=== PATIENT | male | born 1930 | race Caucasian/White ===

== ENCOUNTER 2016-11-03 11:26 | Inpatient (IN) | payer MEDICARE, OTHER ==
[2016-11-03] MEDS ORDERED: Sodium Chloride 0.9% 2.5 ML Syringe FLUSH PRN (11:37)
[2016-11-03] MEDS ORDERED: Sodium Chloride 0.9% 10 ML Syringe FLUSH PRN (11:37)
--- NOTE | 2016-11-03 12:44 | CR ---
EXAMINATION: Portable chest radiograph. HISTORY: Shortness of breath. Comparison: 07/27/2016 FINDINGS: The trachea is midline. The heart is borderline in size. The cardiomediastinal silhouette is within normal limits. No pulmonary infiltrates, effusions or pneumothorax. Median sternotomy wires are note d. Degenerative changes noted within the shoulders bilaterally. IMPRESSION: No acute cardiopulmonary process.
[2016-11-03] MEDS ORDERED: Acetaminophen 500 MG Tab PO ONE (12:53)
[2016-11-03] MEDS ORDERED: cefTRIAXone 1 GM in Premix Bag 1 BAG IV ONE (12:54)
[2016-11-03] MEDS ORDERED: Piperacillin/Tazobactam 3.375 GM in Sodium Chloride 0.9% 50 ML IV ONE (12:58)
--- NOTE | 2016-11-03 13:00 | EDM.PDOC ---
[id number] 4d NORMANDY PT Time Seen by Provider: 11/03/16 11:40 Source of Information: Reports: Patient History Limitations: Reports: No Limitations - History of Present Illness INITIAL COMMENTS - FREE TEXT/NARRATIVE: History of present illness: [] Patient was brought from [facility] after pulling out his Curry catheter this morning and found to have a high fever. Patient has been somewhat confused however he does answer questions appropriately on arrival. He has no complaints and denies any pain, shortness of breath, nausea, vomiting or diarrhea. On arrival patient was hypoxic in the high 80s to the high 90s with nasal cannula O2. Review of systems: As per history of present illness and below otherwise all systems reviewed and negative. Past medical history: As per history of present illness and as reviewed below otherwise noncontributory. Surgical history: As per history of present illness and as reviewed below otherwise noncontributory. Social history: No reported history of drug or alcohol abuse. Family history: As per history of present illness and as reviewed below otherwise noncontributory. Physical exam: General: Well developed, well nourished in NAD HEENT: Atraumatic, normocephalic, pupils reactive, negative for conjunctival pallor or scleral icterus, mucous membranes moist, throat clear, neck supple, nontender, trachea midline. Lungs: Clear to auscultation, breath sounds equal bilaterally, chest nontender. No respiratory distress no accessory muscle use Heart: S1S2, regular, negative for clicks, rubs, or JVD. Abdomen: Soft, nondistended, nontender. Negative for masses or hepatosplenomegaly. Negative for costovertebral tenderness. Pelvis: Stable nontender. Genitourinary: Deferred. Rectal: Deferred. Extremities: Atraumatic, negative for cords or calf pain. Neurovascular unremarkable. 2+ pitting edema lower extremities Neuro: Awake, somnolent answers questions. Cranial nerves II through XII unremarkable. Cerebellum unremarkable. Motor and sensory unremarkable throughout. Exam nonfocal. Diagnostics: Labs and x-rays were done. No specific infiltrate or acute changes on x-ray are found. White count is elevated with a shift lactic acid was normal Therapeutics: [] Curry catheter was replaced, Zosyn started ED to cover potential pneumonia Impression: [] Acute febrile illness Plan: [] Admit for further workup and treatment to hospitalist Dr. Andelin Definitive disposition and diagnosis as appropriate pending reevaluation and review of above. - Related Data Allergies Allergy/AdvReac Type Severity Reaction Status Date / Time No Known Allergies Allergy Verified 07/27/16 17:41 Home Meds: Home Meds Furosemide [Lasix] 40 mg PO BID 01/16/14 [History] Lisinopril 10 mg PO DAILY 01/16/14 [History] Simvastatin [Zocor] 40 mg PO BEDTIME 01/16/14 [History] Bisacodyl [Dulcolax] 10 mg RECTAL DAILY 11/03/16 [History] Finasteride 5 mg PO DAILY 11/03/16 [History] Levothyroxine Sodium [Tirosint] 50 mcg PO ACBREAKFAST 11/03/16 [History] Mag Carb/Al Hydrox/Alginic Ac [Gaviscon Liquid] 30 ml PO ASDIRECTED PRN [History] Magnesium Hydroxide [Milk of Magnesia] 30 ml PO DAILY PRN 11/03/16 [History] Nystatin [Nystop] 1 applic TOP TID 11/03/16 [History] Pantoprazole [ProTONIX] 40 mg PO ACBREAKFAST 11/03/16 [History] Warfarin Sodium [Coumadin] 4 mg PO BEDTIME 11/03/16 [History] Past Medical History HEENT History: Reports: Impaired Vision Other HEENT History: on hearing aid Cardiovascular History: Reports: High Cholesterol Genitourinary History: Reports: Retention, Urinary Psychiatric History: Reports: None Hematologic History: Reports: None Immunologic History: Reports: None Oncologic (Cancer) History: Reports: None - Infectious Disease History Infectious Disease History: Reports: None - Past Surgical History Cardiovascular Surgical History: Reports: Valve Replacement GI Surgical History: Reports: EGD Other GI Surgeries/Procedures: Esophageal surgery 1996 Social & Family History - Family History Family Medical History: Noncontributory - Tobacco Use Smoking Status *Q: Never Smoker Second Hand Smoke Exposure: No - Caffeine Use Caffeine Use: Reports: None - Alcohol Use Days Per Week of Alcohol Use: 0 - Recreational Drug Use Recreational Drug Use: No ED ROS GENERAL - Review of Systems Review Of Systems: See Below (See history of present illness) ED EXAM, GENERAL - Physical Exam Exam: See Below (See history of present illness) Course - Vital Signs Last Recorded V/S: Last Vital Signs Temp 38.3 C H 11/03/16 13:34 Pulse 81 11/03/16 13:34 Resp 28 H 11/03/16 13:34 BP 122/54 L 11/03/16 13:34 Pulse Ox 3 L 11/03/16 13:34 - Orders/Labs/Meds Orders: Active Orders 24 hr Category Date Time Status Curry Catheter Insertion [Insert Urinary Catheter] [OM. Care 11/03/16 11:45 Ordered PC] Q24H Urinary Catheter Assessment [RC] ASDIRECTED Care 11/03/16 11:40 Active CULTURE BLOOD [BC] Stat Lab 11/03/16 11:46 Received CULTURE BLOOD [BC] Stat Lab 11/03/16 11:57 Received CULTURE URINE [RM] Stat Lab 11/03/16 12:15 Received Sodium Chloride 0.9% [Saline Flush] Med 11/03/16 11:37 Active 10 ml FLUSH ASDIRECTED PRN Sodium Chloride 0.9% [Saline Flush] Med 11/03/16 11:37 Active 2.5 ml FLUSH ASDIRECTED PRN Blood Culture x2 Reflex Set [OM.PC] Stat Oth 11/03/16 11:37 Ordered Peripheral IV Insertion Adult [OM.PC] Stat Oth 11/03/16 11:38 Ordered Medication Orders Acetaminophen (Tylenol) 650 mg PO Q4H PRN PRN Reason: Pain Ondansetron HCl (Zofran) 4 mg IVPUSH Q4H PRN PRN Reason: Nausea Sodium Chloride (Saline Flush) 10 ml FLUSH ASDIRECTED PRN PRN Reason: Keep Vein Open Sodium Chloride (Saline Flush) 2.5 ml FLUSH ASDIRECTED PRN PRN Reason: Keep Vein Open Vancomycin HCl (Pharmacy To Dose - Vancomycin) 1 dose .XX ASDIRECTED [facility] Labs: Laboratory Tests 11/03/16 11/03/16 11/03/16 Range/Units 11:46 11:46 12:15 WBC 21.38 H (4.0-11.0) K/uL RBC 4.46 L (4.50-5.90) M/uL Hgb 11.0 L (13.0-17.0) g/dL Hct 36.0 L (38.0-50.0) % MCV 80.7 (80.0-98.0) fL MCH 24.7 L (27.0-32.0) pg MCHC 30.6 L (31.0-37.0) g/dL RDW Std Deviation 50.8 (28.0-62.0) fl RDW Coeff of Regulo 17 H (11.0-15.0) % Plt Count 179 (150-400) K/uL MPV 11.50 (7.40-12.00) fL Add Manual Diff YES Neutrophils % (Manual) 75 (48.0-80.0) % Band Neutrophils % 16 % Lymphocytes % (Manual) 2 L (16.0-40.0) % Monocytes % (Manual) 7 (0.0-15.0) % Nucleated RBC % 0.0 /100WBC Absolute Seg Neuts 16.0 Band Neutrophils # 3.4 Lymphocytes # (Manual) 0.4 Monocytes # (Manual) 1.5 Nucleated RBCs # 0 K/uL Sodium 140 (136-146) mmol/L Potassium 3.3 L (3.5-5.1) mmol/L Chloride 101 (98-110) mmol/L Carbon Dioxide 28 (21-31) mmol/L BUN 24 H (6.0-23.0) mg/dL Creatinine 1.5 (0.6-1.5) mg/dL Est Cr Clr Drug Dosing 30.75 mL/min Estimated GFR (MDRD) 44.4 ml/min Glucose 108 (60-110) mg/dL Calcium 8.9 (8.8-10.8) mg/dL Total Bilirubin 1.3 (0.1-1.5) mg/dL AST 18 (5-40) IU/L ALT 14 (8-54) IU/L Alkaline Phosphatase 49 (40-150) Total Protein 7.2 (6.0-8.0) g/dL Albumin 3.6 (3.4-4.8) g/dL Globulin 3.6 H (2.0-3.5) g/dL Albumin/Globulin Ratio 1.0 L (1.3-2.8) Urine Color YELLOW Urine Appearance CLEAR Urine pH 5.5 (5.0-8.0) Ur Specific [place] 1.010 (1.001-1.035) Urine Protein NEGATIVE (NEGATIVE) mg/dL Urine Glucose (UA) NEGATIVE (NEGATIVE) mg/dL Urine Ketones NEGATIVE (NEGATIVE) mg/dL Urine Occult Blood LARGE H (NEGATIVE) Urine Nitrite NEGATIVE (NEGATIVE) Urine Bilirubin NEGATIVE (NEGATIVE) Urine Urobilinogen 0.2 (<2.0) EU/dL Ur Leukocyte Esterase TRACE (NEGATIVE) Urine RBC 30-40 (0-2/HPF) Urine WBC 5-10 (0-5/HPF) Ur Epithelial Cells FEW (NONE-FEW) Urine Bacteria FEW (NEGATIVE) Meds: Medications Generic Name Dose Route Start Last Admin Trade Name Freq PRN Reason Stop Dose Admin Acetaminophen 650 mg 11/03/16 13:43 Tylenol PO Q4H PRN Pain Ondansetron HCl 4 mg 11/03/16 13:43 Zofran IVPUSH Q4H PRN Nausea Sodium Chloride 10 ml 11/03/16 11:37 Saline Flush FLUSH ASDIRECTED PRN Keep Vein Open Sodium Chloride 2.5 ml 11/03/16 11:37 Saline Flush FLUSH ASDIRECTED PRN Keep Vein Open Vancomycin HCl 1 dose 11/03/16 14:30 Pharmacy To Dose - Vancomycin .XX ASDIRECTED CARLOS Discontinued Medications Generic Name Dose Route Start Last Admin Trade Name Freq PRN Reason Stop Dose Admin Acetaminophen 1,000 mg 11/03/16 12:53 11/03/16 13:04 Tylenol Extra Strength PO 11/03/16 12:54 1,000 mg ONETIME ONE Administration Ceftriaxone Sodium/Dextrose 1 50 mls @ 100 mls/hr 11/03/16 12:54 11/03/16 13: 42 gm/ Premix IV 11/03/16 13:23 Not Given ONETIME ONE Piperacillin Sod/Tazobactam 50 mls @ 100 mls/hr 11/03/16 12:58 11/03/16 13:31 Sod 3.375 gm/ Sodium Chloride IV 11/03/16 13:27 100 mls/hr ONETIME ONE Administration Departure - Departure Time of Disposition: 14:21 Disposition: Admitted As Inpatient 65 Condition: fair Clinical Impression: Acute febrile illness - Discharge Information - My Orders Last 24 Hours: My Active Orders 11/03/16 11:37 Sodium Chloride 0.9% [Saline Flush] 10 ml FLUSH ASDIRECTED PRN Sodium Chloride 0.9% [Saline Flush] 2.5 ml FLUSH ASDIRECTED PRN Blood Culture x2 Reflex Set [OM.PC] Stat 11/03/16 11:38 Peripheral IV Insertion Adult [OM.PC] Stat 11/03/16 11:40 Urinary Catheter Assessment [RC] ASDIRECTED 11/03/16 11:45 Curry Catheter Insertion [Insert Urinary Catheter] [OM.PC] Q24H 11/03/16 11:46 CULTURE BLOOD [BC] Stat 11/03/16 11:57 CULTURE BLOOD [BC] Stat 11/03/16 12:15 CULTURE URINE [RM] Stat - Assessment/Plan Last 24 Hours: My Active Orders 11/03/16 11:37 Sodium Chloride 0.9% [Saline Flush] 10 ml FLUSH ASDIRECTED PRN Sodium Chloride 0.9% [Saline Flush] 2.5 ml FLUSH ASDIRECTED PRN Blood Culture x2 Reflex Set [OM.PC] Stat 11/03/16 11:38 Peripheral IV Insertion Adult [OM.PC] Stat 11/03/16 11:40 Urinary Catheter Assessment [RC] ASDIRECTED 11/03/16 11:45 Curry Catheter Insertion [Insert Urinary Catheter] [OM.PC] Q24H 11/03/16 11:46 CULTURE BLOOD [BC] Stat 11/03/16 11:57 CULTURE BLOOD [BC] Stat 11/03/16 12:15 CULTURE URINE [RM] Stat
[2016-11-03] MEDS ORDERED: Acetaminophen 325 MG Tab PO PRN (13:43)
[2016-11-03] MEDS ORDERED: Ondansetron 4 MG/2 ML SDV IVPUSH PRN (13:43)
--- NOTE | 2016-11-03 14:29 | PCM.HP ---
H&P History of Present Illness - General Date of Service: 11/03/16 Admit Problem/Dx: Admission Diagnosis/Problem Admission Diagnosis/Problem Leukocytosis Source of Information: Patient, Family (Setp-son Ananth at bedside. Jones Yamileth out of town, will be back this afternoon.) History Limitations: Reports: No Limitations - History of Present Illness Initial Comments - Free Text/Narative: This 85 year old male with pmh of CHF, bioprosthetic heart valve, afib on chronic anticoagulation with Coumadin, HTN, urinary retention with chronic murray catheter, and frequent UTIs presented to the ED today after [place] staff noted a fever and he accidentally removed his murray. They report he was sitting in his wheelchair and got up and started ambulating alone and murray remained attached thus removing it accidently. Murray was replaced. Fever of 101.2 noted. He really has no other concerns. He reports no chest pain, SOB, palpations, headache, blurred or double vision, no abdominal pain, no recent black or bloody BMs. No diarrhea or constipation. No back or neck pain or stiffness. He was out on Thursday at [employer] . Son though his L leg got a little sunburned, there is a noted erythema with warmth noted, slightly linear in appearance. Legs noted to have edema, which son feels in more, patient states its about the same. In the ED WBC 21,380, Hgb 11.0, Hct 36.0, Plt 179, bandemia noted, 16, Na 140, K + 3.3, BUN 24 and Cr 1.4, which is slightly elevated from baseline of 18 and 0.8. UA revealed lrg blood, RBC 30-40, neg nitrite, trace leukocyte esterase and few bacteria. UC pending and BC pending as well. lactate 1.9. Temp noted at 101.5, slightly hypoxia noted, 87% RA. He was given Rocephin and Zosyn in ED due to concerns of UTI and sepsis. PCP Dr You at [facility] - Related Data Allergies/Adverse Reactions: Allergies Allergy/AdvReac Type Severity Reaction Status Date / Time No Known Allergies Allergy Verified 07/27/16 17:41 Home Medications: Home Meds Furosemide [Lasix] 40 mg PO BID 01/16/14 [History] Lisinopril 10 mg PO DAILY 01/16/14 [History] Simvastatin [Zocor] 40 mg PO BEDTIME 01/16/14 [History] Bisacodyl [Dulcolax] 10 mg RECTAL DAILY 11/03/16 [History] Finasteride 5 mg PO DAILY 11/03/16 [History] Levothyroxine Sodium [Tirosint] 50 mcg PO ACBREAKFAST 11/03/16 [History] Mag Carb/Al Hydrox/Alginic Ac [Gaviscon Liquid] 30 ml PO ASDIRECTED PRN [History] Magnesium Hydroxide [Milk of Magnesia] 30 ml PO DAILY PRN 11/03/16 [History] Nystatin [Nystop] 1 applic TOP TID 11/03/16 [History] Pantoprazole [ProTONIX] 40 mg PO ACBREAKFAST 11/03/16 [History] Warfarin Sodium [Coumadin] 4 mg PO BEDTIME 11/03/16 [History] Past Medical History HEENT History: Reports: Hard of Hearing, Impaired Vision Cardiovascular History: Reports: Heart Failure, Heart Valve Replacement, High Cholesterol, Hypertension Respiratory History: Reports: None Other Gastrointestinal History: Esophogeal dyskinesia Genitourinary History: Reports: Retention, Urinary (chronic murray) Neurological History: Reports: None. Denies: CVA, TIA Psychiatric History: Reports: None Endocrine/Metabolic History: Reports: Hypothyroidism, Obesity/BMI 30+. Denies: Diabetes, Type II Hematologic History: Reports: None Immunologic History: Reports: None Oncologic (Cancer) History: Reports: None - Infectious Disease History Infectious Disease History: Reports: None - Past Surgical History Cardiovascular Surgical History: Reports: Valve Replacement GI Surgical History: Reports: EGD Other GI Surgeries/Procedures: Esophageal surgery 1996 Social & Family History - Family History Family Medical History: Noncontributory - Tobacco Use Smoking Status *Q: Never Smoker Second Hand Smoke Exposure: No - Caffeine Use Caffeine Use: Reports: None - Alcohol Use Days Per Week of Alcohol Use: 0 - Recreational Drug Use Recreational Drug Use: No H&P Review of Systems - Review of Systems: Review Of Systems: See Below General: Reports: Fever, Malaise, Weakness. Denies: Decreased Appetite HEENT: Reports: No Symptoms. Denies: Ear Pain, Headaches, Hearing Changes, Sinus Congestion, Sore Throat, Visual Changes Pulmonary: Reports: No Symptoms. Denies: Shortness of Breath, Wheezing, Cough, Sputum Cardiovascular: Reports: Edema (BLE). Denies: Chest Pain, Palpitations Gastrointestinal: Reports: No Symptoms. Denies: Abdominal Pain, Black Stool, Bloody Stool, Nausea, Vomiting Genitourinary: Reports: No Symptoms. Denies: Dysuria, Frequency, Burning, Flank Pain Musculoskeletal: Reports: No Symptoms. Denies: Neck Pain, Back Pain Skin: Reports: No Symptoms Psychiatric: Reports: No Symptoms Neurological: Reports: Confusion (intermittently, but not confused at time of assessment) Hematologic/Lymphatic: Reports: No Symptoms Immunologic: Reports: No Symptoms Exam - Exam Exam: See Below - Vital Signs Vital Signs: Last Vital Signs Temp 101 F H 11/03/16 13:34 Pulse 81 11/03/16 13:34 Resp 28 H 11/03/16 13:34 BP 122/54 L 11/03/16 13:34 Pulse Ox 3 L 11/03/16 13:34 Weight: 134.944 kg - Exam Quality Assessment: Supplemental Oxygen, Urinary Catheter, DVT Prophylaxis General: Alert, Oriented, Cooperative HEENT: Conjunctiva Clear, EACs Clear, EOMI, Hearing Intact ([place]), Nares Patent, Posterior Pharynx Clear. No: Mucosa Moist & [place] (large tongue, does not wear his dentures, c/o dry mouth, appears slightly dry, but not cracked in appearance ) Neck: Supple, Trachea Midline. No: JVD Lungs: Clear to Auscultation. No: Normal Respiratory Effort (some tachypnea noted, but patient denies feeling SOB.) Cardiovascular: Regular Rate, Irregular Rhythm, Systolic Murmur Abdomen: Normal Bowel Sounds, Soft. No: Organomegaly, Distention, Guarding, Rigidity, Tenderness Back Exam: Normal Inspection, Full Range of Motion. No: CVA Tenderness (L), CVA Tenderness (R), Vertebral Tenderness Extremities: Normal Pulses, Edema (+3-4 pitting edema to BLE from knees extending to feet, with +2 pitting on feet). No: Normal Inspection, Calf Tenderness Skin: Other (Erythema and warmth noted to distal L finley, no tenderness to palpation. Noted skin abrasions and scratches to back of L calf. Questionable cellulitis) Neuro Extensive - Mental Status: Alert, Oriented x3, Normal Mood/Affect Neuro Extensive - Motor, Sensory, Reflexes: CN II-XII Intact, Normal Reflexes. No: Normal Gait (needs assist of 2-3 and gait belt and FWW) Psychiatric: Alert, Normal Affect, Normal Mood - Patient Data Lab Results last 24 hrs: Laboratory Results - last 24 hr 11/03/16 Range/Units 13:11 Lactate 1.9 (0.20-2.00) mmol/L Result Diagrams: 11/03/16 11:46 11/03/16 11:46 *Q Meaningful Use (ADM) - VTE *Q VTE Criteria *Q: - Stroke *Q Stroke Criteria *Q: - AMI *Q AMI Criteria *Q: - Problem List (1) Cellulitis SNOMED Code(s): 845040773 ICD Code: L03.90 - CELLULITIS, UNSPECIFIED Status: Acute Current Visit: Yes Qualifiers: Site of cellulitis: extremity Site of cellulitis of extremity: lower extremity Laterality: left Qualified Code(s): L03.116 - Cellulitis of left lower limb (2) Leukocytosis SNOMED Code(s): 899697268, 683477426 ICD Code: D72.829 - ELEVATED WHITE BLOOD CELL COUNT, UNSPECIFIED Status: Acute Current Visit: Yes Qualifiers: Leukocytosis type: bandemia Qualified Code(s): D72.825 - Bandemia (3) CHF (congestive heart failure) SNOMED Code(s): 16932145 ICD Code: I50.9 - HEART FAILURE, UNSPECIFIED Status: Chronic Current Visit: No Qualifiers: Congestive heart failure type: unspecified congestive heart failure type Congestive heart failure chronicity: chronic Qualified Code(s): I50.9 - Heart failure, unspecified (4) Chronic anticoagulation SNOMED Code(s): 474491847 ICD Code: Z79.01 - LONG-TERM (CURRENT) USE OF ANTICOAGULANTS Status: Chronic Current Visit: No (5) HTN (hypertension) SNOMED Code(s): 72971110 ICD Code: I10 - ESSENTIAL (PRIMARY) HYPERTENSION Status: Chronic Current Visit: No Qualifiers: Hypertension type: essential hypertension Qualified Code(s): I10 - Essential (primary) hypertension (6) Hx of aortic valve replacement SNOMED Code(s): 1501740042334, 455754073, 7706125260760 ICD Code: Z95.2 - PRESENCE OF PROSTHETIC HEART VALVE Status: Chronic Current Visit: No (7) Hyperlipemia SNOMED Code(s): 39647829 ICD Code: E78.5 - HYPERLIPIDEMIA, UNSPECIFIED Status: Chronic Current Visit: No Qualifiers: Hyperlipidemia type: unspecified Qualified Code(s): E78.5 - Hyperlipidemia , unspecified (8) Afib SNOMED Code(s): 94160078 ICD Code: I48.91 - UNSPECIFIED ATRIAL FIBRILLATION Status: Chronic Current Visit: Yes Qualifiers: Atrial fibrillation type: chronic Qualified Code(s): I48.2 - Chronic atrial fibrillation Problem List Initiated/Reviewed/Updated: Yes Orders Last 24hrs: Active Orders 24 hr Category Date Time Status Patient Status [ADT] Routine ADT 11/03/16 13:43 Active Daily Weight [Height and Weight] [RC] DAILY Care 11/03/16 14:18 Ordered Intake and Output Strict [RC] ASDIRECTED Care 11/03/16 14:18 Ordered Intake and Output [RC] QSHIFT Care 11/03/16 13:44 Inactive Oxygen Therapy [RC] PRN Care 11/03/16 13:43 Active Up to Chair [RC] ASDIRECTED Care 11/03/16 13:43 Active VTE/DVT Education [RC] PER UNIT ROUTINE Care 11/03/16 13:43 Active Vital Signs [RC] Q4H Care 11/03/16 13:43 Active 2 Gram Sodium Diet [DIET] Diet 11/03/16 Dinner Ordered BASIC METABOLIC PANEL,BMP [CHEM] AM Lab 11/04/16 05:11 Ordered BASIC METABOLIC PANEL,BMP [CHEM] AM Lab 11/05/16 05:11 Ordered BASIC METABOLIC PANEL,BMP [CHEM] AM Lab 11/06/16 05:11 Ordered BASIC METABOLIC PANEL,BMP [CHEM] AM Lab 11/07/16 05:11 Ordered CBC WITH AUTO DIFF [HEME] AM Lab 11/04/16 05:11 Ordered CBC WITH AUTO DIFF [HEME] AM Lab 11/05/16 05:11 Ordered CBC WITH AUTO DIFF [HEME] AM Lab 11/06/16 05:11 Ordered CBC WITH AUTO DIFF [HEME] AM Lab 11/07/16 05:11 Ordered INR,PT,PROTHROMBIN TIME [COAG] DAILY Lab 11/04/16 05:00 Ordered INR,PT,PROTHROMBIN TIME [COAG] DAILY Lab 11/05/16 05:00 Ordered INR,PT,PROTHROMBIN TIME [COAG] DAILY Lab 11/06/16 05:00 Ordered INR,PT,PROTHROMBIN TIME [COAG] DAILY Lab 11/07/16 05:00 Ordered INR,PT,PROTHROMBIN TIME [COAG] Routine Lab 11/03/16 14:17 Ordered INR,PT,PROTHROMBIN TIME [COAG] Routine Lab 11/03/16 14:17 Stop Req MAGNESIUM [CHEM] AM Lab 11/04/16 05:11 Ordered MAGNESIUM [CHEM] AM Lab 11/05/16 05:11 Ordered MAGNESIUM [CHEM] AM Lab 11/06/16 05:11 Ordered MAGNESIUM [CHEM] AM Lab 11/07/16 05:11 Ordered Acetaminophen [Tylenol] Med 11/03/16 13:43 Active 650 mg PO Q4H PRN Ondansetron [Zofran] Med 11/03/16 13:43 Active 4 mg IVPUSH Q4H PRN Vancomycin Pharmacy to Dose [Pharmacy to Dose - Med 11/03/16 14:30 Ordered Vancomycin] 1 dose .XX ASDIRECTED Resuscitation Status Routine Resus Stat 11/03/16 14:16 Ordered Medication Orders Acetaminophen (Tylenol) 650 mg PO Q4H PRN PRN Reason: Pain Ondansetron HCl (Zofran) 4 mg IVPUSH Q4H PRN PRN Reason: Nausea Sodium Chloride (Saline Flush) 10 ml FLUSH ASDIRECTED PRN PRN Reason: Keep Vein Open Sodium Chloride (Saline Flush) 2.5 ml FLUSH ASDIRECTED PRN PRN Reason: Keep Vein Open Vancomycin HCl (Pharmacy To Dose - Vancomycin) 1 dose .XX ASDIRECTED CARLOS Assessment/Plan Comment:: This 85 chuy old male admitted with febrile illness and leukocytosis 1. Sepsis: Will cover with broad spectrum antibiotics. Discussed case with Dr. Baumann, will keep Zosyn and add Levaquin. May be due to lower leg cellulitis. Lactate normal, but has fever, some mild hypotension and leukocytosis. 2. Cellulitis: Will add Vancomycin to cover left lower leg cellulitis. 3. Urinary retention: Pulled murray out this am, replaced in ED. Will monitor bleeding, especially while on Coumadin. 4. Hx aortic valve replacement: bioprosthetic. Will obtain ECHO 5. HTN: Holding Lisinopril for now. BP low 100s SBP 6. CHF: No recent echo on chart, will obtain ECHO to evaluate EF, has peripheral edema. 7. Afib: On Coumadin. Monitor. VTE: On Coumadin. Monitor INR daily Dispo: 2-3 days pending improvement.
[2016-11-03] MEDS ORDERED: Levofloxacin/Dextrose 5%-Water 750 MG in Premix Bag 1 BAG IV SCH ×2 (15:00→17:00)
[2016-11-03] MEDS ORDERED: Aluminum Hydroxide/Magnesium Hydroxide/Simethicone Susp 30 ML Cup PO PRN (15:03)
[2016-11-03] MEDS ORDERED: Magnesium Hydroxide 400 MG/5 ML Susp 30 ML Cup PO PRN (15:03)
[2016-11-03] MEDS: Piperacillin/Tazobactam 3.375 GM in Sodium Chloride 0.9% 50 ML IV SCH (19:26)
[2016-11-03] MEDS: Simvastatin 40 MG Tab PO SCH (20:37)
[2016-11-03] MEDS: Nystatin Topical Powder 15 GM Bottle TOP SCH (22:30)
[2016-11-04] MEDS ORDERED: Furosemide 40 MG/4 ML VIAL IVPUSH ONE ×2 (00:42→09:36)
[2016-11-04] MEDS ORDERED: LORazepam 1 MG Tab PO PRN (00:45)
[2016-11-04] MEDS: Piperacillin/Tazobactam 3.375 GM in Sodium Chloride 0.9% 50 ML IV SCH ×4 (01:16→18:00)
[2016-11-04] MEDS: Albuterol/Ipratropium 3.0-0.5 MG/3 ML Neb Soln NEB PRN ×4 (01:16→21:00)
[2016-11-04] MEDS: Nystatin Topical Powder 15 GM Bottle TOP SCH ×3 (06:45→21:00)
[2016-11-04] MEDS: Levothyroxine 50 MCG Tab PO SCH (06:46)
[2016-11-04] MEDS: Pantoprazole 40 MG Tab.CR PO SCH (06:46)
[2016-11-04] MEDS ORDERED: Levothyroxine 50 MCG Tab PO ONE (07:30)
[2016-11-04] MEDS ORDERED: Potassium Chloride 20 MEQ Tab.ER PO ONE (07:53)
--- NOTE | 2016-11-04 07:57 | PCM.PN ---
- General Info Date of Service: 11/04/16 Admission Dx/Problem (Free Text): Admission Diagnosis/Problem Admission Diagnosis/Problem Leukocytosis Subjective Update: Feeling ok this morning. No reports of pain. States breathing is better this morning, had some dyspnea overnight. Denies chest pain or palpitations. No SOB. Functional Status: Reports: pain controlled, tolerating diet, ambulating, urinating - Review of Systems General: Reports: No Symptoms. Denies: Fever HEENT: Reports: no symptoms. Denies: sinus congestion, sore throat Pulmonary: Reports: no symptoms. Denies: shortness of breath, cough, sputum Cardiovascular: Reports: Edema. Denies: Chest Pain, Palpitations Gastrointestinal: Reports: No symptoms. Denies: Abdominal pain, Nausea, Vomiting Genitourinary: Reports: no symptoms Musculoskeletal: Reports: no symptoms Skin: Reports: no symptoms Neurological: Reports: No Symptoms Psychiatric: Reports: no symptoms - Patient Data Vitals - most recent: Last Vital Signs Temp 99.6 F 11/04/16 04:00 Pulse 90 11/04/16 04:00 Resp 32 H 11/04/16 04:00 BP 133/86 11/04/16 04:00 Pulse Ox 96 11/04/16 04:00 Weight - most recent: 133.6 kg I&O - last 24 hours: Intake & Output 11/03/16 11/04/16 11/04/16 22:59 06:59 14:59 Intake Total 1090 1050 Output Total 550 1500 Balance 540 -450 Lab Results last 24 hrs: Laboratory Results - last 24 hr 11/03/16 11/04/16 11/04/16 Range/Units 13:11 04:38 05:42 WBC 12.02 H (4.0-11.0) K/uL RBC 4.52 (4.50-5.90) M/uL Hgb 11.3 L (13.0-17.0) g/dL Hct 36.5 L (38.0-50.0) % MCV 80.8 (80.0-98.0) fL MCH 25.0 L (27.0-32.0) pg MCHC 31.0 (31.0-37.0) g/dL RDW Std Deviation 50.6 (28.0-62.0) fl RDW Coeff of Regulo 17 H (11.0-15.0) % Plt Count 172 (150-400) K/uL MPV 9.90 (7.40-12.00) fL Neut % (Auto) 88.6 H (48.0-80.0) % Lymph % (Auto) 4.9 L (16.0-40.0) % [place] % (Auto) 6.3 (0.0-15.0) % Eos % (Auto) 0.0 (0.0-7.0) % Baso % (Auto) 0.2 (0.0-1.5) % Neut # (Auto) 10.6 H (1.4-5.7) K/uL Lymph # (Auto) 0.6 (0.6-2.4) K/uL [place] # (Auto) 0.8 (0.0-0.8) K/uL Eos # (Auto) 0.0 (0.0-0.7) K/uL Baso # (Auto) 0.0 (0.0-0.1) K/uL Nucleated RBC % 0.0 /100WBC Nucleated RBCs # 0 K/uL INR (0.86-1.11) Lactate 1.9 (0.20-2.00) mmol/L Sodium 140 (136-146) mmol/L Potassium 3.2 L (3.5-5.1) mmol/L Chloride 98 (98-110) mmol/L Carbon Dioxide 30 (21-31) mmol/L BUN 23 (6.0-23.0) mg/dL Creatinine 1.3 (0.6-1.5) mg/dL Est Cr Clr Drug Dosing 35.43 mL/min Estimated GFR (MDRD) 52.3 ml/min Glucose 118 H (60-110) mg/dL Calcium 8.6 L (8.8-10.8) mg/dL Magnesium 1.7 (1.5-2.3) mEq/L 11/04/16 Range/Units 05:42 WBC (4.0-11.0) K/uL RBC (4.50-5.90) M/uL Hgb (13.0-17.0) g/dL Hct (38.0-50.0) % MCV (80.0-98.0) fL MCH (27.0-32.0) pg MCHC (31.0-37.0) g/dL RDW Std Deviation (28.0-62.0) fl RDW Coeff of Regulo (11.0-15.0) % Plt Count (150-400) K/uL MPV (7.40-12.00) fL Neut % (Auto) (48.0-80.0) % Lymph % (Auto) (16.0-40.0) % [place] % (Auto) (0.0-15.0) % Eos % (Auto) (0.0-7.0) % Baso % (Auto) (0.0-1.5) % Neut # (Auto) (1.4-5.7) K/uL Lymph # (Auto) (0.6-2.4) K/uL [place] # (Auto) (0.0-0.8) K/uL Eos # (Auto) (0.0-0.7) K/uL Baso # (Auto) (0.0-0.1) K/uL Nucleated RBC % /100WBC Nucleated RBCs # K/uL INR 3.19 H (0.86-1.11) Lactate (0.20-2.00) mmol/L Sodium (136-146) mmol/L Potassium (3.5-5.1) mmol/L Chloride (98-110) mmol/L Carbon Dioxide (21-31) mmol/L BUN (6.0-23.0) mg/dL Creatinine (0.6-1.5) mg/dL Est Cr Clr Drug Dosing mL/min Estimated GFR (MDRD) ml/min Glucose (60-110) mg/dL Calcium (8.8-10.8) mg/dL Magnesium (1.5-2.3) mEq/L Med Orders - Current: Current Medications Acetaminophen (Tylenol) 650 mg PO Q4H PRN PRN Reason: Pain Al Hydroxide/Mg Hydroxide (Mag-Al Plus) 15 ml PO ASDIRECTED PRN PRN Reason: Heartburn Albuterol/Ipratropium (Duoneb 3.0-0.5 Mg/3 Ml) 3 ml NEB Q4H PRN PRN Reason: Wheezing Last Admin: 11/04/16 01:16 Dose: 3 ml Finasteride (Proscar) 5 mg PO DAILY [facility] Vancomycin HCl 2,000 mg/ (Sodium Chloride) 500 mls @ 250 mls/hr IV Q24H [facility] Last Admin: 11/03/16 15:09 Dose: 250 mls/hr Piperacillin Sod/Tazobactam (Sod 3.375 gm/ Sodium Chloride) 50 mls @ 100 mls/ hr IV Q6H [facility] Last Admin: 11/04/16 06:46 Dose: 100 mls/hr Levofloxacin/Dextrose 750 mg/ (Premix) 150 mls @ 100 mls/hr IV Q48H [facility] Last Admin: 11/03/16 17:46 Dose: 100 mls/hr Levothyroxine Sodium (Synthroid) 50 mcg PO ACBREAKFAST [facility] Last Admin: 11/04/16 06:46 Dose: 50 mcg Lorazepam (Ativan) 1 mg PO Q6H PRN PRN Reason: Agitation Last Admin: 11/04/16 01:16 Dose: 1 mg Magnesium Hydroxide (Milk Of Magnesia) 30 ml PO DAILY PRN PRN Reason: Constipation Nystatin (Nystop) 1 gm TOP TID [facility] Last Admin: 11/04/16 06:45 Dose: 1 applic Ondansetron HCl (Zofran) 4 mg IVPUSH Q4H PRN PRN Reason: Nausea Pantoprazole Sodium (Protonix) 40 mg PO ACBREAKFAST [facility] Last Admin: 11/04/16 06:46 Dose: 40 mg Simvastatin (Zocor) 40 mg PO BEDTIME [facility] Last Admin: 11/03/16 20:37 Dose: 40 mg Sodium Chloride (Saline Flush) 10 ml FLUSH ASDIRECTED PRN PRN Reason: Keep Vein Open Sodium Chloride (Saline Flush) 2.5 ml FLUSH ASDIRECTED PRN PRN Reason: Keep Vein Open Vancomycin HCl (Pharmacy To Dose - Vancomycin) 1 dose .XX ASDIRECTED [facility] Warfarin Sodium (Coumadin Ask) 1 each PO ONETIME ONE Stop: 11/04/16 07:54 Discontinued Medications Acetaminophen (Tylenol Extra Strength) 1,000 mg PO ONETIME ONE Stop: 11/03/16 12:54 Last Admin: 11/03/16 13:04 Dose: 1,000 mg Furosemide (Lasix) 60 mg IVPUSH ONETIME ONE Stop: 11/04/16 00:43 Last Admin: 11/04/16 01:16 Dose: 60 mg Ceftriaxone Sodium/Dextrose 1 (gm/ Premix) 50 mls @ 100 mls/hr IV ONETIME ONE Stop: 11/03/16 13:23 Last Admin: 11/03/16 13:42 Dose: Not Given Piperacillin Sod/Tazobactam (Sod 3.375 gm/ Sodium Chloride) 50 mls @ 100 mls/ hr IV ONETIME ONE Stop: 11/03/16 13:27 Last Admin: 11/03/16 13:31 Dose: 100 mls/hr Levofloxacin/Dextrose 750 mg/ (Premix) 150 mls @ 100 mls/hr IV Q48H [facility] Potassium Chloride (Klor-Con M20) 40 meq PO ONETIME ONE Stop: 11/04/16 07:54 - Exam General: alert, oriented, cooperative HEENT: Pupils equal, Pupils reactive, EOMI, Mucous membr. moist/pink Neck: supple, no JVD Lungs: Rhonchi (bilateral bases). No: Normal respiratory effort Cardiovascular: Irregular Rhythm, Murmurs. No: Bradycardia, Tachycardia Abdomen: bowel sounds present, soft, no tenderness, no distension Extremities: normal pulses, no calf tenderness, edema (+3 pitting edema) Wound/Incisions: erythema improving (Less erythema noted, no spreading, less warmth noted to LLE cellulitis) Neurological: no new focal deficit - Problem List & Annotations (1) Cellulitis SNOMED Code(s): 831424268 Code(s): L03.90 - CELLULITIS, UNSPECIFIED Status: Acute Current Visit: Yes Qualifiers: Site of cellulitis: extremity Site of cellulitis of extremity: lower extremity Laterality: left Qualified Code(s): L03.116 - Cellulitis of left lower limb (2) Leukocytosis SNOMED Code(s): 754988337, 197003936 Code(s): D72.829 - ELEVATED WHITE BLOOD CELL COUNT, UNSPECIFIED Status: Acute Current Visit: Yes Qualifiers: Leukocytosis type: bandemia Qualified Code(s): D72.825 - Bandemia (3) CHF (congestive heart failure) SNOMED Code(s): 81921734 Code(s): I50.9 - HEART FAILURE, UNSPECIFIED Status: Chronic Current Visit : No Qualifiers: Congestive heart failure type: unspecified congestive heart failure type Congestive heart failure chronicity: chronic Qualified Code(s): I50.9 - Heart failure, unspecified (4) Chronic anticoagulation SNOMED Code(s): 381801788 Code(s): 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 OF ANTICOAGULANTS Status: Chronic Current Visit: No (5) HTN (hypertension) SNOMED Code(s): 30435944 Code(s): I10 - ESSENTIAL (PRIMARY) HYPERTENSION Status: Chronic Current Visit: No Qualifiers: Hypertension type: essential hypertension Qualified Code(s): I10 - Essential (primary) hypertension (6) Hx of aortic valve replacement SNOMED Code(s): 0306293526848, 339983481, 7968359912432 Code(s): Z95.2 - PRESENCE OF PROSTHETIC HEART VALVE Status: Chronic Current Visit: No (7) Hyperlipemia SNOMED Code(s): 71772969 Code(s): E78.5 - HYPERLIPIDEMIA, UNSPECIFIED Status: Chronic Current Visit: No Qualifiers: Hyperlipidemia type: unspecified Qualified Code(s): E78.5 - Hyperlipidemia , unspecified (8) Afib SNOMED Code(s): 49473489 Code(s): I48.91 - UNSPECIFIED ATRIAL FIBRILLATION Status: Chronic Current Visit: Yes Qualifiers: Atrial fibrillation type: chronic Qualified Code(s): I48.2 - Chronic atrial fibrillation - Problem List Review Problem List Initiated/Reviewed/Updated: Yes - My Orders Last 24 Hours: My Active Orders 11/03/16 13:43 Patient Status [ADT] Routine Oxygen Therapy [RC] PRN Up to Chair [RC] ASDIRECTED Vital Signs [RC] Q4H Acetaminophen [Tylenol] 650 mg PO Q4H PRN Ondansetron [Zofran] 4 mg IVPUSH Q4H PRN 11/03/16 14:16 Resuscitation Status Routine 11/03/16 14:18 Daily Weight [Height and Weight] [RC] DAILY 11/03/16 14:30 Vancomycin Pharmacy to Dose [Pharmacy to Dose - Vancomycin] 1 dose .XX ASDIRECTED 11/03/16 14:49 Echo Comp wo Cont [US] Routine 11/03/16 15:03 Alum Hydrox/Mag Hydrox/Simeth [Mag-Al Plus] 15 ml PO ASDIRECTED PRN Magnesium Hydroxide [Milk of Magnesia] 30 ml PO DAILY PRN 11/03/16 17:00 Levofloxacin/Dextrose 5%-Water [Levaquin in D5W 750 MG/150 ML] 750 mg Premix Bag 1 bag IV Q48H 11/03/16 19:00 Piperacillin/Tazobactam [Piperacil-Tazobact] 3.375 gm Sodium Chloride 0.9% [ Normal Saline] 50 ml IV Q6H 11/03/16 21:00 Simvastatin [Zocor] 40 mg PO BEDTIME 11/03/16 22:00 Nystatin [Nystop] 1 gm TOP TID 11/03/16 Dinner 2 Gram Sodium Diet [DIET] 11/04/16 07:30 Levothyroxine [Synthroid] 50 mcg PO ACBREAKFAST Pantoprazole [ProTONIX] 40 mg PO ACBREAKFAST 11/04/16 07:53 Warfarin Dosing [Coumadin Ask] 1 each PO ONETIME ONE 11/04/16 09:00 Finasteride [Proscar] 5 mg PO DAILY 11/05/16 05:00 INR,PT,PROTHROMBIN TIME [COAG] DAILY 11/05/16 05:11 BASIC METABOLIC PANEL,BMP [CHEM] AM CBC WITH AUTO DIFF [HEME] AM MAGNESIUM [CHEM] AM 11/06/16 05:00 INR,PT,PROTHROMBIN TIME [COAG] DAILY 11/06/16 05:11 BASIC METABOLIC PANEL,BMP [CHEM] AM CBC WITH AUTO DIFF [HEME] AM MAGNESIUM [CHEM] AM 11/07/16 05:00 INR,PT,PROTHROMBIN TIME [COAG] DAILY 11/07/16 05:11 BASIC METABOLIC PANEL,BMP [CHEM] AM CBC WITH AUTO DIFF [HEME] AM MAGNESIUM [CHEM] AM - Plan Plan:: This 85 hcuy old male admitted with febrile illness and leukocytosis 1. Sepsis: Leukocytosis improving. Fevers continue. Continue Zosyn and Levaquin. 2. Cellulitis: Improving, continue Vancomycin for left lower leg cellulitis. 3. Urinary retention: Curry in place, draining clear yellow urine. 4. Hx aortic valve replacement: bioprosthetic. ECHO pending. 5. HTN: Holding Lisinopril for now. BP low 100s SBP 6. CHF: ECHO pending, Had episode of dyspnea and coarse breath sounds last evening, given Lasix 60 mg IV, has had good diuresis. Peripheral edema improved. Will give another Lasix 40 mg IV today and possibly this afternoon. 7. Afib: On Coumadin. Monitor. VTE: On Coumadin. Monitor INR daily Dispo: 2-3 days pending improvement.
[2016-11-04] MEDS: Finasteride 5 MG Tab PO SCH (08:37)
[2016-11-04] MEDS ORDERED: Warfarin 2 MG Tab PO SCH (14:00)
[2016-11-04] MEDS: Simvastatin 40 MG Tab PO SCH (21:05)
[2016-11-05] MEDS: Piperacillin/Tazobactam 3.375 GM in Sodium Chloride 0.9% 50 ML IV SCH ×2 (01:27→06:28)
[2016-11-05] MEDS: Albuterol/Ipratropium 3.0-0.5 MG/3 ML Neb Soln NEB PRN ×2 (05:46→10:56)
[2016-11-05] MEDS: Nystatin Topical Powder 15 GM Bottle TOP SCH ×3 (06:29→22:00)
[2016-11-05] MEDS: Levothyroxine 50 MCG Tab PO SCH (06:29)
[2016-11-05] MEDS: Pantoprazole 40 MG Tab.CR PO SCH (06:29)
[2016-11-05] MEDS ORDERED: Levothyroxine 50 MCG Tab PO ONE (07:30)
[2016-11-05] MEDS ORDERED: Magnesium Sulfate/Water 2 GM in Premix Bag 1 BAG IV ONE (08:01)
[2016-11-05] MEDS ORDERED: Potassium Chloride 20 MEQ Tab.ER PO ONE (08:01)
--- NOTE | 2016-11-05 08:04 | PCM.PN ---
- General Info Date of Service: 11/05/16 Admission Dx/Problem (Free Text): Admission Diagnosis/Problem Admission Diagnosis/Problem Cellulitis Subjective Update: Feeling good this morning. No reports of pain. Denies chest pain or palpitations. No SOB. Sitting up in chair just finished breakfast. Functional Status: Reports: pain controlled, tolerating diet, ambulating - Review of Systems General: Reports: No Symptoms. Denies: Fever HEENT: Reports: no symptoms. Denies: sinus congestion, sore throat Pulmonary: Reports: no symptoms. Denies: shortness of breath, cough, sputum Cardiovascular: Reports: No Symptoms. Denies: Chest Pain, Palpitations, Edema Gastrointestinal: Reports: No symptoms. Denies: Abdominal pain, Nausea, Vomiting Genitourinary: Reports: no symptoms. Denies: frequency, burning, pain Musculoskeletal: Reports: no symptoms Skin: Reports: no symptoms Neurological: Reports: No Symptoms Psychiatric: Reports: no symptoms - Patient Data Vitals - most recent: Last Vital Signs Temp 97.1 F 11/05/16 07:17 Pulse 89 11/05/16 07:17 Resp 20 11/05/16 07:17 BP 108/64 11/05/16 07:17 Pulse Ox 95 11/05/16 07:17 Weight - most recent: 133 kg I&O - last 24 hours: Intake & Output 11/04/16 11/05/16 11/05/16 22:59 06:59 14:59 Intake Total 940 300 50 Output Total 1850 580 Balance -910 -280 50 Lab Results last 24 hrs: Laboratory Results - last 24 hr 11/05/16 11/05/16 11/05/16 Range/Units 05:56 05:56 05:56 WBC 9.83 (4.0-11.0) K/uL RBC 4.06 L (4.50-5.90) M/uL Hgb 10.1 L (13.0-17.0) g/dL Hct 33.1 L (38.0-50.0) % MCV 81.5 (80.0-98.0) fL MCH 24.9 L (27.0-32.0) pg MCHC 30.5 L (31.0-37.0) g/dL RDW Std Deviation 52.0 (28.0-62.0) fl RDW Coeff of Regulo 17 H (11.0-15.0) % Plt Count 158 (150-400) K/uL MPV 10.00 (7.40-12.00) fL Neut % (Auto) 76.1 (48.0-80.0) % Lymph % (Auto) 12.2 L (16.0-40.0) % [place] % (Auto) 10.9 (0.0-15.0) % Eos % (Auto) 0.5 (0.0-7.0) % Baso % (Auto) 0.3 (0.0-1.5) % Neut # (Auto) 7.5 H (1.4-5.7) K/uL Lymph # (Auto) 1.2 (0.6-2.4) K/uL [place] # (Auto) 1.1 H (0.0-0.8) K/uL Eos # (Auto) 0.1 (0.0-0.7) K/uL Baso # (Auto) 0.0 (0.0-0.1) K/uL Nucleated RBC % 0.0 /100WBC Nucleated RBCs # 0 K/uL INR 2.28 H (0.86-1.11) Sodium 141 (136-146) mmol/L Potassium 3.7 (3.5-5.1) mmol/L Chloride 100 (98-110) mmol/L Carbon Dioxide 31 (21-31) mmol/L BUN 30 H (6.0-23.0) mg/dL Creatinine 1.4 (0.6-1.5) mg/dL Est Cr Clr Drug Dosing 32.90 mL/min Estimated GFR (MDRD) 48.1 ml/min Glucose 117 H (60-110) mg/dL Calcium 8.2 L (8.8-10.8) mg/dL Magnesium 1.7 (1.5-2.3) mEq/L Med Orders - Current: Current Medications Acetaminophen (Tylenol) 650 mg PO Q4H PRN PRN Reason: Pain Last Admin: 11/04/16 20:36 Dose: 650 mg Al Hydroxide/Mg Hydroxide (Mag-Al Plus) 15 ml PO ASDIRECTED PRN PRN Reason: Heartburn Albuterol/Ipratropium (Duoneb 3.0-0.5 Mg/3 Ml) 3 ml NEB Q4H PRN PRN Reason: Wheezing Last Admin: 11/05/16 05:46 Dose: 3 ml Finasteride (Proscar) 5 mg PO DAILY [facility] Last Admin: 11/04/16 08:37 Dose: 5 mg Furosemide (Lasix) 40 mg PO BID [facility] Vancomycin HCl 2,000 mg/ (Sodium Chloride) 500 mls @ 250 mls/hr IV Q24H [facility] Last Admin: 11/04/16 13:56 Dose: 250 mls/hr Piperacillin Sod/Tazobactam (Sod 3.375 gm/ Sodium Chloride) 50 mls @ 100 mls/ hr IV Q6H [facility] Last Admin: 11/05/16 06:28 Dose: 100 mls/hr Levofloxacin/Dextrose 750 mg/ (Premix) 150 mls @ 100 mls/hr IV Q48H [facility] Last Admin: 11/03/16 17:46 Dose: 100 mls/hr Magnesium Sulfate 2 gm/ Premix 50 mls @ 50 mls/hr IV ONETIME ONE Stop: 11/05/16 09:00 Levothyroxine Sodium (Synthroid) 50 mcg PO ACBREAKFAST [facility] Last Admin: 11/05/16 06:29 Dose: 50 mcg Lorazepam (Ativan) 1 mg PO Q6H PRN PRN Reason: Agitation Last Admin: 11/04/16 01:16 Dose: 1 mg Magnesium Hydroxide (Milk Of Magnesia) 30 ml PO DAILY PRN PRN Reason: Constipation Nystatin (Nystop) 1 gm TOP TID [facility] Last Admin: 11/05/16 06:29 Dose: 1 applic Ondansetron HCl (Zofran) 4 mg IVPUSH Q4H PRN PRN Reason: Nausea Pantoprazole Sodium (Protonix) 40 mg PO ACBREAKFAST [facility] Last Admin: 11/05/16 06:29 Dose: 40 mg Potassium Chloride (Klor-Con M20) 40 meq PO ONETIME ONE Stop: 11/05/16 08:02 Simvastatin (Zocor) 40 mg PO BEDTIME [facility] Last Admin: 11/04/16 21:05 Dose: 40 mg Sodium Chloride (Saline Flush) 10 ml FLUSH ASDIRECTED PRN PRN Reason: Keep Vein Open Sodium Chloride (Saline Flush) 2.5 ml FLUSH ASDIRECTED PRN PRN Reason: Keep Vein Open Vancomycin HCl (Pharmacy To Dose - Vancomycin) 1 dose .XX ASDIRECTED [facility] Warfarin Sodium (Coumadin) 4 mg PO Q24H [facility] Discontinued Medications Acetaminophen (Tylenol Extra Strength) 1,000 mg PO ONETIME ONE Stop: 11/03/16 12:54 Last Admin: 11/03/16 13:04 Dose: 1,000 mg Furosemide (Lasix) 60 mg IVPUSH ONETIME ONE Stop: 11/04/16 00:43 Last Admin: 11/04/16 01:16 Dose: 60 mg Furosemide (Lasix) 40 mg IVPUSH NOW ONE Stop: 11/04/16 09:37 Last Admin: 11/04/16 09:54 Dose: 40 mg Ceftriaxone Sodium/Dextrose 1 (gm/ Premix) 50 mls @ 100 mls/hr IV ONETIME ONE Stop: 11/03/16 13:23 Last Admin: 11/03/16 13:42 Dose: Not Given Piperacillin Sod/Tazobactam (Sod 3.375 gm/ Sodium Chloride) 50 mls @ 100 mls/ hr IV ONETIME ONE Stop: 11/03/16 13:27 Last Admin: 11/03/16 13:31 Dose: 100 mls/hr Levofloxacin/Dextrose 750 mg/ (Premix) 150 mls @ 100 mls/hr IV Q48H [facility] Potassium Chloride (Klor-Con M20) 40 meq PO ONETIME ONE Stop: 11/04/16 07:54 Last Admin: 11/04/16 08:37 Dose: 40 meq Warfarin Sodium (Coumadin Ask) 1 each PO ONETIME ONE Stop: 11/04/16 07:54 Last Admin: 11/04/16 08:37 Dose: Not Given Warfarin Sodium (Coumadin) 2 mg PO ONETIME [facility] Stop: 11/04/16 14:01 Last Admin: 11/04/16 13:05 Dose: 2 mg - Exam Quality Assessment: supplemental oxygen, urine catheter, DVT prophylaxis General: alert, oriented, cooperative Lungs: Clear to auscultation, Normal respiratory effort Cardiovascular: Regular Rate, Regular Rhythm Abdomen: bowel sounds present, soft, no tenderness, no distension Extremities: no calf tenderness, edema (+2-3 pitting edema, improving) Wound/Incisions: erythema improving (Cellulitis to LLE less bright red today, continues to improve, no longer warm feeling) Neurological: no new focal deficit Psy/Mental Status: alert, normal affect, normal mood - Problem List & Annotations (1) Cellulitis SNOMED Code(s): 644486403 Code(s): L03.90 - CELLULITIS, UNSPECIFIED Status: Acute Current Visit: Yes Qualifiers: Site of cellulitis: extremity Site of cellulitis of extremity: lower extremity Laterality: left Qualified Code(s): L03.116 - Cellulitis of left lower limb (2) Leukocytosis SNOMED Code(s): 634626938, 210344877 Code(s): D72.829 - ELEVATED WHITE BLOOD CELL COUNT, UNSPECIFIED Status: Acute Current Visit: Yes Qualifiers: Leukocytosis type: bandemia Qualified Code(s): D72.825 - Bandemia (3) CHF (congestive heart failure) SNOMED Code(s): 93193976 Code(s): I50.9 - HEART FAILURE, UNSPECIFIED Status: Chronic Current Visit : No Qualifiers: Congestive heart failure type: unspecified congestive heart failure type Congestive heart failure chronicity: chronic Qualified Code(s): I50.9 - Heart failure, unspecified (4) Chronic anticoagulation SNOMED Code(s): 224884772 Code(s): 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 Status: Chronic Current Visit: No (5) HTN (hypertension) SNOMED Code(s): 64110088 Code(s): I10 - ESSENTIAL (PRIMARY) HYPERTENSION Status: Chronic Current Visit: No Qualifiers: Hypertension type: essential hypertension Qualified Code(s): I10 - Essential (primary) hypertension (6) Hx of aortic valve replacement SNOMED Code(s): 5434813228063, 545909414, 8296503374792 Code(s): Z95.2 - PRESENCE OF PROSTHETIC HEART VALVE Status: Chronic Current Visit: No (7) Hyperlipemia SNOMED Code(s): 13516541 Code(s): E78.5 - HYPERLIPIDEMIA, UNSPECIFIED Status: Chronic Current Visit: No Qualifiers: Hyperlipidemia type: unspecified Qualified Code(s): E78.5 - Hyperlipidemia , unspecified (8) Afib SNOMED Code(s): 09392889 Code(s): I48.91 - UNSPECIFIED ATRIAL FIBRILLATION Status: Chronic Current Visit: Yes Qualifiers: Atrial fibrillation type: chronic Qualified Code(s): I48.2 - Chronic atrial fibrillation - Problem List Review Problem List Initiated/Reviewed/Updated: Yes - My Orders Last 24 Hours: My Active Orders 11/04/16 07:30 Levothyroxine [Synthroid] 50 mcg PO ACBREAKFAST Pantoprazole [ProTONIX] 40 mg PO ACBREAKFAST 11/04/16 09:00 Finasteride [Proscar] 5 mg PO DAILY 11/05/16 08:01 Magnesium Sulfate/Water [Magnesium Sulfate 2 GM in Water 50 ML] 2 gm Premix Bag 1 bag IV ONETIME Potassium Chloride [Klor-Con M20] 40 meq PO ONETIME ONE 11/05/16 08:02 Consult to Physical Therapy [PT Evaluation and Treatment] [CONS] Routine 11/05/16 09:00 Furosemide [Lasix] 40 mg PO BID 11/06/16 05:00 INR,PT,PROTHROMBIN TIME [COAG] DAILY 11/06/16 05:11 BASIC METABOLIC PANEL,BMP [CHEM] AM CBC WITH AUTO DIFF [HEME] AM MAGNESIUM [CHEM] AM 11/07/16 05:00 INR,PT,PROTHROMBIN TIME [COAG] DAILY 11/07/16 05:11 BASIC METABOLIC PANEL,BMP [CHEM] AM CBC WITH AUTO DIFF [HEME] AM MAGNESIUM [CHEM] AM - Plan Plan:: This 85 chuy old male admitted with febrile illness and leukocytosis 1. Sepsis: Resolved. BC neg x 1 day. 2. Cellulitis: Leukocytosos resolved. Left lower leg cellulitis improving. Will Discontinue IV antibiotics and changed to Clindamycin PO and monitor. 3. Urinary retention: Curry in place, draining clear yellow urine. 4. Hx aortic valve replacement: bioprosthetic. ECHO pending. 5. HTN: Holding Lisinopril, BP stable. 6. CHF: ECHO pending, Peripheral edema improving, no dypsnea this am. Will restart Lasix 40 mg PO BID. Supplemented K+ and Mag this am. 7. Afib: On Coumadin. Monitor. VTE prophylaxis: On Coumadin. Monitor INR daily Dispo: Possible DC back to SNF in am if continues to improve.
[2016-11-05] MEDS: Finasteride 5 MG Tab PO SCH (08:18)
[2016-11-05] MEDS: Furosemide 40 MG Tab PO SCH ×2 (08:19→20:23)
[2016-11-05] MEDS ORDERED: Albuterol 0.083% 2.5 MG/3 ML Neb Soln NEB PRN (11:09)
[2016-11-05] MEDS: Clindamycin HCl 150 MG Cap PO SCH ×3 (13:30→23:51)
--- NOTE | 2016-11-05 13:46 | ECHO ---
EXAM DATE: 11/03/16 PATIENT'S AGE: 85 The echocardiogram report can be seen in this patient's EMR (Electronic Medical Record) in the Reports section. KEVON
[2016-11-05] MEDS: Albuterol/Ipratropium 3.0-0.5 MG/3 ML Neb Soln NEB SCH ×3 (13:58→21:29)
[2016-11-05] MEDS ORDERED: Warfarin 2 MG Tab PO SCH (14:00)
[2016-11-05] MEDS: Simvastatin 40 MG Tab PO SCH (20:23)
[2016-11-06] MEDS: Albuterol/Ipratropium 3.0-0.5 MG/3 ML Neb Soln NEB SCH ×3 (02:24→10:09)
[2016-11-06 05:28] LABS: CHLORIDE,CL 102 mmol/L (98-110); SODIUM,NA 141 mmol/L (136-146)
[2016-11-06] MEDS: Clindamycin HCl 150 MG Cap PO SCH (05:47)
[2016-11-06] MEDS: Nystatin Topical Powder 15 GM Bottle TOP SCH (05:47)
[2016-11-06] MEDS: Levothyroxine 50 MCG Tab PO SCH (06:40)
[2016-11-06] MEDS: Pantoprazole 40 MG Tab.CR PO SCH (06:40)
[2016-11-06 07:58] VITALS: BP 127/82
[2016-11-06] MEDS ORDERED: Potassium Chloride 20 MEQ Tab.ER PO ONE (08:06)
[2016-11-06] MEDS: Furosemide 40 MG Tab PO SCH (08:41)
[2016-11-06] MEDS: Finasteride 5 MG Tab PO SCH (08:41)
--- NOTE | 2016-11-06 10:55 | PCM.DCSUM1 ---
Discharge Summary - Hospital Course Brief History: This 85 year old male with pmh of CHF, bioprosthetic heart valve , afib on chronic anticoagulation with Coumadin, HTN, urinary retention with chronic murray catheter, and frequent UTIs presented to the ED 11/03/2016 after [facility] staff noted a fever and he accidentally removed his murray. They report he was sitting in his wheelchair and got up and started ambulating alone and murray remained attached thus removing it accidently. Murray was replaced. Fever of 101.2 noted. He really has no other concerns. He reports no chest pain, SOB, palpations, headache, blurred or double vision, no abdominal pain, no recent black or bloody BMs. No diarrhea or constipation. No back or neck pain or stiffness. He was out on Thursday at . Son thought his L leg got a little sunburned, there is a noted erythema with warmth noted, slightly linear in appearance but did wrap around to back of leg. Legs noted to have edema, which son feels in more, patient states its about the same. In the ED WBC 21, 380, Hgb 11.0, Hct 36.0, Plt 179, bandemia noted, 16, Na 140, K+ 3.3, BUN 24 and Cr 1.4, which is slightly elevated from baseline of 18 and 0.8. UA revealed lrg blood, RBC 30-40, neg nitrite, trace leukocyte esterase and few bacteria. UC pending and BC pending as well. lactate 1.9. Temp noted at 101.5, slightly hypoxia noted, 87% RA. He was given Rocephin and Zosyn in ED due to concerns of UTI and sepsis. PCP Dr You at [facility] - Discharge Data Discharge Date: 11/06/16 Discharge Disposition: DC/Tfer to SNF 03 Condition: Good - Discharge Diagnosis/Problem(s) (1) Cellulitis SNOMED Code(s): 478609961 ICD Code: L03.90 - CELLULITIS, UNSPECIFIED Status: Acute Current Visit: Yes Qualifiers: Site of cellulitis: extremity Site of cellulitis of extremity: lower extremity Laterality: left Qualified Code(s): L03.116 - Cellulitis of left lower limb (2) Leukocytosis SNOMED Code(s): 716167585, 273003862 ICD Code: D72.829 - ELEVATED WHITE BLOOD CELL COUNT, UNSPECIFIED Status: Acute Current Visit: Yes Qualifiers: Leukocytosis type: bandemia Qualified Code(s): D72.825 - Bandemia (3) CHF (congestive heart failure) SNOMED Code(s): 85985320 ICD Code: I50.9 - HEART FAILURE, UNSPECIFIED Status: Chronic Current Visit: No Qualifiers: Congestive heart failure type: unspecified congestive heart failure type Congestive heart failure chronicity: chronic Qualified Code(s): I50.9 - Heart failure, unspecified (4) Chronic anticoagulation SNOMED Code(s): 915178735 ICD Code: Z79.01 - SENIOR CARE (CURRENT) USE OF ANTICOAGULANTS Status: Chronic Current Visit: No (5) HTN (hypertension) SNOMED Code(s): 67722643 ICD Code: I10 - ESSENTIAL (PRIMARY) HYPERTENSION Status: Chronic Current Visit: No Qualifiers: Hypertension type: essential hypertension Qualified Code(s): I10 - Essential (primary) hypertension (6) Hx of aortic valve replacement SNOMED Code(s): 5891760941771, 901700641, 2150374637926 ICD Code: Z95.2 - PRESENCE OF PROSTHETIC HEART VALVE Status: Chronic Current Visit: No (7) Hyperlipemia SNOMED Code(s): 37656616 ICD Code: E78.5 - HYPERLIPIDEMIA, UNSPECIFIED Status: Chronic Current Visit: No Qualifiers: Hyperlipidemia type: unspecified Qualified Code(s): E78.5 - Hyperlipidemia , unspecified (8) Afib SNOMED Code(s): 96752012 ICD Code: I48.91 - UNSPECIFIED ATRIAL FIBRILLATION Status: Chronic Current Visit: Yes Qualifiers: Atrial fibrillation type: chronic Qualified Code(s): I48.2 - Chronic atrial fibrillation - Patient Summary/Data Consults: Consultations 11/05/16 08:02 Consult to Physical Therapy [PT Evaluation and Treatment] [CONS] Routine - Patient Instructions Diet: Low Sodium (mechanical soft, thin consistency) Activity: As Tolerated Showering/Bathing: May Shower Notify Provider of: Fever, Increased Pain, Swelling and Redness, Drainage, Nausea and/or Vomiting Other/Special Instructions: Oxygen 2 L NC to keep sats 90% or above. PT/OT to eval and treat. SARAI wraps to bilateral legs - Discharge Plan Prescriptions/Med Rec: Albuterol/Ipratropium [DuoNeb 3.0-0.5 MG/3 ML] 3 ml NEB Q4H #15 neb Clindamycin HCl [Cleocin] 450 mg PO Q6H #84 cap Home Medications: Home Meds Furosemide [Lasix] 40 mg PO BID 01/16/14 [History] Lisinopril 10 mg PO DAILY 01/16/14 [History] Simvastatin [Zocor] 40 mg PO BEDTIME 01/16/14 [History] Bisacodyl [Dulcolax] 10 mg RECTAL DAILY 11/03/16 [History] Finasteride 5 mg PO DAILY 11/03/16 [History] Levothyroxine Sodium [Tirosint] 50 mcg PO ACBREAKFAST 11/03/16 [History] Mag Carb/Al Hydrox/Alginic Ac [Gaviscon Liquid] 30 ml PO ASDIRECTED PRN [History] Magnesium Hydroxide [Milk of Magnesia] 30 ml PO DAILY PRN 11/03/16 [History] Nystatin [Nystop] 1 applic TOP TID 11/03/16 [History] Pantoprazole [ProTONIX] 40 mg PO ACBREAKFAST 11/03/16 [History] Warfarin Sodium [Coumadin] 4 mg PO BEDTIME 11/03/16 [History] Albuterol/Ipratropium [DuoNeb 3.0-0.5 MG/3 ML] 3 ml NEB Q4H #15 neb 11/06/16 [Rx ] Clindamycin HCl [Cleocin] 450 mg PO Q6H #84 cap 11/06/16 [Rx] Referrals: Lex You MD [Physician] - 11/13/16 (next [facility] rounds) - Discharge Summary/Plan Comment DC Time >30 min.: No Discharge Summary/Plan Comment: Discharge Diagnoses: Cellulitis LLE COPD CHF Afib on chronic anticoagulation HTN Urinary retention with chronic murray catheter Ishmael was admitted with suspicion of UTI and sepsis. LLE cellulitis was noted on admission, which this area was ertyehmatous warmth and had some surround edema. He was treated with broad spectrum antibiotics to cover to UTI and cellulitis. UC returned with mixed keeley 1,000-10,000. Cellulitis to LLE continued to improved daily and he was no longer febrile. Leukocytosis resolved. BC were negative. He was changed to Clindamycin x1 day and monitored. He continued to improve. He was given a couple IV doses of Lasix due to lower leg edema. This has improve to 1-2+ pitting, instead of 4+ on arrival. He reports he is feeling much better. Urine has remained clear yellow with no bleeding noted after traumatic removal prior to admission. ECHO was completed on admission due to edema, LV EF 50-55%, severely hypkinesis of septal LV wall. I will discharge him back to [facility] today with Clindamycin for a total of 10 days. Will recheck INR on Thursday, today it was noted to be 3.19. No further medications changes made. Will order PT/OT to evaluate and treat. Follow up with Dr. You next week is arranged. - General Info Date of Service: 11/06/16 Admission Dx/Problem (Free Text: Admission Diagnosis/Problem Admission Diagnosis/Problem Cellulitis Subjective Update: Feeling good this morning. No reports of pain. Denies chest pain or palpitations. No SOB. Sitting up in chair just finished breakfast. Asking when he can return to [facility]. Has been up ambulating some with nursing staff. Functional Status: Reports: pain controlled, tolerating diet, ambulating - Review of Systems General: Reports: No Symptoms. Denies: Fever HEENT: Reports: no symptoms. Denies: headaches, sinus congestion, sore throat Pulmonary: Reports: no symptoms. Denies: shortness of breath Cardiovascular: Reports: Edema (to legs, "my legs are looking better".). Denies : Chest Pain Gastrointestinal: Reports: No symptoms. Denies: Abdominal pain, Nausea, Vomiting Genitourinary: Reports: dysuria, other (no blood urine). Denies: burning, flank pain Musculoskeletal: Reports: no symptoms Skin: Reports: no symptoms Neurological: Reports: No Symptoms Psychiatric: Reports: no symptoms - Patient Data Vitals - Most Recent: Last Vital Signs Temp 98.4 F 11/06/16 07:56 Pulse 91 11/06/16 07:56 Resp 18 11/06/16 07:56 BP 127/82 11/06/16 07:56 Pulse Ox 90 L 11/06/16 07:56 Weight - Most Recent: 133 kg I&O - Last 24 hours: Intake & Output 11/05/16 11/06/16 11/06/16 22:59 06:59 14:59 Intake Total 880 360 Output Total 750 850 Balance 130 -490 Lab Results - Last 24 hrs: Laboratory Results - last 24 hr 11/06/16 11/06/16 11/06/16 Range/Units 04:30 04:30 04:30 WBC 9.00 (4.0-11.0) K/uL RBC 3.96 L (4.50-5.90) M/uL Hgb 9.8 L (13.0-17.0) g/dL Hct 32.1 L (38.0-50.0) % MCV 81.1 (80.0-98.0) fL MCH 24.7 L (27.0-32.0) pg MCHC 30.5 L (31.0-37.0) g/dL RDW Std Deviation 51.6 (28.0-62.0) fl RDW Coeff of Regulo 17 H (11.0-15.0) % Plt Count 150 (150-400) K/uL MPV 11.00 (7.40-12.00) fL Neut % (Auto) 72.9 (48.0-80.0) % Lymph % (Auto) 13.9 L (16.0-40.0) % [place] % (Auto) 12.0 (0.0-15.0) % Eos % (Auto) 1.0 (0.0-7.0) % Baso % (Auto) 0.2 (0.0-1.5) % Neut # (Auto) 6.6 H (1.4-5.7) K/uL Lymph # (Auto) 1.3 (0.6-2.4) K/uL [place] # (Auto) 1.1 H (0.0-0.8) K/uL Eos # (Auto) 0.1 (0.0-0.7) K/uL Baso # (Auto) 0.0 (0.0-0.1) K/uL Nucleated RBC % 0.0 /100WBC Nucleated RBCs # 0 K/uL INR 3.18 H (0.86-1.11) Sodium 141 (136-146) mmol/L Potassium 3.6 (3.5-5.1) mmol/L Chloride 102 (98-110) mmol/L Carbon Dioxide 29 (21-31) mmol/L BUN 29 H (6.0-23.0) mg/dL Creatinine 1.1 (0.6-1.5) mg/dL Est Cr Clr Drug Dosing 41.87 mL/min Estimated GFR (MDRD) > 60.0 ml/min Glucose 122 H (60-110) mg/dL Calcium 8.4 L (8.8-10.8) mg/dL Magnesium 1.8 (1.5-2.3) mEq/L Med Orders - Current: Current Medications Acetaminophen (Tylenol) 650 mg PO Q4H PRN PRN Reason: Pain Last Admin: 11/04/16 20:36 Dose: 650 mg Al Hydroxide/Mg Hydroxide (Mag-Al Plus) 15 ml PO ASDIRECTED PRN PRN Reason: Heartburn Albuterol (Proventil Neb Soln) 2.5 mg NEB Q2H PRN PRN Reason: Shortness Of Breath/wheezing Albuterol/Ipratropium (Duoneb 3.0-0.5 Mg/3 Ml) 3 ml NEB Q4H [facility] Last Admin: 11/06/16 10:09 Dose: 3 ml Clindamycin HCl (Cleocin) 450 mg PO Q6H [facility] Last Admin: 11/06/16 05:47 Dose: 450 mg Finasteride (Proscar) 5 mg PO DAILY [facility] Last Admin: 11/06/16 08:41 Dose: 5 mg Furosemide (Lasix) 40 mg PO BID [facility] Last Admin: 11/06/16 08:41 Dose: 40 mg Levothyroxine Sodium (Synthroid) 50 mcg PO ACBREAKFAST [facility] Last Admin: 11/06/16 06:40 Dose: 50 mcg Lorazepam (Ativan) 1 mg PO Q6H PRN PRN Reason: Agitation Last Admin: 11/04/16 01:16 Dose: 1 mg Magnesium Hydroxide (Milk Of Magnesia) 30 ml PO DAILY PRN PRN Reason: Constipation Nystatin (Nystop) 1 gm TOP TID [facility] Last Admin: 11/06/16 05:47 Dose: 1 applic Ondansetron HCl (Zofran) 4 mg IVPUSH Q4H PRN PRN Reason: Nausea Pantoprazole Sodium (Protonix) 40 mg PO ACBREAKFAST [facility] Last Admin: 11/06/16 06:40 Dose: 40 mg Simvastatin (Zocor) 40 mg PO BEDTIME [facility] Last Admin: 11/05/16 20:23 Dose: 40 mg Sodium Chloride (Saline Flush) 10 ml FLUSH ASDIRECTED PRN PRN Reason: Keep Vein Open Sodium Chloride (Saline Flush) 2.5 ml FLUSH ASDIRECTED PRN PRN Reason: Keep Vein Open Warfarin Sodium 2 mg/ Warfarin (Sodium 1 mg) 3 mg PO Q24H [facility] Discontinued Medications Acetaminophen (Tylenol Extra Strength) 1,000 mg PO ONETIME ONE Stop: 11/03/16 12:54 Last Admin: 11/03/16 13:04 Dose: 1,000 mg Albuterol/Ipratropium (Duoneb 3.0-0.5 Mg/3 Ml) 3 ml NEB Q4H PRN PRN Reason: Wheezing Last Admin: 11/05/16 10:56 Dose: 3 ml Furosemide (Lasix) 60 mg IVPUSH ONETIME ONE Stop: 11/04/16 00:43 Last Admin: 11/04/16 01:16 Dose: 60 mg Furosemide (Lasix) 40 mg IVPUSH NOW ONE Stop: 11/04/16 09:37 Last Admin: 11/04/16 09:54 Dose: 40 mg Ceftriaxone Sodium/Dextrose 1 (gm/ Premix) 50 mls @ 100 mls/hr IV ONETIME ONE Stop: 11/03/16 13:23 Last Admin: 11/03/16 13:42 Dose: Not Given Piperacillin Sod/Tazobactam (Sod 3.375 gm/ Sodium Chloride) 50 mls @ 100 mls/ hr IV ONETIME ONE Stop: 11/03/16 13:27 Last Admin: 11/03/16 13:31 Dose: 100 mls/hr Vancomycin HCl 2,000 mg/ (Sodium Chloride) 500 mls @ 250 mls/hr IV Q24H [facility] Last Admin: 11/04/16 13:56 Dose: 250 mls/hr Levofloxacin/Dextrose 750 mg/ (Premix) 150 mls @ 100 mls/hr IV Q48H [facility] Piperacillin Sod/Tazobactam (Sod 3.375 gm/ Sodium Chloride) 50 mls @ 100 mls/ hr IV Q6H [facility] Last Admin: 11/05/16 06:28 Dose: 100 mls/hr Levofloxacin/Dextrose 750 mg/ (Premix) 150 mls @ 100 mls/hr IV Q48H [facility] Last Admin: 11/03/16 17:46 Dose: 100 mls/hr Magnesium Sulfate 2 gm/ Premix 50 mls @ 50 mls/hr IV ONETIME ONE Stop: 11/05/16 09:00 Last Admin: 11/05/16 08:19 Dose: 50 mls/hr Levothyroxine Sodium (Synthroid) 50 mcg PO .STK-MED ONE Stop: 11/04/16 07:31 Levothyroxine Sodium (Synthroid) 50 mcg PO .STK-MED ONE Stop: 11/05/16 07:31 Potassium Chloride (Klor-Con M20) 40 meq PO ONETIME ONE Stop: 11/04/16 07:54 Last Admin: 11/04/16 08:37 Dose: 40 meq Potassium Chloride (Klor-Con M20) 40 meq PO ONETIME ONE Stop: 11/05/16 08:02 Last Admin: 11/05/16 08:19 Dose: 40 meq Potassium Chloride (Klor-Con M20) 40 meq PO ONETIME ONE Stop: 11/06/16 08:07 Last Admin: 11/06/16 08:41 Dose: 40 meq Vancomycin HCl (Pharmacy To Dose - Vancomycin) 1 dose .XX ASDIRECTED [facility] Warfarin Sodium (Coumadin Ask) 1 each PO ONETIME ONE Stop: 11/04/16 07:54 Last Admin: 11/04/16 08:37 Dose: Not Given Warfarin Sodium (Coumadin) 2 mg PO ONETIME [facility] Stop: 11/04/16 14:01 Last Admin: 11/04/16 13:05 Dose: 2 mg Warfarin Sodium (Coumadin) 4 mg PO Q24H [facility] Last Admin: 11/05/16 13:29 Dose: 4 mg - Exam Quality Assessment: Reports: supplemental oxygen (intermittently, mainly needs when sleeping), urine catheter, DVT prophylaxis General: Reports: alert, oriented, cooperative Lungs: Reports: Clear to auscultation, Normal respiratory effort Cardiovascular: Reports: Regular Rate, Regular Rhythm Abdomen: Reports: bowel sounds present, soft, no tenderness, no distension Extremities: Reports: normal pulses, edema (+1-2 pitting, improved since admission.) Skin: Reports: warm, dry Wound/Incisions: Reports: erythema improving (continues to improve, dull erythema much improved to LLE, no further warm or surround edema.) Neurological: Reports: no new focal deficit Psy/Mental Status: Reports: alert, normal affect, normal mood *Q Meaningful Use (DIS) - VTE *Q VTE Criteria *Q: - Stroke *Q Stroke Criteria *Q: - AMI *Q AMI Criteria *Q:
[2016-11-06] MEDS ORDERED: Warfarin 2 MG, Warfarin 1 MG PO SCH ×2 (14:00)
== END 2016-11-06 13:00 | DRG 872 ==
LOC: MW.ED 11:26 → UNDOADMIN 13:05 → MW.MS 13:05 → UNDODISIN 11-06 13:00
PROVIDERS: ADMIT Family Medicine; ATTEND Family Medicine
PROC: 0T2BX0Z Change Drainage Device in Bladder, External Approach (ICD-10-PCS; principal; 2016-11-03)
DX: D50.9 Iron deficiency anemia, unspecified (principal); E78.00 Pure hypercholesterolemia, unspecified; A41.9 Sepsis, unspecified organism; L03.116 Cellulitis of left lower limb; T83.511A Infection and inflammatory reaction due to indwelling urethral catheter, initial encounter; J44.9 Chronic obstructive pulmonary disease, unspecified; I11.0 Hypertensive heart disease with heart failure; I50.9 Heart failure, unspecified; I48.91 Unspecified atrial fibrillation; R33.9 Retention of urine, unspecified; E78.5 Hyperlipidemia, unspecified; Z95.2 Presence of prosthetic heart valve; Z79.899 Other long term (current) drug therapy; Z93.6 Other artificial openings of urinary tract status; Z87.440 Personal history of urinary (tract) infections; Z79.01 Long term (current) use of anticoagulants
CPT/HCPCS: 36415; 51702; 71010; 80053; 81001; 85025; 85610; 87040 ×2; 87086; 99285; A9270; 80048; 83605; 83735; 93306; 94640; 96365; 97161-GP; J1940; J1956; J2543; J3370; J3475; J7040; J7050

== ENCOUNTER 2019-05-09 08:57 | Inpatient (IN) | payer MEDICARE, OTHER ==
[2019-05-09] MEDS ORDERED: Sodium Chloride 0.9% 2.5 ML Syringe FLUSH PRN (09:14)
[2019-05-09] MEDS ORDERED: Sodium Chloride 0.9% 10 ML Syringe FLUSH PRN (09:14)
[2019-05-09] MEDS ORDERED: Sodium Chloride 0.9% 1,000 ML IV SCH (09:15)
--- NOTE | 2019-05-09 09:20 | EDM.PDOC ---
ED HPI GENERAL MEDICAL PROBLEM - General Chief Complaint: Skin Complaint Stated Complaint: SORES ON LEGS Time Seen by Provider: 05/09/19 09:10 - History of Present Illness INITIAL COMMENTS - FREE TEXT/NARRATIVE: HISTORY AND PHYSICAL: History of present illness: Patient is an 88-year-old white male presents from [facility] referred by his private medical doctor for evaluation and admission related to expanding cellulitis of his left lower extremity patient's poor historian and available information through [place] is somewhat limited. There's been no reported fever chills vomiting or other concern patient has some old ecchymotic areas of his periorbital region and right forehead for which we have not been able to determine a history Review of systems: As per history of present illness and below otherwise all systems reviewed and negative. Past medical history: As per history of present illness and as reviewed below otherwise noncontributory. Surgical history: As per history of present illness and as reviewed below otherwise noncontributory. Social history: No reported history of drug or alcohol abuse. Family history: As per history of present illness and as reviewed below otherwise noncontributory. Physical exam: HEENT: Subacute ecchymotic areas noted to the right forehead and periorbital region normocephalic, pupils reactive, negative for conjunctival pallor or scleral icterus, mucous membranes moist, throat clear, neck supple, nontender, trachea midline. Lungs: Slightly coarse bilaterally diminished, breath sounds equal bilaterally, chest nontender. Heart: S1S2, regular, negative for clicks, rubs, or JVD. Abdomen: Soft, nondistended, nontender. Pelvis: Stable nontender. Genitourinary: Deferred. Rectal: Deferred. Extremities: Patient has moderate swelling and a large erythematous cellulitic area noted to his left lower extremity there is demarcation for which the erythema is currently expanded beyond Neuro: Awake, alert, follows commands moves all extremities limited grossly nonfocal exam Diagnostics: CBC CMP chest x-ray EKG x-ray left tib-fib CT brain blood culture 2 lactic acid Therapeutics: Saline at 125 mL an hour vancomycin IV Impression: #1 expanding cellulitis left lower extremity to medical screening exam Definitive disposition and diagnosis as appropriate pending reevaluation and review of above. - Related Data Allergies Allergy/AdvReac Type Severity Reaction Status Date / Time No Known Allergies Allergy Verified 05/09/19 09:17 Home Meds: Home Meds Furosemide [Lasix] 40 mg PO BID 01/16/14 [History] Lisinopril 10 mg PO DAILY 01/16/14 [History] Simvastatin [Zocor] 40 mg PO BEDTIME 01/16/14 [History] Bisacodyl [Dulcolax] 10 mg RECTAL DAILY 11/03/16 [History] Finasteride 5 mg PO DAILY 11/03/16 [History] Levothyroxine Sodium [Tirosint] 50 mcg PO ACBREAKFAST 11/03/16 [History] Mag Carb/Al Hydrox/Alginic Ac [Gaviscon Liquid] 30 ml PO ASDIRECTED PRN [History] Magnesium Hydroxide [Milk of Magnesia] 30 ml PO DAILY PRN 11/03/16 [History] Nystatin [Nystop] 1 applic TOP TID 11/03/16 [History] Pantoprazole [ProTONIX] 40 mg PO ACBREAKFAST 11/03/16 [History] Warfarin Sodium [Coumadin] 4 mg PO BEDTIME 11/03/16 [History] Albuterol/Ipratropium [DuoNeb 3.0-0.5 MG/3 ML] 3 ml NEB Q4H #15 neb 11/06/16 [Rx ] Clindamycin HCl [Cleocin] 450 mg PO Q6H #84 cap 11/06/16 [Rx] Past Medical History HEENT History: Reports: Hard of Hearing, Impaired Vision Other HEENT History: on hearing aid Cardiovascular History: Reports: Heart Failure, Heart Valve Replacement, High Cholesterol, Hypertension Respiratory History: Reports: None Other Respiratory History: Oxygen dependent Other Gastrointestinal History: Esophogeal dyskinesia Genitourinary History: Reports: Retention, Urinary (chronic murray) Neurological History: Reports: None. Denies: CVA, TIA Psychiatric History: Reports: None Endocrine/Metabolic History: Reports: Hypothyroidism, Obesity/BMI 30+. Denies: Diabetes, Type II Hematologic History: Reports: None Immunologic History: Reports: None Oncologic (Cancer) History: Reports: None - Infectious Disease History Infectious Disease History: Reports: None Other Infectious Disease History: pseudomonas aeruginosa - Past Surgical History Cardiovascular Surgical History: Reports: Valve Replacement GI Surgical History: Reports: EGD Other GI Surgeries/Procedures: Esophageal surgery 1996 Social & Family History - Family History Family Medical History: Noncontributory - Caffeine Use Caffeine Use: Reports: None ED ROS GENERAL - Review of Systems Review Of Systems: Comprehensive ROS is negative, except as noted in HPI. ED EXAM, SKIN/RASH Exam: See Below (See dictation) Course - Vital Signs Last Recorded V/S: Last Vital Signs Temp 36.3 C 05/09/19 11:07 Pulse 92 05/09/19 11:07 Resp 24 H 05/09/19 10:03 BP 118/71 05/09/19 11:07 Pulse Ox 95 05/09/19 11:07 - Orders/Labs/Meds Orders: Active Orders 24 hr Category Date Time Status Cardiac Monitoring [RC] . DIRECTED Care 05/09/19 09:13 Active EKG Documentation Completion [RC] STAT Care 05/09/19 09:13 Active CULTURE BLOOD [BC] Stat Lab 05/09/19 09:45 Received CULTURE BLOOD [BC] Stat Lab 05/09/19 09:50 Received Pharmacy to Dose - Vancomycin Med 05/09/19 09:15 Active 1 dose .XX ASDIRECTED Sodium Chloride 0.9% [Normal Saline] 1,000 ml Med 05/09/19 09:15 Active IV STAT Sodium Chloride 0.9% [Saline Flush] Med 05/09/19 09:14 Active 10 ml FLUSH ASDIRECTED PRN Sodium Chloride 0.9% [Saline Flush] Med 05/09/19 09:14 Active 2.5 ml FLUSH ASDIRECTED PRN Blood Culture x2 Reflex Set [OM.PC] Stat Oth 05/09/19 09:13 Ordered Saline Lock Insert [OM.PC] Stat Oth 05/09/19 09:13 Ordered Medication Orders Sodium Chloride (Normal Saline) 1,000 mls @ 125 mls/hr IV STAT [facility] Last Admin: 05/09/19 09:58 Dose: 125 mls/hr Sodium Chloride (Saline Flush) 10 ml FLUSH ASDIRECTED PRN PRN Reason: Keep Vein Open Sodium Chloride (Saline Flush) 2.5 ml FLUSH ASDIRECTED PRN PRN Reason: Keep Vein Open Vancomycin HCl (Pharmacy To Dose - Vancomycin) 1 dose .XX ASDIRECTED [facility] Labs: Laboratory Tests 05/09/19 05/09/19 05/09/19 Range/Units 09:45 09:45 09:45 WBC 13.23 H (4.0-11.0) K/uL RBC 3.71 L (4.50-5.90) M/uL Hgb 11.4 L (13.0-17.0) g/dL Hct 35.5 L (38.0-50.0) % MCV 95.7 (80.0-98.0) fL MCH 30.7 (27.0-32.0) pg MCHC 32.1 (31.0-37.0) g/dL RDW Std Deviation 55.0 (28.0-62.0) fl RDW Coeff of Regulo 16 H (11.0-15.0) % Plt Count 199 (150-400) K/uL MPV 10.30 (7.40-12.00) fL Neut % (Auto) 76.8 (48.0-80.0) % Lymph % (Auto) 10.5 L (16.0-40.0) % [place] % (Auto) 11.7 (0.0-15.0) % Eos % (Auto) 0.8 (0.0-7.0) % Baso % (Auto) 0.2 (0.0-1.5) % Neut # (Auto) 10.2 H (1.4-5.7) K/uL Lymph # (Auto) 1.4 (0.6-2.4) K/uL [place] # (Auto) 1.6 H (0.0-0.8) K/uL Eos # (Auto) 0.1 (0.0-0.7) K/uL Baso # (Auto) 0.0 (0.0-0.1) K/uL Nucleated RBC % 0.0 /100WBC Nucleated RBCs # 0 K/uL Lactate 1.4 (0.20-2.00) mmol/L Sodium 141 (136-148) mmol/L Potassium 3.9 (3.5-5.1) mmol/L Chloride 104 (98-107) mmol/L Carbon Dioxide 26.8 (21.0-32.0) mmol/L BUN 25 H (7.0-18.0) mg/dL Creatinine 1.0 (0.8-1.3) mg/dL Est Cr Clr Drug Dosing TNP Estimated GFR (MDRD) > 60.0 ml/min Glucose 105 (74-106) mg/dL Calcium 8.4 L (8.5-10.1) mg/dL Total Bilirubin 1.7 H (0.2-1.0) mg/dL AST 30 (15-37) IU/L ALT 35 (14-63) IU/L Alkaline Phosphatase 68 (46-116) U/L Total Protein 7.0 (6.4-8.2) g/dL Albumin 3.0 L (3.4-5.0) g/dL Globulin 4.0 (2.6-4.0) g/dL Albumin/Globulin Ratio 0.8 L (0.9-1.6) Meds: Medications Generic Name Dose Route Start Last Admin Trade Name Freq PRN Reason Stop Dose Admin Sodium Chloride 1,000 mls @ 125 mls/hr 05/09/19 09:15 05/09/19 09:58 Normal Saline IV 125 mls/hr STAT [facility] Administration Sodium Chloride 10 ml 05/09/19 09:14 Saline Flush FLUSH ASDIRECTED PRN Keep Vein Open Sodium Chloride 2.5 ml 05/09/19 09:14 Saline Flush FLUSH ASDIRECTED PRN Keep Vein Open Vancomycin HCl 1 dose 05/09/19 09:15 Pharmacy To Dose - Vancomycin .XX ASDIRECTED [facility] Discontinued Medications Generic Name Dose Route Start Last Admin Trade Name Freq PRN Reason Stop Dose Admin Vancomycin HCl 2 gm/ Sodium 500 mls @ 250 mls/hr 05/09/19 09:30 05/09/19 09: 58 Chloride IV 05/09/19 11:29 250 mls/hr ONETIME ONE Administration Departure - Departure Time of Disposition: 11:54 Disposition: Admitted As Inpatient 65 Condition: Good Clinical Impression: Cellulitis Qualifiers: Site of cellulitis: extremity Site of cellulitis of extremity: lower extremity Laterality: left Qualified Code(s): L03.116 - Cellulitis of left lower limb - Discharge Information Referrals: Lex You MD [Primary Care Provider] - Forms: ED Department Discharge - My Orders Last 24 Hours: My Active Orders 05/09/19 09:13 Cardiac Monitoring [RC] . DIRECTED EKG Documentation Completion [RC] STAT Blood Culture x2 Reflex Set [OM.PC] Stat Saline Lock Insert [OM.PC] Stat 05/09/19 09:14 Sodium Chloride 0.9% [Saline Flush] 10 ml FLUSH ASDIRECTED PRN Sodium Chloride 0.9% [Saline Flush] 2.5 ml FLUSH ASDIRECTED PRN 05/09/19 09:15 Pharmacy to Dose - Vancomycin 1 dose .XX ASDIRECTED Sodium Chloride 0.9% [Normal Saline] 1,000 ml IV STAT 05/09/19 09:45 CULTURE BLOOD [BC] Stat 05/09/19 09:50 CULTURE BLOOD [BC] Stat - Assessment/Plan Last 24 Hours: My Active Orders 05/09/19 09:13 Cardiac Monitoring [RC] . DIRECTED EKG Documentation Completion [RC] STAT Blood Culture x2 Reflex Set [OM.PC] Stat Saline Lock Insert [OM.PC] Stat 05/09/19 09:14 Sodium Chloride 0.9% [Saline Flush] 10 ml FLUSH ASDIRECTED PRN Sodium Chloride 0.9% [Saline Flush] 2.5 ml FLUSH ASDIRECTED PRN 05/09/19 09:15 Pharmacy to Dose - Vancomycin 1 dose .XX ASDIRECTED Sodium Chloride 0.9% [Normal Saline] 1,000 ml IV STAT 05/09/19 09:45 CULTURE BLOOD [BC] Stat 05/09/19 09:50 CULTURE BLOOD [BC] Stat
[2019-05-09] MEDS ORDERED: Vancomycin 2 GM in Sodium Chloride 0.9% 500 ML IV ONE (09:30)
[2019-05-09 10:25] LABS: BLOOD UREA NITROGEN,BUN 25 mg/dL (7.0-18.0); CARBON DIOXIDE,CO2 26.8 mmol/L (21.0-32.0); CHLORIDE,CL 104 mmol/L (98-107); GLUCOSE RANDOM 105 mg/dL (74-106); POTASSIUM,K 3.9 mmol/L (3.5-5.1); SODIUM,NA 141 mmol/L (136-148)
--- NOTE | 2019-05-09 10:54 | CT ---
EXAM DATE: 05/09/19 PATIENT'S AGE: [address] Technique: Multiple axial sections through the brain were obtained. Intravenous contrast was not utilized. Comparison: No prior intracranial imaging is available. Findings: Ventricles along with basal cisterns and sulci over the convexities are mildly prominent. Minimal diminished density is noted within the periventricular white matter which is compatible with small vessel ischemic demyelination change. No other abnormal parenchymal densities are seen. No evidence of intracranial hemorrhage. No midline shift or mass effect is seen. Bone window settings were reviewed. Visualized paranasal sinuses and mastoid sinuses show nothing acute. Degenerative change is partially visualized within the cervical spine. No acute calvarial abnormality is identified. Impression: 1. Senescent change as noted above. 2. Nothing acute is identified on noncontrast head CT exam. Diagnostic code #2 Report Signed by Proxy. [facility]ENTERMariya
--- NOTE | 2019-05-09 10:55 | CT ---
EXAM DATE: 05/09/19 PATIENT'S AGE: 88 CT facial bones Technique: Multiple axial sections through the facial bones were obtained. Comparison: No prior facial bone exam is available. Findings: Metallic densities are seen posterior to the left maxillary sinus presumably due to previous surgery or possibly representing embolization coils. Findings could also represent old injury. No facial bone fracture is appreciated. Degenerative change is scattered throughout the visualized cervical spine. Impression: 1. No acute finding is seen on CT study of the facial bones. 2. Other findings believed to be incidental as noted above. Diagnostic code #2 Report Signed by Proxy. MTDD
--- NOTE | 2019-05-09 11:12 | CR ---
EXAM DATE: 05/09/19 PATIENT'S AGE: 88 Chest: Frontal view of the chest was obtained. Comparison: Prior chest x-ray of 11/03/16. Heart is enlarged. Slight atelectasis or scarring is noted within the left base. Previous sternotomy is noted with prosthetic heart valve. Pulmonary vessels are minimally congested which is likely chronic. Lungs otherwise are clear. Bony structures are grossly intact. Impression: 1. Cardiomegaly with previous sternotomy. 2. Mild atelectasis or scarring within the left base. 3. Pulmonary vessels minimally congested which is most likely chronic. Diagnostic code #2 Report Signed by Proxy. KEVON
--- NOTE | 2019-05-09 11:13 | CR ---
EXAM DATE: 05/09/19 PATIENT'S AGE: 88 Pelvis: AP view of the pelvis was obtained. Comparison: No prior pelvis study. Severe joint space narrowing is noted within the right hip. Mild joint space narrowing is seen within the left hip. Sacroiliac joints are within normal limits. Bony structures are osteopenic. Nothing acute is seen. Pressure: 1. Degenerative change and osteopenia. 2. Nothing acute is seen. Diagnostic code #2 Report Signed by Proxy. [facility]ari[facility]
--- NOTE | 2019-05-09 11:14 | CR ---
EXAM DATE: 05/09/19 PATIENT'S AGE: 88 Left tibia and fibula: Two views left tibia and fibula were obtained. Comparison: No prior tibia or fibula exam is available. Mild degenerative change is partially visualized within the knee. Bony structures are osteopenic. Diffuse soft tissue swelling is noted. Vascular calcification is seen. No acute fracture or other abnormality is identified. Impression: 1. Multiple findings as noted above. 2. No acute bony abnormality is seen. Diagnostic code #2 Report Signed by Proxy. [facility]
[2019-05-09] MEDS ORDERED: Ondansetron 4 MG/2 ML SDV IVPUSH PRN (12:57)
[2019-05-09] MEDS ORDERED: Ondansetron 4 MG Tab.DIS PO PRN (12:57)
[2019-05-09] MEDS ORDERED: Heparin Sodium 5,000 Units/ML Vial SUBCUT SCH (13:00)
--- NOTE | 2019-05-09 13:14 | PCM.HP.2 ---
<Brandon De Luna M - Last Filed: 05/09/19 14:23> H&P History of Present Illness - General Date of Service: 05/09/19 Admit Problem/Dx: Admission Diagnosis/Problem Admission Diagnosis/Problem Cellulitis Source of Information: Patient History Limitations: Reports: Other (poor historian) - History of Present Illness Initial Comments - Free Text/Narative: 88-year-old male, resident of [facility], presents with left lower extremity swelling and redness for the past "couple of days." Per chart review he does have a history of HFpEF, heart valve replacement, hyperlipidemia, hypertension and heart failure. History is somewhat limited as patient is poor historian. Patient report being seen by a physician this morning at the [facility] and then being sent over to the ER for his left leg swelling. Patient reports that his left leg is tender to touch. He denies having any fevers, chills, nausea, vomiting, sore throat, cough, chest pain or shortness of breath. He also reports falling about 1 week ago and sustained multiple bruises over the right side of his body. In the ER, patient was started on IV vancomycin. Patient also had left tib/fib x-ray which showed no bone involvement. He also had multiple other imaging studies done including CT head, pelvic x-ray and cxr which were negative for any acute pathology. - Related Data Allergies/Adverse Reactions: Allergies Allergy/AdvReac Type Severity Reaction Status Date / Time No Known Allergies Allergy Verified 05/09/19 09:17 Home Medications: Home Meds Furosemide [Lasix] 40 mg PO BID 01/16/14 [History] Lisinopril 10 mg PO DAILY 01/16/14 [History] Simvastatin [Zocor] 40 mg PO BEDTIME 01/16/14 [History] Bisacodyl [Dulcolax] 10 mg RECTAL DAILY 11/03/16 [History] Finasteride 5 mg PO DAILY 11/03/16 [History] Mag Carb/Al Hydrox/Alginic Ac [Gaviscon Liquid] 30 ml PO ASDIRECTED PRN [History] Magnesium Hydroxide [Milk of Magnesia] 30 ml PO DAILY PRN 11/03/16 [History] Acetaminophen 500 mg PO Q4H PRN MDD 3000 MG 05/09/19 [History] Acetaminophen 500 mg PO TID 05/09/19 [History] Albuterol/Ipratropium [DuoNeb 3.0-0.5 MG/3 ML] 3 ml NEB QID PRN 05/09/19 [ History] Carbamide Peroxide [Debrox] 3 drop EARBOTH BEDTIME PRN 05/09/19 [History] Carboxymethylcellulose Sodium [Refresh Tears 0.5%] 1 drop EYEBOTH BID 05/09/19 [ History] Famotidine 40 mg PO BEDTIME 05/09/19 [History] Ferrous Sulfate 325 mg PO BID 05/09/19 [History] Levothyroxine Sodium [Tirosint] 75 mg PO ACBREAKFAST 05/09/19 [History] Lutein/Minerals/Vit A,C & E [Ocuvite] 1 tab PO DAILY 05/09/19 [History] Menthol [Biofreeze] 1 applic TOP BID 05/09/19 [History] Tamsulosin HCl [Flomax] 0.4 mg PO BEDTIME 05/09/19 [History] Terbinafine [LamISIL AT 1% Crm] 1 applic TOP BID PRN 05/09/19 [History] Warfarin [Coumadin] 3 mg PO BEDTIME 05/09/19 [History] Past Medical History HEENT History: Reports: Hard of Hearing, Impaired Vision Other HEENT History: on hearing aid Cardiovascular History: Reports: Heart Failure, Heart Valve Replacement, High Cholesterol, Hypertension Respiratory History: Reports: None Other Respiratory History: Oxygen dependent Other Gastrointestinal History: Esophogeal dyskinesia Genitourinary History: Reports: Retention, Urinary (chronic murray) Neurological History: Reports: None. Denies: CVA, TIA Psychiatric History: Reports: None Endocrine/Metabolic History: Reports: Hypothyroidism, Obesity/BMI 30+. Denies: Diabetes, Type II Hematologic History: Reports: None Immunologic History: Reports: None Oncologic (Cancer) History: Reports: None - Infectious Disease History Infectious Disease History: Reports: None Other Infectious Disease History: pseudomonas aeruginosa - Past Surgical History Cardiovascular Surgical History: Reports: Valve Replacement GI Surgical History: Reports: EGD Other GI Surgeries/Procedures: Esophageal surgery 1996 Social & Family History - Family History Family Medical History: Noncontributory - Tobacco Use Smoking Status *Q: Never Smoker - Caffeine Use Caffeine Use: Reports: None - Recreational Drug Use Recreational Drug Use: No H&P Review of Systems - Review of Systems: Review Of Systems: Comprehensive ROS is negative, except as noted in HPI. Exam - Exam Exam: See Below - Vital Signs Vital Signs: Last Vital Signs Temp 97.3 F 05/09/19 11:07 Pulse 92 05/09/19 11:07 Resp 24 H 05/09/19 10:03 BP 118/71 05/09/19 11:07 Pulse Ox 95 05/09/19 11:07 Weight: 127.459 kg - Exam General: Alert, Oriented, Cooperative HEENT: Conjunctiva Clear, EOMI, Mucosa Moist & [place], Posterior Pharynx Clear, Pupils Equal, Pupils Reactive, Other (hard of hearing) Neck: Supple, Trachea Midline Lungs: Clear to Auscultation Cardiovascular: Regular Rate, Regular Rhythm GI/Abdominal Exam: Normal Bowel Sounds, Soft, Non-Tender, No Distention, Other ( morbid obesity) Extremities: Other (left lower extremity: circumferential edema and erythema from mid leg to distal foot. Warm to touch. Tenderness to palpation on left calf. ) Peripheral Pulses: 1+: Dorsalis Pedis (L), 2+: Dorsalis Pedis (R) Skin: Other (large area of ecchymosis on right face side of face, right chest and right hip. Ecchymosis around eyes bilaterally. 2cm x 2 cm hematoma on right forehead.) Neurological: Cranial Nerves Intact Psychiatric: Alert, Normal Affect, Normal Mood - Patient Data Lab Results Last 24 hrs: Laboratory Results - last 24 hr 05/09/19 05/09/19 05/09/19 Range/Units 09:45 09:45 09:45 WBC 13.23 H (4.0-11.0) K/uL RBC 3.71 L (4.50-5.90) M/uL Hgb 11.4 L (13.0-17.0) g/dL Hct 35.5 L (38.0-50.0) % MCV 95.7 (80.0-98.0) fL MCH 30.7 (27.0-32.0) pg MCHC 32.1 (31.0-37.0) g/dL RDW Std Deviation 55.0 (28.0-62.0) fl RDW Coeff of Regulo 16 H (11.0-15.0) % Plt Count 199 (150-400) K/uL MPV 10.30 (7.40-12.00) fL Neut % (Auto) 76.8 (48.0-80.0) % Lymph % (Auto) 10.5 L (16.0-40.0) % [place] % (Auto) 11.7 (0.0-15.0) % Eos % (Auto) 0.8 (0.0-7.0) % Baso % (Auto) 0.2 (0.0-1.5) % Neut # (Auto) 10.2 H (1.4-5.7) K/uL Lymph # (Auto) 1.4 (0.6-2.4) K/uL [place] # (Auto) 1.6 H (0.0-0.8) K/uL Eos # (Auto) 0.1 (0.0-0.7) K/uL Baso # (Auto) 0.0 (0.0-0.1) K/uL Nucleated RBC % 0.0 /100WBC Nucleated RBCs # 0 K/uL Lactate 1.4 (0.20-2.00) mmol/L Sodium 141 (136-148) mmol/L Potassium 3.9 (3.5-5.1) mmol/L Chloride 104 (98-107) mmol/L Carbon Dioxide 26.8 (21.0-32.0) mmol/L BUN 25 H (7.0-18.0) mg/dL Creatinine 1.0 (0.8-1.3) mg/dL Est Cr Clr Drug Dosing TNP Estimated GFR (MDRD) > 60.0 ml/min Glucose 105 (74-106) mg/dL Calcium 8.4 L (8.5-10.1) mg/dL Total Bilirubin 1.7 H (0.2-1.0) mg/dL AST 30 (15-37) IU/L ALT 35 (14-63) IU/L Alkaline Phosphatase 68 (46-116) U/L Total Protein 7.0 (6.4-8.2) g/dL Albumin 3.0 L (3.4-5.0) g/dL Globulin 4.0 (2.6-4.0) g/dL Albumin/Globulin Ratio 0.8 L (0.9-1.6) Result Diagrams: 05/09/19 09:45 05/09/19 09:45 - Problem List (1) Cellulitis SNOMED Code(s): 862561912 ICD Code: L03.90 - CELLULITIS, UNSPECIFIED Status: Acute Current Visit: Yes Qualifiers: Site of cellulitis: extremity Site of cellulitis of extremity: lower extremity Laterality: left Qualified Code(s): L03.116 - Cellulitis of left lower limb (2) Leukocytosis SNOMED Code(s): 421773162, 077661934 ICD Code: D72.829 - ELEVATED WHITE BLOOD CELL COUNT, UNSPECIFIED Status: Acute Current Visit: Yes (3) Ecchymosis on examination SNOMED Code(s): 038388921 ICD Code: R58 - HEMORRHAGE, NOT ELSEWHERE CLASSIFIED Status: Acute Current Visit: Yes (4) Hyperbilirubinemia SNOMED Code(s): 46153560 ICD Code: E80.6 - OTHER DISORDERS OF BILIRUBIN METABOLISM Status: Acute Current Visit: Yes Problem List Initiated/Reviewed/Updated: Yes Orders Last 24hrs: Active Orders 24 hr Category Date Time Status Patient Status [ADT] Stat ADT 05/09/19 11:55 Active Cardiac Monitoring [RC] . DIRECTED Care 05/09/19 09:13 Active Oxygen Therapy [RC] PRN Care 05/09/19 12:58 Ordered Up With Assistance [RC] ASDIRECTED Care 05/09/19 12:57 Ordered VTE/DVT Education [RC] PER UNIT ROUTINE Care 05/09/19 12:58 Ordered Vital Signs [RC] Q4H Care 05/09/19 12:58 Ordered Heart Healthy Diet [DIET] Diet 05/09/19 Lunch Ordered Venous Doppler Lwr Ext Lt [US] Stat Exams 05/09/19 13:01 Ordered BASIC METABOLIC PANEL,BMP [CHEM] AM Lab 05/10/19 05:11 Ordered CBC WITH AUTO DIFF [HEME] AM Lab 05/10/19 05:11 Ordered CULTURE BLOOD [BC] Stat Lab 05/09/19 09:45 Received CULTURE BLOOD [BC] Stat Lab 05/09/19 09:50 Received INR,PT,PROTHROMBIN TIME [COAG] Stat Lab 05/09/19 13:06 Ordered Acetaminophen [Tylenol] Med 05/09/19 12:57 Ordered 650 mg PO Q4H PRN Heparin Sodium Med 05/09/19 13:00 Ordered 5,000 units SUBCUT Q8H Ondansetron [Zofran ODT] Med 05/09/19 12:57 Ordered 4 mg PO Q4H PRN Ondansetron [Zofran] Med 05/09/19 12:57 Ordered 4 mg IVPUSH Q4H PRN Pharmacy to Dose - Vancomycin Med 05/09/19 09:15 Active 1 dose .XX ASDIRECTED Sodium Chloride 0.9% [Normal Saline] 1,000 ml Med 05/09/19 09:15 Active IV STAT Sodium Chloride 0.9% [Saline Flush] Med 05/09/19 09:14 Active 10 ml FLUSH ASDIRECTED PRN Sodium Chloride 0.9% [Saline Flush] Med 05/09/19 09:14 Active 2.5 ml FLUSH ASDIRECTED PRN Blood Culture x2 Reflex Set [OM.PC] Stat Oth 05/09/19 09:13 Ordered Saline Lock Insert [OM.PC] Stat Oth 05/09/19 09:13 Ordered Medication Orders Acetaminophen (Tylenol) 650 mg PO Q4H PRN PRN Reason: Pain (Mild 1-3)/fever Heparin Sodium (Porcine) (Heparin Sodium) 5,000 units SUBCUT Q8H CARLOS Sodium Chloride (Normal Saline) 1,000 mls @ 125 mls/hr IV STAT CARLOS Last Admin: 05/09/19 09:58 Dose: 125 mls/hr Ondansetron HCl (Zofran) 4 mg IVPUSH Q4H PRN PRN Reason: Nausea Ondansetron HCl (Zofran Odt) 4 mg PO Q4H PRN PRN Reason: nausea, able to take PO Sodium Chloride (Saline Flush) 10 ml FLUSH ASDIRECTED PRN PRN Reason: Keep Vein Open Sodium Chloride (Saline Flush) 2.5 ml FLUSH ASDIRECTED PRN PRN Reason: Keep Vein Open Vancomycin HCl (Pharmacy To Dose - Vancomycin) 1 dose .XX ASDIRECTED CARLOS Assessment/Plan Comment:: Assessment: 1. Left lower extremity cellulitis. 2. Leukocytosis 2/ #1. 3. Hyperbilirubinemia in the setting of #4. 4. Scattered ecchymosis. 5. History of heart valve replacement, on warfarin. 6. Past medical history of HFpEF, HTN, hyperlipidemia, hypothyroidism and morbid obesity. Plan: 1. For left lower extremity cellulitis, will continue IV vancomycin. Will monitor for clinical improvement. Blood cultures pending. Vital signs are stable. Lactate level was normal. Currently on IV NS 125 cc/ hr. LLE doppler U/ S ordered to rule out DVT. 2. For leukocytosis, will monitor with repeat CBC in AM. 3. For hyperbilirubinemia, this is likely secondary to his fall in which he sustained large scattered ecchymosis. Will repeat with AM labs. 4. For scattered ecchymosis, x-rays and CT head showed no acute fractures or pathology. 5. For history of heart valve replacement, will continue with home warfarin dose for now. PT/INR will be trended. Will make dose adjustment as necessary. 6. For PMH will continue with home medications. <Liliane Lopez - Last Filed: 05/09/19 19:49> H&P History of Present Illness - General Admit Problem/Dx: Admission Diagnosis/Problem Admission Diagnosis/Problem Cellulitis Exam - Vital Signs Vital Signs: Last Vital Signs Temp 36.7 C 05/09/19 17:00 Pulse 85 05/09/19 17:00 Resp 20 05/09/19 17:00 BP 119/72 05/09/19 17:00 Pulse Ox 95 05/09/19 17:00 - Patient Data Lab Results Last 24 hrs: Laboratory Results - last 24 hr 05/09/19 05/09/19 05/09/19 Range/Units 09:45 09:45 09:45 WBC 13.23 H (4.0-11.0) K/uL RBC 3.71 L (4.50-5.90) M/uL Hgb 11.4 L (13.0-17.0) g/dL Hct 35.5 L (38.0-50.0) % MCV 95.7 (80.0-98.0) fL MCH 30.7 (27.0-32.0) pg MCHC 32.1 (31.0-37.0) g/dL RDW Std Deviation 55.0 (28.0-62.0) fl RDW Coeff of Regulo 16 H (11.0-15.0) % Plt Count 199 (150-400) K/uL MPV 10.30 (7.40-12.00) fL Neut % (Auto) 76.8 (48.0-80.0) % Lymph % (Auto) 10.5 L (16.0-40.0) % [place] % (Auto) 11.7 (0.0-15.0) % Eos % (Auto) 0.8 (0.0-7.0) % Baso % (Auto) 0.2 (0.0-1.5) % Neut # (Auto) 10.2 H (1.4-5.7) K/uL Lymph # (Auto) 1.4 (0.6-2.4) K/uL [place] # (Auto) 1.6 H (0.0-0.8) K/uL Eos # (Auto) 0.1 (0.0-0.7) K/uL Baso # (Auto) 0.0 (0.0-0.1) K/uL Nucleated RBC % 0.0 /100WBC Nucleated RBCs # 0 K/uL INR Lactate 1.4 (0.20-2.00) mmol/L Sodium 141 (136-148) mmol/L Potassium 3.9 (3.5-5.1) mmol/L Chloride 104 (98-107) mmol/L Carbon Dioxide 26.8 (21.0-32.0) mmol/L BUN 25 H (7.0-18.0) mg/dL Creatinine 1.0 (0.8-1.3) mg/dL Est Cr Clr Drug Dosing TNP Estimated GFR (MDRD) > 60.0 ml/min Glucose 105 (74-106) mg/dL Calcium 8.4 L (8.5-10.1) mg/dL Total Bilirubin 1.7 H (0.2-1.0) mg/dL AST 30 (15-37) IU/L ALT 35 (14-63) IU/L Alkaline Phosphatase 68 (46-116) U/L Total Protein 7.0 (6.4-8.2) g/dL Albumin 3.0 L (3.4-5.0) g/dL Globulin 4.0 (2.6-4.0) g/dL Albumin/Globulin Ratio 0.8 L (0.9-1.6) 05/09/19 Range/Units 09:45 WBC (4.0-11.0) K/uL RBC (4.50-5.90) M/uL Hgb (13.0-17.0) g/dL Hct (38.0-50.0) % MCV (80.0-98.0) fL MCH (27.0-32.0) pg MCHC (31.0-37.0) g/dL RDW Std Deviation (28.0-62.0) fl RDW Coeff of Regulo (11.0-15.0) % Plt Count (150-400) K/uL MPV (7.40-12.00) fL Neut % (Auto) (48.0-80.0) % Lymph % (Auto) (16.0-40.0) % [place] % (Auto) (0.0-15.0) % Eos % (Auto) (0.0-7.0) % Baso % (Auto) (0.0-1.5) % Neut # (Auto) (1.4-5.7) K/uL Lymph # (Auto) (0.6-2.4) K/uL [place] # (Auto) (0.0-0.8) K/uL Eos # (Auto) (0.0-0.7) K/uL Baso # (Auto) (0.0-0.1) K/uL Nucleated RBC % /100WBC Nucleated RBCs # K/uL INR 3.03 Lactate (0.20-2.00) mmol/L Sodium (136-148) mmol/L Potassium (3.5-5.1) mmol/L Chloride (98-107) mmol/L Carbon Dioxide (21.0-32.0) mmol/L BUN (7.0-18.0) mg/dL Creatinine (0.8-1.3) mg/dL Est Cr Clr Drug Dosing Estimated GFR (MDRD) ml/min Glucose (74-106) mg/dL Calcium (8.5-10.1) mg/dL Total Bilirubin (0.2-1.0) mg/dL AST (15-37) IU/L ALT (14-63) IU/L Alkaline Phosphatase (46-116) U/L Total Protein (6.4-8.2) g/dL Albumin (3.4-5.0) g/dL Globulin (2.6-4.0) g/dL Albumin/Globulin Ratio (0.9-1.6) Result Diagrams: 05/09/19 09:45 05/09/19 09:45 Orders Last 24hrs: Active Orders 24 hr Category Date Time Status Patient Status [ADT] Stat ADT 05/09/19 11:55 Active Cardiac Monitoring [RC] . DIRECTED Care 05/09/19 09:13 Active Oxygen Therapy [RC] PRN Care 05/09/19 12:58 Active Up With Assistance [RC] ASDIRECTED Care 05/09/19 12:57 Active VTE/DVT Education [RC] PER UNIT ROUTINE Care 05/09/19 12:58 Active Vital Signs [RC] Q4H Care 05/09/19 12:58 Active Mechanical Soft Diet [DIET] Diet 05/09/19 Dinner Active CBC WITH AUTO DIFF [HEME] AM Lab 05/10/19 05:11 Ordered COMPREHENSIVE METABOLIC PN,CMP [CHEM] AM Lab 05/10/19 05:11 Ordered CULTURE BLOOD [BC] Stat Lab 05/09/19 09:45 Received CULTURE BLOOD [BC] Stat Lab 05/09/19 09:50 Received INR,PT,PROTHROMBIN TIME [COAG] AM Lab 05/10/19 05:11 Ordered INR,PT,PROTHROMBIN TIME [COAG] AM Lab 05/11/19 05:11 Ordered INR,PT,PROTHROMBIN TIME [COAG] AM Lab 05/12/19 05:11 Ordered Acetaminophen [Tylenol] Med 05/09/19 12:57 Active 650 mg PO Q4H PRN Albuterol/Ipratropium [DuoNeb 3.0-0.5 MG/3 ML] Med 05/09/19 14:02 Active 3 ml NEB QID PRN Bisacodyl [Dulcolax] Med 05/10/19 09:00 Active 10 mg RECTAL DAILY Famotidine [Pepcid] Med 05/09/19 21:00 Active 40 mg PO BEDTIME Ferrous Sulfate Med 05/09/19 21:00 Active 325 mg PO BID Finasteride [Proscar] Med 05/10/19 09:00 Active 5 mg PO DAILY Furosemide [Lasix] Med 05/09/19 21:00 Active 40 mg PO BID Levothyroxine Med 05/10/19 07:30 Active 75 mcg PO ACBREAKFAST Lisinopril [Prinivil] Med 05/10/19 09:00 Active 10 mg PO DAILY Magnesium Hydroxide [Milk of Magnesia] Med 05/09/19 14:02 Active 30 ml PO DAILY PRN Ondansetron [Zofran ODT] Med 05/09/19 12:57 Active 4 mg PO Q4H PRN Ondansetron [Zofran] Med 05/09/19 12:57 Active 4 mg IVPUSH Q4H PRN Pharmacy to Dose - Vancomycin Med 05/09/19 15:15 Pending 1 dose .XX ASDIRECTED Simvastatin [Zocor] Med 05/09/19 21:00 Active 40 mg PO BEDTIME Sodium Chloride 0.9% [Saline Flush] Med 05/09/19 09:14 Active 10 ml FLUSH ASDIRECTED PRN Sodium Chloride 0.9% [Saline Flush] Med 05/09/19 09:14 Active 2.5 ml FLUSH ASDIRECTED PRN Tamsulosin [Flomax] Med 05/09/19 21:00 Active 0.4 mg PO BEDTIME Warfarin Dosing [Coumadin Ask] Med 05/10/19 14:00 Active 1 each PO DAILY@1400 Blood Culture x2 Reflex Set [OM.PC] Stat Oth 05/09/19 09:13 Ordered Saline Lock Insert [OM.PC] Stat Oth 05/09/19 09:13 Ordered Code Status [Resuscitation Status] Routine Resus Stat 05/09/19 15:53 Ordered Medication Orders Acetaminophen (Tylenol) 650 mg PO Q4H PRN PRN Reason: Pain (Mild 1-3)/fever Albuterol/Ipratropium (Duoneb 3.0-0.5 Mg/3 Ml) 3 ml NEB QID PRN PRN Reason: COPD Bisacodyl (Dulcolax) 10 mg RECTAL DAILY CARLOS Famotidine (Pepcid) 40 mg PO BEDTIME CARLOS Ferrous Sulfate (Ferrous Sulfate) 325 mg PO BID CARLOS Finasteride (Proscar) 5 mg PO DAILY CARLOS Furosemide (Lasix) 40 mg PO BID CARLOS Levothyroxine Sodium (Levothyroxine) 75 mcg PO ACBREAKFAST CARLOS Lisinopril (Prinivil) 10 mg PO DAILY CARLOS Magnesium Hydroxide (Milk Of Magnesia) 30 ml PO DAILY PRN PRN Reason: Constipation Ondansetron HCl (Zofran) 4 mg IVPUSH Q4H PRN PRN Reason: Nausea Ondansetron HCl (Zofran Odt) 4 mg PO Q4H PRN PRN Reason: nausea, able to take PO Simvastatin (Zocor) 40 mg PO BEDTIME [facility] Sodium Chloride (Saline Flush) 10 ml FLUSH ASDIRECTED PRN PRN Reason: Keep Vein Open Sodium Chloride (Saline Flush) 2.5 ml FLUSH ASDIRECTED PRN PRN Reason: Keep Vein Open Tamsulosin HCl (Flomax) 0.4 mg PO BEDTIME [facility] Vancomycin HCl (Pharmacy To Dose - Vancomycin) 1 dose .XX ASDIRECTED [facility] Warfarin Sodium (Coumadin Ask) 1 each PO DAILY@1400 [facility] Assessment/Plan Comment:: I performed a history and physical exam of the patient and discussed management with resident. I have reviewed the residents note and agree with documented findings and plan unless otherwise specified in my note.
[2019-05-09] MEDS ORDERED: Magnesium Hydroxide 400 MG/5 ML Susp 30 ML Cup PO PRN (14:02)
[2019-05-09] MEDS ORDERED: Albuterol/Ipratropium 3.0-0.5 MG/3 ML Neb Soln NEB PRN (14:02)
--- NOTE | 2019-05-09 17:00 | US ---
Left lower extremity venous ultrasound: Duplex and color Doppler imaging was obtained of the left common femoral, superficial femoral, popliteal, and anterior tibial vein. Large amount of soft tissue edema noted within the calf. Normal compression and augmentation is seen within the deep veins. Impression: 1. Large amount of soft tissue edema within the calf. 2. No venous thrombosis is appreciated within the left lower extremity. Diagnostic code #3 MTDD
[2019-05-09] MEDS: Furosemide 80 MG Tab PO SCH (20:12)
[2019-05-09] MEDS: Simvastatin 40 MG Tab PO SCH (20:12)
[2019-05-09] MEDS: Tamsulosin 0.4 MG Cap.ER PO SCH (20:12)
[2019-05-09] MEDS: Ferrous Sulfate 325 MG Tab PO SCH (20:12)
[2019-05-09] MEDS: Famotidine 20 MG Tab PO SCH (20:12)
[2019-05-09] MEDS ORDERED: Non-Formulary Medication 1 Each (Warfarin 3 MG) PO SCH (21:00)
[2019-05-10 06:22] LABS: BLOOD UREA NITROGEN,BUN 19 mg/dL (7.0-18.0); CARBON DIOXIDE,CO2 29.1 mmol/L (21.0-32.0); CHLORIDE,CL 104 mmol/L (98-107); GLUCOSE RANDOM 99 mg/dL (74-106); POTASSIUM,K 3.6 mmol/L (3.5-5.1); SODIUM,NA 140 mmol/L (136-148)
[2019-05-10] MEDS: Levothyroxine 75 MCG Tab PO SCH (06:29)
[2019-05-10] MEDS ORDERED: VANCOMYCIN/WATER FOR INJ (PEG) 1.5 GM in Premix Bag 1 BAG IV SCH (07:30)
[2019-05-10] MEDS: Furosemide 80 MG Tab PO SCH ×2 (08:37→22:17)
[2019-05-10] MEDS: Lisinopril 10 MG Tab PO SCH (08:37)
[2019-05-10] MEDS: Finasteride 5 MG Tab PO SCH (08:38)
[2019-05-10] MEDS: Ferrous Sulfate 325 MG Tab PO SCH ×2 (08:38→22:09)
[2019-05-10] MEDS: Bisacodyl 10 MG Supp RECTAL SCH (10:38)
--- NOTE | 2019-05-10 16:27 | PCM.PN ---
- General Info Date of Service: 05/10/19 Subjective Update: 88 yoM admitted for LLE cellulitis. He is currently on vancomycin. At bedside this morning he complains of pain in his left leg but has improved since yesterday. Tolerating diet well and having bowel movements. - Patient Data Vitals - Most Recent: Last Vital Signs Temp 98.1 F 05/10/19 11:47 Pulse 86 05/10/19 11:47 Resp 20 05/10/19 11:47 BP 100/56 L 05/10/19 11:47 Pulse Ox 94 L 05/10/19 11:47 Weight - Most Recent: 281 lb I&O - Last 24 Hours: Intake & Output 05/10/19 05/10/19 05/10/19 06:59 14:59 22:59 Intake Total 400 Output Total 825 Balance -425 Lab Results Last 24 Hours: Laboratory Results - last 24 hr 05/10/19 05/10/19 05/10/19 Range/Units 05:53 05:53 05:53 WBC 12.18 H (4.0-11.0) K/uL RBC 3.43 L (4.50-5.90) M/uL Hgb 10.8 L (13.0-17.0) g/dL Hct 32.2 L (38.0-50.0) % MCV 93.9 (80.0-98.0) fL MCH 31.5 (27.0-32.0) pg MCHC 33.5 (31.0-37.0) g/dL RDW Std Deviation 52.7 (28.0-62.0) fl RDW Coeff of Regulo 16 H (11.0-15.0) % Plt Count 201 (150-400) K/uL MPV 10.10 (7.40-12.00) fL Neut % (Auto) 75.5 (48.0-80.0) % Lymph % (Auto) 11.2 L (16.0-40.0) % [place] % (Auto) 12.5 (0.0-15.0) % Eos % (Auto) 0.6 (0.0-7.0) % Baso % (Auto) 0.2 (0.0-1.5) % Neut # (Auto) 9.2 H (1.4-5.7) K/uL Lymph # (Auto) 1.4 (0.6-2.4) K/uL [place] # (Auto) 1.5 H (0.0-0.8) K/uL Eos # (Auto) 0.1 (0.0-0.7) K/uL Baso # (Auto) 0.0 (0.0-0.1) K/uL Nucleated RBC % 0.0 /100WBC Nucleated RBCs # 0 K/uL INR 2.79 Sodium 140 (136-148) mmol/L Potassium 3.6 (3.5-5.1) mmol/L Chloride 104 (98-107) mmol/L Carbon Dioxide 29.1 (21.0-32.0) mmol/L BUN 19 H (7.0-18.0) mg/dL Creatinine 1.0 (0.8-1.3) mg/dL Est Cr Clr Drug Dosing 51.71 mL/min Estimated GFR (MDRD) > 60.0 ml/min Glucose 99 (74-106) mg/dL Calcium 8.0 L (8.5-10.1) mg/dL Total Bilirubin 1.9 H (0.2-1.0) mg/dL AST 25 (15-37) IU/L ALT 34 (14-63) IU/L Alkaline Phosphatase 61 (46-116) U/L Total Protein 6.7 (6.4-8.2) g/dL Albumin 2.7 L (3.4-5.0) g/dL Globulin 4.0 (2.6-4.0) g/dL Albumin/Globulin Ratio 0.7 L (0.9-1.6) Ashvin Results Last 24 Hours: Microbiology 05/09/19 09:50 Aerobic Blood Culture - Preliminary Blood - Venous - Lab Draw NO GROWTH AFTER 1 DAY Anaerobic Blood Culture - Preliminary NO GROWTH AFTER 1 DAY 05/09/19 09:45 Aerobic Blood Culture - Preliminary Blood - Venous NO GROWTH AFTER 1 DAY Anaerobic Blood Culture - Preliminary NO GROWTH AFTER 1 DAY Med Orders - Current: Current Medications Acetaminophen (Tylenol) 650 mg PO Q4H PRN PRN Reason: Pain (Mild 1-3)/fever Albuterol/Ipratropium (Duoneb 3.0-0.5 Mg/3 Ml) 3 ml NEB QID PRN PRN Reason: COPD Bisacodyl (Dulcolax) 10 mg RECTAL DAILY [facility] Last Admin: 05/10/19 10:38 Dose: 10 mg Famotidine (Pepcid) 40 mg PO BEDTIME [facility] [place] Last Admin: 05/09/19 20:12 Dose: 40 mg Ferrous Sulfate (Ferrous Sulfate) 325 mg PO BID [facility] [place] Last Admin: 05/10/19 08:38 Dose: 325 mg Finasteride (Proscar) 5 mg PO DAILY [facility] [place] Last Admin: 05/10/19 08:38 Dose: 5 mg Furosemide (Lasix) 40 mg PO BID [facility] [place] Last Admin: 05/10/19 08:37 Dose: 40 mg Vancomycin HCl 1.25 gm/ Sodium (Chloride) 250 mls @ 250 mls/hr IV Q12H [facility] [place] Last Admin: 05/10/19 08:18 Dose: 250 mls/hr Levothyroxine Sodium (Levothyroxine) 75 mcg PO ACBREAKFAST [facility] [place] Last Admin: 05/10/19 06:29 Dose: 75 mcg Lisinopril (Prinivil) 10 mg PO DAILY [facility] [place] Last Admin: 05/10/19 08:37 Dose: 10 mg Magnesium Hydroxide (Milk Of Magnesia) 30 ml PO DAILY PRN PRN Reason: Constipation Ondansetron HCl (Zofran) 4 mg IVPUSH Q4H PRN PRN Reason: Nausea Ondansetron HCl (Zofran Odt) 4 mg PO Q4H PRN PRN Reason: nausea, able to take PO Simvastatin (Zocor) 40 mg PO BEDTIME [facility] [place] Last Admin: 05/09/19 20:12 Dose: 40 mg Sodium Chloride (Saline Flush) 10 ml FLUSH ASDIRECTED PRN PRN Reason: Keep Vein Open Sodium Chloride (Saline Flush) 2.5 ml FLUSH ASDIRECTED PRN PRN Reason: Keep Vein Open Tamsulosin HCl (Flomax) 0.4 mg PO BEDTIME [facility] [place] Last Admin: 05/09/19 20:12 Dose: 0.4 mg Warfarin Sodium (Coumadin Ask) 1 each PO DAILY@1400 [facility] Last Admin: 05/10/19 14:09 Dose: Not Given Discontinued Medications Heparin Sodium (Porcine) (Heparin Sodium) 5,000 units SUBCUT Q8H [facility] [place] Last Admin: 05/09/19 13:49 Dose: Not Given Sodium Chloride (Normal Saline) 1,000 mls @ 125 mls/hr IV STAT [facility] [place] Last Admin: 05/09/19 09:58 Dose: 125 mls/hr Vancomycin HCl 2 gm/ Sodium (Chloride) 500 mls @ 250 mls/hr IV ONETIME ONE Stop: 05/09/19 11:29 Last Admin: 05/09/19 09:58 Dose: 250 mls/hr Vancomycin HCl 1.5 gm/ Premix 300 mls @ 200 mls/hr IV Q12H [facility] Non-Formulary Medication (Warfarin) 3 mg PO BEDTIME [facility] Vancomycin HCl (Pharmacy To Dose - Vancomycin) 1 dose .XX ASDIRECTED [facility] Vancomycin HCl (Pharmacy To Dose - Vancomycin) 0 dose .XX ONETIME ONE Stop: 05/09/19 15:16 Vancomycin HCl (Pharmacy To Dose - Vancomycin) 1 dose .XX ASDIRECTED [facility] Warfarin Sodium (Coumadin) 3 mg PO 05/09/19@1500 [facility] [place] Stop: 05/09/19 15:01 Last Admin: 05/09/19 15:11 Dose: 3 mg Warfarin Sodium (Coumadin) 3 mg PO 05/10/19@1400 [facility] [place] Stop: 05/10/19 14:01 Last Admin: 05/10/19 14:10 Dose: 3 mg - Exam General: Alert, Oriented, No Acute Distress Lungs: Clear to Auscultation Cardiovascular: Regular Rate, Regular Rhythm Extremities: Other (Left leg: circumferential edema and erythema from mid leg to ankle. Warm to touch. Appears less erythematous today.) - Problem List & Annotations (1) Cellulitis SNOMED Code(s): 165224616 Code(s): L03.90 - CELLULITIS, UNSPECIFIED Status: Acute Current Visit: Yes Qualifiers: Site of cellulitis: extremity Site of cellulitis of extremity: lower extremity Laterality: left Qualified Code(s): L03.116 - Cellulitis of left lower limb (2) Leukocytosis SNOMED Code(s): 109892345, 639677254 Code(s): D72.829 - ELEVATED WHITE BLOOD CELL COUNT, UNSPECIFIED Status: Acute Current Visit: Yes (3) Ecchymosis on examination SNOMED Code(s): 558451307 Code(s): R58 - HEMORRHAGE, NOT ELSEWHERE CLASSIFIED Status: Acute Current Visit: Yes (4) Hyperbilirubinemia SNOMED Code(s): 37410005 Code(s): E80.6 - OTHER DISORDERS OF BILIRUBIN METABOLISM Status: Acute Current Visit: Yes - Problem List Review Problem List Initiated/Reviewed/Updated: Yes - My Orders Last 24 Hours: My Active Orders 05/09/19 15:53 Code Status [Resuscitation Status] Routine 05/09/19 21:00 Famotidine [Pepcid] 40 mg PO BEDTIME Ferrous Sulfate 325 mg PO BID Furosemide [Lasix] 40 mg PO BID Simvastatin [Zocor] 40 mg PO BEDTIME Tamsulosin [Flomax] 0.4 mg PO BEDTIME 05/09/19 Dinner Mechanical Soft Diet [DIET] 05/10/19 07:30 Levothyroxine 75 mcg PO ACBREAKFAST 05/10/19 09:00 Bisacodyl [Dulcolax] 10 mg RECTAL DAILY Finasteride [Proscar] 5 mg PO DAILY Lisinopril [Prinivil] 10 mg PO DAILY 05/10/19 14:00 Warfarin Dosing [Coumadin Ask] 1 each PO DAILY@1400 05/11/19 05:11 INR,PT,PROTHROMBIN TIME [[facility]] AM 05/12/19 05:11 INR,PT,PROTHROMBIN TIME [[facility]] AM - Assessment Assessment:: Assessment: 1. Left lower extremity cellulitis. 2. Leukocytosis secondary to #1, improved. 3. Hyperbilirubinemia in the setting of #4. 4. Scattered ecchymosis. 5. History of heart valve replacement, on warfarin. 6. PMH of HFpEF, HTN, hyperlipidemia, hypothyroidism and morbid obesity. Plan: 1. For left lower extremity cellulitis, will continue with vancomycin. Left leg appears less erythematous today. Blood cultures negative at 24 hours. Vital signs remain stable. Doppler U/S ruled out DVT. 2. For past medical history, will continue with home medications.
[2019-05-10] MEDS ORDERED: Sodium Chloride 0.9% 500 ML IV ONE (19:47)
[2019-05-10] MEDS: Simvastatin 40 MG Tab PO SCH (22:08)
[2019-05-10] MEDS: Tamsulosin 0.4 MG Cap.ER PO SCH (22:08)
[2019-05-10] MEDS: Famotidine 20 MG Tab PO SCH (22:08)
[2019-05-11 06:46] LABS: BLOOD UREA NITROGEN,BUN 22 mg/dL (7.0-18.0); CARBON DIOXIDE,CO2 28.4 mmol/L (21.0-32.0); CHLORIDE,CL 105 mmol/L (98-107); GLUCOSE RANDOM 91 mg/dL (74-106); POTASSIUM,K 3.7 mmol/L (3.5-5.1); SODIUM,NA 141 mmol/L (136-148)
[2019-05-11] MEDS: Levothyroxine 75 MCG Tab PO SCH (06:58)
[2019-05-11] MEDS: Finasteride 5 MG Tab PO SCH (08:54)
[2019-05-11] MEDS: Ferrous Sulfate 325 MG Tab PO SCH ×2 (08:54→21:56)
[2019-05-11] MEDS: Bisacodyl 10 MG Supp RECTAL SCH (10:01)
[2019-05-11] MEDS: Lisinopril 10 MG Tab PO SCH (10:02)
[2019-05-11] MEDS: Furosemide 80 MG Tab PO SCH (10:02)
[2019-05-11] MEDS: Acetaminophen 325 MG Tab PO PRN ×3 (12:02→23:35)
--- NOTE | 2019-05-11 17:21 | PCM.PN ---
- General Info Date of Service: 05/11/19 Subjective Update: Overnight had low blood pressures, lactate level was normal, was given fluid bolus and blood pressures improved overnight. Patient reports no complaints this morning and states his pain in left leg is improved since yesterday. Reports having bowel movements and tolerating oral diet well. - Patient Data Vitals - Most Recent: Last Vital Signs Temp 98.4 F 05/11/19 16:06 Pulse 83 05/11/19 16:06 Resp 18 05/11/19 16:06 BP 90/47 L 05/11/19 16:06 Pulse Ox 94 L 05/11/19 16:06 Weight - Most Recent: 281 lb I&O - Last 24 Hours: Intake & Output 05/11/19 05/11/19 05/11/19 06:59 14:59 22:59 Intake Total 410 250 600 Output Total 550 500 Balance -140 250 100 Lab Results Last 24 Hours: Laboratory Results - last 24 hr 05/10/19 05/11/19 05/11/19 Range/Units 19:58 06:14 06:14 WBC 11.40 H (4.0-11.0) K/uL RBC 3.41 L (4.50-5.90) M/uL Hgb 10.4 L (13.0-17.0) g/dL Hct 32.3 L (38.0-50.0) % MCV 94.7 (80.0-98.0) fL MCH 30.5 (27.0-32.0) pg MCHC 32.2 (31.0-37.0) g/dL RDW Std Deviation 53.9 (28.0-62.0) fl RDW Coeff of Regulo 16 H (11.0-15.0) % Plt Count 203 (150-400) K/uL MPV 9.50 (7.40-12.00) fL Neut % (Auto) 75.9 (48.0-80.0) % Lymph % (Auto) 12.0 L (16.0-40.0) % [place] % (Auto) 11.1 (0.0-15.0) % Eos % (Auto) 0.8 (0.0-7.0) % Baso % (Auto) 0.2 (0.0-1.5) % Neut # (Auto) 8.7 H (1.4-5.7) K/uL Lymph # (Auto) 1.4 (0.6-2.4) K/uL [place] # (Auto) 1.3 H (0.0-0.8) K/uL Eos # (Auto) 0.1 (0.0-0.7) K/uL Baso # (Auto) 0.0 (0.0-0.1) K/uL Nucleated RBC % 0.0 /100WBC Nucleated RBCs # 0 K/uL INR 2.63 Lactate 1.3 (0.20-2.00) mmol/L Sodium (136-148) mmol/L Potassium (3.5-5.1) mmol/L Chloride (98-107) mmol/L Carbon Dioxide (21.0-32.0) mmol/L BUN (7.0-18.0) mg/dL Creatinine (0.8-1.3) mg/dL Est Cr Clr Drug Dosing mL/min Estimated GFR (MDRD) ml/min Glucose (74-106) mg/dL Calcium (8.5-10.1) mg/dL Total Bilirubin (0.2-1.0) mg/dL AST (15-37) IU/L ALT (14-63) IU/L Alkaline Phosphatase (46-116) U/L Total Protein (6.4-8.2) g/dL Albumin (3.4-5.0) g/dL Globulin (2.6-4.0) g/dL Albumin/Globulin Ratio (0.9-1.6) Vancomycin Trough (5.0-10.0) ug/mL 05/11/19 05/11/19 Range/Units 06:14 07:17 WBC (4.0-11.0) K/uL RBC (4.50-5.90) M/uL Hgb (13.0-17.0) g/dL Hct (38.0-50.0) % MCV (80.0-98.0) fL MCH (27.0-32.0) pg MCHC (31.0-37.0) g/dL RDW Std Deviation (28.0-62.0) fl RDW Coeff of Regulo (11.0-15.0) % Plt Count (150-400) K/uL MPV (7.40-12.00) fL Neut % (Auto) (48.0-80.0) % Lymph % (Auto) (16.0-40.0) % [place] % (Auto) (0.0-15.0) % Eos % (Auto) (0.0-7.0) % Baso % (Auto) (0.0-1.5) % Neut # (Auto) (1.4-5.7) K/uL Lymph # (Auto) (0.6-2.4) K/uL [place] # (Auto) (0.0-0.8) K/uL Eos # (Auto) (0.0-0.7) K/uL Baso # (Auto) (0.0-0.1) K/uL Nucleated RBC % /100WBC Nucleated RBCs # K/uL INR Lactate (0.20-2.00) mmol/L Sodium 141 (136-148) mmol/L Potassium 3.7 (3.5-5.1) mmol/L Chloride 105 (98-107) mmol/L Carbon Dioxide 28.4 (21.0-32.0) mmol/L BUN 22 H (7.0-18.0) mg/dL Creatinine 1.1 (0.8-1.3) mg/dL Est Cr Clr Drug Dosing 47.01 mL/min Estimated GFR (MDRD) > 60.0 ml/min Glucose 91 (74-106) mg/dL Calcium 7.8 L (8.5-10.1) mg/dL Total Bilirubin 1.7 H (0.2-1.0) mg/dL AST 30 (15-37) IU/L ALT 33 (14-63) IU/L Alkaline Phosphatase 64 (46-116) U/L Total Protein 6.4 (6.4-8.2) g/dL Albumin 2.5 L (3.4-5.0) g/dL Globulin 3.9 (2.6-4.0) g/dL Albumin/Globulin Ratio 0.6 L (0.9-1.6) Vancomycin Trough 14.0 H (5.0-10.0) ug/mL Ashvin Results Last 24 Hours: Microbiology 05/09/19 09:50 Aerobic Blood Culture - Preliminary Blood - Venous - Lab Draw NO GROWTH AFTER 2 DAYS Anaerobic Blood Culture - Preliminary NO GROWTH AFTER 2 DAYS 05/09/19 09:45 Aerobic Blood Culture - Preliminary Blood - Venous NO GROWTH AFTER 2 DAYS Anaerobic Blood Culture - Preliminary NO GROWTH AFTER 2 DAYS Med Orders - Current: Current Medications Acetaminophen (Tylenol) 650 mg PO Q4H PRN PRN Reason: Pain (Mild 1-3)/fever Last Admin: 05/11/19 16:19 Dose: 650 mg Albuterol/Ipratropium (Duoneb 3.0-0.5 Mg/3 Ml) 3 ml NEB QID PRN PRN Reason: COPD Bisacodyl (Dulcolax) 10 mg RECTAL DAILY [facility] Last Admin: 05/11/19 10:01 Dose: Not Given Famotidine (Pepcid) 40 mg PO BEDTIME [facility] Last Admin: 05/10/19 22:08 Dose: 40 mg Ferrous Sulfate (Ferrous Sulfate) 325 mg PO BID [facility] Last Admin: 05/11/19 08:54 Dose: 325 mg Finasteride (Proscar) 5 mg PO DAILY [facility] Last Admin: 05/11/19 08:54 Dose: 5 mg Vancomycin HCl 1.25 gm/ Sodium (Chloride) 250 mls @ 250 mls/hr IV Q12H [facility] Last Admin: 05/11/19 08:53 Dose: 250 mls/hr Levothyroxine Sodium (Levothyroxine) 75 mcg PO ACBREAKFAST [facility] Last Admin: 05/11/19 06:58 Dose: 75 mcg Magnesium Hydroxide (Milk Of Magnesia) 30 ml PO DAILY PRN PRN Reason: Constipation Ondansetron HCl (Zofran) 4 mg IVPUSH Q4H PRN PRN Reason: Nausea Ondansetron HCl (Zofran Odt) 4 mg PO Q4H PRN PRN Reason: nausea, able to take PO Simvastatin (Zocor) 40 mg PO BEDTIME [facility] Last Admin: 05/10/19 22:08 Dose: 40 mg Sodium Chloride (Saline Flush) 10 ml FLUSH ASDIRECTED PRN PRN Reason: Keep Vein Open Sodium Chloride (Saline Flush) 2.5 ml FLUSH ASDIRECTED PRN PRN Reason: Keep Vein Open Warfarin Sodium (Coumadin Ask) 1 each PO DAILY@1400 [facility] Last Admin: 05/11/19 15:30 Dose: Not Given Warfarin Sodium (Coumadin) 3 mg PO ONETIME [facility] Last Admin: 05/11/19 15:38 Dose: 3 mg Discontinued Medications Furosemide (Lasix) 40 mg PO BID [facility] Last Admin: 05/11/19 10:02 Dose: Not Given Heparin Sodium (Porcine) (Heparin Sodium) 5,000 units SUBCUT Q8H [facility] Last Admin: 05/09/19 13:49 Dose: Not Given Sodium Chloride (Normal Saline) 1,000 mls @ 125 mls/hr IV STAT [facility] Last Admin: 05/09/19 09:58 Dose: 125 mls/hr Vancomycin HCl 2 gm/ Sodium (Chloride) 500 mls @ 250 mls/hr IV ONETIME ONE Stop: 05/09/19 11:29 Last Admin: 05/09/19 09:58 Dose: 250 mls/hr Vancomycin HCl 1.5 gm/ Premix 300 mls @ 200 mls/hr IV Q12H [facility] Sodium Chloride (Normal Saline) 500 mls @ 999 mls/hr IV .Bolus ONE Stop: 05/10/19 20:17 Last Admin: 05/10/19 20:20 Dose: 999 mls/hr Lisinopril (Prinivil) 10 mg PO DAILY [facility] Last Admin: 05/11/19 10:02 Dose: Not Given Non-Formulary Medication (Warfarin) 3 mg PO BEDTIME [facility] Tamsulosin HCl (Flomax) 0.4 mg PO BEDTIME [facility] Last Admin: 05/10/19 22:08 Dose: 0.4 mg Vancomycin HCl (Pharmacy To Dose - Vancomycin) 1 dose .XX ASDIRECTED [facility] Vancomycin HCl (Pharmacy To Dose - Vancomycin) 0 dose .XX ONETIME ONE Stop: 05/09/19 15:16 Vancomycin HCl (Pharmacy To Dose - Vancomycin) 1 dose .XX ASDIRECTED [facility] Warfarin Sodium (Coumadin) 3 mg PO 05/09/19@1500 [facility] Stop: 05/09/19 15:01 Last Admin: 05/09/19 15:11 Dose: 3 mg Warfarin Sodium (Coumadin) 3 mg PO 05/10/19@1400 [facility] Stop: 05/10/19 14:01 Last Admin: 05/10/19 14:10 Dose: 3 mg - Exam General: Alert, Oriented, No Acute Distress Lungs: Clear to Auscultation, Normal Respiratory Effort Cardiovascular: Regular Rate, Regular Rhythm Extremities: Other (area of erythema and edema improved since last exam from demarcated pencil marking of skin.) - Problem List & Annotations (1) Cellulitis SNOMED Code(s): 639381036 Code(s): L03.90 - CELLULITIS, UNSPECIFIED Status: Acute Current Visit: Yes Qualifiers: Site of cellulitis: extremity Site of cellulitis of extremity: lower extremity Laterality: left Qualified Code(s): L03.116 - Cellulitis of left lower limb (2) Leukocytosis SNOMED Code(s): 722491230, 723133535 Code(s): D72.829 - ELEVATED WHITE BLOOD CELL COUNT, UNSPECIFIED Status: Acute Current Visit: Yes (3) Ecchymosis on examination SNOMED Code(s): 438009340 Code(s): R58 - HEMORRHAGE, NOT ELSEWHERE CLASSIFIED Status: Acute Current Visit: Yes (4) Hyperbilirubinemia SNOMED Code(s): 24209374 Code(s): E80.6 - OTHER DISORDERS OF BILIRUBIN METABOLISM Status: Acute Current Visit: Yes - Problem List Review Problem List Initiated/Reviewed/Updated: Yes - My Orders Last 24 Hours: My Active Orders 05/11/19 12:06 Consult to Physical Therapy [PT Evaluation and Treatment] [CONS] Routine 05/12/19 05:11 INR,PT,PROTHROMBIN TIME [[facility]] AM - Assessment Assessment:: Assessment: 1. Left lower extremity cellulitis, improving. 2. Hypotension. 3. Leukocytosis secondary to #1, downtrending. 4. Hyperbilirubinemia in the setting of #5. 5. Scattered ecchymosis. 6. History of heart valve replacement, on warfarin. 7. PMH of HFpEF, HTN, hyperlipidemia, hypothyroidism and morbid obesity. Plan: 1. For left lower extremity cellulitis, this appears to be responding well with IV vancomycin. Will continue to monitor. Blood cultures negative. 2. For hypotension, will hold all anti-hypertensive medicines and continue to monitor. Lactic acid level was normal and patient is asymptomatic and non-toxic appearing. 2. For past medical history, will continue with home medications with the exception of anti-hypertensives.
[2019-05-11] MEDS: Famotidine 20 MG Tab PO SCH (21:56)
[2019-05-11] MEDS: Simvastatin 40 MG Tab PO SCH (21:57)
[2019-05-12 06:25] LABS: BLOOD UREA NITROGEN,BUN 23 mg/dL (7.0-18.0); CARBON DIOXIDE,CO2 28.2 mmol/L (21.0-32.0); CHLORIDE,CL 105 mmol/L (98-107); GLUCOSE RANDOM 90 mg/dL (74-106); POTASSIUM,K 3.9 mmol/L (3.5-5.1); SODIUM,NA 139 mmol/L (136-148)
[2019-05-12] MEDS: Levothyroxine 75 MCG Tab PO SCH (06:51)
[2019-05-12] MEDS: Finasteride 5 MG Tab PO SCH (08:53)
[2019-05-12] MEDS: Ferrous Sulfate 325 MG Tab PO SCH (08:53)
[2019-05-12] MEDS: Bisacodyl 10 MG Supp RECTAL SCH (09:24)
--- NOTE | 2019-05-12 10:33 | PCM.DCSUM1 ---
<Brandon De Luna - Last Filed: 05/12/19 10:25> Discharge Summary - Hospital Course Free Text/Narrative:: 88-year-old male admitted for LLE cellulitis. He has a PMH of heart failure, heart valve replacement, hyperlipidemia and hypertension. He is a resident of [facility] and PCP is Dr. You. He was treated with IV vancomycin during his hospitalization and his cellulitis improved significantly on day of discharge. X-rays were negative for bony involvement. Ultrasound ruled out DVT. Blood cultures were negative. He also presented to the hospital with large ecchymosis over the right side of his body after reportedly sustaining a fall one week prior at [facility] head was negative. X-ray of right pelvis was also negative. Patient was noted to have soft blood pressures during hospitalization and his anti-hypertensive medications were held with the exception of furosemide. These should be resumed after being cleared by PCP. Patient was discharged on Bactrim DS BID x 7 days for his cellulitis. He was also discharged on a warfarin dose of 2 mg daily because of potential interaction with Bactrim. His INR should be checked every 48 hours and dose adjustments made as necessary by PCP. - Discharge Data Discharge Date: 05/12/19 Discharge Disposition: DC[facility] 62 Condition: Fair - Referral to Home Health Primary Care Physician: Lex You MD - Discharge Diagnosis/Problem(s) (1) Cellulitis SNOMED Code(s): 179652722 ICD Code: L03.90 - CELLULITIS, UNSPECIFIED Status: Acute Qualifiers: Site of cellulitis: extremity Site of cellulitis of extremity: lower extremity Laterality: left Qualified Code(s): L03.116 - Cellulitis of left lower limb (2) Leukocytosis SNOMED Code(s): 558662062, 630453395 ICD Code: D72.829 - ELEVATED WHITE BLOOD CELL COUNT, UNSPECIFIED Status: Acute (3) Ecchymosis on examination SNOMED Code(s): 452555310 ICD Code: R58 - HEMORRHAGE, NOT ELSEWHERE CLASSIFIED Status: Acute (4) Hyperbilirubinemia SNOMED Code(s): 04191932 ICD Code: E80.6 - OTHER DISORDERS OF BILIRUBIN METABOLISM Status: Acute - Patient Summary/Data Consults: Consultations 05/11/19 12:06 Consult to Physical Therapy [PT Evaluation and Treatment] [CONS] Routine - Patient Instructions Diet: Mechanical Soft (fluid consistency: nectar ) Activity: As Tolerated Notify Provider of: Fever, Increased Pain, Swelling and Redness, Drainage, Nausea and/or Vomiting - Discharge Plan *PRESCRIPTION DRUG MONITORING PROGRAM REVIEWED*: Not Applicable *COPY OF PRESCRIPTION DRUG MONITORING REPORT IN PATIENT ENE: Not Applicable Prescriptions/Med Rec: Sulfamethoxazole/Trimethoprim [Bactrim Ds Tablet] 1 each PO BID 7 Days #14 tablet Warfarin [Coumadin] 2 mg PO DAILY 30 Days #30 tab Home Medications: Home Meds Furosemide [Lasix] 40 mg PO BID 01/16/14 [History] Simvastatin [Zocor] 40 mg PO BEDTIME 01/16/14 [History] Bisacodyl [Dulcolax] 10 mg RECTAL DAILY 11/03/16 [History] Finasteride 5 mg PO DAILY 11/03/16 [History] Mag Carb/Al Hydrox/Alginic Ac [Gaviscon Liquid] 30 ml PO ASDIRECTED PRN [History] Magnesium Hydroxide [Milk of Magnesia] 30 ml PO DAILY PRN 11/03/16 [History] Acetaminophen 500 mg PO Q4H PRN MDD 3000 MG 05/09/19 [History] Acetaminophen 500 mg PO TID 05/09/19 [History] Albuterol/Ipratropium [DuoNeb 3.0-0.5 MG/3 ML] 3 ml NEB QID PRN 05/09/19 [ History] Carbamide Peroxide [Debrox] 3 drop EARBOTH BEDTIME PRN 05/09/19 [History] Carboxymethylcellulose Sodium [Refresh Tears 0.5%] 1 drop EYEBOTH BID 05/09/19 [ History] Famotidine 40 mg PO BEDTIME 05/09/19 [History] Ferrous Sulfate 325 mg PO BID 05/09/19 [History] Levothyroxine Sodium [Tirosint] 75 mg PO ACBREAKFAST 05/09/19 [History] Lutein/Minerals/Vit A,C & E [Ocuvite] 1 tab PO DAILY 05/09/19 [History] Menthol [Biofreeze] 1 applic TOP BID 05/09/19 [History] Terbinafine [LamISIL AT 1% Crm] 1 applic TOP BID PRN 05/09/19 [History] Sulfamethoxazole/Trimethoprim [Bactrim Ds Tablet] 1 each PO BID 7 Days #14 tablet 05/12/19 [Rx] Warfarin [Coumadin] 2 mg PO DAILY 30 Days #30 tab 05/12/19 [Rx] Patient Handouts: Cellulitis, Adult, [id number], Sulfamethoxazole; Trimethoprim, [id number] tablets Referrals: Lex You MD [Primary Care Provider] - 05/18/19 (will be seen on [facility] May 18) - Discharge Summary/Plan Comment DC Time >30 min.: No - Patient Data Vitals - Most Recent: Last Vital Signs Temp 98.8 F 05/12/19 08:00 Pulse 70 05/12/19 04:00 Resp 20 05/12/19 08:00 BP 92/56 L 05/12/19 08:00 Pulse Ox 94 L 05/12/19 08:00 Weight - Most Recent: 127.459 kg I&O - Last 24 hours: Intake & Output 05/11/19 05/12/19 05/12/19 22:59 06:59 14:59 Intake Total 600 590 Output Total 500 400 Balance 100 190 Lab Results - Last 24 hrs: Laboratory Results - last 24 hr 05/12/19 05/12/19 05/12/19 Range/Units 05:55 05:55 05:55 WBC 11.00 (4.0-11.0) K/uL RBC 3.30 L (4.50-5.90) M/uL Hgb 10.4 L (13.0-17.0) g/dL Hct 31.3 L (38.0-50.0) % MCV 94.8 (80.0-98.0) fL MCH 31.5 (27.0-32.0) pg MCHC 33.2 (31.0-37.0) g/dL RDW Std Deviation 54.6 (28.0-62.0) fl RDW Coeff of Regulo 16 H (11.0-15.0) % Plt Count 239 (150-400) K/uL MPV 9.90 (7.40-12.00) fL Neut % (Auto) 74.3 (48.0-80.0) % Lymph % (Auto) 11.8 L (16.0-40.0) % Bulloch % (Auto) 12.2 (0.0-15.0) % Eos % (Auto) 1.5 (0.0-7.0) % Baso % (Auto) 0.2 (0.0-1.5) % Neut # (Auto) 8.2 H (1.4-5.7) K/uL Lymph # (Auto) 1.3 (0.6-2.4) K/uL Bulloch # (Auto) 1.3 H (0.0-0.8) K/uL Eos # (Auto) 0.2 (0.0-0.7) K/uL Baso # (Auto) 0.0 (0.0-0.1) K/uL Nucleated RBC % 0.0 /100WBC Nucleated RBCs # 0 K/uL INR 2.85 Sodium 139 (136-148) mmol/L Potassium 3.9 (3.5-5.1) mmol/L Chloride 105 (98-107) mmol/L Carbon Dioxide 28.2 (21.0-32.0) mmol/L BUN 23 H (7.0-18.0) mg/dL Creatinine 1.0 (0.8-1.3) mg/dL Est Cr Clr Drug Dosing 51.71 mL/min Estimated GFR (MDRD) > 60.0 ml/min Glucose 90 (74-106) mg/dL Calcium 7.9 L (8.5-10.1) mg/dL Total Bilirubin 1.5 H (0.2-1.0) mg/dL AST 35 (15-37) IU/L ALT 43 (14-63) IU/L Alkaline Phosphatase 62 (46-116) U/L Total Protein 6.5 (6.4-8.2) g/dL Albumin 2.4 L (3.4-5.0) g/dL Globulin 4.1 H (2.6-4.0) g/dL Albumin/Globulin Ratio 0.6 L (0.9-1.6) BARRY Results - Last 24 hrs: Microbiology 05/09/19 09:50 Aerobic Blood Culture - Preliminary Blood - Venous - Lab Draw NO GROWTH AFTER 3 DAYS Anaerobic Blood Culture - Preliminary NO GROWTH AFTER 3 DAYS 05/09/19 09:45 Aerobic Blood Culture - Preliminary Blood - Venous NO GROWTH AFTER 3 DAYS Anaerobic Blood Culture - Preliminary NO GROWTH AFTER 3 DAYS Med Orders - Current: Current Medications Acetaminophen (Tylenol) 650 mg PO Q4H PRN PRN Reason: Pain (Mild 1-3)/fever Last Admin: 05/11/19 23:35 Dose: 650 mg Albuterol/Ipratropium (Duoneb 3.0-0.5 Mg/3 Ml) 3 ml NEB QID PRN PRN Reason: COPD Bisacodyl (Dulcolax) 10 mg RECTAL DAILY [facility] Last Admin: 05/12/19 09:24 Dose: 10 mg Famotidine (Pepcid) 40 mg PO BEDTIME [facility] Last Admin: 05/11/19 21:56 Dose: 40 mg Ferrous Sulfate (Ferrous Sulfate) 325 mg PO BID [facility] Last Admin: 05/12/19 08:53 Dose: 325 mg Finasteride (Proscar) 5 mg PO DAILY [facility] Last Admin: 05/12/19 08:53 Dose: 5 mg Vancomycin HCl 1.25 gm/ Sodium (Chloride) 250 mls @ 250 mls/hr IV Q12H [facility] Last Admin: 05/12/19 06:44 Dose: 250 mls/hr Levothyroxine Sodium (Levothyroxine) 75 mcg PO ACBREAKFAST [facility] Last Admin: 05/12/19 06:51 Dose: 75 mcg Magnesium Hydroxide (Milk Of Magnesia) 30 ml PO DAILY PRN PRN Reason: Constipation Ondansetron HCl (Zofran) 4 mg IVPUSH Q4H PRN PRN Reason: Nausea Ondansetron HCl (Zofran Odt) 4 mg PO Q4H PRN PRN Reason: nausea, able to take PO Simvastatin (Zocor) 40 mg PO BEDTIME [facility] Last Admin: 05/11/19 21:57 Dose: 40 mg Sodium Chloride (Saline Flush) 10 ml FLUSH ASDIRECTED PRN PRN Reason: Keep Vein Open Sodium Chloride (Saline Flush) 2.5 ml FLUSH ASDIRECTED PRN PRN Reason: Keep Vein Open Warfarin Sodium (Coumadin Ask) 1 each PO DAILY@1400 [facility] Last Admin: 05/11/19 15:30 Dose: Not Given Warfarin Sodium (Coumadin) 3 mg PO ONETIME [facility] Last Admin: 05/11/19 15:38 Dose: 3 mg Discontinued Medications Furosemide (Lasix) 40 mg PO BID [facility] Last Admin: 05/11/19 10:02 Dose: Not Given Heparin Sodium (Porcine) (Heparin Sodium) 5,000 units SUBCUT Q8H [facility] Last Admin: 05/09/19 13:49 Dose: Not Given Sodium Chloride (Normal Saline) 1,000 mls @ 125 mls/hr IV STAT [facility] Last Admin: 05/09/19 09:58 Dose: 125 mls/hr Vancomycin HCl 2 gm/ Sodium (Chloride) 500 mls @ 250 mls/hr IV ONETIME ONE Stop: 05/09/19 11:29 Last Admin: 05/09/19 09:58 Dose: 250 mls/hr Vancomycin HCl 1.5 gm/ Premix 300 mls @ 200 mls/hr IV Q12H [facility] Sodium Chloride (Normal Saline) 500 mls @ 999 mls/hr IV .Bolus ONE Stop: 05/10/19 20:17 Last Admin: 05/10/19 20:20 Dose: 999 mls/hr Lisinopril (Prinivil) 10 mg PO DAILY [facility] Last Admin: 05/11/19 10:02 Dose: Not Given Non-Formulary Medication (Warfarin) 3 mg PO BEDTIME [facility] Tamsulosin HCl (Flomax) 0.4 mg PO BEDTIME [facility] Last Admin: 05/10/19 22:08 Dose: 0.4 mg Vancomycin HCl (Pharmacy To Dose - Vancomycin) 1 dose .XX ASDIRECTED [facility] Vancomycin HCl (Pharmacy To Dose - Vancomycin) 0 dose .XX ONETIME ONE Stop: 05/09/19 15:16 Vancomycin HCl (Pharmacy To Dose - Vancomycin) 1 dose .XX ASDIRECTED [facility] Warfarin Sodium (Coumadin) 3 mg PO 05/09/19@1500 [facility] Stop: 05/09/19 15:01 Last Admin: 05/09/19 15:11 Dose: 3 mg Warfarin Sodium (Coumadin) 3 mg PO 05/10/19@1400 [facility] Stop: 05/10/19 14:01 Last Admin: 05/10/19 14:10 Dose: 3 mg - Exam General: Reports: Alert, Oriented, Cooperative, No Acute Distress Lungs: Reports: Clear to Auscultation Cardiovascular: Reports: Regular Rate, Regular Rhythm Skin: Reports: Other (edema and erythema significantly improved. non-tender to palpation. no incrased warmth to touch.) <Brian Barakat - Last Filed: 05/14/19 12:45> Discharge Summary - Referral to Home Health Primary Care Physician: Lex You MD - Patient Summary/Data Consults: Consultations 05/11/19 12:06 Consult to Physical Therapy [PT Evaluation and Treatment] [CONS] Routine - Patient Data Vitals - Most Recent: Last Vital Signs Temp 36.1 C 05/12/19 12:00 Pulse 92 05/12/19 12:00 Resp 20 05/12/19 12:00 BP 123/63 05/12/19 12:00 Pulse Ox 97 05/12/19 12:00 BARRY Results - Last 24 hrs: Microbiology 05/09/19 09:50 Aerobic Blood Culture - Final Blood - Venous - Lab Draw NO GROWTH AFTER 5 DAYS Anaerobic Blood Culture - Final NO GROWTH AFTER 5 DAYS 05/09/19 09:45 Aerobic Blood Culture - Final Blood - Venous NO GROWTH AFTER 5 DAYS Anaerobic Blood Culture - Final NO GROWTH AFTER 5 DAYS Med Orders - Current: Current Medications Discontinued Medications Acetaminophen (Tylenol) 650 mg PO Q4H PRN PRN Reason: Pain (Mild 1-3)/fever Last Admin: 05/11/19 23:35 Dose: 650 mg Albuterol/Ipratropium (Duoneb 3.0-0.5 Mg/3 Ml) 3 ml NEB QID PRN PRN Reason: COPD Bisacodyl (Dulcolax) 10 mg RECTAL DAILY [facility] Last Admin: 05/12/19 09:24 Dose: 10 mg Famotidine (Pepcid) 40 mg PO BEDTIME [facility] Last Admin: 05/11/19 21:56 Dose: 40 mg Ferrous Sulfate (Ferrous Sulfate) 325 mg PO BID [facility] Last Admin: 05/12/19 08:53 Dose: 325 mg Finasteride (Proscar) 5 mg PO DAILY [facility] Last Admin: 05/12/19 08:53 Dose: 5 mg Furosemide (Lasix) 40 mg PO BID [facility] Last Admin: 05/11/19 10:02 Dose: Not Given Heparin Sodium (Porcine) (Heparin Sodium) 5,000 units SUBCUT Q8H [facility] Last Admin: 05/09/19 13:49 Dose: Not Given Sodium Chloride (Normal Saline) 1,000 mls @ 125 mls/hr IV STAT [facility] Last Admin: 05/09/19 09:58 Dose: 125 mls/hr Vancomycin HCl 2 gm/ Sodium (Chloride) 500 mls @ 250 mls/hr IV ONETIME ONE Stop: 05/09/19 11:29 Last Admin: 05/09/19 09:58 Dose: 250 mls/hr Vancomycin HCl 1.5 gm/ Premix 300 mls @ 200 mls/hr IV Q12H [facility] Vancomycin HCl 1.25 gm/ Sodium (Chloride) 250 mls @ 250 mls/hr IV Q12H [facility] Last Admin: 05/12/19 06:44 Dose: 250 mls/hr Sodium Chloride (Normal Saline) 500 mls @ 999 mls/hr IV .Bolus ONE Stop: 05/10/19 20:17 Last Admin: 05/10/19 20:20 Dose: 999 mls/hr Levothyroxine Sodium (Levothyroxine) 75 mcg PO ACBREAKFAST [facility] Last Admin: 05/12/19 06:51 Dose: 75 mcg Lisinopril (Prinivil) 10 mg PO DAILY [facility] Last Admin: 05/11/19 10:02 Dose: Not Given Magnesium Hydroxide (Milk Of Magnesia) 30 ml PO DAILY PRN PRN Reason: Constipation Non-Formulary Medication (Warfarin) 3 mg PO BEDTIME [facility] Ondansetron HCl (Zofran) 4 mg IVPUSH Q4H PRN PRN Reason: Nausea Ondansetron HCl (Zofran Odt) 4 mg PO Q4H PRN PRN Reason: nausea, able to take PO Simvastatin (Zocor) 40 mg PO BEDTIME [facility] Last Admin: 05/11/19 21:57 Dose: 40 mg Sodium Chloride (Saline Flush) 10 ml FLUSH ASDIRECTED PRN PRN Reason: Keep Vein Open Sodium Chloride (Saline Flush) 2.5 ml FLUSH ASDIRECTED PRN PRN Reason: Keep Vein Open Tamsulosin HCl (Flomax) 0.4 mg PO BEDTIME [facility] Last Admin: 05/10/19 22:08 Dose: 0.4 mg Vancomycin HCl (Pharmacy To Dose - Vancomycin) 1 dose .XX ASDIRECTED [facility] Vancomycin HCl (Pharmacy To Dose - Vancomycin) 0 dose .XX ONETIME ONE Stop: 05/09/19 15:16 Vancomycin HCl (Pharmacy To Dose - Vancomycin) 1 dose .XX ASDIRECTED [facility] Warfarin Sodium (Coumadin Ask) 1 each PO DAILY@1400 [facility] Last Admin: 05/11/19 15:30 Dose: Not Given Warfarin Sodium (Coumadin) 3 mg PO 05/09/19@1500 [facility] Stop: 05/09/19 15:01 Last Admin: 05/09/19 15:11 Dose: 3 mg Warfarin Sodium (Coumadin) 3 mg PO 05/10/19@1400 [facility] Stop: 05/10/19 14:01 Last Admin: 05/10/19 14:10 Dose: 3 mg Warfarin Sodium (Coumadin) 3 mg PO ONETIME [facility] Last Admin: 05/11/19 15:38 Dose: 3 mg Warfarin Sodium (Coumadin) 2 mg PO 05/12/19@1130 [facility] Stop: 05/12/19 11:31 Last Admin: 05/12/19 11:49 Dose: 2 mg - Free Text/Narrative Note: I have examined the patient with the resident. I have discussed findings and treatment plan with the resident. I agree with the assessment and plan as outlined in the following note.
[2019-05-12 12:15] VITALS: BP 123/63; PULSE 92
== END 2019-05-12 13:15 | DRG 603 ==
LOC: MW.ED 08:57 → MW.MS 12:03
PROVIDERS: ADMIT Student in an Organized Health Care Education/Training Program; ATTEND Student in an Organized Health Care Education/Training Program
DX: L03.116 Cellulitis of left lower limb (principal); I50.9 Heart failure, unspecified; I50.30 Unspecified diastolic (congestive) heart failure; Z68.41 Body mass index [BMI] 40.0-44.9, adult; K22.4 Dyskinesia of esophagus; R33.9 Retention of urine, unspecified; R58 Hemorrhage, not elsewhere classified; E66.9 Obesity, unspecified; H91.90 Unspecified hearing loss, unspecified ear; H54.7 Unspecified visual loss; E80.6 Other disorders of bilirubin metabolism; E66.01 Morbid (severe) obesity due to excess calories; Z79.52 Long term (current) use of systemic steroids; E03.9 Hypothyroidism, unspecified; I95.9 Hypotension, unspecified; I11.0 Hypertensive heart disease with heart failure; E78.5 Hyperlipidemia, unspecified; E78.00 Pure hypercholesterolemia, unspecified; Z79.890 Hormone replacement therapy; Z79.01 Long term (current) use of anticoagulants; Z79.899 Other long term (current) drug therapy; Z95.2 Presence of prosthetic heart valve; Z99.81 Dependence on supplemental oxygen
CPT/HCPCS: 36415; 70450; 70486; 71045; 72170; 73590; 80053; 83605; 85025; 85610; 87040 ×2; 93005; 96365; 96366; 99285; J3370; J7040 ×2; 80202; 93971-26-LT; 93971-LT; 97162-GP; A9270-GY; J7050

== ENCOUNTER 2019-09-09 10:19 | Inpatient (IN) | payer MEDICARE, OTHER, MEDICAID ==
[2019-09-09 12:13] LABS: BLOOD UREA NITROGEN,BUN 26 mg/dL (7.0-18.0); CARBON DIOXIDE,CO2 34.1 mmol/L (21.0-32.0); CHLORIDE,CL 106 mmol/L (98-107); GLUCOSE RANDOM 94 mg/dL (74-106); POTASSIUM,K 3.5 mmol/L (3.5-5.1); SODIUM,NA 146 mmol/L (136-148)
--- NOTE | 2019-09-09 12:28 | CR ---
Chest: Portable view of the chest was obtained. Comparison: Prior chest x-ray of 05/09/19. Slight scarring is seen within the left lung base. Heart is enlarged. Pulmonary vessels show mild chronic-appearing pulmonary vascular congestion. Bony structures are grossly intact. Previous sternotomy is noted with prosthetic heart valve. Impression: 1. Cardiomegaly and mild chronic pulmonary vascular congestion. 2. Other findings as noted above which appear chronic. Diagnostic code #3 This report was dictated in MDT
--- NOTE | 2019-09-09 12:54 | EDM.PDOC ---
ED HPI GENERAL MEDICAL PROBLEM - General Chief Complaint: Lower Extremity Injury/Pain Stated Complaint: COUGH Time Seen by Provider: 09/09/19 12:01 Source of Information: Reports: Residential Records History Limitations: Reports: Other (very poor historian) - History of Present Illness INITIAL COMMENTS - FREE TEXT/NARRATIVE: This 88 year old male from [facility] according to the [facility] has cellulitis involving the left leg. He has had chronic swelling in both legs but both appear to be getting worse, left greater than the right. He is a Code 2. The patient denies any chest pain or SOB. He denies any GI or complaints. He denies any other complaints at this time. Onset: Gradual - Related Data Allergies Allergy/AdvReac Type Severity Reaction Status Date / Time No Known Allergies Allergy Verified 09/09/19 10:30 Home Meds: Home Meds Furosemide [Lasix] 40 mg PO BID 01/16/14 [History] Simvastatin [Zocor] 40 mg PO BEDTIME 01/16/14 [History] Bisacodyl [Dulcolax] 10 mg RECTAL DAILY 11/03/16 [History] Finasteride 5 mg PO DAILY 11/03/16 [History] Mag Carb/Al Hydrox/Alginic Ac [Gaviscon Liquid] 30 ml PO ASDIRECTED PRN [History] Magnesium Hydroxide [Milk of Magnesia] 30 ml PO DAILY PRN 11/03/16 [History] Acetaminophen 500 mg PO Q4H PRN MDD 3000 MG 05/09/19 [History] Acetaminophen 500 mg PO TID 05/09/19 [History] Albuterol/Ipratropium [DuoNeb 3.0-0.5 MG/3 ML] 3 ml NEB QID PRN 05/09/19 [ History] Carbamide Peroxide [Debrox] 3 drop EARBOTH BEDTIME PRN 05/09/19 [History] Carboxymethylcellulose Sodium [Refresh Tears 0.5%] 1 drop EYEBOTH BID 05/09/19 [ History] Famotidine 40 mg PO BEDTIME 05/09/19 [History] Ferrous Sulfate 325 mg PO BID 05/09/19 [History] Levothyroxine Sodium [Tirosint] 75 mg PO ACBREAKFAST 05/09/19 [History] Lutein/Minerals/Vit A,C & E [Ocuvite] 1 tab PO DAILY 05/09/19 [History] Menthol [Biofreeze] 1 applic TOP BID 05/09/19 [History] Terbinafine [LamISIL AT 1% Crm] 1 applic TOP BID PRN 05/09/19 [History] Sulfamethoxazole/Trimethoprim [Bactrim Ds Tablet] 1 each PO BID 7 Days #14 tablet 05/12/19 [Rx] Warfarin [Coumadin] 2 mg PO DAILY 30 Days #30 tab 05/12/19 [Rx] Past Medical History HEENT History: Reports: Hard of Hearing, Impaired Vision Other HEENT History: on hearing aid Cardiovascular History: Reports: Afib, Heart Failure, Heart Valve Replacement, High Cholesterol, Hypertension Respiratory History: Reports: COPD Other Respiratory History: Oxygen dependent Other Gastrointestinal History: Esophogeal dyskinesia Genitourinary History: Reports: Retention, Urinary Musculoskeletal History: Reports: Osteoarthritis Neurological History: Reports: None Psychiatric History: Reports: None Endocrine/Metabolic History: Reports: Hypothyroidism, Obesity/BMI 30+ Hematologic History: Reports: None Immunologic History: Reports: None Oncologic (Cancer) History: Reports: None Dermatologic History: Reports: Cellulitis - Infectious Disease History Infectious Disease History: Reports: Measles Other Infectious Disease History: pseudomonas aeruginosa - Past Surgical History Cardiovascular Surgical History: Reports: Valve Replacement GI Surgical History: Reports: EGD Other GI Surgeries/Procedures: Esophageal surgery 1996 Social & Family History - Family History Family Medical History: Noncontributory - Tobacco Use Smoking Status *Q: Never Smoker - Caffeine Use Caffeine Use: Reports: Coffee, Soda - Recreational Drug Use Recreational Drug Use: No Review of Systems - Review of Systems Review Of Systems: See Below Constitutional: Reports: No Symptoms Eyes: Reports: No Symptoms Ears: Reports: No Symptoms Nose: Reports: No Symptoms Mouth/Throat: Reports: No Symptoms Respiratory: Reports: Cough (chronic cough), Sputum (clear thick sputum) Cardiovascular: Reports: No Symptoms GI/Abdominal: Reports: No Symptoms Genitourinary: Reports: No Symptoms Musculoskeletal: Reports: No Symptoms Skin: Reports: Other (see notes on lower extremities) ED EXAM, GENERAL - Physical Exam Exam: See Below Exam Limited By: No Limitations General Appearance: Alert, WD/WN, No Apparent Distress Eye Exam: Bilateral Eye: Normal Inspection, PERRL Ears: Normal External Exam, Normal Canal, Hearing Grossly Normal, Normal TMs Nose: Normal Inspection, Normal Mucosa, No Blood Throat/Mouth: Normal Inspection, Normal Oropharynx, No Airway Compromise. No: Dysphagia Head: Atraumatic, Normocephalic Neck: Normal Inspection, Supple, Non-Tender. No: Carotid Bruit Respiratory/Chest: No Respiratory Distress, Other (rales and rhonchi noted in both bases.) Cardiovascular: Normal Peripheral Pulses, Regular Rate, Rhythm, No Gallop, Systolic Murmur (systolic ejection murmur grade 2/6 best heard at the apex without radiation of murmur.) Peripheral Pulses: 2+: Dorsalis Pedis (L), Dorsalis Pedis (R), 3+: Radial (L), Radial (R) GI/Abdominal: Normal Bowel Sounds, Soft, Non-Tender, No Abnormal Bruit, No Mass , Other (the patient is wearing diapers (depends).) (Male) Exam: Deferred Rectal (Males) Exam: Deferred Back Exam: Normal Inspection Extremities: Non-Tender, Pedal Edema, Limited Range of Motion, Other (grossly swollen with coolness over both mid-tib areas which appears. The left leg has a cellulitis over the lateral mid aspects over the tib area.). No: Gasper's Sign Neurological: Alert, Oriented (times 2 (person and place). He has a hearing problem.) Psychiatric: Normal Affect, Normal Mood Skin Exam: Dry, Normal Color, Wound/Incision (see extremities) Lymphatic: No Adenopathy Course - Vital Signs Text/Narrative:: I talked with DR. De Luna, resident of Dr. Lopez at 3:02PM. The patient will be admitted to [facility] for further evaluation and treatment. He agrees with the admission. Last Recorded V/S: Last Vital Signs Temp 97.1 F 09/09/19 10:30 Pulse 78 09/09/19 15:09 Resp 18 09/09/19 15:09 BP 124/86 09/09/19 15:09 Pulse Ox 97 09/09/19 15:09 - Orders/Labs/Meds Orders: Active Orders 24 hr Category Date Time Status Admission Status [Patient Status] [ADT] Stat ADT 09/09/19 15:13 Active CULTURE BLOOD [BC] Stat Lab 09/09/19 11:29 Received CULTURE BLOOD [BC] Stat Lab 09/09/19 11:36 Received INR,PT,PROTHROMBIN TIME [COAG] Routine Lab 09/09/19 15:15 Ordered Vancomycin 1 gm Med 09/09/19 14:48 Active Sodium Chloride 0.9% [Normal Saline (AdvBag)] 250 ml IV ONETIME Blood Culture x2 Reflex Set [OM.PC] Stat Oth 09/09/19 11:17 Ordered Medication Orders Vancomycin HCl 1 gm/ Sodium (Chloride) 250 mls @ 166 mls/hr IV ONETIME ONE Stop: 09/09/19 16:18 Labs: Laboratory Tests 09/09/19 09/09/19 09/09/19 Range/Units 11:29 11:29 11:29 WBC 8.83 (4.0-11.0) K/uL RBC 4.37 L (4.50-5.90) M/uL Hgb 13.2 (13.0-17.0) g/dL Hct 42.1 (38.0-50.0) % MCV 96.3 (80.0-98.0) fL MCH 30.2 (27.0-32.0) pg MCHC 31.4 (31.0-37.0) g/dL RDW Std Deviation 60.1 (28.0-62.0) fl RDW Coeff of Regulo 17 H (11.0-15.0) % Plt Count 129 L (150-400) K/uL MPV 11.20 (7.40-12.00) fL Neut % (Auto) 73.9 (48.0-80.0) % Lymph % (Auto) 12.3 L (16.0-40.0) % Dyer % (Auto) 12.5 (0.0-15.0) % Eos % (Auto) 1.2 (0.0-7.0) % Baso % (Auto) 0.1 (0.0-1.5) % Neut # (Auto) 6.5 H (1.4-5.7) K/uL Lymph # (Auto) 1.1 (0.6-2.4) K/uL Dyer # (Auto) 1.1 H (0.0-0.8) K/uL Eos # (Auto) 0.1 (0.0-0.7) K/uL Baso # (Auto) 0.0 (0.0-0.1) K/uL Nucleated RBC % 0.0 /100WBC Nucleated RBCs # 0 K/uL Sodium 146 (136-148) mmol/L Potassium 3.5 (3.5-5.1) mmol/L Chloride 106 (98-107) mmol/L Carbon Dioxide 34.1 H (21.0-32.0) mmol/L BUN 26 H (7.0-18.0) mg/dL Creatinine 1.0 (0.8-1.3) mg/dL Est Cr Clr Drug Dosing 50.08 mL/min Estimated GFR (MDRD) > 60.0 ml/min Glucose 94 (74-106) mg/dL Calcium 8.2 L (8.5-10.1) mg/dL Total Bilirubin 1.2 H (0.2-1.0) mg/dL AST 26 (15-37) IU/L ALT 37 (14-63) IU/L Alkaline Phosphatase 84 (46-116) U/L Troponin I < 0.050 (0.000-0.056) ng/mL B-Natriuretic Peptide 379 H (<100) PG/ML Total Protein 6.8 (6.4-8.2) g/dL Albumin 3.1 L (3.4-5.0) g/dL Globulin 3.7 (2.6-4.0) g/dL Albumin/Globulin Ratio 0.8 L (0.9-1.6) Urine Color Urine Appearance Urine pH (5.0-8.0) Ur Specific [place] (1.001-1.035) Urine Protein (NEGATIVE) mg/dL Urine Glucose (UA) (NEGATIVE) mg/dL Urine Ketones (NEGATIVE) mg/dL Urine Occult Blood (NEGATIVE) Urine Nitrite (NEGATIVE) Urine Bilirubin (NEGATIVE) Urine Urobilinogen (<2.0) EU/dL Ur Leukocyte Esterase (NEGATIVE) Urine RBC (0-2/HPF) Urine WBC (0-5/HPF) Ur Epithelial Cells (NONE-FEW) Urine Bacteria (NEGATIVE) Urine Mucus (NONE-MOD) 09/09/19 Range/Units 12:30 WBC (4.0-11.0) K/uL RBC (4.50-5.90) M/uL Hgb (13.0-17.0) g/dL Hct (38.0-50.0) % MCV (80.0-98.0) fL MCH (27.0-32.0) pg MCHC (31.0-37.0) g/dL RDW Std Deviation (28.0-62.0) fl RDW Coeff of Regulo (11.0-15.0) % Plt Count (150-400) K/uL MPV (7.40-12.00) fL Neut % (Auto) (48.0-80.0) % Lymph % (Auto) (16.0-40.0) % Dyer % (Auto) (0.0-15.0) % Eos % (Auto) (0.0-7.0) % Baso % (Auto) (0.0-1.5) % Neut # (Auto) (1.4-5.7) K/uL Lymph # (Auto) (0.6-2.4) K/uL Dyer # (Auto) (0.0-0.8) K/uL Eos # (Auto) (0.0-0.7) K/uL Baso # (Auto) (0.0-0.1) K/uL Nucleated RBC % /100WBC Nucleated RBCs # K/uL Sodium (136-148) mmol/L Potassium (3.5-5.1) mmol/L Chloride (98-107) mmol/L Carbon Dioxide (21.0-32.0) mmol/L BUN (7.0-18.0) mg/dL Creatinine (0.8-1.3) mg/dL Est Cr Clr Drug Dosing mL/min Estimated GFR (MDRD) ml/min Glucose (74-106) mg/dL Calcium (8.5-10.1) mg/dL Total Bilirubin (0.2-1.0) mg/dL AST (15-37) IU/L ALT (14-63) IU/L Alkaline Phosphatase (46-116) U/L Troponin I (0.000-0.056) ng/mL B-Natriuretic Peptide (<100) PG/ML Total Protein (6.4-8.2) g/dL Albumin (3.4-5.0) g/dL Globulin (2.6-4.0) g/dL Albumin/Globulin Ratio (0.9-1.6) Urine Color YELLOW Urine Appearance SLT CLOUDY Urine pH 6.0 (5.0-8.0) Ur Specific [place] 1.020 (1.001-1.035) Urine Protein NEGATIVE (NEGATIVE) mg/dL Urine Glucose (UA) NEGATIVE (NEGATIVE) mg/dL Urine Ketones NEGATIVE (NEGATIVE) mg/dL Urine Occult Blood SMALL H (NEGATIVE) Urine Nitrite POSITIVE H (NEGATIVE) Urine Bilirubin NEGATIVE (NEGATIVE) Urine Urobilinogen 0.2 (<2.0) EU/dL Ur Leukocyte Esterase SMALL H (NEGATIVE) Urine RBC 1-3 (0-2/HPF) Urine WBC 10-15 (0-5/HPF) Ur Epithelial Cells FEW (NONE-FEW) Urine Bacteria 4+ H (NEGATIVE) Urine Mucus LIGHT (NONE-MOD) Meds: Medications Generic Name Dose Route Start Last Admin Trade Name Freq PRN Reason Stop Dose Admin Vancomycin HCl 1 gm/ Sodium 250 mls @ 166 mls/hr 09/09/19 14:48 Chloride IV 09/09/19 16:18 ONETIME ONE Discontinued Medications Generic Name Dose Route Start Last Admin Trade Name Freq PRN Reason Stop Dose Admin Piperacillin Sod/Tazobactam 50 mls @ 100 mls/hr 09/09/19 14:46 09/09/19 15:10 Sod 3.375 gm/ Sodium Chloride IV 09/09/19 15:15 100 mls/hr ONETIME ONE Administration Departure - Departure Time of Disposition: 15:11 Disposition: Refer to Observation Condition: Fair Clinical Impression: Cellulitis of left leg without foot UTI (urinary tract infection) Qualifiers: Urinary tract infection type: site unspecified Hematuria presence: without hematuria Qualified Code(s): N39.0 - Urinary tract infection, site not specified - Discharge Information *PRESCRIPTION DRUG MONITORING PROGRAM REVIEWED*: Yes *COPY OF PRESCRIPTION DRUG MONITORING REPORT IN PATIENT ENE: Yes Referrals: Aguilar Thomas MD [Primary Care Provider] - Forms: ED Department Discharge Sepsis Event Note - Evaluation Sepsis Screening Result: No Definite Risk - Focused Exam Vital Signs: Vital Signs Temp Pulse Resp BP Pulse Ox 09/09/19 15:09 78 18 124/86 97 09/09/19 14:11 74 24 H 122/80 95 09/09/19 12:28 74 18 108/70 95 09/09/19 10:30 97.1 F 76 15 123/78 93 L Date Exam was Performed: 09/09/19 Time Exam was Performed: 15:16 - My Orders Last 24 Hours: My Active Orders 09/09/19 11:17 Blood Culture x2 Reflex Set [OM.PC] Stat 09/09/19 11:29 CULTURE BLOOD [BC] Stat 09/09/19 11:36 CULTURE BLOOD [BC] Stat 09/09/19 14:48 Vancomycin 1 gm Sodium Chloride 0.9% [Normal Saline (AdvBag)] 250 ml IV ONETIME 09/09/19 15:13 Admission Status [Patient Status] [ADT] Stat - Assessment/Plan Last 24 Hours: My Active Orders 09/09/19 11:17 Blood Culture x2 Reflex Set [OM.PC] Stat 09/09/19 11:29 CULTURE BLOOD [BC] Stat 09/09/19 11:36 CULTURE BLOOD [BC] Stat 09/09/19 14:48 Vancomycin 1 gm Sodium Chloride 0.9% [Normal Saline (AdvBag)] 250 ml IV ONETIME 09/09/19 15:13 Admission Status [Patient Status] [ADT] Stat
--- NOTE | 2019-09-09 13:20 | US ---
Bilateral lower extremity deep venous ultrasound: Duplex and color Doppler evaluation was obtained of the right and left common femoral, superficial femoral, popliteal, posterior tibial and peroneal veins. Subcutaneous swelling is seen within both lower extremities. Popliteal veins are not optimally seen. Posterior tibial veins as well as peroneal veins are not well seen on both sides. Within the visualized veins, normal Doppler blood flow and compression is seen. Impression: 1. Diffuse subcutaneous edema within both lower extremities. 2. Some portions of the deep veins not optimally seen. Visualized veins show no evidence of deep venous thrombosis. Diagnostic code #2 This report was dictated in MDT
[2019-09-09] MEDS ORDERED: Piperacillin/Tazobactam 3.375 GM in Sodium Chloride 0.9% 50 ML IV ONE (14:46)
--- NOTE | 2019-09-09 15:03 | CR ---
Left tibia and fibula: 2 views left tibia and fibula were obtained. Bony structures are osteopenic. Vascular calcification is noted. No discrete fracture or other abnormality is appreciated. Impression: 1. Nothing acute is seen on 2 view left tibia and fibula study. Diagnostic code #2 Right tibia and fibula: 2 views of the right tibia and fibula were obtained. Bony structures are osteopenic. Vascular calcification is noted. No fracture or other bony abnormality is seen. Impression: 1. Nothing acute is seen on 2 view right tibia and fibula study. Diagnostic code #2 Study was dictated in MDT
[2019-09-09] MEDS ORDERED: Acetaminophen 325 MG Tab PO PRN (15:42)
[2019-09-09] MEDS ORDERED: Ondansetron 4 MG Tab.DIS PO PRN (15:42)
[2019-09-09] MEDS ORDERED: Ondansetron 4 MG/2 ML SDV IVPUSH PRN (15:42)
[2019-09-09] MEDS ORDERED: cefTRIAXone 1 GM in Premix Bag 1 BAG IV ONE (15:54)
--- NOTE | 2019-09-09 16:10 | PCM.HP.2 ---
Addendum entered and electronically signed by Brandon De Luna MD 09/09/19 16: 57: Rocephin not given to patient as he already received a dose of zosyn in ER. Original Note: <Brandon De Luna - Last Filed: 09/09/19 16:13> H&P History of Present Illness - General Date of Service: 09/09/19 Admit Problem/Dx: Admission Diagnosis/Problem Admission Diagnosis/Problem Cellulitis of both lower extremities Source of Information: Patient History Limitations: Reports: Other (poor historian) - History of Present Illness Initial Comments - Free Text/Narative: 88-year-old male presents with left leg swelling and redness. He is a resident of [facility]. He has a PMH of CHF, heart valve replacement on chronic warfarin therapy, HTN and hyperlipidemia. Patient is a poor historian and cannot provide many details. Per ER provider, patient brought to ER from [place] because of worsening left leg swelling and had a blister form that has since eroded leaving area of erythema. He reports that his legs are always swollen at baseline and his left leg becomes red at times. He reports having a chronic cough at baseline. He denies having any fevers, chills, blurry vision, sore throat, SOB, chest pain, n/v/d, abdominal pain, pain on urination, blood in urine, blood in stool, numbness or tingling in extremities. In the ER, CBC and CMP were unremarkable. Troponin negative, BNP 379, CXR negative, B/l doppler u/s was negative for DVT and X-rays of B/l tib/fib were negative. UA positive for nitrites, esterase and 4+ bacteria. Patient given dose of vancomycin and zosyn. Admitted for further evaluation. - Related Data Allergies/Adverse Reactions: Allergies Allergy/AdvReac Type Severity Reaction Status Date / Time No Known Allergies Allergy Verified 09/09/19 18:24 Home Medications: Home Meds Furosemide [Lasix] 40 mg PO BID 01/16/14 [History] Simvastatin [Zocor] 40 mg PO BEDTIME 01/16/14 [History] Bisacodyl [Dulcolax] 10 mg RECTAL DAILY PRN 11/03/16 [History] Mag Carb/Al Hydrox/Alginic Ac [Gaviscon Liquid] 30 ml PO DAILY PRN 11/03/16 [ History] Magnesium Hydroxide [Milk of Magnesia] 30 ml PO DAILY PRN 11/03/16 [History] Acetaminophen 500 mg PO Q8H PRN 05/09/19 [History] Acetaminophen 500 mg PO TID 05/09/19 [History] Albuterol/Ipratropium [DuoNeb 3.0-0.5 MG/3 ML] 3 ml NEB Q6H PRN 05/09/19 [ History] Carbamide Peroxide [Debrox] 3 drop EARBOTH BEDTIME PRN 05/09/19 [History] Carboxymethylcellulose Sodium [Refresh Tears 0.5%] 1 drop EYEBOTH BID 05/09/19 [ History] Levothyroxine Sodium [Tirosint] 75 mg PO ACBREAKFAST 05/09/19 [History] Lutein/Minerals/Vit A,C & E [Ocuvite] 1 tab PO DAILY 05/09/19 [History] Menthol [Biofreeze] 1 applic TOP BID 05/09/19 [History] Terbinafine [LamISIL AT 1% Crm] 1 applic TOP Q12H PRN MDD GROIN/ABDOMINAL [History] Omeprazole 20 mg PO BEDTIME 09/09/19 [History] guaiFENesin/Dextromethorphan [Tussin Dm 400-20 mg/20 ml Liq] 5 ml PO Q4H PRN [History] Warfarin [Coumadin] 2 mg PO DAILY 7 Days #9 tab 09/19/19 [Rx] Past Medical History HEENT History: Reports: Hard of Hearing, Impaired Vision Other HEENT History: on hearing aid Cardiovascular History: Reports: Afib, Heart Failure, Heart Valve Replacement, High Cholesterol, Hypertension Respiratory History: Reports: COPD Other Respiratory History: Oxygen dependent Other Gastrointestinal History: Esophogeal dyskinesia Genitourinary History: Reports: Retention, Urinary Musculoskeletal History: Reports: Osteoarthritis Neurological History: Reports: None Psychiatric History: Reports: None Endocrine/Metabolic History: Reports: Hypothyroidism, Obesity/BMI 30+ Hematologic History: Reports: None Immunologic History: Reports: None Oncologic (Cancer) History: Reports: None Dermatologic History: Reports: Cellulitis - Infectious Disease History Infectious Disease History: Reports: Measles Other Infectious Disease History: pseudomonas aeruginosa - Past Surgical History Cardiovascular Surgical History: Reports: Valve Replacement GI Surgical History: Reports: EGD Other GI Surgeries/Procedures: Esophageal surgery 1996 Social & Family History - Family History Family Medical History: Noncontributory - Tobacco Use Smoking Status *Q: Never Smoker - Caffeine Use Caffeine Use: Reports: Coffee, Soda - Recreational Drug Use Recreational Drug Use: No H&P Review of Systems - Review of Systems: Review Of Systems: Comprehensive ROS is negative, except as noted in HPI. Exam - Exam Exam: See Below - Vital Signs Vital Signs: Last Vital Signs Temp 97.1 F 09/09/19 10:30 Pulse 78 09/09/19 15:09 Resp 18 09/09/19 15:09 BP 124/86 09/09/19 15:09 Pulse Ox 97 09/09/19 15:09 Weight: 136.078 kg - Exam General: Other (Awake, alert. Poor historian. No acute distress.) HEENT: Conjunctiva Clear, EOMI, Posterior Pharynx Clear, Pupils Equal, Pupils Reactive Neck: Supple, Trachea Midline Lungs: Normal Respiratory Effort, Other (mild rhonchi b/l) Cardiovascular: Regular Rate, Regular Rhythm GI/Abdominal Exam: Normal Bowel Sounds, Soft, Non-Tender, No Distention Extremities: Other (LLE: circumferential edema from mid-leg extending distally, 2+ pitting edema, 5 cm x 5 cm circular area of erythema over left finley, non- tender to palpation, mildly warm to touch. RLE: circumferential edema from mid leg extending distally, 2+ pitting edema.) Skin: Warm, Dry Neurological: Cranial Nerves Intact, Strength Equal Bilateral Neuro Extensive - Mental Status: Alert - Patient Data Lab Results Last 24 hrs: Laboratory Results - last 24 hr 09/09/19 09/09/19 09/09/19 Range/Units 11:29 11:29 11:29 WBC 8.83 (4.0-11.0) K/uL RBC 4.37 L (4.50-5.90) M/uL Hgb 13.2 (13.0-17.0) g/dL Hct 42.1 (38.0-50.0) % MCV 96.3 (80.0-98.0) fL MCH 30.2 (27.0-32.0) pg MCHC 31.4 (31.0-37.0) g/dL RDW Std Deviation 60.1 (28.0-62.0) fl RDW Coeff of Regulo 17 H (11.0-15.0) % Plt Count 129 L (150-400) K/uL MPV 11.20 (7.40-12.00) fL Neut % (Auto) 73.9 (48.0-80.0) % Lymph % (Auto) 12.3 L (16.0-40.0) % Roberts % (Auto) 12.5 (0.0-15.0) % Eos % (Auto) 1.2 (0.0-7.0) % Baso % (Auto) 0.1 (0.0-1.5) % Neut # (Auto) 6.5 H (1.4-5.7) K/uL Lymph # (Auto) 1.1 (0.6-2.4) K/uL Roberts # (Auto) 1.1 H (0.0-0.8) K/uL Eos # (Auto) 0.1 (0.0-0.7) K/uL Baso # (Auto) 0.0 (0.0-0.1) K/uL Nucleated RBC % 0.0 /100WBC Nucleated RBCs # 0 K/uL INR Sodium 146 (136-148) mmol/L Potassium 3.5 (3.5-5.1) mmol/L Chloride 106 (98-107) mmol/L Carbon Dioxide 34.1 H (21.0-32.0) mmol/L BUN 26 H (7.0-18.0) mg/dL Creatinine 1.0 (0.8-1.3) mg/dL Est Cr Clr Drug Dosing 50.08 mL/min Estimated GFR (MDRD) > 60.0 ml/min Glucose 94 (74-106) mg/dL Calcium 8.2 L (8.5-10.1) mg/dL Total Bilirubin 1.2 H (0.2-1.0) mg/dL AST 26 (15-37) IU/L ALT 37 (14-63) IU/L Alkaline Phosphatase 84 (46-116) U/L Troponin I < 0.050 (0.000-0.056) ng/mL B-Natriuretic Peptide 379 H (<100) PG/ML Total Protein 6.8 (6.4-8.2) g/dL Albumin 3.1 L (3.4-5.0) g/dL Globulin 3.7 (2.6-4.0) g/dL Albumin/Globulin Ratio 0.8 L (0.9-1.6) Urine Color Urine Appearance Urine pH (5.0-8.0) Ur Specific [place] (1.001-1.035) Urine Protein (NEGATIVE) mg/dL Urine Glucose (UA) (NEGATIVE) mg/dL Urine Ketones (NEGATIVE) mg/dL Urine Occult Blood (NEGATIVE) Urine Nitrite (NEGATIVE) Urine Bilirubin (NEGATIVE) Urine Urobilinogen (<2.0) EU/dL Ur Leukocyte Esterase (NEGATIVE) Urine RBC (0-2/HPF) Urine WBC (0-5/HPF) Ur Epithelial Cells (NONE-FEW) Urine Bacteria (NEGATIVE) Urine Mucus (NONE-MOD) 09/09/19 09/09/19 Range/Units 11:29 12:30 WBC (4.0-11.0) K/uL RBC (4.50-5.90) M/uL Hgb (13.0-17.0) g/dL Hct (38.0-50.0) % MCV (80.0-98.0) fL MCH (27.0-32.0) pg MCHC (31.0-37.0) g/dL RDW Std Deviation (28.0-62.0) fl RDW Coeff of Regulo (11.0-15.0) % Plt Count (150-400) K/uL MPV (7.40-12.00) fL Neut % (Auto) (48.0-80.0) % Lymph % (Auto) (16.0-40.0) % Roberts % (Auto) (0.0-15.0) % Eos % (Auto) (0.0-7.0) % Baso % (Auto) (0.0-1.5) % Neut # (Auto) (1.4-5.7) K/uL Lymph # (Auto) (0.6-2.4) K/uL Roberts # (Auto) (0.0-0.8) K/uL Eos # (Auto) (0.0-0.7) K/uL Baso # (Auto) (0.0-0.1) K/uL Nucleated RBC % /100WBC Nucleated RBCs # K/uL INR 2.19 Sodium (136-148) mmol/L Potassium (3.5-5.1) mmol/L Chloride (98-107) mmol/L Carbon Dioxide (21.0-32.0) mmol/L BUN (7.0-18.0) mg/dL Creatinine (0.8-1.3) mg/dL Est Cr Clr Drug Dosing mL/min Estimated GFR (MDRD) ml/min Glucose (74-106) mg/dL Calcium (8.5-10.1) mg/dL Total Bilirubin (0.2-1.0) mg/dL AST (15-37) IU/L ALT (14-63) IU/L Alkaline Phosphatase (46-116) U/L Troponin I (0.000-0.056) ng/mL B-Natriuretic Peptide (<100) PG/ML Total Protein (6.4-8.2) g/dL Albumin (3.4-5.0) g/dL Globulin (2.6-4.0) g/dL Albumin/Globulin Ratio (0.9-1.6) Urine Color YELLOW Urine Appearance SLT CLOUDY Urine pH 6.0 (5.0-8.0) Ur Specific [place] 1.020 (1.001-1.035) Urine Protein NEGATIVE (NEGATIVE) mg/dL Urine Glucose (UA) NEGATIVE (NEGATIVE) mg/dL Urine Ketones NEGATIVE (NEGATIVE) mg/dL Urine Occult Blood SMALL H (NEGATIVE) Urine Nitrite POSITIVE H (NEGATIVE) Urine Bilirubin NEGATIVE (NEGATIVE) Urine Urobilinogen 0.2 (<2.0) EU/dL Ur Leukocyte Esterase SMALL H (NEGATIVE) Urine RBC 1-3 (0-2/HPF) Urine WBC 10-15 (0-5/HPF) Ur Epithelial Cells FEW (NONE-FEW) Urine Bacteria 4+ H (NEGATIVE) Urine Mucus LIGHT (NONE-MOD) Result Diagrams: 09/09/19 11:29 09/09/19 11:29 Sepsis Event Note - Evaluation Sepsis Screening Result: No Definite Risk - Focused Exam Vital Signs: Vital Signs Temp Pulse Resp BP Pulse Ox 09/09/19 15:09 78 18 124/86 97 09/09/19 14:11 74 24 H 122/80 95 09/09/19 12:28 74 18 108/70 95 09/09/19 10:30 97.1 F 76 15 123/78 93 L Date Exam was Performed: 09/09/19 Time Exam was Performed: 16:13 Problem List Initiated/Reviewed/Updated: Yes Orders Last 24hrs: Active Orders 24 hr Category Date Time Status Admission Status [Patient Status] [ADT] Stat ADT 09/09/19 15:13 Active Antiembolic Devices [RC] PER UNIT ROUTINE Care 09/09/19 15:43 Active Oxygen Therapy [RC] PRN Care 09/09/19 15:42 Active Up With Assistance [RC] ASDIRECTED Care 09/09/19 15:42 Active VTE/DVT Education [RC] PER UNIT ROUTINE Care 09/09/19 15:42 Active Vital Signs [RC] Q4H Care 09/09/19 15:42 Active OT Evaluation and Treatment [CONS] Routine Cons 09/09/19 15:42 Active PT Evaluation and Treatment [CONS] Routine Cons 09/09/19 15:42 Active Heart Healthy Diet [DIET] Diet 09/09/19 Lunch Active CBC WITH AUTO DIFF [HEME] AM Lab 09/10/19 05:11 Ordered COMPREHENSIVE METABOLIC PN,CMP [CHEM] AM Lab 09/10/19 05:11 Ordered CULTURE BLOOD [BC] Stat Lab 09/09/19 11:29 Received CULTURE BLOOD [BC] Stat Lab 09/09/19 11:36 Received INR,PT,PROTHROMBIN TIME [COAG] Routine Lab 09/09/19 15:56 Ordered Acetaminophen [Tylenol] Med 09/09/19 15:42 Active 650 mg PO Q4H PRN Ondansetron [Zofran ODT] Med 09/09/19 15:42 Active 4 mg PO Q4H PRN Ondansetron [Zofran] Med 09/09/19 15:42 Active 4 mg IVPUSH Q4H PRN Pharmacy to Dose - Vancomycin Med 09/09/19 16:00 Ordered 1 dose .XX ASDIRECTED Vancomycin 1 gm Med 09/09/19 14:48 Active Sodium Chloride 0.9% [Normal Saline (AdvBag)] 250 ml IV ONETIME Warfarin Dosing [Coumadin Ask] Med 09/09/19 15:56 Once 1 each PO ONETIME ONE cefTRIAXone [Rocephin in Dextrose,Iso-Osm 1 GM/50 ML] 1 Med 09/09/19 15:54 Active gm Premix Bag 1 bag IV ONETIME Blood Culture x2 Reflex Set [OM.PC] Stat Oth 09/09/19 11:17 Ordered Sequential Compression Device [OM.PC] Per Unit Routine Oth 09/09/19 15:42 Ordered Medication Orders Acetaminophen (Tylenol) 650 mg PO Q4H PRN PRN Reason: Pain (Mild 1-3)/fever Vancomycin HCl 1 gm/ Sodium (Chloride) 250 mls @ 166 mls/hr IV ONETIME ONE Stop: 09/09/19 16:18 Ceftriaxone Sodium/Dextrose 1 (gm/ Premix) 50 mls @ 100 mls/hr IV ONETIME ONE Stop: 09/09/19 16:23 Ondansetron HCl (Zofran Odt) 4 mg PO Q4H PRN PRN Reason: nausea, able to take PO Ondansetron HCl (Zofran) 4 mg IVPUSH Q4H PRN PRN Reason: Nausea Vancomycin HCl (Pharmacy To Dose - Vancomycin) 1 dose .XX ASDIRECTED [facility] Warfarin Sodium (Coumadin Ask) 1 each PO ONETIME ONE Stop: 09/09/19 15:57 Assessment/Plan Comment:: Assessment and Plan: 1. Left lower extremity cellulitis: - Admit to med/surg. Will treat with IV vancomycin. X-ray showed no bony involvement. Blood cultures pending. 2. Acute cystitis: - Will treat with IV rocephin 1 g x1. 3. Subtherapeutic INR: - Patient has history of heart valve replacement, on chronic warfarin therapy. INR today is 2.19. Will consult pharmacy for warfarin dosing. 4. Past medical history of CHF, HTN and hyperlipidemia: - Resume home medications. 5. DVT prophylaxis: Patient on chronic warfarin. <Liliane Lopez - Last Filed: 09/25/19 14:02> H&P History of Present Illness - General Admit Problem/Dx: Admission Diagnosis/Problem Admission Diagnosis/Problem Cellulitis of both lower extremities Left Lower Leg Pain Score (Numeric/FACES): 0 Exam - Vital Signs Vital Signs: Last Vital Signs Temp 36.2 C 09/19/19 11:39 Pulse 81 09/19/19 11:39 Resp 16 09/19/19 11:39 BP 107/68 09/19/19 11:39 Pulse Ox 94 L 09/19/19 11:39 - Patient Data Result Diagrams: 09/18/19 05:58 09/18/19 05:58 - Problem List (1) UTI, Urinary tract infectious disease SNOMED Code(s): 12852089 ICD Code: N39.0 - URINARY TRACT INFECTION, SITE NOT SPECIFIED Status: Acute Onset Date: 01/16/14 (2) Hx of aortic valve replacement SNOMED Code(s): 1931045461423, 381287140, 0194902378768 ICD Code: Z95.2 - PRESENCE OF PROSTHETIC HEART VALVE Status: Chronic (3) CHF (congestive heart failure) SNOMED Code(s): 34624671 ICD Code: I50.9 - HEART FAILURE, UNSPECIFIED Status: Chronic (4) HTN (hypertension) SNOMED Code(s): 73114020 ICD Code: I10 - ESSENTIAL (PRIMARY) HYPERTENSION Status: Chronic Qualifiers: Hypertension type: essential hypertension Qualified Code(s): I10 - Essential (primary) hypertension (5) Chronic anticoagulation SNOMED Code(s): 897877276 ICD Code: Z79.01 - SWITCHMAN (CURRENT) USE OF ANTICOAGULANTS Status: Chronic (6) Hyperbilirubinemia SNOMED Code(s): 45791180 ICD Code: E80.6 - OTHER DISORDERS OF BILIRUBIN METABOLISM Status: Acute Assessment/Plan Comment:: I performed a history and physical exam of the patient and discussed management with resident. I have reviewed the residents note and agree with documented findings and plan unless otherwise specified in my note.
[2019-09-09] MEDS ORDERED: Carbamide Peroxide 6.5% Otic Soln 15 ML Bottle EARBOTH PRN (18:17)
[2019-09-09] MEDS ORDERED: Albuterol/Ipratropium 3.0-0.5 MG/3 ML Neb Soln NEB PRN (18:17)
[2019-09-09] MEDS ORDERED: Magnesium Hydroxide 400 MG/5 ML Susp 30 ML Cup PO PRN (18:17)
[2019-09-09] MEDS ORDERED: Bisacodyl 10 MG Supp RECTAL PRN (18:17)
[2019-09-09] MEDS: Carboxymethylcellulose Sodium 0.5% Ophth Soln 0.4 ML UD Box of 30 EYEBOTH SCH (21:44)
[2019-09-09] MEDS: Simvastatin 40 MG Tab PO SCH (21:45)
[2019-09-09] MEDS: Furosemide 40 MG Tab PO SCH (21:45)
[2019-09-09] MEDS: Omeprazole 20 MG Cap.CR PO SCH (21:45)
[2019-09-10] MEDS ORDERED: Lactated Ringers 1,000 ML IV SCH ×2 (05:45→06:00)
[2019-09-10 07:24] LABS: BLOOD UREA NITROGEN,BUN 24 mg/dL (7.0-18.0); CARBON DIOXIDE,CO2 33.5 mmol/L (21.0-32.0); CHLORIDE,CL 107 mmol/L (98-107); GLUCOSE RANDOM 109 mg/dL (74-106); POTASSIUM,K 3.9 mmol/L (3.5-5.1); SODIUM,NA 145 mmol/L (136-148)
[2019-09-10] MEDS: Levothyroxine 75 MCG Tab PO SCH (07:38)
--- NOTE | 2019-09-10 10:21 | PCM.PN ---
<Brandon De Luna M - Last Filed: 09/10/19 12:34> - General Info Date of Service: 09/10/19 Subjective Update: No complaints at bedside this morning. Reports cough is chronic and he states that he has been coughing less as of late. Denies fevers, chills, SOB, chest pain, n/v/d. - Patient Data Vitals - Most Recent: Last Vital Signs Temp 97.4 F 09/10/19 08:26 Pulse 82 09/10/19 08:26 Resp 19 09/10/19 08:26 BP 88/62 L 09/10/19 08:26 Pulse Ox 96 09/10/19 08:26 Weight - Most Recent: 136.078 kg I&O - Last 24 Hours: Intake & Output 09/09/19 09/10/19 09/10/19 22:59 06:59 14:59 Intake Total 710 250 Output Total 650 Balance 60 250 Lab Results Last 24 Hours: Laboratory Results - last 24 hr 09/09/19 09/09/19 09/09/19 Range/Units 11:29 11:29 11:29 WBC 8.83 (4.0-11.0) K/uL RBC 4.37 L (4.50-5.90) M/uL Hgb 13.2 (13.0-17.0) g/dL Hct 42.1 (38.0-50.0) % MCV 96.3 (80.0-98.0) fL MCH 30.2 (27.0-32.0) pg MCHC 31.4 (31.0-37.0) g/dL RDW Std Deviation 60.1 (28.0-62.0) fl RDW Coeff of Regulo 17 H (11.0-15.0) % Plt Count 129 L (150-400) K/uL MPV 11.20 (7.40-12.00) fL Neut % (Auto) 73.9 (48.0-80.0) % Lymph % (Auto) 12.3 L (16.0-40.0) % [place] % (Auto) 12.5 (0.0-15.0) % Eos % (Auto) 1.2 (0.0-7.0) % Baso % (Auto) 0.1 (0.0-1.5) % Neut # (Auto) 6.5 H (1.4-5.7) K/uL Lymph # (Auto) 1.1 (0.6-2.4) K/uL [place] # (Auto) 1.1 H (0.0-0.8) K/uL Eos # (Auto) 0.1 (0.0-0.7) K/uL Baso # (Auto) 0.0 (0.0-0.1) K/uL Nucleated RBC % 0.0 /100WBC Nucleated RBCs # 0 K/uL INR Sodium 146 (136-148) mmol/L Potassium 3.5 (3.5-5.1) mmol/L Chloride 106 (98-107) mmol/L Carbon Dioxide 34.1 H (21.0-32.0) mmol/L BUN 26 H (7.0-18.0) mg/dL Creatinine 1.0 (0.8-1.3) mg/dL Est Cr Clr Drug Dosing 50.08 mL/min Estimated GFR (MDRD) > 60.0 ml/min Glucose 94 (74-106) mg/dL Calcium 8.2 L (8.5-10.1) mg/dL Total Bilirubin 1.2 H (0.2-1.0) mg/dL AST 26 (15-37) IU/L ALT 37 (14-63) IU/L Alkaline Phosphatase 84 (46-116) U/L Troponin I < 0.050 (0.000-0.056) ng/mL B-Natriuretic Peptide 379 H (<100) PG/ML Total Protein 6.8 (6.4-8.2) g/dL Albumin 3.1 L (3.4-5.0) g/dL Globulin 3.7 (2.6-4.0) g/dL Albumin/Globulin Ratio 0.8 L (0.9-1.6) Urine Color Urine Appearance Urine pH (5.0-8.0) Ur Specific [place] (1.001-1.035) Urine Protein (NEGATIVE) mg/dL Urine Glucose (UA) (NEGATIVE) mg/dL Urine Ketones (NEGATIVE) mg/dL Urine Occult Blood (NEGATIVE) Urine Nitrite (NEGATIVE) Urine Bilirubin (NEGATIVE) Urine Urobilinogen (<2.0) EU/dL Ur Leukocyte Esterase (NEGATIVE) Urine RBC (0-2/HPF) Urine WBC (0-5/HPF) Ur Epithelial Cells (NONE-FEW) Urine Bacteria (NEGATIVE) Urine Mucus (NONE-MOD) 09/09/19 09/09/19 09/09/19 Range/Units 11:29 12:30 16:15 WBC (4.0-11.0) K/uL RBC (4.50-5.90) M/uL Hgb (13.0-17.0) g/dL Hct (38.0-50.0) % MCV (80.0-98.0) fL MCH (27.0-32.0) pg MCHC (31.0-37.0) g/dL RDW Std Deviation (28.0-62.0) fl RDW Coeff of Regulo (11.0-15.0) % Plt Count (150-400) K/uL MPV (7.40-12.00) fL Neut % (Auto) (48.0-80.0) % Lymph % (Auto) (16.0-40.0) % [place] % (Auto) (0.0-15.0) % Eos % (Auto) (0.0-7.0) % Baso % (Auto) (0.0-1.5) % Neut # (Auto) (1.4-5.7) K/uL Lymph # (Auto) (0.6-2.4) K/uL [place] # (Auto) (0.0-0.8) K/uL Eos # (Auto) (0.0-0.7) K/uL Baso # (Auto) (0.0-0.1) K/uL Nucleated RBC % /100WBC Nucleated RBCs # K/uL INR 2.19 2.26 Sodium (136-148) mmol/L Potassium (3.5-5.1) mmol/L Chloride (98-107) mmol/L Carbon Dioxide (21.0-32.0) mmol/L BUN (7.0-18.0) mg/dL Creatinine (0.8-1.3) mg/dL Est Cr Clr Drug Dosing mL/min Estimated GFR (MDRD) ml/min Glucose (74-106) mg/dL Calcium (8.5-10.1) mg/dL Total Bilirubin (0.2-1.0) mg/dL AST (15-37) IU/L ALT (14-63) IU/L Alkaline Phosphatase (46-116) U/L Troponin I (0.000-0.056) ng/mL B-Natriuretic Peptide (<100) PG/ML Total Protein (6.4-8.2) g/dL Albumin (3.4-5.0) g/dL Globulin (2.6-4.0) g/dL Albumin/Globulin Ratio (0.9-1.6) Urine Color YELLOW Urine Appearance SLT CLOUDY Urine pH 6.0 (5.0-8.0) Ur Specific [place] 1.020 (1.001-1.035) Urine Protein NEGATIVE (NEGATIVE) mg/dL Urine Glucose (UA) NEGATIVE (NEGATIVE) mg/dL Urine Ketones NEGATIVE (NEGATIVE) mg/dL Urine Occult Blood SMALL H (NEGATIVE) Urine Nitrite POSITIVE H (NEGATIVE) Urine Bilirubin NEGATIVE (NEGATIVE) Urine Urobilinogen 0.2 (<2.0) EU/dL Ur Leukocyte Esterase SMALL H (NEGATIVE) Urine RBC 1-3 (0-2/HPF) Urine WBC 10-15 (0-5/HPF) Ur Epithelial Cells FEW (NONE-FEW) Urine Bacteria 4+ H (NEGATIVE) Urine Mucus LIGHT (NONE-MOD) 09/10/19 09/10/19 Range/Units 06:10 06:10 WBC 9.42 (4.0-11.0) K/uL RBC 4.30 L (4.50-5.90) M/uL Hgb 12.7 L (13.0-17.0) g/dL Hct 41.7 (38.0-50.0) % MCV 97.0 (80.0-98.0) fL MCH 29.5 (27.0-32.0) pg MCHC 30.5 L (31.0-37.0) g/dL RDW Std Deviation 60.5 (28.0-62.0) fl RDW Coeff of Regulo 17 H (11.0-15.0) % Plt Count 132 L (150-400) K/uL MPV 11.80 (7.40-12.00) fL Neut % (Auto) 73.8 (48.0-80.0) % Lymph % (Auto) 13.5 L (16.0-40.0) % [place] % (Auto) 11.8 (0.0-15.0) % Eos % (Auto) 0.8 (0.0-7.0) % Baso % (Auto) 0.1 (0.0-1.5) % Neut # (Auto) 7.0 H (1.4-5.7) K/uL Lymph # (Auto) 1.3 (0.6-2.4) K/uL [place] # (Auto) 1.1 H (0.0-0.8) K/uL Eos # (Auto) 0.1 (0.0-0.7) K/uL Baso # (Auto) 0.0 (0.0-0.1) K/uL Nucleated RBC % 0.0 /100WBC Nucleated RBCs # 0 K/uL INR Sodium 145 (136-148) mmol/L Potassium 3.9 (3.5-5.1) mmol/L Chloride 107 (98-107) mmol/L Carbon Dioxide 33.5 H (21.0-32.0) mmol/L BUN 24 H (7.0-18.0) mg/dL Creatinine 1.0 (0.8-1.3) mg/dL Est Cr Clr Drug Dosing 50.08 mL/min Estimated GFR (MDRD) > 60.0 ml/min Glucose 109 H (74-106) mg/dL Calcium 8.6 (8.5-10.1) mg/dL Total Bilirubin 1.2 H (0.2-1.0) mg/dL AST 24 (15-37) IU/L ALT 29 (14-63) IU/L Alkaline Phosphatase 84 (46-116) U/L Troponin I (0.000-0.056) ng/mL B-Natriuretic Peptide (<100) PG/ML Total Protein 6.5 (6.4-8.2) g/dL Albumin 3.1 L (3.4-5.0) g/dL Globulin 3.4 (2.6-4.0) g/dL Albumin/Globulin Ratio 0.9 (0.9-1.6) Urine Color Urine Appearance Urine pH (5.0-8.0) Ur Specific [place] (1.001-1.035) Urine Protein (NEGATIVE) mg/dL Urine Glucose (UA) (NEGATIVE) mg/dL Urine Ketones (NEGATIVE) mg/dL Urine Occult Blood (NEGATIVE) Urine Nitrite (NEGATIVE) Urine Bilirubin (NEGATIVE) Urine Urobilinogen (<2.0) EU/dL Ur Leukocyte Esterase (NEGATIVE) Urine RBC (0-2/HPF) Urine WBC (0-5/HPF) Ur Epithelial Cells (NONE-FEW) Urine Bacteria (NEGATIVE) Urine Mucus (NONE-MOD) Med Orders - Current: Current Medications Acetaminophen (Tylenol) 650 mg PO Q4H PRN PRN Reason: Pain (Mild 1-3)/fever Albuterol/Ipratropium (Duoneb 3.0-0.5 Mg/3 Ml) 3 ml NEB Q6H PRN PRN Reason: COPD Artificial Tears (Refresh Plus 0.5%) 0 each EYEBOTH BID [facility] Last Admin: 09/09/19 21:44 Dose: 1 drop Bisacodyl (Dulcolax) 10 mg RECTAL DAILY PRN PRN Reason: Constipation Carbamide Perox/Anhydrous Glycerin (Debrox 6.5% Otic Soln) 0 ml EARBOTH BEDTIME PRN PRN Reason: EAR WAX Furosemide (Lasix) 40 mg PO BIDDIURETIC [facility] Last Admin: 09/09/19 21:45 Dose: 40 mg Vancomycin HCl 1.25 gm/ Sodium (Chloride) 250 mls @ 166.667 mls/hr IV Q12H [facility] Last Admin: 09/10/19 04:57 Dose: 166.667 mls/hr Lactated Ringer's (Ringers, Lactated) 1,000 mls @ 500 mls/hr IV STAT [facility] Last Admin: 09/10/19 07:24 Dose: 500 mls/hr Lactated Ringer's (Ringers, Lactated) 1,000 mls @ 100 mls/hr IV ASDIRECTED [facility] Ceftriaxone Sodium/Dextrose 1 (gm/ Premix) 50 mls @ 100 mls/hr IV Q24H [facility] Levothyroxine Sodium (Levothyroxine) 75 mcg PO ACBREAKFAST [facility] Last Admin: 09/10/19 07:38 Dose: 75 mcg Magnesium Hydroxide (Milk Of Magnesia) 30 ml PO DAILY PRN PRN Reason: Constipation Omeprazole (Omeprazole) 20 mg PO BEDTIME [facility] Last Admin: 09/09/19 21:45 Dose: 20 mg Ondansetron HCl (Zofran Odt) 4 mg PO Q4H PRN PRN Reason: nausea, able to take PO Ondansetron HCl (Zofran) 4 mg IVPUSH Q4H PRN PRN Reason: Nausea Simvastatin (Zocor) 40 mg PO BEDTIME [facility] Last Admin: 09/09/19 21:45 Dose: 40 mg Warfarin Sodium (Coumadin) 2 mg PO Q24H [facility] Discontinued Medications Piperacillin Sod/Tazobactam (Sod 3.375 gm/ Sodium Chloride) 50 mls @ 100 mls/ hr IV ONETIME ONE Stop: 09/09/19 15:15 Last Admin: 09/09/19 15:10 Dose: 100 mls/hr Vancomycin HCl 1 gm/ Sodium (Chloride) 250 mls @ 166 mls/hr IV ONETIME ONE Stop: 09/09/19 16:18 Last Admin: 09/09/19 16:24 Dose: 166 mls/hr Vancomycin HCl (Pharmacy To Dose - Vancomycin) 1 dose .XX ASDIRECTED [facility] - Exam General: Alert, Cooperative, No Acute Distress Lungs: Other (CTAB, quiet breath sounds b/l) Cardiovascular: Regular Rate, Irregular Rhythm GI/Abdominal Exam: Normal Bowel Sounds, Soft, Non-Tender, No Distention Extremities: Other (Left le cm x 5cm area of erythema over anterior finley, non-tender to palpation, mildly warm to touch. 2+ pitting edema b/l.) Sepsis Event Note - Evaluation Sepsis Screening Result: No Definite Risk - Focused Exam Vital Signs: Vital Signs Temp Pulse Resp BP Pulse Ox 09/10/19 08:26 97.4 F 82 19 88/62 L 96 09/10/19 04:15 81/51 L 09/10/19 04:00 97.5 F 80 20 85/45 L 95 09/10/19 01:00 96.9 F 78 18 106/64 98 Date Exam was Performed: 09/10/19 Time Exam was Performed: 12:34 - Problem List Review Problem List Initiated/Reviewed/Updated: Yes - My Orders Last 24 Hours: My Active Orders 09/09/19 15:42 Oxygen Therapy [RC] PRN Up With Assistance [RC] ASDIRECTED VTE/DVT Education [RC] PER UNIT ROUTINE Vital Signs [RC] Q4H OT Evaluation and Treatment [CONS] Routine PT Evaluation and Treatment [CONS] Routine Acetaminophen [Tylenol] 650 mg PO Q4H PRN Ondansetron [Zofran ODT] 4 mg PO Q4H PRN Ondansetron [Zofran] 4 mg IVPUSH Q4H PRN Sequential Compression Device [OM.PC] Per Unit Routine 09/09/19 15:43 Antiembolic Devices [RC] PER UNIT ROUTINE 09/09/19 16:12 Telemetry Monitoring [Cardiac Monitoring] [RC] . DIRECTED 09/09/19 17:22 Code Status [Resuscitation Status] Routine 09/09/19 17:55 Consult to Wound Care Services [CONS] Routine 09/09/19 18:17 Albuterol/Ipratropium [DuoNeb 3.0-0.5 MG/3 ML] 3 ml NEB Q6H PRN Carbamide Peroxide [Debrox 6.5% Otic Soln] 0 ml EARBOTH BEDTIME PRN Magnesium Hydroxide [Milk of Magnesia] 30 ml PO DAILY PRN bisacodyL [Dulcolax] 10 mg RECTAL DAILY PRN 09/09/19 20:00 Furosemide [Lasix] 40 mg PO BIDDIURETIC 09/09/19 21:00 Carboxymethylcellulose Sodium [Refresh Plus 0.5%] 0 each EYEBOTH BID Omeprazole 20 mg PO BEDTIME Simvastatin [Zocor] 40 mg PO BEDTIME 09/10/19 04:00 Vancomycin 1.25 gm Sodium Chloride 0.9% [Normal Saline (AdvBag)] 250 ml IV Q12H 09/10/19 07:30 Levothyroxine 75 mcg PO ACBREAKFAST cefTRIAXone [Rocephin in Dextrose,Iso-Osm 1 GM/50 ML] 1 gm Premix Bag 1 bag IV Q24H 09/10/19 14:00 Warfarin [Coumadin] 2 mg PO Q24H 09/10/19 Breakfast Soft Diet [DIET] 09/11/19 03:30 VANCOMYCIN TROUGH [CHEM] Routine - Plan Plan:: Assessment and Plan: 1. Left lower extremity cellulitis: - Continue IV vancomycin. X-ray showed no bony involvement. B/l ultrasound negative for DVT. Blood cultures pending. 2. Acute cystitis: - Treat with IV rocephin 1 g qd. 3. Subtherapeutic INR: - Patient has history of heart valve replacement, on chronic warfarin therapy. Pharmacy consulted for warfarin dosing. 4. Past medical history of atrial fibrillation, COPD, CHF, HTN and hyperlipidemia: - Resume home medications. 5. DVT prophylaxis: Patient on chronic warfarin therapy. <Liliane Lpoez - Last Filed: 09/25/19 14:03> - Patient Data Vitals - Most Recent: Last Vital Signs Temp 36.2 C 09/19/19 11:39 Pulse 81 09/19/19 11:39 Resp 16 09/19/19 11:39 BP 107/68 09/19/19 11:39 Pulse Ox 94 L 09/19/19 11:39 Med Orders - Current: Current Medications Discontinued Medications Acetaminophen (Tylenol) 650 mg PO Q4H PRN PRN Reason: Pain (Mild 1-3)/fever Acetazolamide (Diamox) 250 mg PO ONETIME ONE Stop: 09/11/19 11:38 Last Admin: 09/11/19 11:58 Dose: 250 mg Albuterol/Ipratropium (Duoneb 3.0-0.5 Mg/3 Ml) 3 ml NEB Q6H PRN PRN Reason: COPD Artificial Tears (Refresh Plus 0.5%) 0 each EYEBOTH BID [facility] Last Admin: 09/19/19 09:53 Dose: 1 drop Bisacodyl (Dulcolax) 10 mg RECTAL DAILY PRN PRN Reason: Constipation Last Admin: 09/18/19 04:29 Dose: 10 mg Carbamide Perox/Anhydrous Glycerin (Debrox 6.5% Otic Soln) 0 ml EARBOTH BEDTIME PRN PRN Reason: EAR WAX Enoxaparin Sodium (Lovenox) 200 mg SUBCUT ONETIME ONE Stop: 09/11/19 11:46 Last Admin: 09/11/19 11:59 Dose: 200 mg Enoxaparin Sodium (Lovenox) 200 mg SUBCUT ONETIME ONE Stop: 09/13/19 11:16 Last Admin: 09/13/19 12:09 Dose: 200 mg Furosemide (Lasix) 40 mg PO BIDDIURETIC [facility] Last Admin: 09/11/19 08:56 Dose: 40 mg Furosemide (Lasix) 20 mg IVPUSH NOW ONE Stop: 09/10/19 23:55 Last Admin: 09/11/19 00:30 Dose: 20 mg Furosemide (Lasix) 20 mg IVPUSH NOW ONE Stop: 09/11/19 11:23 Last Admin: 09/11/19 11:56 Dose: 20 mg Furosemide (Lasix) 40 mg IVPUSH BID [facility] Last Admin: 09/13/19 09:44 Dose: 40 mg Furosemide (Lasix) 60 mg IVPUSH BID [facility] Last Admin: 09/14/19 08:40 Dose: 60 mg Furosemide (Lasix) 20 mg IVPUSH NOW ONE Stop: 09/13/19 10:20 Last Admin: 09/13/19 12:12 Dose: 20 mg Furosemide (Lasix) 80 mg IVPUSH BID [facility] Last Admin: 09/16/19 09:12 Dose: 80 mg Furosemide (Lasix) 80 mg IVPUSH DAILY [facility] Last Admin: 09/19/19 09:53 Dose: 80 mg Piperacillin Sod/Tazobactam (Sod 3.375 gm/ Sodium Chloride) 50 mls @ 100 mls/ hr IV ONETIME ONE Stop: 09/09/19 15:15 Last Admin: 09/09/19 15:10 Dose: 100 mls/hr Vancomycin HCl 1 gm/ Sodium (Chloride) 250 mls @ 166 mls/hr IV ONETIME ONE Stop: 09/09/19 16:18 Last Admin: 09/09/19 16:24 Dose: 166 mls/hr Vancomycin HCl 1.25 gm/ Sodium (Chloride) 250 mls @ 166.667 mls/hr IV Q12H [facility] Last Admin: 09/11/19 04:20 Dose: 166.667 mls/hr Lactated Ringer's (Ringers, Lactated) 1,000 mls @ 500 mls/hr IV STAT [facility] Last Admin: 09/10/19 07:24 Dose: 500 mls/hr Lactated Ringer's (Ringers, Lactated) 1,000 mls @ 100 mls/hr IV ASDIRECTED [facility] Last Admin: 09/10/19 11:53 Dose: 100 mls/hr Ceftriaxone Sodium/Dextrose 1 (gm/ Premix) 50 mls @ 100 mls/hr IV Q24H [facility] Last Admin: 09/19/19 06:48 Dose: 100 mls/hr Vancomycin HCl 1 gm/ Sodium (Chloride) 250 mls @ 166 mls/hr IV Q12H [facility] Last Admin: 09/12/19 16:11 Dose: 166 mls/hr Potassium Chloride 40 meq/ (Premix) 100 mls @ 25 mls/hr IV ONETIME ONE Stop: 09/11/19 15:35 Last Admin: 09/11/19 12:08 Dose: Not Given Potassium Chloride 20 meq/ (Sodium Chloride) 260 mls @ 130 mls/hr IV ONETIME ONE Stop: 09/11/19 13:59 Last Admin: 09/11/19 12:22 Dose: 130 mls/hr Magnesium Sulfate 2 gm/ Premix 50 mls @ 50 mls/hr IV ONETIME ONE Stop: 09/12/19 12:03 Last Admin: 09/12/19 12:07 Dose: 50 mls/hr Vancomycin HCl 0.75 gm/ Sodium (Chloride) 250 mls @ 250 mls/hr IV Q12H [facility] Last Admin: 09/13/19 19:42 Dose: Not Given Vancomycin HCl 0.75 gm/ Sodium (Chloride) 250 mls @ 250 mls/hr IV Q12H [facility] Last Admin: 09/14/19 18:53 Dose: Not Given Vancomycin HCl 0.75 gm/ Sodium (Chloride) 250 mls @ 250 mls/hr IV Q12H [facility] Last Admin: 09/15/19 21:29 Dose: Not Given Vancomycin HCl 500 mg/ Sodium (Chloride) 100 mls @ 100 mls/hr IV Q12H [facility] Last Admin: 09/15/19 22:14 Dose: 100 mls/hr Vancomycin HCl 500 mg/ Sodium (Chloride) 100 mls @ 100 mls/hr IV Q12H [facility] Last Admin: 09/16/19 10:35 Dose: Not Given Vancomycin HCl 1 gm/ Sodium (Chloride) 250 mls @ 166.667 mls/hr IV Q24H [facility] Last Admin: 09/19/19 09:53 Dose: 166.667 mls/hr Iopamidol (Isovue Multipack-370 (76%)) 50 ml IVPUSH ONETIME STA Stop: 09/14/19 13:07 Last Admin: 09/14/19 13:30 Dose: 50 ml Lansoprazole (Prevacid Solutab) 30 mg PO BEDTIME [facility] Last Admin: 09/18/19 20:41 Dose: 30 mg Levothyroxine Sodium (Levothyroxine) 75 mcg PO ACBREAKFAST [facility] Last Admin: 09/19/19 06:48 Dose: 75 mcg Magnesium Hydroxide (Milk Of Magnesia) 30 ml PO DAILY PRN PRN Reason: Constipation Last Admin: 09/17/19 09:19 Dose: 30 ml Omeprazole (Omeprazole) 20 mg PO BEDTIME [facility] Last Admin: 09/11/19 20:31 Dose: 20 mg Ondansetron HCl (Zofran Odt) 4 mg PO Q4H PRN PRN Reason: nausea, able to take PO Ondansetron HCl (Zofran) 4 mg IVPUSH Q4H PRN PRN Reason: Nausea Potassium Chloride (Potassium Chloride) 40 meq PO 09/12/19@0915 [facility] Stop: 09/12/19 09:16 Last Admin: 09/12/19 09:26 Dose: 40 meq Potassium Chloride (Klor-Con M20) 40 meq PO ONETIME ONE Stop: 09/14/19 07:12 Last Admin: 09/14/19 08:39 Dose: 40 meq Potassium Chloride (Klor-Con M20) 40 meq PO ONETIME ONE Stop: 09/15/19 07:20 Last Admin: 09/15/19 09:22 Dose: 40 meq Simvastatin (Zocor) 40 mg PO BEDTIME [facility] Last Admin: 09/18/19 20:40 Dose: 40 mg Sodium Phosphate (Neutra-Phos) 250 mg PO QID [facility] Stop: 09/13/19 00:01 Last Admin: 09/13/19 01:20 Dose: 250 mg Vancomycin HCl (Pharmacy To Dose - Vancomycin) 1 dose .XX ASDIRECTED [facility] Warfarin Sodium (Coumadin) 2 mg PO Q24H [facility] Last Admin: 09/10/19 15:11 Dose: 2 mg Warfarin Sodium (Coumadin) 3 mg PO ONETIME ONE Stop: 09/11/19 14:01 Last Admin: 09/11/19 13:54 Dose: 3 mg Warfarin Sodium (Coumadin Ask) 0 each PO DAILY@1400 [facility] Last Admin: 09/14/19 15:37 Dose: Not Given Warfarin Sodium (Coumadin) 3 mg PO ONETIME [facility] Last Admin: 09/12/19 16:10 Dose: 3 mg Warfarin Sodium (Coumadin) 3 mg PO ONETIME ONE Stop: 09/13/19 14:46 Last Admin: 09/13/19 15:18 Dose: 3 mg Warfarin Sodium (Coumadin) 2 mg PO ONETIME ONE Stop: 09/14/19 15:16 Last Admin: 09/14/19 15:37 Dose: Not Given Warfarin Sodium (Coumadin) 2 mg PO ONETIME ONE Stop: 09/14/19 17:46 Last Admin: 09/14/19 18:04 Dose: 2 mg Warfarin Sodium (Coumadin Ask) 1 each PO DAILY@1400 [facility] Last Admin: 09/18/19 15:01 Dose: Not Given Warfarin Sodium (Coumadin) 4 mg PO DAILY@1400 ONE Stop: 09/17/19 14:01 Last Admin: 09/17/19 14:32 Dose: 4 mg Warfarin Sodium (Coumadin) 3 mg PO DAILY@1400 ONE Stop: 09/18/19 14:01 Last Admin: 09/18/19 14:53 Dose: 3 mg - Problem List & Annotations (1) UTI, Urinary tract infectious disease SNOMED Code(s): 80312579 Code(s): N39.0 - URINARY TRACT INFECTION, SITE NOT SPECIFIED Status: Acute Onset Date: 01/16/14 (2) Hx of aortic valve replacement SNOMED Code(s): 7040885824874, 174974270, 7821681388789 Code(s): Z95.2 - PRESENCE OF PROSTHETIC HEART VALVE Status: Chronic (3) CHF (congestive heart failure) SNOMED Code(s): 22517249 Code(s): I50.9 - HEART FAILURE, UNSPECIFIED Status: Chronic (4) HTN (hypertension) SNOMED Code(s): 82447905 Code(s): I10 - ESSENTIAL (PRIMARY) HYPERTENSION Status: Chronic Qualifiers: Hypertension type: essential hypertension Qualified Code(s): I10 - Essential (primary) hypertension (5) Chronic anticoagulation SNOMED Code(s): 490620975 Code(s): Z79.01 - MEDICAL ANTHROPOLOGIST (CURRENT) USE OF ANTICOAGULANTS Status: Chronic (6) Hyperbilirubinemia SNOMED Code(s): 61611065 Code(s): E80.6 - OTHER DISORDERS OF BILIRUBIN METABOLISM Status: Acute - Plan Plan:: I have seen and evaluated the patient and agree with the residents note unless specified in my note
[2019-09-10] MEDS: cefTRIAXone 1 GM in Premix Bag 1 BAG IV SCH (10:51)
[2019-09-10] MEDS: Furosemide 40 MG Tab PO SCH ×2 (10:51→15:13)
[2019-09-10] MEDS: Carboxymethylcellulose Sodium 0.5% Ophth Soln 0.4 ML UD Box of 30 EYEBOTH SCH ×2 (10:51→21:41)
[2019-09-10] MEDS ORDERED: Warfarin 2 MG Tab PO SCH (14:00)
[2019-09-10] MEDS: Omeprazole 20 MG Cap.CR PO SCH (21:38)
[2019-09-10] MEDS: Simvastatin 40 MG Tab PO SCH (21:38)
[2019-09-10] MEDS ORDERED: Furosemide 20 MG/2 ML VIAL IVPUSH ONE (23:54)
[2019-09-11 03:55] LABS: BLOOD UREA NITROGEN,BUN 19 mg/dL (7.0-18.0); CARBON DIOXIDE,CO2 36.4 mmol/L (21.0-32.0); CHLORIDE,CL 104 mmol/L (98-107); GLUCOSE RANDOM 107 mg/dL (74-106); POTASSIUM,K 3.4 mmol/L (3.5-5.1); SODIUM,NA 143 mmol/L (136-148)
[2019-09-11] MEDS: Levothyroxine 75 MCG Tab PO SCH (06:32)
[2019-09-11] MEDS: cefTRIAXone 1 GM in Premix Bag 1 BAG IV SCH (06:34)
[2019-09-11] MEDS: Furosemide 40 MG Tab PO SCH (08:56)
[2019-09-11] MEDS: Carboxymethylcellulose Sodium 0.5% Ophth Soln 0.4 ML UD Box of 30 EYEBOTH SCH ×2 (08:57→22:31)
[2019-09-11] MEDS ORDERED: Furosemide 40 MG/4 ML VIAL IVPUSH ONE (11:22)
--- NOTE | 2019-09-11 11:32 | PCM.PN ---
- General Info Date of Service: 09/11/19 Admission Dx/Problem (Free Text): Admission Diagnosis/Problem Admission Diagnosis/Problem Cellulitis of both lower extremities Subjective Update: No complaints at bedside this morning. Denies fevers, chills, SOB, chest pain, n /v/d. Functional Status: Reports: Pain Controlled - Review of Systems General: Denies: Fever, Weakness Pulmonary: Reports: Cough, Sputum. Denies: Shortness of Breath, Hemoptysis Cardiovascular: Denies: Chest Pain, Palpitations Gastrointestinal: Denies: Abdominal Pain, Constipation, Decreased Appetite Genitourinary: Reports: Urgency. Denies: Dysuria, Frequency, Burning Musculoskeletal: Denies: Neck Pain, Shoulder Pain, Arm Pain Skin: Denies: Cyanosis, Jaundice, Mottled Neurological: Denies: Confusion, Dizziness, Headache Psychiatric: Denies: Confusion, Depression, Mood Lability - Patient Data Vitals - Most Recent: Last Vital Signs Temp 36.4 C 09/11/19 08:00 Pulse 86 09/11/19 08:00 Resp 18 09/11/19 08:00 BP 100/50 L 09/11/19 08:00 Pulse Ox 93 L 09/11/19 08:00 Weight - Most Recent: 132.4 kg I&O - Last 24 Hours: Intake & Output 09/10/19 09/11/19 09/11/19 22:59 06:59 14:59 Intake Total 3530 490 Output Total 340 604 Balance 3190 -114 Lab Results Last 24 Hours: Laboratory Results - last 24 hr 09/10/19 09/11/19 09/11/19 Range/Units 14:14 03:30 03:30 WBC 10.44 (4.0-11.0) K/uL RBC 4.28 L (4.50-5.90) M/uL Hgb 12.7 L (13.0-17.0) g/dL Hct 41.7 (38.0-50.0) % MCV 97.4 (80.0-98.0) fL MCH 29.7 (27.0-32.0) pg MCHC 30.5 L (31.0-37.0) g/dL RDW Std Deviation 60.3 (28.0-62.0) fl RDW Coeff of Regulo 17 H (11.0-15.0) % Plt Count 113 L (150-400) K/uL MPV 11.10 (7.40-12.00) fL Neut % (Auto) 76.4 (48.0-80.0) % Lymph % (Auto) 9.8 L (16.0-40.0) % Dyer % (Auto) 12.5 (0.0-15.0) % Eos % (Auto) 1.1 (0.0-7.0) % Baso % (Auto) 0.2 (0.0-1.5) % Neut # (Auto) 8.0 H (1.4-5.7) K/uL Lymph # (Auto) 1.0 (0.6-2.4) K/uL Dyer # (Auto) 1.3 H (0.0-0.8) K/uL Eos # (Auto) 0.1 (0.0-0.7) K/uL Baso # (Auto) 0.0 (0.0-0.1) K/uL Nucleated RBC % 0.0 /100WBC Nucleated RBCs # 0 K/uL INR 1.96 Sodium (136-148) mmol/L Potassium (3.5-5.1) mmol/L Chloride (98-107) mmol/L Carbon Dioxide (21.0-32.0) mmol/L BUN (7.0-18.0) mg/dL Creatinine (0.8-1.3) mg/dL Est Cr Clr Drug Dosing mL/min Estimated GFR (MDRD) ml/min Glucose (74-106) mg/dL Calcium (8.5-10.1) mg/dL Total Bilirubin (0.2-1.0) mg/dL AST (15-37) IU/L ALT (14-63) IU/L Alkaline Phosphatase (46-116) U/L Total Protein (6.4-8.2) g/dL Albumin (3.4-5.0) g/dL Globulin (2.6-4.0) g/dL Albumin/Globulin Ratio (0.9-1.6) Vancomycin Trough 16.3 H (5.0-10.0) ug/mL 09/11/19 09/11/19 Range/Units 03:30 03:30 WBC (4.0-11.0) K/uL RBC (4.50-5.90) M/uL Hgb (13.0-17.0) g/dL Hct (38.0-50.0) % MCV (80.0-98.0) fL MCH (27.0-32.0) pg MCHC (31.0-37.0) g/dL RDW Std Deviation (28.0-62.0) fl RDW Coeff of Regulo (11.0-15.0) % Plt Count (150-400) K/uL MPV (7.40-12.00) fL Neut % (Auto) (48.0-80.0) % Lymph % (Auto) (16.0-40.0) % Dyer % (Auto) (0.0-15.0) % Eos % (Auto) (0.0-7.0) % Baso % (Auto) (0.0-1.5) % Neut # (Auto) (1.4-5.7) K/uL Lymph # (Auto) (0.6-2.4) K/uL Dyer # (Auto) (0.0-0.8) K/uL Eos # (Auto) (0.0-0.7) K/uL Baso # (Auto) (0.0-0.1) K/uL Nucleated RBC % /100WBC Nucleated RBCs # K/uL INR 1.79 Sodium 143 (136-148) mmol/L Potassium 3.4 L (3.5-5.1) mmol/L Chloride 104 (98-107) mmol/L Carbon Dioxide 36.4 H (21.0-32.0) mmol/L BUN 19 H (7.0-18.0) mg/dL Creatinine 0.9 (0.8-1.3) mg/dL Est Cr Clr Drug Dosing 55.64 mL/min Estimated GFR (MDRD) > 60.0 ml/min Glucose 107 H (74-106) mg/dL Calcium 7.9 L (8.5-10.1) mg/dL Total Bilirubin 1.1 H (0.2-1.0) mg/dL AST 25 (15-37) IU/L ALT 29 (14-63) IU/L Alkaline Phosphatase 89 (46-116) U/L Total Protein 6.5 (6.4-8.2) g/dL Albumin 3.0 L (3.4-5.0) g/dL Globulin 3.5 (2.6-4.0) g/dL Albumin/Globulin Ratio 0.9 (0.9-1.6) Vancomycin Trough (5.0-10.0) ug/mL Ashvin Results Last 24 Hours: Microbiology 09/09/19 11:36 Aerobic Blood Culture - Preliminary Blood - Venous - Lab Draw NO GROWTH AFTER 1 DAY Anaerobic Blood Culture - Preliminary NO GROWTH AFTER 1 DAY 09/09/19 11:29 Aerobic Blood Culture - Preliminary Blood - Venous NO GROWTH AFTER 1 DAY Anaerobic Blood Culture - Preliminary NO GROWTH AFTER 1 DAY Med Orders - Current: Current Medications Acetaminophen (Tylenol) 650 mg PO Q4H PRN PRN Reason: Pain (Mild 1-3)/fever Albuterol/Ipratropium (Duoneb 3.0-0.5 Mg/3 Ml) 3 ml NEB Q6H PRN PRN Reason: COPD Artificial Tears (Refresh Plus 0.5%) 0 each EYEBOTH BID [facility] Last Admin: 09/11/19 08:57 Dose: 1 drop Bisacodyl (Dulcolax) 10 mg RECTAL DAILY PRN PRN Reason: Constipation Carbamide Perox/Anhydrous Glycerin (Debrox 6.5% Otic Soln) 0 ml EARBOTH BEDTIME PRN PRN Reason: EAR WAX Furosemide (Lasix) 40 mg PO BIDDIURETIC [facility] Last Admin: 09/11/19 08:56 Dose: 40 mg Furosemide (Lasix) 20 mg IVPUSH NOW ONE Stop: 09/11/19 11:23 Ceftriaxone Sodium/Dextrose 1 (gm/ Premix) 50 mls @ 100 mls/hr IV Q24H [facility] Last Admin: 09/11/19 06:34 Dose: 100 mls/hr Vancomycin HCl 1 gm/ Sodium (Chloride) 250 mls @ 166 mls/hr IV Q12H [facility] Levothyroxine Sodium (Levothyroxine) 75 mcg PO ACBREAKFAST [facility] Last Admin: 09/11/19 06:32 Dose: 75 mcg Magnesium Hydroxide (Milk Of Magnesia) 30 ml PO DAILY PRN PRN Reason: Constipation Omeprazole (Omeprazole) 20 mg PO BEDTIME [facility] Last Admin: 09/10/19 21:38 Dose: 20 mg Ondansetron HCl (Zofran Odt) 4 mg PO Q4H PRN PRN Reason: nausea, able to take PO Ondansetron HCl (Zofran) 4 mg IVPUSH Q4H PRN PRN Reason: Nausea Simvastatin (Zocor) 40 mg PO BEDTIME [facility] Last Admin: 09/10/19 21:38 Dose: 40 mg Warfarin Sodium (Coumadin) 2 mg PO Q24H [facility] Last Admin: 09/10/19 15:11 Dose: 2 mg Discontinued Medications Furosemide (Lasix) 20 mg IVPUSH NOW ONE Stop: 09/10/19 23:55 Last Admin: 09/11/19 00:30 Dose: 20 mg Piperacillin Sod/Tazobactam (Sod 3.375 gm/ Sodium Chloride) 50 mls @ 100 mls/ hr IV ONETIME ONE Stop: 09/09/19 15:15 Last Admin: 09/09/19 15:10 Dose: 100 mls/hr Vancomycin HCl 1 gm/ Sodium (Chloride) 250 mls @ 166 mls/hr IV ONETIME ONE Stop: 09/09/19 16:18 Last Admin: 09/09/19 16:24 Dose: 166 mls/hr Vancomycin HCl 1.25 gm/ Sodium (Chloride) 250 mls @ 166.667 mls/hr IV Q12H [facility] Last Admin: 09/11/19 04:20 Dose: 166.667 mls/hr Lactated Ringer's (Ringers, Lactated) 1,000 mls @ 500 mls/hr IV STAT [facility] Last Admin: 09/10/19 07:24 Dose: 500 mls/hr Lactated Ringer's (Ringers, Lactated) 1,000 mls @ 100 mls/hr IV ASDIRECTED [facility] Last Admin: 09/10/19 11:53 Dose: 100 mls/hr Vancomycin HCl (Pharmacy To Dose - Vancomycin) 1 dose .XX ASDIRECTED [facility] - Exam Quality Assessment: Supplemental Oxygen General: Alert, Oriented Neck: Supple, Trachea Midline Lungs: Normal Respiratory Effort, Decreased Breath Sounds Cardiovascular: Regular Rate, Regular Rhythm GI/Abdominal Exam: Normal Bowel Sounds, Soft, Non-Tender Extremities: Normal Inspection, Normal Range of Motion, Non-Tender, Pedal Edema (3+) Sepsis Event Note - Evaluation Sepsis Screening Result: No Definite Risk - Focused Exam Vital Signs: Vital Signs Temp Pulse Resp BP Pulse Ox 09/11/19 08:00 36.4 C 86 18 100/50 L 93 L 09/11/19 04:00 36.3 C 81 20 104/63 94 L 09/10/19 23:36 36.1 C 80 20 115/65 97 Date Exam was Performed: 09/11/19 Time Exam was Performed: 13:43 - Problem List & Annotations (1) UTI, Urinary tract infectious disease SNOMED Code(s): 53723741 Code(s): N39.0 - URINARY TRACT INFECTION, SITE NOT SPECIFIED Status: Acute Current Visit: No Onset Date: 01/16/14 (2) Hx of aortic valve replacement SNOMED Code(s): 1123067033155, 761055308, 7995994513600 Code(s): Z95.2 - PRESENCE OF PROSTHETIC HEART VALVE Status: Chronic Current Visit: No (3) CHF (congestive heart failure) SNOMED Code(s): 73015042 Code(s): I50.9 - HEART FAILURE, UNSPECIFIED Status: Chronic Current Visit : No (4) HTN (hypertension) SNOMED Code(s): 49367996 Code(s): I10 - ESSENTIAL (PRIMARY) HYPERTENSION Status: Chronic Current Visit: No Qualifiers: Hypertension type: essential hypertension Qualified Code(s): I10 - Essential (primary) hypertension (5) Chronic anticoagulation SNOMED Code(s): 541996319 Code(s): Z79.01 - [employer] (CURRENT) USE OF ANTICOAGULANTS Status: Chronic Current Visit: No (6) Hyperbilirubinemia SNOMED Code(s): 80632714 Code(s): E80.6 - OTHER DISORDERS OF BILIRUBIN METABOLISM Status: Acute Current Visit: No - Problem List Review Problem List Initiated/Reviewed/Updated: Yes - My Orders Last 24 Hours: My Active Orders 09/11/19 11:22 Furosemide [Lasix] 20 mg IVPUSH NOW ONE 09/11/19 Breakfast Fluid Restriction [DIET] - Plan Plan:: Assessment and Plan: 1. Left lower extremity cellulitis: - Continue IV vancomycin. X-ray showed no bony involvement. B/l ultrasound negative for DVT. Blood cultures pending. 2. Acute cystitis: - Treat with IV Rocephin 1 g qd. 3. Subtherapeutic INR: - Patient has history of heart valve replacement, on chronic warfarin therapy. Pharmacy consulted for warfarin dosing, will bridge with Lovenox till INR becomes therapeutic 4- CHF: Start IV Lasix 40 MG bid, watch for contraction alkalosis 4. Past medical history of atrial fibrillation, COPD, CHF, HTN and hyperlipidemia: - Resume home medications. 5. DVT prophylaxis: Patient on chronic warfarin therapy.
[2019-09-11] MEDS ORDERED: Potassium Chloride Riders 40 MEQ in Premix Bag 1 BAG IV ONE (11:36)
[2019-09-11] MEDS ORDERED: acetaZOLAMIDE 250 MG Tab PO ONE (11:37)
[2019-09-11] MEDS ORDERED: Enoxaparin 100 MG/1 ML Syringe SUBCUT ONE (11:45)
[2019-09-11] MEDS ORDERED: Warfarin 2 MG Tab PO ONE (14:00)
[2019-09-11] MEDS: Furosemide 40 MG/4 ML VIAL IVPUSH SCH (20:30)
[2019-09-11] MEDS: Simvastatin 40 MG Tab PO SCH (20:31)
[2019-09-11] MEDS: Omeprazole 20 MG Cap.CR PO SCH (20:31)
[2019-09-12] MEDS: cefTRIAXone 1 GM in Premix Bag 1 BAG IV SCH (06:34)
[2019-09-12 06:41] LABS: BLOOD UREA NITROGEN,BUN 16 mg/dL (7.0-18.0); CARBON DIOXIDE,CO2 36.1 mmol/L (21.0-32.0); CHLORIDE,CL 104 mmol/L (98-107); GLUCOSE RANDOM 91 mg/dL (74-106); POTASSIUM,K 3.2 mmol/L (3.5-5.1); SODIUM,NA 143 mmol/L (136-148)
[2019-09-12] MEDS: Levothyroxine 75 MCG Tab PO SCH (06:42)
[2019-09-12] MEDS ORDERED: Potassium Chloride 20 MEQ Tab.ER PO ONE (07:23)
[2019-09-12] MEDS ORDERED: Potassium Chloride 10% 20 MEQ/15 ML Soln 30 ML UD Cup PO SCH (09:15)
[2019-09-12] MEDS: Phosphorus #1 250 MG Tab PO SCH ×3 (09:19→17:46)
[2019-09-12] MEDS: Furosemide 40 MG/4 ML VIAL IVPUSH SCH ×2 (09:20→20:16)
[2019-09-12] MEDS: Carboxymethylcellulose Sodium 0.5% Ophth Soln 0.4 ML UD Box of 30 EYEBOTH SCH ×2 (09:21→20:20)
--- NOTE | 2019-09-12 09:42 | PCM.PN ---
<Brandon De Luna M - Last Filed: 09/12/19 12:11> - General Info Date of Service: 09/12/19 Subjective Update: Complained of mild pain in left leg overnight. Reports cough is still persistent. Denies any fevers, chills, SOB, nausea or vomiting. Reports urinating frequently. - Patient Data Vitals - Most Recent: Last Vital Signs Temp 96.7 F L 09/12/19 05:01 Pulse 78 09/12/19 05:01 Resp 16 09/12/19 05:01 BP 120/57 L 09/12/19 05:01 Pulse Ox 95 09/12/19 05:01 Weight - Most Recent: 132.4 kg I&O - Last 24 Hours: Intake & Output 09/11/19 09/12/19 09/12/19 22:59 06:59 14:59 Intake Total 1350 630 Output Total 375 750 Balance 975 -120 Lab Results Last 24 Hours: Laboratory Results - last 24 hr 09/11/19 09/12/19 09/12/19 Range/Units 03:50 06:08 06:08 WBC 8.15 (4.0-11.0) K/uL RBC 4.17 L (4.50-5.90) M/uL Hgb 12.2 L (13.0-17.0) g/dL Hct 40.3 (38.0-50.0) % MCV 96.6 (80.0-98.0) fL MCH 29.3 (27.0-32.0) pg MCHC 30.3 L (31.0-37.0) g/dL RDW Std Deviation 60.1 (28.0-62.0) fl RDW Coeff of Regulo 17 H (11.0-15.0) % Plt Count 114 L (150-400) K/uL MPV 11.50 (7.40-12.00) fL Neut % (Auto) 70.8 (48.0-80.0) % Lymph % (Auto) 13.0 L (16.0-40.0) % [place] % (Auto) 14.5 (0.0-15.0) % Eos % (Auto) 1.5 (0.0-7.0) % Baso % (Auto) 0.2 (0.0-1.5) % Neut # (Auto) 5.8 H (1.4-5.7) K/uL Lymph # (Auto) 1.1 (0.6-2.4) K/uL [place] # (Auto) 1.2 H (0.0-0.8) K/uL Eos # (Auto) 0.1 (0.0-0.7) K/uL Baso # (Auto) 0.0 (0.0-0.1) K/uL Nucleated RBC % 0.0 /100WBC Nucleated RBCs # 0 K/uL INR 1.89 Sodium (136-148) mmol/L Potassium (3.5-5.1) mmol/L Chloride (98-107) mmol/L Carbon Dioxide (21.0-32.0) mmol/L BUN (7.0-18.0) mg/dL Creatinine (0.8-1.3) mg/dL Est Cr Clr Drug Dosing mL/min Estimated GFR (MDRD) ml/min Glucose (74-106) mg/dL Calcium (8.5-10.1) mg/dL Phosphorus (2.6-4.7) mg/dL Magnesium (1.8-2.4) mg/dL B-Natriuretic Peptide 206 H (<100) PG/ML 09/12/19 Range/Units 06:08 WBC (4.0-11.0) K/uL RBC (4.50-5.90) M/uL Hgb (13.0-17.0) g/dL Hct (38.0-50.0) % MCV (80.0-98.0) fL MCH (27.0-32.0) pg MCHC (31.0-37.0) g/dL RDW Std Deviation (28.0-62.0) fl RDW Coeff of Regulo (11.0-15.0) % Plt Count (150-400) K/uL MPV (7.40-12.00) fL Neut % (Auto) (48.0-80.0) % Lymph % (Auto) (16.0-40.0) % [place] % (Auto) (0.0-15.0) % Eos % (Auto) (0.0-7.0) % Baso % (Auto) (0.0-1.5) % Neut # (Auto) (1.4-5.7) K/uL Lymph # (Auto) (0.6-2.4) K/uL [place] # (Auto) (0.0-0.8) K/uL Eos # (Auto) (0.0-0.7) K/uL Baso # (Auto) (0.0-0.1) K/uL Nucleated RBC % /100WBC Nucleated RBCs # K/uL INR Sodium 143 (136-148) mmol/L Potassium 3.2 L (3.5-5.1) mmol/L Chloride 104 (98-107) mmol/L Carbon Dioxide 36.1 H (21.0-32.0) mmol/L BUN 16 (7.0-18.0) mg/dL Creatinine 1.0 (0.8-1.3) mg/dL Est Cr Clr Drug Dosing 50.08 mL/min Estimated GFR (MDRD) > 60.0 ml/min Glucose 91 (74-106) mg/dL Calcium 8.0 L (8.5-10.1) mg/dL Phosphorus 2.2 L (2.6-4.7) mg/dL Magnesium 1.9 (1.8-2.4) mg/dL B-Natriuretic Peptide (<100) PG/ML Ashvni Results Last 24 Hours: Microbiology 09/09/19 11:36 Aerobic Blood Culture - Preliminary Blood - Venous - Lab Draw NO GROWTH AFTER 2 DAYS Anaerobic Blood Culture - Preliminary NO GROWTH AFTER 2 DAYS 09/09/19 11:29 Aerobic Blood Culture - Preliminary Blood - Venous NO GROWTH AFTER 2 DAYS Anaerobic Blood Culture - Preliminary NO GROWTH AFTER 2 DAYS Med Orders - Current: Current Medications Acetaminophen (Tylenol) 650 mg PO Q4H PRN PRN Reason: Pain (Mild 1-3)/fever Albuterol/Ipratropium (Duoneb 3.0-0.5 Mg/3 Ml) 3 ml NEB Q6H PRN PRN Reason: COPD Artificial Tears (Refresh Plus 0.5%) 0 each EYEBOTH BID [facility] Last Admin: 09/12/19 09:21 Dose: 1 drop Bisacodyl (Dulcolax) 10 mg RECTAL DAILY PRN PRN Reason: Constipation Carbamide Perox/Anhydrous Glycerin (Debrox 6.5% Otic Soln) 0 ml EARBOTH BEDTIME PRN PRN Reason: EAR WAX Furosemide (Lasix) 40 mg IVPUSH BID [facility] Last Admin: 09/12/19 09:20 Dose: 40 mg Ceftriaxone Sodium/Dextrose 1 (gm/ Premix) 50 mls @ 100 mls/hr IV Q24H [facility] Last Admin: 09/12/19 06:34 Dose: 100 mls/hr Vancomycin HCl 1 gm/ Sodium (Chloride) 250 mls @ 166 mls/hr IV Q12H [facility] Last Admin: 09/12/19 04:22 Dose: 166 mls/hr Lansoprazole (Prevacid Solutab) 30 mg PO BEDTIME [facility] Levothyroxine Sodium (Levothyroxine) 75 mcg PO ACBREAKFAST [facility] Last Admin: 09/12/19 06:42 Dose: 75 mcg Magnesium Hydroxide (Milk Of Magnesia) 30 ml PO DAILY PRN PRN Reason: Constipation Ondansetron HCl (Zofran Odt) 4 mg PO Q4H PRN PRN Reason: nausea, able to take PO Ondansetron HCl (Zofran) 4 mg IVPUSH Q4H PRN PRN Reason: Nausea Simvastatin (Zocor) 40 mg PO BEDTIME [facility] Last Admin: 09/11/19 20:31 Dose: 40 mg Sodium Phosphate (Neutra-Phos) 250 mg PO QID [facility] Stop: 09/13/19 00:01 Last Admin: 09/12/19 09:19 Dose: 250 mg Warfarin Sodium (Coumadin Ask) 0 each PO DAILY@1400 [facility] Discontinued Medications Acetazolamide (Diamox) 250 mg PO ONETIME ONE Stop: 09/11/19 11:38 Last Admin: 09/11/19 11:58 Dose: 250 mg Enoxaparin Sodium (Lovenox) 200 mg SUBCUT ONETIME ONE Stop: 09/11/19 11:46 Last Admin: 09/11/19 11:59 Dose: 200 mg Furosemide (Lasix) 40 mg PO BIDDIURETIC [facility] Last Admin: 09/11/19 08:56 Dose: 40 mg Furosemide (Lasix) 20 mg IVPUSH NOW ONE Stop: 09/10/19 23:55 Last Admin: 09/11/19 00:30 Dose: 20 mg Furosemide (Lasix) 20 mg IVPUSH NOW ONE Stop: 09/11/19 11:23 Last Admin: 09/11/19 11:56 Dose: 20 mg Piperacillin Sod/Tazobactam (Sod 3.375 gm/ Sodium Chloride) 50 mls @ 100 mls/ hr IV ONETIME ONE Stop: 09/09/19 15:15 Last Admin: 09/09/19 15:10 Dose: 100 mls/hr Vancomycin HCl 1 gm/ Sodium (Chloride) 250 mls @ 166 mls/hr IV ONETIME ONE Stop: 09/09/19 16:18 Last Admin: 09/09/19 16:24 Dose: 166 mls/hr Vancomycin HCl 1.25 gm/ Sodium (Chloride) 250 mls @ 166.667 mls/hr IV Q12H [facility] Last Admin: 09/11/19 04:20 Dose: 166.667 mls/hr Lactated Ringer's (Ringers, Lactated) 1,000 mls @ 500 mls/hr IV STAT [facility] Last Admin: 09/10/19 07:24 Dose: 500 mls/hr Lactated Ringer's (Ringers, Lactated) 1,000 mls @ 100 mls/hr IV ASDIRECTED [facility] Last Admin: 09/10/19 11:53 Dose: 100 mls/hr Potassium Chloride 40 meq/ (Premix) 100 mls @ 25 mls/hr IV ONETIME ONE Stop: 09/11/19 15:35 Last Admin: 09/11/19 12:08 Dose: Not Given Potassium Chloride 20 meq/ (Sodium Chloride) 260 mls @ 130 mls/hr IV ONETIME ONE Stop: 09/11/19 13:59 Last Admin: 09/11/19 12:22 Dose: 130 mls/hr Omeprazole (Omeprazole) 20 mg PO BEDTIME [facility] Last Admin: 09/11/19 20:31 Dose: 20 mg Potassium Chloride (Potassium Chloride) 40 meq PO 09/12/19@0915 [facility] Stop: 09/12/19 09:16 Last Admin: 09/12/19 09:26 Dose: 40 meq Vancomycin HCl (Pharmacy To Dose - Vancomycin) 1 dose .XX ASDIRECTED [facility] Warfarin Sodium (Coumadin) 2 mg PO Q24H [facility] Last Admin: 09/10/19 15:11 Dose: 2 mg Warfarin Sodium (Coumadin) 3 mg PO ONETIME ONE Stop: 09/11/19 14:01 Last Admin: 09/11/19 13:54 Dose: 3 mg - Exam General: Alert, Oriented, Cooperative, No Acute Distress Lungs: Normal Respiratory Effort, Other (quiet breath sounds b/l) GI/Abdominal Exam: Normal Bowel Sounds, Soft, Non-Tender, No Distention Extremities: Other (LLE: 1+ pitting edema, 5cm x 5 cm area of erythema over anterior finley, non-tender ttp. RLE: 1+ pitting edema) Sepsis Event Note - Evaluation Sepsis Screening Result: No Definite Risk - Focused Exam Vital Signs: Vital Signs Temp Pulse Resp BP Pulse Ox 09/12/19 05:01 96.7 F L 78 16 120/57 L 95 09/11/19 23:36 97.5 F 68 22 H 92/57 L 95 Date Exam was Performed: 09/12/19 Time Exam was Performed: 12:11 - Problem List Review Problem List Initiated/Reviewed/Updated: Yes - My Orders Last 24 Hours: My Active Orders 09/11/19 16:00 Vancomycin [Vancocin] 1 gm Sodium Chloride 0.9% [Normal Saline (AdvBag)] 250 ml IV Q12H 09/12/19 07:29 Intake and Output Strict [RC] ASDIRECTED 09/12/19 09:00 Phosphorus #1 [Neutra-Phos] 250 mg PO QID 09/12/19 21:00 Lansoprazole [Prevacid Solutab] 30 mg PO BEDTIME 09/13/19 05:11 CBC WITH AUTO DIFF [HEME] AM COMPREHENSIVE METABOLIC PN,CMP [CHEM] AM INR,PT,PROTHROMBIN TIME [COAG] DAILY MAGNESIUM [CHEM] AM PHOSPHORUS [CHEM] AM 09/14/19 05:11 INR,PT,PROTHROMBIN TIME [COAG] DAILY 09/15/19 05:11 INR,PT,PROTHROMBIN TIME [COAG] DAILY - Plan Plan:: Assessment and Plan: 1. Left lower extremity cellulitis: - Continue IV vancomycin. X-ray showed no bony involvement. Blood cultures were negative. Will follow-up with wound care. 2. Acute cystitis: - Continue with IV Rocephin 1 g qd. 3. Subtherapeutic INR: - Patient has history of heart valve replacement, on chronic warfarin therapy. Pharmacy consulted for warfarin dosing. Bridge with lovenox until INR therapeutic. 4- CHF: - Will continue IV Lasix 40 MG bid, strict I/O's, standing daily weight and fluid restrict < 1.8 L per day. 5. Past medical history of atrial fibrillation, COPD, CHF, HTN and hyperlipidemia: - Resume home medications. 6. DVT prophylaxis: Patient on chronic warfarin therapy. <Liliane Lopez - Last Filed: 09/25/19 14:03> - Patient Data Vitals - Most Recent: Last Vital Signs Temp 36.2 C 09/19/19 11:39 Pulse 81 09/19/19 11:39 Resp 16 09/19/19 11:39 BP 107/68 09/19/19 11:39 Pulse Ox 94 L 09/19/19 11:39 Med Orders - Current: Current Medications Discontinued Medications Acetaminophen (Tylenol) 650 mg PO Q4H PRN PRN Reason: Pain (Mild 1-3)/fever Acetazolamide (Diamox) 250 mg PO ONETIME ONE Stop: 09/11/19 11:38 Last Admin: 09/11/19 11:58 Dose: 250 mg Albuterol/Ipratropium (Duoneb 3.0-0.5 Mg/3 Ml) 3 ml NEB Q6H PRN PRN Reason: COPD Artificial Tears (Refresh Plus 0.5%) 0 each EYEBOTH BID [facility] Last Admin: 09/19/19 09:53 Dose: 1 drop Bisacodyl (Dulcolax) 10 mg RECTAL DAILY PRN PRN Reason: Constipation Last Admin: 09/18/19 04:29 Dose: 10 mg Carbamide Perox/Anhydrous Glycerin (Debrox 6.5% Otic Soln) 0 ml EARBOTH BEDTIME PRN PRN Reason: EAR WAX Enoxaparin Sodium (Lovenox) 200 mg SUBCUT ONETIME ONE Stop: 09/11/19 11:46 Last Admin: 09/11/19 11:59 Dose: 200 mg Enoxaparin Sodium (Lovenox) 200 mg SUBCUT ONETIME ONE Stop: 09/13/19 11:16 Last Admin: 09/13/19 12:09 Dose: 200 mg Furosemide (Lasix) 40 mg PO BIDDIURETIC [facility] Last Admin: 09/11/19 08:56 Dose: 40 mg Furosemide (Lasix) 20 mg IVPUSH NOW ONE Stop: 09/10/19 23:55 Last Admin: 09/11/19 00:30 Dose: 20 mg Furosemide (Lasix) 20 mg IVPUSH NOW ONE Stop: 09/11/19 11:23 Last Admin: 09/11/19 11:56 Dose: 20 mg Furosemide (Lasix) 40 mg IVPUSH BID [facility] Last Admin: 09/13/19 09:44 Dose: 40 mg Furosemide (Lasix) 60 mg IVPUSH BID [facility] Last Admin: 09/14/19 08:40 Dose: 60 mg Furosemide (Lasix) 20 mg IVPUSH NOW ONE Stop: 09/13/19 10:20 Last Admin: 09/13/19 12:12 Dose: 20 mg Furosemide (Lasix) 80 mg IVPUSH BID [facility] Last Admin: 09/16/19 09:12 Dose: 80 mg Furosemide (Lasix) 80 mg IVPUSH DAILY [facility] Last Admin: 09/19/19 09:53 Dose: 80 mg Piperacillin Sod/Tazobactam (Sod 3.375 gm/ Sodium Chloride) 50 mls @ 100 mls/ hr IV ONETIME ONE Stop: 09/09/19 15:15 Last Admin: 09/09/19 15:10 Dose: 100 mls/hr Vancomycin HCl 1 gm/ Sodium (Chloride) 250 mls @ 166 mls/hr IV ONETIME ONE Stop: 09/09/19 16:18 Last Admin: 09/09/19 16:24 Dose: 166 mls/hr Vancomycin HCl 1.25 gm/ Sodium (Chloride) 250 mls @ 166.667 mls/hr IV Q12H [facility] Last Admin: 09/11/19 04:20 Dose: 166.667 mls/hr Lactated Ringer's (Ringers, Lactated) 1,000 mls @ 500 mls/hr IV STAT [facility] Last Admin: 09/10/19 07:24 Dose: 500 mls/hr Lactated Ringer's (Ringers, Lactated) 1,000 mls @ 100 mls/hr IV ASDIRECTED [facility] Last Admin: 09/10/19 11:53 Dose: 100 mls/hr Ceftriaxone Sodium/Dextrose 1 (gm/ Premix) 50 mls @ 100 mls/hr IV Q24H [facility] Last Admin: 09/19/19 06:48 Dose: 100 mls/hr Vancomycin HCl 1 gm/ Sodium (Chloride) 250 mls @ 166 mls/hr IV Q12H [facility] Last Admin: 09/12/19 16:11 Dose: 166 mls/hr Potassium Chloride 40 meq/ (Premix) 100 mls @ 25 mls/hr IV ONETIME ONE Stop: 09/11/19 15:35 Last Admin: 09/11/19 12:08 Dose: Not Given Potassium Chloride 20 meq/ (Sodium Chloride) 260 mls @ 130 mls/hr IV ONETIME ONE Stop: 09/11/19 13:59 Last Admin: 09/11/19 12:22 Dose: 130 mls/hr Magnesium Sulfate 2 gm/ Premix 50 mls @ 50 mls/hr IV ONETIME ONE Stop: 09/12/19 12:03 Last Admin: 09/12/19 12:07 Dose: 50 mls/hr Vancomycin HCl 0.75 gm/ Sodium (Chloride) 250 mls @ 250 mls/hr IV Q12H [facility] Last Admin: 09/13/19 19:42 Dose: Not Given Vancomycin HCl 0.75 gm/ Sodium (Chloride) 250 mls @ 250 mls/hr IV Q12H [facility] Last Admin: 09/14/19 18:53 Dose: Not Given Vancomycin HCl 0.75 gm/ Sodium (Chloride) 250 mls @ 250 mls/hr IV Q12H [facility] Last Admin: 09/15/19 21:29 Dose: Not Given Vancomycin HCl 500 mg/ Sodium (Chloride) 100 mls @ 100 mls/hr IV Q12H [facility] Last Admin: 09/15/19 22:14 Dose: 100 mls/hr Vancomycin HCl 500 mg/ Sodium (Chloride) 100 mls @ 100 mls/hr IV Q12H [facility] Last Admin: 09/16/19 10:35 Dose: Not Given Vancomycin HCl 1 gm/ Sodium (Chloride) 250 mls @ 166.667 mls/hr IV Q24H [facility] Last Admin: 09/19/19 09:53 Dose: 166.667 mls/hr Iopamidol (Isovue Multipack-370 (76%)) 50 ml IVPUSH ONETIME STA Stop: 09/14/19 13:07 Last Admin: 09/14/19 13:30 Dose: 50 ml Lansoprazole (Prevacid Solutab) 30 mg PO BEDTIME [facility] Last Admin: 09/18/19 20:41 Dose: 30 mg Levothyroxine Sodium (Levothyroxine) 75 mcg PO ACBREAKFAST [facility] Last Admin: 09/19/19 06:48 Dose: 75 mcg Magnesium Hydroxide (Milk Of Magnesia) 30 ml PO DAILY PRN PRN Reason: Constipation Last Admin: 09/17/19 09:19 Dose: 30 ml Omeprazole (Omeprazole) 20 mg PO BEDTIME [facility] Last Admin: 09/11/19 20:31 Dose: 20 mg Ondansetron HCl (Zofran Odt) 4 mg PO Q4H PRN PRN Reason: nausea, able to take PO Ondansetron HCl (Zofran) 4 mg IVPUSH Q4H PRN PRN Reason: Nausea Potassium Chloride (Potassium Chloride) 40 meq PO 09/12/19@0915 [facility] Stop: 09/12/19 09:16 Last Admin: 09/12/19 09:26 Dose: 40 meq Potassium Chloride (Klor-Con M20) 40 meq PO ONETIME ONE Stop: 09/14/19 07:12 Last Admin: 09/14/19 08:39 Dose: 40 meq Potassium Chloride (Klor-Con M20) 40 meq PO ONETIME ONE Stop: 09/15/19 07:20 Last Admin: 09/15/19 09:22 Dose: 40 meq Simvastatin (Zocor) 40 mg PO BEDTIME [facility] Last Admin: 09/18/19 20:40 Dose: 40 mg Sodium Phosphate (Neutra-Phos) 250 mg PO QID [facility] Stop: 09/13/19 00:01 Last Admin: 09/13/19 01:20 Dose: 250 mg Vancomycin HCl (Pharmacy To Dose - Vancomycin) 1 dose .XX ASDIRECTED [facility] Warfarin Sodium (Coumadin) 2 mg PO Q24H [facility] Last Admin: 09/10/19 15:11 Dose: 2 mg Warfarin Sodium (Coumadin) 3 mg PO ONETIME ONE Stop: 09/11/19 14:01 Last Admin: 09/11/19 13:54 Dose: 3 mg Warfarin Sodium (Coumadin Ask) 0 each PO DAILY@1400 [facility] Last Admin: 09/14/19 15:37 Dose: Not Given Warfarin Sodium (Coumadin) 3 mg PO ONETIME [facility] Last Admin: 09/12/19 16:10 Dose: 3 mg Warfarin Sodium (Coumadin) 3 mg PO ONETIME ONE Stop: 09/13/19 14:46 Last Admin: 03/24/20 15:18 Dose: 3 mg Warfarin Sodium (Coumadin) 2 mg PO ONETIME ONE Stop: 09/14/19 15:16 Last Admin: 09/14/19 15:37 Dose: Not Given Warfarin Sodium (Coumadin) 2 mg PO ONETIME ONE Stop: 09/14/19 17:46 Last Admin: 09/14/19 18:04 Dose: 2 mg Warfarin Sodium (Coumadin Ask) 1 each PO DAILY@1400 [facility] Last Admin: 09/18/19 15:01 Dose: Not Given Warfarin Sodium (Coumadin) 4 mg PO DAILY@1400 [facility] Stop: 09/17/19 14:01 Last Admin: 09/17/19 14:32 Dose: 4 mg Warfarin Sodium (Coumadin) 3 mg PO DAILY@1400 [facility] Stop: 09/18/19 14:01 Last Admin: 09/18/19 14:53 Dose: 3 mg - Problem List & Annotations (1) UTI, Urinary tract infectious disease SNOMED Code(s): 30089330 Code(s): N39.0 - URINARY TRACT INFECTION, SITE NOT SPECIFIED Status: Acute Onset Date: 01/16/14 (2) Hx of aortic valve replacement SNOMED Code(s): 5895714368899, 610931185, 7823102896475 Code(s): Z95.2 - PRESENCE OF PROSTHETIC HEART VALVE Status: Chronic (3) CHF (congestive heart failure) SNOMED Code(s): 54224472 Code(s): I50.9 - HEART FAILURE, UNSPECIFIED Status: Chronic (4) HTN (hypertension) SNOMED Code(s): 62274112 Code(s): I10 - ESSENTIAL (PRIMARY) HYPERTENSION Status: Chronic Qualifiers: Hypertension type: essential hypertension Qualified Code(s): I10 - Essential (primary) hypertension (5) Chronic anticoagulation SNOMED Code(s): 964210338 Code(s): Z79.01 - DATA SECURITY ANALYST (CURRENT) USE OF ANTICOAGULANTS Status: Chronic (6) Hyperbilirubinemia SNOMED Code(s): 30877267 Code(s): E80.6 - OTHER DISORDERS OF BILIRUBIN METABOLISM Status: Acute - Plan Plan:: I have seen and evaluated the patient and agree with the residents note unless specified in my note
[2019-09-12] MEDS ORDERED: Magnesium Sulfate/Water 2 GM in Premix Bag 1 BAG IV ONE (11:04)
[2019-09-12] MEDS ORDERED: Warfarin 2 MG Tab PO SCH (15:00)
[2019-09-12] MEDS: Simvastatin 40 MG Tab PO SCH (20:07)
[2019-09-12] MEDS: Lansoprazole 30 MG Orally Disintegrating Tab.CR PO SCH (20:07)
[2019-09-13] MEDS: Phosphorus #1 250 MG Tab PO SCH (01:20)
[2019-09-13 06:18] LABS: BLOOD UREA NITROGEN,BUN 16 mg/dL (7.0-18.0); CARBON DIOXIDE,CO2 35.1 mmol/L (21.0-32.0); CHLORIDE,CL 103 mmol/L (98-107); GLUCOSE RANDOM 104 mg/dL (74-106); POTASSIUM,K 3.5 mmol/L (3.5-5.1); SODIUM,NA 142 mmol/L (136-148)
[2019-09-13] MEDS: cefTRIAXone 1 GM in Premix Bag 1 BAG IV SCH (06:38)
[2019-09-13] MEDS: Levothyroxine 75 MCG Tab PO SCH (06:39)
[2019-09-13] MEDS: Carboxymethylcellulose Sodium 0.5% Ophth Soln 0.4 ML UD Box of 30 EYEBOTH SCH ×2 (09:43→20:26)
[2019-09-13] MEDS: Furosemide 40 MG/4 ML VIAL IVPUSH SCH ×2 (09:44→20:25)
--- NOTE | 2019-09-13 09:52 | PCM.PN ---
<Brandon De Luna M - Last Filed: 09/13/19 12:10> - General Info Date of Service: 09/13/19 Subjective Update: Patient reports that he slept well overnight and urinating frequently. He reports his cough seems improved since yesterday. Denies fevers, chills, n/v/d, SOB or chest pain. - Patient Data Vitals - Most Recent: Last Vital Signs Temp 98.2 F 09/13/19 07:30 Pulse 81 09/13/19 07:30 Resp 22 H 09/13/19 07:30 BP 105/56 L 09/13/19 07:30 Pulse Ox 97 09/13/19 07:30 Weight - Most Recent: 115.8 kg I&O - Last 24 Hours: Intake & Output 09/12/19 09/13/19 09/13/19 22:59 06:59 14:59 Intake Total 580 500 Output Total 860 300 Balance -280 200 Lab Results Last 24 Hours: Laboratory Results - last 24 hr 09/12/19 09/12/19 09/13/19 Range/Units 15:19 23:38 05:15 WBC (4.0-11.0) K/uL RBC (4.50-5.90) M/uL Hgb (13.0-17.0) g/dL Hct (38.0-50.0) % MCV (80.0-98.0) fL MCH (27.0-32.0) pg MCHC (31.0-37.0) g/dL RDW Std Deviation (28.0-62.0) fl RDW Coeff of Regulo (11.0-15.0) % Plt Count (150-400) K/uL MPV (7.40-12.00) fL Neut % (Auto) (48.0-80.0) % Lymph % (Auto) (16.0-40.0) % [place] % (Auto) (0.0-15.0) % Eos % (Auto) (0.0-7.0) % Baso % (Auto) (0.0-1.5) % Neut # (Auto) (1.4-5.7) K/uL Lymph # (Auto) (0.6-2.4) K/uL [place] # (Auto) (0.0-0.8) K/uL Eos # (Auto) (0.0-0.7) K/uL Baso # (Auto) (0.0-0.1) K/uL Nucleated RBC % /100WBC Nucleated RBCs # K/uL INR 1.89 Sodium (136-148) mmol/L Potassium (3.5-5.1) mmol/L Chloride (98-107) mmol/L Carbon Dioxide (21.0-32.0) mmol/L BUN (7.0-18.0) mg/dL Creatinine (0.8-1.3) mg/dL Est Cr Clr Drug Dosing mL/min Estimated GFR (MDRD) ml/min Glucose (74-106) mg/dL Calcium (8.5-10.1) mg/dL Phosphorus (2.6-4.7) mg/dL Magnesium (1.8-2.4) mg/dL Total Bilirubin (0.2-1.0) mg/dL AST (15-37) IU/L ALT (14-63) IU/L Alkaline Phosphatase (46-116) U/L Total Protein (6.4-8.2) g/dL Albumin (3.4-5.0) g/dL Globulin (2.6-4.0) g/dL Albumin/Globulin Ratio (0.9-1.6) Vancomycin Trough 22.6 H 20.3 H (5.0-10.0) ug/mL 09/13/19 09/13/19 Range/Units 05:15 05:15 WBC 7.75 (4.0-11.0) K/uL RBC 4.12 L (4.50-5.90) M/uL Hgb 12.0 L (13.0-17.0) g/dL Hct 39.6 (38.0-50.0) % MCV 96.1 (80.0-98.0) fL MCH 29.1 (27.0-32.0) pg MCHC 30.3 L (31.0-37.0) g/dL RDW Std Deviation 60.0 (28.0-62.0) fl RDW Coeff of Regulo 17 H (11.0-15.0) % Plt Count 109 L (150-400) K/uL MPV 11.80 (7.40-12.00) fL Neut % (Auto) 70.7 (48.0-80.0) % Lymph % (Auto) 12.9 L (16.0-40.0) % [place] % (Auto) 15.2 H (0.0-15.0) % Eos % (Auto) 0.9 (0.0-7.0) % Baso % (Auto) 0.3 (0.0-1.5) % Neut # (Auto) 5.5 (1.4-5.7) K/uL Lymph # (Auto) 1.0 (0.6-2.4) K/uL [place] # (Auto) 1.2 H (0.0-0.8) K/uL Eos # (Auto) 0.1 (0.0-0.7) K/uL Baso # (Auto) 0.0 (0.0-0.1) K/uL Nucleated RBC % 0.0 /100WBC Nucleated RBCs # 0 K/uL INR Sodium 142 (136-148) mmol/L Potassium 3.5 (3.5-5.1) mmol/L Chloride 103 (98-107) mmol/L Carbon Dioxide 35.1 H (21.0-32.0) mmol/L BUN 16 (7.0-18.0) mg/dL Creatinine 1.0 (0.8-1.3) mg/dL Est Cr Clr Drug Dosing 50.08 mL/min Estimated GFR (MDRD) > 60.0 ml/min Glucose 104 (74-106) mg/dL Calcium 7.7 L (8.5-10.1) mg/dL Phosphorus 2.8 (2.6-4.7) mg/dL Magnesium 2.2 (1.8-2.4) mg/dL Total Bilirubin 1.1 H (0.2-1.0) mg/dL AST 23 (15-37) IU/L ALT 28 (14-63) IU/L Alkaline Phosphatase 82 (46-116) U/L Total Protein 6.3 L (6.4-8.2) g/dL Albumin 2.8 L (3.4-5.0) g/dL Globulin 3.5 (2.6-4.0) g/dL Albumin/Globulin Ratio 0.8 L (0.9-1.6) Vancomycin Trough (5.0-10.0) ug/mL [place] Results Last 24 Hours: Microbiology 09/09/19 11:36 Aerobic Blood Culture - Preliminary Blood - Venous - Lab Draw NO GROWTH AFTER 3 DAYS Anaerobic Blood Culture - Preliminary NO GROWTH AFTER 3 DAYS 09/09/19 11:29 Aerobic Blood Culture - Preliminary Blood - Venous NO GROWTH AFTER 3 DAYS Anaerobic Blood Culture - Preliminary NO GROWTH AFTER 3 DAYS Med Orders - Current: Current Medications Acetaminophen (Tylenol) 650 mg PO Q4H PRN PRN Reason: Pain (Mild 1-3)/fever Albuterol/Ipratropium (Duoneb 3.0-0.5 Mg/3 Ml) 3 ml NEB Q6H PRN PRN Reason: COPD Artificial Tears (Refresh Plus 0.5%) 0 each EYEBOTH BID [facility] Last Admin: 09/13/19 09:43 Dose: 1 drop Bisacodyl (Dulcolax) 10 mg RECTAL DAILY PRN PRN Reason: Constipation Carbamide Perox/Anhydrous Glycerin (Debrox 6.5% Otic Soln) 0 ml EARBOTH BEDTIME PRN PRN Reason: EAR WAX Furosemide (Lasix) 40 mg IVPUSH BID [facility] Last Admin: 09/13/19 09:44 Dose: 40 mg Ceftriaxone Sodium/Dextrose 1 (gm/ Premix) 50 mls @ 100 mls/hr IV Q24H [facility] Last Admin: 09/13/19 06:38 Dose: 100 mls/hr Vancomycin HCl 0.75 gm/ Sodium (Chloride) 250 mls @ 250 mls/hr IV Q12H [facility] Last Admin: 09/13/19 01:00 Dose: 250 mls/hr Lansoprazole (Prevacid Solutab) 30 mg PO BEDTIME [facility] Last Admin: 09/12/19 20:07 Dose: 30 mg Levothyroxine Sodium (Levothyroxine) 75 mcg PO ACBREAKFAST [facility] Last Admin: 09/13/19 06:39 Dose: 75 mcg Magnesium Hydroxide (Milk Of Magnesia) 30 ml PO DAILY PRN PRN Reason: Constipation Ondansetron HCl (Zofran Odt) 4 mg PO Q4H PRN PRN Reason: nausea, able to take PO Ondansetron HCl (Zofran) 4 mg IVPUSH Q4H PRN PRN Reason: Nausea Simvastatin (Zocor) 40 mg PO BEDTIME [facility] Last Admin: 09/12/19 20:07 Dose: 40 mg Warfarin Sodium (Coumadin Ask) 0 each PO DAILY@1400 [facility] Last Admin: 09/12/19 16:23 Dose: Not Given Warfarin Sodium (Coumadin) 3 mg PO ONETIME [facility] Last Admin: 09/12/19 16:10 Dose: 3 mg Discontinued Medications Acetazolamide (Diamox) 250 mg PO ONETIME ONE Stop: 09/11/19 11:38 Last Admin: 09/11/19 11:58 Dose: 250 mg Enoxaparin Sodium (Lovenox) 200 mg SUBCUT ONETIME ONE Stop: 09/11/19 11:46 Last Admin: 09/11/19 11:59 Dose: 200 mg Furosemide (Lasix) 40 mg PO BIDDIURETIC [facility] Last Admin: 09/11/19 08:56 Dose: 40 mg Furosemide (Lasix) 20 mg IVPUSH NOW ONE Stop: 09/10/19 23:55 Last Admin: 09/11/19 00:30 Dose: 20 mg Furosemide (Lasix) 20 mg IVPUSH NOW ONE Stop: 09/11/19 11:23 Last Admin: 09/11/19 11:56 Dose: 20 mg Piperacillin Sod/Tazobactam (Sod 3.375 gm/ Sodium Chloride) 50 mls @ 100 mls/ hr IV ONETIME ONE Stop: 09/09/19 15:15 Last Admin: 09/09/19 15:10 Dose: 100 mls/hr Vancomycin HCl 1 gm/ Sodium (Chloride) 250 mls @ 166 mls/hr IV ONETIME ONE Stop: 09/09/19 16:18 Last Admin: 09/09/19 16:24 Dose: 166 mls/hr Vancomycin HCl 1.25 gm/ Sodium (Chloride) 250 mls @ 166.667 mls/hr IV Q12H [facility] Last Admin: 09/11/19 04:20 Dose: 166.667 mls/hr Lactated Ringer's (Ringers, Lactated) 1,000 mls @ 500 mls/hr IV STAT [facility] Last Admin: 09/10/19 07:24 Dose: 500 mls/hr Lactated Ringer's (Ringers, Lactated) 1,000 mls @ 100 mls/hr IV ASDIRECTED [facility] Last Admin: 09/10/19 11:53 Dose: 100 mls/hr Vancomycin HCl 1 gm/ Sodium (Chloride) 250 mls @ 166 mls/hr IV Q12H [facility] Last Admin: 09/12/19 16:11 Dose: 166 mls/hr Potassium Chloride 40 meq/ (Premix) 100 mls @ 25 mls/hr IV ONETIME ONE Stop: 09/11/19 15:35 Last Admin: 09/11/19 12:08 Dose: Not Given Potassium Chloride 20 meq/ (Sodium Chloride) 260 mls @ 130 mls/hr IV ONETIME ONE Stop: 09/11/19 13:59 Last Admin: 09/11/19 12:22 Dose: 130 mls/hr Magnesium Sulfate 2 gm/ Premix 50 mls @ 50 mls/hr IV ONETIME ONE Stop: 09/12/19 12:03 Last Admin: 09/12/19 12:07 Dose: 50 mls/hr Omeprazole (Omeprazole) 20 mg PO BEDTIME [facility] Last Admin: 09/11/19 20:31 Dose: 20 mg Potassium Chloride (Potassium Chloride) 40 meq PO 09/12/19@0915 [facility] Stop: 09/12/19 09:16 Last Admin: 09/12/19 09:26 Dose: 40 meq Sodium Phosphate (Neutra-Phos) 250 mg PO QID [facility] Stop: 09/13/19 00:01 Last Admin: 09/13/19 01:20 Dose: 250 mg Vancomycin HCl (Pharmacy To Dose - Vancomycin) 1 dose .XX ASDIRECTED [facility] Warfarin Sodium (Coumadin) 2 mg PO Q24H [facility] Last Admin: 09/10/19 15:11 Dose: 2 mg Warfarin Sodium (Coumadin) 3 mg PO ONETIME ONE Stop: 09/11/19 14:01 Last Admin: 09/11/19 13:54 Dose: 3 mg - Exam General: Alert, Oriented, Cooperative, No Acute Distress Lungs: Other (quiet breath sounds b/l) Cardiovascular: Regular Rate, Irregular Rhythm GI/Abdominal Exam: Normal Bowel Sounds, Soft, Non-Tender, No Distention Extremities: Other (LLE: 5cm x 5 cm area of erythema over anterior finley. Appears unchanged since yesterday.) Sepsis Event Note - Evaluation Sepsis Screening Result: No Definite Risk - Focused Exam Vital Signs: Vital Signs Temp Pulse Resp BP Pulse Ox 09/13/19 07:30 98.2 F 81 22 H 105/56 L 97 09/13/19 05:40 96.8 F L 72 20 98/59 L 95 09/13/19 00:37 97.3 F 74 16 104/68 95 Date Exam was Performed: 09/13/19 Time Exam was Performed: 12:10 - Problem List Review Problem List Initiated/Reviewed/Updated: Yes - My Orders Last 24 Hours: My Active Orders 09/12/19 14:45 Communication Order [RC] ROUTINE 09/12/19 21:00 Lansoprazole [Prevacid Solutab] 30 mg PO BEDTIME 09/14/19 05:11 INR,PT,PROTHROMBIN TIME [COAG] DAILY 09/15/19 05:11 INR,PT,PROTHROMBIN TIME [COAG] DAILY - Plan Plan:: Assessment and Plan: 1. Left lower extremity cellulitis: - Continue IV vancomycin. X-ray showed no bony involvement. Blood cultures were negative. Per wound care, recommended aquacel dressing changes daily if padding is soaked. 2. Acute cystitis: - Continue with IV Rocephin 1 g qd, currently on day 5. 3. Subtherapeutic INR: - Patient has history of heart valve replacement, on chronic warfarin therapy. Pharmacy consulted for warfarin dosing. Will continue to bridge with lovenox until INR therapeutic. 4- CHF: - Will increase to IV Lasix 60 MG bid, strict I/O's, standing daily weight and fluid restrict < 1.8 L per day. Patient in negative fluid balance. Will insert murray catheter as patient is incontinent and need to monitor urine output more strictly. 5. Past medical history of atrial fibrillation, COPD, CHF, HTN and hyperlipidemia: - Resume home medications. 6. DVT prophylaxis: Patient on chronic warfarin therapy. <Liliane Lopez - Last Filed: 09/25/19 14:03> - Patient Data Vitals - Most Recent: Last Vital Signs Temp 36.2 C 09/19/19 11:39 Pulse 81 09/19/19 11:39 Resp 16 09/19/19 11:39 BP 107/68 09/19/19 11:39 Pulse Ox 94 L 09/19/19 11:39 Med Orders - Current: Current Medications Discontinued Medications Acetaminophen (Tylenol) 650 mg PO Q4H PRN PRN Reason: Pain (Mild 1-3)/fever Acetazolamide (Diamox) 250 mg PO ONETIME ONE Stop: 09/11/19 11:38 Last Admin: 09/11/19 11:58 Dose: 250 mg Albuterol/Ipratropium (Duoneb 3.0-0.5 Mg/3 Ml) 3 ml NEB Q6H PRN PRN Reason: COPD Artificial Tears (Refresh Plus 0.5%) 0 each EYEBOTH BID [facility] Last Admin: 09/19/19 09:53 Dose: 1 drop Bisacodyl (Dulcolax) 10 mg RECTAL DAILY PRN PRN Reason: Constipation Last Admin: 09/18/19 04:29 Dose: 10 mg Carbamide Perox/Anhydrous Glycerin (Debrox 6.5% Otic Soln) 0 ml EARBOTH BEDTIME PRN PRN Reason: EAR WAX Enoxaparin Sodium (Lovenox) 200 mg SUBCUT ONETIME ONE Stop: 09/11/19 11:46 Last Admin: 09/11/19 11:59 Dose: 200 mg Enoxaparin Sodium (Lovenox) 200 mg SUBCUT ONETIME ONE Stop: 09/13/19 11:16 Last Admin: 09/13/19 12:09 Dose: 200 mg Furosemide (Lasix) 40 mg PO BIDDIURETIC [facility] Last Admin: 09/11/19 08:56 Dose: 40 mg Furosemide (Lasix) 20 mg IVPUSH NOW ONE Stop: 09/10/19 23:55 Last Admin: 09/11/19 00:30 Dose: 20 mg Furosemide (Lasix) 20 mg IVPUSH NOW ONE Stop: 09/11/19 11:23 Last Admin: 09/11/19 11:56 Dose: 20 mg Furosemide (Lasix) 40 mg IVPUSH BID [facility] Last Admin: 09/13/19 09:44 Dose: 40 mg Furosemide (Lasix) 60 mg IVPUSH BID [facility] Last Admin: 09/14/19 08:40 Dose: 60 mg Furosemide (Lasix) 20 mg IVPUSH NOW ONE Stop: 09/13/19 10:20 Last Admin: 09/13/19 12:12 Dose: 20 mg Furosemide (Lasix) 80 mg IVPUSH BID [facility] Last Admin: 09/16/19 09:12 Dose: 80 mg Furosemide (Lasix) 80 mg IVPUSH DAILY [facility] Last Admin: 09/19/19 09:53 Dose: 80 mg Piperacillin Sod/Tazobactam (Sod 3.375 gm/ Sodium Chloride) 50 mls @ 100 mls/ hr IV ONETIME ONE Stop: 09/09/19 15:15 Last Admin: 09/09/19 15:10 Dose: 100 mls/hr Vancomycin HCl 1 gm/ Sodium (Chloride) 250 mls @ 166 mls/hr IV ONETIME ONE Stop: 09/09/19 16:18 Last Admin: 09/09/19 16:24 Dose: 166 mls/hr Vancomycin HCl 1.25 gm/ Sodium (Chloride) 250 mls @ 166.667 mls/hr IV Q12H [facility] Last Admin: 09/11/19 04:20 Dose: 166.667 mls/hr Lactated Ringer's (Ringers, Lactated) 1,000 mls @ 500 mls/hr IV STAT [facility] Last Admin: 09/10/19 07:24 Dose: 500 mls/hr Lactated Ringer's (Ringers, Lactated) 1,000 mls @ 100 mls/hr IV ASDIRECTED [facility] Last Admin: 09/10/19 11:53 Dose: 100 mls/hr Ceftriaxone Sodium/Dextrose 1 (gm/ Premix) 50 mls @ 100 mls/hr IV Q24H [facility] Last Admin: 09/19/19 06:48 Dose: 100 mls/hr Vancomycin HCl 1 gm/ Sodium (Chloride) 250 mls @ 166 mls/hr IV Q12H [facility] Last Admin: 09/12/19 16:11 Dose: 166 mls/hr Potassium Chloride 40 meq/ (Premix) 100 mls @ 25 mls/hr IV ONETIME ONE Stop: 09/11/19 15:35 Last Admin: 09/11/19 12:08 Dose: Not Given Potassium Chloride 20 meq/ (Sodium Chloride) 260 mls @ 130 mls/hr IV ONETIME ONE Stop: 09/11/19 13:59 Last Admin: 09/11/19 12:22 Dose: 130 mls/hr Magnesium Sulfate 2 gm/ Premix 50 mls @ 50 mls/hr IV ONETIME ONE Stop: 09/12/19 12:03 Last Admin: 09/12/19 12:07 Dose: 50 mls/hr Vancomycin HCl 0.75 gm/ Sodium (Chloride) 250 mls @ 250 mls/hr IV Q12H [facility] Last Admin: 09/13/19 19:42 Dose: Not Given Vancomycin HCl 0.75 gm/ Sodium (Chloride) 250 mls @ 250 mls/hr IV Q12H [facility] Last Admin: 09/14/19 18:53 Dose: Not Given Vancomycin HCl 0.75 gm/ Sodium (Chloride) 250 mls @ 250 mls/hr IV Q12H [facility] Last Admin: 09/15/19 21:29 Dose: Not Given Vancomycin HCl 500 mg/ Sodium (Chloride) 100 mls @ 100 mls/hr IV Q12H [facility] Last Admin: 09/15/19 22:14 Dose: 100 mls/hr Vancomycin HCl 500 mg/ Sodium (Chloride) 100 mls @ 100 mls/hr IV Q12H [facility] Last Admin: 09/16/19 10:35 Dose: Not Given Vancomycin HCl 1 gm/ Sodium (Chloride) 250 mls @ 166.667 mls/hr IV Q24H [facility] Last Admin: 09/19/19 09:53 Dose: 166.667 mls/hr Iopamidol (Isovue Multipack-370 (76%)) 50 ml IVPUSH ONETIME [facility] Stop: 09/14/19 13:07 Last Admin: 09/14/19 13:30 Dose: 50 ml Lansoprazole (Prevacid Solutab) 30 mg PO BEDTIME [facility] Last Admin: 09/18/19 20:41 Dose: 30 mg Levothyroxine Sodium (Levothyroxine) 75 mcg PO ACBREAKFAST [facility] Last Admin: 09/19/19 06:48 Dose: 75 mcg Magnesium Hydroxide (Milk Of Magnesia) 30 ml PO DAILY PRN PRN Reason: Constipation Last Admin: 09/17/19 09:19 Dose: 30 ml Omeprazole (Omeprazole) 20 mg PO BEDTIME [facility] Last Admin: 09/11/19 20:31 Dose: 20 mg Ondansetron HCl (Zofran Odt) 4 mg PO Q4H PRN PRN Reason: nausea, able to take PO Ondansetron HCl (Zofran) 4 mg IVPUSH Q4H PRN PRN Reason: Nausea Potassium Chloride (Potassium Chloride) 40 meq PO 09/12/19@0915 [facility] Stop: 09/12/19 09:16 Last Admin: 09/12/19 09:26 Dose: 40 meq Potassium Chloride (Klor-Con M20) 40 meq PO ONETIME ONE Stop: 09/14/19 07:12 Last Admin: 09/14/19 08:39 Dose: 40 meq Potassium Chloride (Klor-Con M20) 40 meq PO ONETIME ONE Stop: 09/15/19 07:20 Last Admin: 09/15/19 09:22 Dose: 40 meq Simvastatin (Zocor) 40 mg PO BEDTIME [facility] Last Admin: 09/18/19 20:40 Dose: 40 mg Sodium Phosphate (Neutra-Phos) 250 mg PO QID [facility] Stop: 09/13/19 00:01 Last Admin: 09/13/19 01:20 Dose: 250 mg Vancomycin HCl (Pharmacy To Dose - Vancomycin) 1 dose .XX ASDIRECTED [facility] Warfarin Sodium (Coumadin) 2 mg PO Q24H [facility] Last Admin: 09/10/19 15:11 Dose: 2 mg Warfarin Sodium (Coumadin) 3 mg PO ONETIME ONE Stop: 09/11/19 14:01 Last Admin: 09/11/19 13:54 Dose: 3 mg Warfarin Sodium (Coumadin Ask) 0 each PO DAILY@1400 [facility] Last Admin: 09/14/19 15:37 Dose: Not Given Warfarin Sodium (Coumadin) 3 mg PO ONETIME [facility] Last Admin: 09/12/19 16:10 Dose: 3 mg Warfarin Sodium (Coumadin) 3 mg PO ONETIME ONE Stop: 09/13/19 14:46 Last Admin: 09/13/19 15:18 Dose: 3 mg Warfarin Sodium (Coumadin) 2 mg PO ONETIME ONE Stop: 09/14/19 15:16 Last Admin: 09/14/19 15:37 Dose: Not Given Warfarin Sodium (Coumadin) 2 mg PO ONETIME ONE Stop: 09/14/19 17:46 Last Admin: 09/14/19 18:04 Dose: 2 mg Warfarin Sodium (Coumadin Ask) 1 each PO DAILY@1400 [facility] Last Admin: 09/18/19 15:01 Dose: Not Given Warfarin Sodium (Coumadin) 4 mg PO DAILY@1400 ONE Stop: 09/17/19 14:01 Last Admin: 09/17/19 14:32 Dose: 4 mg Warfarin Sodium (Coumadin) 3 mg PO DAILY@1400 ONE Stop: 09/18/19 14:01 Last Admin: 09/18/19 14:53 Dose: 3 mg - Problem List & Annotations (1) UTI, Urinary tract infectious disease SNOMED Code(s): 57117596 Code(s): N39.0 - URINARY TRACT INFECTION, SITE NOT SPECIFIED Status: Acute Onset Date: 01/16/14 (2) Hx of aortic valve replacement SNOMED Code(s): 7188479483039, 636648409, 5338611907502 Code(s): Z95.2 - PRESENCE OF PROSTHETIC HEART VALVE Status: Chronic (3) CHF (congestive heart failure) SNOMED Code(s): 53298523 Code(s): I50.9 - HEART FAILURE, UNSPECIFIED Status: Chronic (4) HTN (hypertension) SNOMED Code(s): 85715513 Code(s): I10 - ESSENTIAL (PRIMARY) HYPERTENSION Status: Chronic Qualifiers: Hypertension type: essential hypertension Qualified Code(s): I10 - Essential (primary) hypertension (5) Chronic anticoagulation SNOMED Code(s): 678823560 Code(s): Z79.01 - USP (CURRENT) USE OF ANTICOAGULANTS Status: Chronic (6) Hyperbilirubinemia SNOMED Code(s): 38707315 Code(s): E80.6 - OTHER DISORDERS OF BILIRUBIN METABOLISM Status: Acute - Plan Plan:: I have seen and evaluated the patient and agree with the residents note unless specified in my note
[2019-09-13] MEDS ORDERED: Furosemide 40 MG/4 ML VIAL IVPUSH ONE (10:19)
[2019-09-13] MEDS ORDERED: Enoxaparin 100 MG/1 ML Syringe SUBCUT ONE (11:15)
[2019-09-13] MEDS ORDERED: Warfarin 2 MG Tab PO SCH ×2 (14:00→15:30)
[2019-09-13] MEDS: Lansoprazole 30 MG Orally Disintegrating Tab.CR PO SCH (20:26)
[2019-09-13] MEDS: Simvastatin 40 MG Tab PO SCH (20:27)
[2019-09-14 06:12] LABS: BLOOD UREA NITROGEN,BUN 14 mg/dL (7.0-18.0); CARBON DIOXIDE,CO2 33.7 mmol/L (21.0-32.0); CHLORIDE,CL 103 mmol/L (98-107); GLUCOSE RANDOM 106 mg/dL (74-106); POTASSIUM,K 3.4 mmol/L (3.5-5.1); SODIUM,NA 142 mmol/L (136-148)
[2019-09-14] MEDS: cefTRIAXone 1 GM in Premix Bag 1 BAG IV SCH (06:41)
[2019-09-14] MEDS: Levothyroxine 75 MCG Tab PO SCH (06:42)
[2019-09-14] MEDS ORDERED: Potassium Chloride 20 MEQ Tab.ER PO ONE (07:11)
--- NOTE | 2019-09-14 08:22 | PCM.PN ---
<Brandon De Luna M - Last Filed: 09/14/19 11:44> - General Info Date of Service: 09/14/19 Subjective Update: Reports no complaints at bedside this morning. Denies fevers, chills, SOB, chest pain, nausea or vomiting. Per nursing, small amount of blood found on blanket this morning. Patient was not on nasal cannula overnight. - Patient Data Vitals - Most Recent: Last Vital Signs Temp 97.2 F 09/14/19 05:00 Pulse 85 09/14/19 05:00 Resp 20 09/14/19 05:00 BP 101/60 09/14/19 05:00 Pulse Ox 92 L 09/14/19 05:00 Weight - Most Recent: 129.756 kg I&O - Last 24 Hours: Intake & Output 09/13/19 09/14/19 09/14/19 22:59 06:59 14:59 Intake Total 970 610 Output Total 425 320 Balance 545 290 Lab Results Last 24 Hours: Laboratory Results - last 24 hr 09/13/19 09/14/19 09/14/19 Range/Units 11:34 05:20 05:20 WBC 9.71 (4.0-11.0) K/uL RBC 4.18 L (4.50-5.90) M/uL Hgb 12.2 L (13.0-17.0) g/dL Hct 39.5 (38.0-50.0) % MCV 94.5 (80.0-98.0) fL MCH 29.2 (27.0-32.0) pg MCHC 30.9 L (31.0-37.0) g/dL RDW Std Deviation 58.6 (28.0-62.0) fl RDW Coeff of Regulo 17 H (11.0-15.0) % Plt Count 107 L (150-400) K/uL MPV 11.90 (7.40-12.00) fL Neut % (Auto) 71.4 (48.0-80.0) % Lymph % (Auto) 9.6 L (16.0-40.0) % [place] % (Auto) 18.3 H (0.0-15.0) % Eos % (Auto) 0.5 (0.0-7.0) % Baso % (Auto) 0.2 (0.0-1.5) % Neut # (Auto) 6.9 H (1.4-5.7) K/uL Lymph # (Auto) 0.9 (0.6-2.4) K/uL [place] # (Auto) 1.8 H (0.0-0.8) K/uL Eos # (Auto) 0.1 (0.0-0.7) K/uL Baso # (Auto) 0.0 (0.0-0.1) K/uL Nucleated RBC % 0.0 /100WBC Nucleated RBCs # 0 K/uL INR 2.24 Sodium (136-148) mmol/L Potassium (3.5-5.1) mmol/L Chloride (98-107) mmol/L Carbon Dioxide (21.0-32.0) mmol/L BUN (7.0-18.0) mg/dL Creatinine (0.8-1.3) mg/dL Est Cr Clr Drug Dosing mL/min Estimated GFR (MDRD) ml/min Glucose (74-106) mg/dL Calcium (8.5-10.1) mg/dL Total Bilirubin (0.2-1.0) mg/dL AST (15-37) IU/L ALT (14-63) IU/L Alkaline Phosphatase (46-116) U/L Total Protein (6.4-8.2) g/dL Albumin (3.4-5.0) g/dL Globulin (2.6-4.0) g/dL Albumin/Globulin Ratio (0.9-1.6) Vancomycin Trough 20.5 H (5.0-10.0) ug/mL 09/13/ Range/Units 05:20 WBC (4.0-11.0) K/uL RBC (4.50-5.90) M/uL Hgb (13.0-17.0) g/dL Hct (38.0-50.0) % MCV (80.0-98.0) fL MCH (27.0-32.0) pg MCHC (31.0-37.0) g/dL RDW Std Deviation (28.0-62.0) fl RDW Coeff of Regulo (11.0-15.0) % Plt Count (150-400) K/uL MPV (7.40-12.00) fL Neut % (Auto) (48.0-80.0) % Lymph % (Auto) (16.0-40.0) % [place] % (Auto) (0.0-15.0) % Eos % (Auto) (0.0-7.0) % Baso % (Auto) (0.0-1.5) % Neut # (Auto) (1.4-5.7) K/uL Lymph # (Auto) (0.6-2.4) K/uL [place] # (Auto) (0.0-0.8) K/uL Eos # (Auto) (0.0-0.7) K/uL Baso # (Auto) (0.0-0.1) K/uL Nucleated RBC % /100WBC Nucleated RBCs # K/uL INR Sodium 142 (136-148) mmol/L Potassium 3.4 L (3.5-5.1) mmol/L Chloride 103 (98-107) mmol/L Carbon Dioxide 33.7 H (21.0-32.0) mmol/L BUN 14 (7.0-18.0) mg/dL Creatinine 0.9 (0.8-1.3) mg/dL Est Cr Clr Drug Dosing 55.64 mL/min Estimated GFR (MDRD) > 60.0 ml/min Glucose 106 (74-106) mg/dL Calcium 7.7 L (8.5-10.1) mg/dL Total Bilirubin 1.5 H (0.2-1.0) mg/dL AST 25 (15-37) IU/L ALT 27 (14-63) IU/L Alkaline Phosphatase 89 (46-116) U/L Total Protein 6.5 (6.4-8.2) g/dL Albumin 2.8 L (3.4-5.0) g/dL Globulin 3.7 (2.6-4.0) g/dL Albumin/Globulin Ratio 0.8 L (0.9-1.6) Vancomycin Trough (5.0-10.0) ug/mL [place]vin Results Last 24 Hours: Microbiology 09/09/19 11:36 Aerobic Blood Culture - Preliminary Blood - Venous - Lab Draw NO GROWTH AFTER 4 DAYS Anaerobic Blood Culture - Preliminary NO GROWTH AFTER 4 DAYS 09/09/19 11:29 Aerobic Blood Culture - Preliminary Blood - Venous NO GROWTH AFTER 4 DAYS Anaerobic Blood Culture - Preliminary NO GROWTH AFTER 4 DAYS Med Orders - Current: Current Medications Acetaminophen (Tylenol) 650 mg PO Q4H PRN PRN Reason: Pain (Mild 1-3)/fever Albuterol/Ipratropium (Duoneb 3.0-0.5 Mg/3 Ml) 3 ml NEB Q6H PRN PRN Reason: COPD Artificial Tears (Refresh Plus 0.5%) 0 each EYEBOTH BID [facility] Last Admin: 09/13/19 20:26 Dose: 1 drop Bisacodyl (Dulcolax) 10 mg RECTAL DAILY PRN PRN Reason: Constipation Carbamide Perox/Anhydrous Glycerin (Debrox 6.5% Otic Soln) 0 ml EARBOTH BEDTIME PRN PRN Reason: EAR WAX Furosemide (Lasix) 60 mg IVPUSH BID [facility] Last Admin: 09/13/19 20:25 Dose: 60 mg Ceftriaxone Sodium/Dextrose 1 (gm/ Premix) 50 mls @ 100 mls/hr IV Q24H [facility] Last Admin: 09/14/19 06:41 Dose: 100 mls/hr Vancomycin HCl 0.75 gm/ Sodium (Chloride) 250 mls @ 250 mls/hr IV Q12H [facility] Last Admin: 09/14/19 05:28 Dose: 250 mls/hr Lansoprazole (Prevacid Solutab) 30 mg PO BEDTIME [facility] Last Admin: 09/13/19 20:26 Dose: 30 mg Levothyroxine Sodium (Levothyroxine) 75 mcg PO ACBREAKFAST [facility] Last Admin: 09/14/19 06:42 Dose: 75 mcg Magnesium Hydroxide (Milk Of Magnesia) 30 ml PO DAILY PRN PRN Reason: Constipation Ondansetron HCl (Zofran Odt) 4 mg PO Q4H PRN PRN Reason: nausea, able to take PO Ondansetron HCl (Zofran) 4 mg IVPUSH Q4H PRN PRN Reason: Nausea Simvastatin (Zocor) 40 mg PO BEDTIME [facility] Last Admin: 09/13/19 20:27 Dose: 40 mg Warfarin Sodium (Coumadin Ask) 0 each PO DAILY@1400 [facility] Last Admin: 09/13/19 15:19 Dose: Not Given Discontinued Medications Acetazolamide (Diamox) 250 mg PO ONETIME ONE Stop: 09/11/19 11:38 Last Admin: 09/11/19 11:58 Dose: 250 mg Enoxaparin Sodium (Lovenox) 200 mg SUBCUT ONETIME ONE Stop: 09/11/19 11:46 Last Admin: 09/11/19 11:59 Dose: 200 mg Enoxaparin Sodium (Lovenox) 200 mg SUBCUT ONETIME ONE Stop: 09/13/19 11:16 Last Admin: 09/13/19 12:09 Dose: 200 mg Furosemide (Lasix) 40 mg PO BIDDIURETIC [facility] Last Admin: 09/11/19 08:56 Dose: 40 mg Furosemide (Lasix) 20 mg IVPUSH NOW ONE Stop: 09/10/19 23:55 Last Admin: 09/11/19 00:30 Dose: 20 mg Furosemide (Lasix) 20 mg IVPUSH NOW ONE Stop: 09/11/19 11:23 Last Admin: 09/11/19 11:56 Dose: 20 mg Furosemide (Lasix) 40 mg IVPUSH BID [facility] Last Admin: 09/13/19 09:44 Dose: 40 mg Furosemide (Lasix) 20 mg IVPUSH NOW ONE Stop: 09/13/19 10:20 Last Admin: 09/13/19 12:12 Dose: 20 mg Piperacillin Sod/Tazobactam (Sod 3.375 gm/ Sodium Chloride) 50 mls @ 100 mls/ hr IV ONETIME ONE Stop: 09/09/19 15:15 Last Admin: 09/09/19 15:10 Dose: 100 mls/hr Vancomycin HCl 1 gm/ Sodium (Chloride) 250 mls @ 166 mls/hr IV ONETIME ONE Stop: 09/09/19 16:18 Last Admin: 09/09/19 16:24 Dose: 166 mls/hr Vancomycin HCl 1.25 gm/ Sodium (Chloride) 250 mls @ 166.667 mls/hr IV Q12H [facility] Last Admin: 09/11/19 04:20 Dose: 166.667 mls/hr Lactated Ringer's (Ringers, Lactated) 1,000 mls @ 500 mls/hr IV STAT [facility] Last Admin: 09/10/19 07:24 Dose: 500 mls/hr Lactated Ringer's (Ringers, Lactated) 1,000 mls @ 100 mls/hr IV ASDIRECTED [facility] Last Admin: 09/10/19 11:53 Dose: 100 mls/hr Vancomycin HCl 1 gm/ Sodium (Chloride) 250 mls @ 166 mls/hr IV Q12H [facility] Last Admin: 09/12/19 16:11 Dose: 166 mls/hr Potassium Chloride 40 meq/ (Premix) 100 mls @ 25 mls/hr IV ONETIME ONE Stop: 09/11/19 15:35 Last Admin: 09/11/19 12:08 Dose: Not Given Potassium Chloride 20 meq/ (Sodium Chloride) 260 mls @ 130 mls/hr IV ONETIME ONE Stop: 09/11/19 13:59 Last Admin: 09/11/19 12:22 Dose: 130 mls/hr Magnesium Sulfate 2 gm/ Premix 50 mls @ 50 mls/hr IV ONETIME ONE Stop: 09/12/19 12:03 Last Admin: 09/12/19 12:07 Dose: 50 mls/hr Vancomycin HCl 0.75 gm/ Sodium (Chloride) 250 mls @ 250 mls/hr IV Q12H [facility] Last Admin: 09/13/19 19:42 Dose: Not Given Omeprazole (Omeprazole) 20 mg PO BEDTIME [facility] Last Admin: 09/11/19 20:31 Dose: 20 mg Potassium Chloride (Potassium Chloride) 40 meq PO 09/12/19@0915 [facility] Stop: 09/12/19 09:16 Last Admin: 09/12/19 09:26 Dose: 40 meq Potassium Chloride (Klor-Con M20) 40 meq PO ONETIME ONE Stop: 09/14/19 07:12 Sodium Phosphate (Neutra-Phos) 250 mg PO QID [facility] Stop: 09/13/19 00:01 Last Admin: 09/13/19 01:20 Dose: 250 mg Vancomycin HCl (Pharmacy To Dose - Vancomycin) 1 dose .XX ASDIRECTED [facility] Warfarin Sodium (Coumadin) 2 mg PO Q24H [facility] Last Admin: 09/10/19 15:11 Dose: 2 mg Warfarin Sodium (Coumadin) 3 mg PO ONETIME ONE Stop: 09/11/19 14:01 Last Admin: 09/11/19 13:54 Dose: 3 mg Warfarin Sodium (Coumadin) 3 mg PO ONETIME [facility] Last Admin: 09/12/19 16:10 Dose: 3 mg Warfarin Sodium (Coumadin) 3 mg PO ONETIME ONE Stop: 09/13/19 14:46 Last Admin: 09/13/19 15:18 Dose: 3 mg - Exam General: Alert, Oriented, Cooperative, No Acute Distress Lungs: Other (quiet breath sounds b/l, mild crackles in bases b/l) Cardiovascular: Regular Rate, Irregular Rhythm GI/Abdominal Exam: Normal Bowel Sounds, Soft, Non-Tender, No Distention Extremities: Other (LLE: 5 cm x 5 cm area of erythema, wet, dressings soaked in thin yellow-colored discharge, 1+ pitting edema) Sepsis Event Note - Evaluation Sepsis Screening Result: No Definite Risk - Focused Exam Vital Signs: Vital Signs Temp Pulse Resp BP Pulse Ox 09/14/19 05:00 97.2 F 85 20 101/60 92 L 09/13/19 23:47 98 F 76 20 100/55 L 93 L 09/13/19 20:24 99 F 80 20 111/61 95 Date Exam was Performed: 09/14/19 Time Exam was Performed: 11:44 - Problem List Review Problem List Initiated/Reviewed/Updated: Yes - My Orders Last 24 Hours: My Active Orders 09/13/19 10:20 Urinary Catheter Assessment [RC] ASDIRECTED 09/13/19 10:30 Insert Murray Catheter [Insert Urinary Catheter] [OM.PC] Q24H 09/13/19 21:00 Furosemide [Lasix] 60 mg IVPUSH BID 09/15/19 05:11 INR,PT,PROTHROMBIN TIME [COAG] DAILY - Plan Plan:: Assessment and Plan: 1. Left lower extremity cellulitis: - Currently on IV vancomycin day 6 and wound looks to be improving. Will obtain culture today. - X-ray showed no bony involvement. Blood cultures were negative. - Per wound care, recommended aquacel dressing changes daily if padding is soaked. 2. CHF: - Increase to IV lasix 80 mg BID, strict I/O's, standing daily weight and fluid restrict < 1.8 L per day. Patient in negative fluid balance. Patient denied murray catheter insertion. - Patient had blood-tinged sputum this morning so will order sputum culture, CT angio and ECHO. 3. Subtherapeutic INR: - Patient on warfarin for prosthetic heart valve. Continue bridge with lovenox until INR therapeutic. Pharmacy consulted. 4. Acute cystitis: - Continue IV Rocephin 1 g qd, currently on day 6. 5. Past medical history of atrial fibrillation, COPD, CHF, HTN and hyperlipidemia: - Resume home medications. 6. DVT prophylaxis: Patient on chronic warfarin therapy. <Liliane Lopez - Last Filed: 09/25/19 14:04> - Patient Data Vitals - Most Recent: Last Vital Signs Temp 36.2 C 09/19/19 11:39 Pulse 81 09/19/19 11:39 Resp 16 09/19/19 11:39 BP 107/68 09/19/19 11:39 Pulse Ox 94 L 09/19/19 11:39 Med Orders - Current: Current Medications Discontinued Medications Acetaminophen (Tylenol) 650 mg PO Q4H PRN PRN Reason: Pain (Mild 1-3)/fever Acetazolamide (Diamox) 250 mg PO ONETIME ONE Stop: 09/11/19 11:38 Last Admin: 09/11/19 11:58 Dose: 250 mg Albuterol/Ipratropium (Duoneb 3.0-0.5 Mg/3 Ml) 3 ml NEB Q6H PRN PRN Reason: COPD Artificial Tears (Refresh Plus 0.5%) 0 each EYEBOTH BID [facility] Last Admin: 09/19/19 09:53 Dose: 1 drop Bisacodyl (Dulcolax) 10 mg RECTAL DAILY PRN PRN Reason: Constipation Last Admin: 09/18/19 04:29 Dose: 10 mg Carbamide Perox/Anhydrous Glycerin (Debrox 6.5% Otic Soln) 0 ml EARBOTH BEDTIME PRN PRN Reason: EAR WAX Enoxaparin Sodium (Lovenox) 200 mg SUBCUT ONETIME ONE Stop: 09/11/19 11:46 Last Admin: 09/11/19 11:59 Dose: 200 mg Enoxaparin Sodium (Lovenox) 200 mg SUBCUT ONETIME ONE Stop: 09/13/19 11:16 Last Admin: 09/13/19 12:09 Dose: 200 mg Furosemide (Lasix) 40 mg PO BIDDIURETIC [facility] Last Admin: 09/11/19 08:56 Dose: 40 mg Furosemide (Lasix) 20 mg IVPUSH NOW ONE Stop: 09/10/19 23:55 Last Admin: 09/11/19 00:30 Dose: 20 mg Furosemide (Lasix) 20 mg IVPUSH NOW ONE Stop: 09/11/19 11:23 Last Admin: 09/11/19 11:56 Dose: 20 mg Furosemide (Lasix) 40 mg IVPUSH BID [facility] Last Admin: 09/13/19 09:44 Dose: 40 mg Furosemide (Lasix) 60 mg IVPUSH BID [facility] Last Admin: 09/14/19 08:40 Dose: 60 mg Furosemide (Lasix) 20 mg IVPUSH NOW ONE Stop: 09/13/19 10:20 Last Admin: 09/13/19 12:12 Dose: 20 mg Furosemide (Lasix) 80 mg IVPUSH BID [facility] Last Admin: 09/16/19 09:12 Dose: 80 mg Furosemide (Lasix) 80 mg IVPUSH DAILY [facility] Last Admin: 09/19/19 09:53 Dose: 80 mg Piperacillin Sod/Tazobactam (Sod 3.375 gm/ Sodium Chloride) 50 mls @ 100 mls/ hr IV ONETIME ONE Stop: 09/09/19 15:15 Last Admin: 09/09/19 15:10 Dose: 100 mls/hr Vancomycin HCl 1 gm/ Sodium (Chloride) 250 mls @ 166 mls/hr IV ONETIME ONE Stop: 09/09/19 16:18 Last Admin: 09/09/19 16:24 Dose: 166 mls/hr Vancomycin HCl 1.25 gm/ Sodium (Chloride) 250 mls @ 166.667 mls/hr IV Q12H [facility] Last Admin: 09/11/19 04:20 Dose: 166.667 mls/hr Lactated Ringer's (Ringers, Lactated) 1,000 mls @ 500 mls/hr IV STAT [facility] Last Admin: 09/10/19 07:24 Dose: 500 mls/hr Lactated Ringer's (Ringers, Lactated) 1,000 mls @ 100 mls/hr IV ASDIRECTED [facility] Last Admin: 09/10/19 11:53 Dose: 100 mls/hr Ceftriaxone Sodium/Dextrose 1 (gm/ Premix) 50 mls @ 100 mls/hr IV Q24H [facility] Last Admin: 09/19/19 06:48 Dose: 100 mls/hr Vancomycin HCl 1 gm/ Sodium (Chloride) 250 mls @ 166 mls/hr IV Q12H [facility] Last Admin: 09/12/19 16:11 Dose: 166 mls/hr Potassium Chloride 40 meq/ (Premix) 100 mls @ 25 mls/hr IV ONETIME ONE Stop: 09/11/19 15:35 Last Admin: 09/11/19 12:08 Dose: Not Given Potassium Chloride 20 meq/ (Sodium Chloride) 260 mls @ 130 mls/hr IV ONETIME ONE Stop: 09/11/19 13:59 Last Admin: 09/11/19 12:22 Dose: 130 mls/hr Magnesium Sulfate 2 gm/ Premix 50 mls @ 50 mls/hr IV ONETIME ONE Stop: 09/12/19 12:03 Last Admin: 09/12/19 12:07 Dose: 50 mls/hr Vancomycin HCl 0.75 gm/ Sodium (Chloride) 250 mls @ 250 mls/hr IV Q12H [facility] Last Admin: 09/13/19 19:42 Dose: Not Given Vancomycin HCl 0.75 gm/ Sodium (Chloride) 250 mls @ 250 mls/hr IV Q12H [facility] Last Admin: 09/14/19 18:53 Dose: Not Given Vancomycin HCl 0.75 gm/ Sodium (Chloride) 250 mls @ 250 mls/hr IV Q12H [facility] Last Admin: 09/15/19 21:29 Dose: Not Given Vancomycin HCl 500 mg/ Sodium (Chloride) 100 mls @ 100 mls/hr IV Q12H [facility] Last Admin: 09/15/19 22:14 Dose: 100 mls/hr Vancomycin HCl 500 mg/ Sodium (Chloride) 100 mls @ 100 mls/hr IV Q12H [facility] Last Admin: 09/16/19 10:35 Dose: Not Given Vancomycin HCl 1 gm/ Sodium (Chloride) 250 mls @ 166.667 mls/hr IV Q24H [facility] Last Admin: 09/19/19 09:53 Dose: 166.667 mls/hr Iopamidol (Isovue Multipack-370 (76%)) 50 ml IVPUSH ONETIME STA Stop: 09/14/19 13:07 Last Admin: 09/14/19 13:30 Dose: 50 ml Lansoprazole (Prevacid Solutab) 30 mg PO BEDTIME [facility] Last Admin: 09/18/19 20:41 Dose: 30 mg Levothyroxine Sodium (Levothyroxine) 75 mcg PO ACBREAKFAST [facility] Last Admin: 09/19/19 06:48 Dose: 75 mcg Magnesium Hydroxide (Milk Of Magnesia) 30 ml PO DAILY PRN PRN Reason: Constipation Last Admin: 09/17/19 09:19 Dose: 30 ml Omeprazole (Omeprazole) 20 mg PO BEDTIME [facility] Last Admin: 09/11/19 20:31 Dose: 20 mg Ondansetron HCl (Zofran Odt) 4 mg PO Q4H PRN PRN Reason: nausea, able to take PO Ondansetron HCl (Zofran) 4 mg IVPUSH Q4H PRN PRN Reason: Nausea Potassium Chloride (Potassium Chloride) 40 meq PO 09/12/19@0915 [facility] Stop: 09/12/19 09:16 Last Admin: 09/12/19 09:26 Dose: 40 meq Potassium Chloride (Klor-Con M20) 40 meq PO ONETIME ONE Stop: 09/14/19 07:12 Last Admin: 09/14/19 08:39 Dose: 40 meq Potassium Chloride (Klor-Con M20) 40 meq PO ONETIME ONE Stop: 09/15/19 07:20 Last Admin: 09/15/19 09:22 Dose: 40 meq Simvastatin (Zocor) 40 mg PO BEDTIME [facility] Last Admin: 09/18/19 20:40 Dose: 40 mg Sodium Phosphate (Neutra-Phos) 250 mg PO QID [facility] Stop: 09/13/19 00:01 Last Admin: 09/13/19 01:20 Dose: 250 mg Vancomycin HCl (Pharmacy To Dose - Vancomycin) 1 dose .XX ASDIRECTED [facility] Warfarin Sodium (Coumadin) 2 mg PO Q24H [facility] Last Admin: 09/10/19 15:11 Dose: 2 mg Warfarin Sodium (Coumadin) 3 mg PO ONETIME ONE Stop: 09/11/19 14:01 Last Admin: 09/11/19 13:54 Dose: 3 mg Warfarin Sodium (Coumadin Ask) 0 each PO DAILY@1400 [facility] Last Admin: 09/14/19 15:37 Dose: Not Given Warfarin Sodium (Coumadin) 3 mg PO ONETIME [facility] Last Admin: 09/12/19 16:10 Dose: 3 mg Warfarin Sodium (Coumadin) 3 mg PO ONETIME ONE Stop: 09/13/19 14:46 Last Admin: 03/24/20 15:18 Dose: 3 mg Warfarin Sodium (Coumadin) 2 mg PO ONETIME ONE Stop: 09/14/19 15:16 Last Admin: 09/14/19 15:37 Dose: Not Given Warfarin Sodium (Coumadin) 2 mg PO ONETIME ONE Stop: 09/14/19 17:46 Last Admin: 09/14/19 18:04 Dose: 2 mg Warfarin Sodium (Coumadin Ask) 1 each PO DAILY@1400 [facility] Last Admin: 09/18/19 15:01 Dose: Not Given Warfarin Sodium (Coumadin) 4 mg PO DAILY@1400 ONE Stop: 09/17/19 14:01 Last Admin: 09/17/19 14:32 Dose: 4 mg Warfarin Sodium (Coumadin) 3 mg PO DAILY@1400 ONE Stop: 09/18/19 14:01 Last Admin: 09/18/19 14:53 Dose: 3 mg - Problem List & Annotations (1) UTI, Urinary tract infectious disease SNOMED Code(s): 24861354 Code(s): N39.0 - URINARY TRACT INFECTION, SITE NOT SPECIFIED Status: Acute Onset Date: 01/16/14 (2) Hx of aortic valve replacement SNOMED Code(s): 4869035982522, 671516984, 3792009843403 Code(s): Z95.2 - PRESENCE OF PROSTHETIC HEART VALVE Status: Chronic (3) CHF (congestive heart failure) SNOMED Code(s): 44665054 Code(s): I50.9 - HEART FAILURE, UNSPECIFIED Status: Chronic (4) HTN (hypertension) SNOMED Code(s): 30526685 Code(s): I10 - ESSENTIAL (PRIMARY) HYPERTENSION Status: Chronic Qualifiers: Hypertension type: essential hypertension Qualified Code(s): I10 - Essential (primary) hypertension (5) Chronic anticoagulation SNOMED Code(s): 064302752 Code(s): Z79.01 - 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
[2019-09-14] MEDS: Furosemide 40 MG/4 ML VIAL IVPUSH SCH (08:40)
[2019-09-14] MEDS: Carboxymethylcellulose Sodium 0.5% Ophth Soln 0.4 ML UD Box of 30 EYEBOTH SCH ×2 (08:41→21:27)
[2019-09-14] MEDS ORDERED: Iopamidol 755 MG/ML 500 ML Multipack Bottle IVPUSH STA (13:06)
--- NOTE | 2019-09-14 14:02 | CT ---
CT chest Technique: Multiple axial sections through the chest were obtained. Intravenous contrast was utilized. Study has been performed as a pulmonary angiogram protocol. Comparison: Prior chest x-ray of 09/09/19. Findings: Pulmonary arteries are fairly well opacified. No filling defects are seen to indicate pulmonary embolism. Small right-sided pleural effusion and trace left-sided pleural effusion is noted. Aorta shows no aneurysm with mild atherosclerotic calcification. Small mediastinal lymph nodes are seen believed to be within normal limits. Material is noted within the esophagus presumably representing food material. Visualized upper abdominal structures show nothing gross. Heart is enlarged. Prosthetic heart valve is noted. Bone window settings were reviewed which shows scattered degenerative change within the spine with mild scoliosis. No acute osseous finding is noted. Sternotomy wires are present. Hazy groundglass appearance is seen centrally most likely representing pulmonary vascular congestion. Impression: 1. Small right-sided pleural effusion with trace left-sided pleural effusion. Heart is enlarged. Hazy groundglass appearance centrally within both lungs most likely representing pulmonary vascular congestion. Findings are most suspicious for CHF. 2. No findings of pulmonary embolism. 3. Soft tissue material within the esophagus most likely representing food material. If patient has any difficulties with swallowing, esophagram could then be considered. Diagnostic code #3 This report was dictated in MDT
[2019-09-14] MEDS ORDERED: Warfarin 2 MG Tab PO ONE ×2 (15:15→17:45)
[2019-09-14] MEDS: Furosemide 100 MG/10 ML SDV IVPUSH SCH (21:25)
[2019-09-14] MEDS: Simvastatin 40 MG Tab PO SCH (21:25)
[2019-09-14] MEDS: Lansoprazole 30 MG Orally Disintegrating Tab.CR PO SCH (21:27)
[2019-09-15 06:36] LABS: BLOOD UREA NITROGEN,BUN 17 mg/dL (7.0-18.0); CARBON DIOXIDE,CO2 34.5 mmol/L (21.0-32.0); CHLORIDE,CL 104 mmol/L (98-107); GLUCOSE RANDOM 101 mg/dL (74-106); POTASSIUM,K 3.4 mmol/L (3.5-5.1); SODIUM,NA 141 mmol/L (136-148)
[2019-09-15] MEDS: cefTRIAXone 1 GM in Premix Bag 1 BAG IV SCH (06:56)
[2019-09-15] MEDS: Levothyroxine 75 MCG Tab PO SCH (07:01)
[2019-09-15] MEDS ORDERED: Potassium Chloride 20 MEQ Tab.ER PO ONE (07:19)
[2019-09-15] MEDS: Furosemide 100 MG/10 ML SDV IVPUSH SCH ×2 (09:22→20:40)
[2019-09-15] MEDS: Carboxymethylcellulose Sodium 0.5% Ophth Soln 0.4 ML UD Box of 30 EYEBOTH SCH ×2 (09:23→20:39)
--- NOTE | 2019-09-15 13:50 | PCM.PN ---
<Brandon De Luna M - Last Filed: 09/15/19 13:44> - General Info Date of Service: 09/15/19 Subjective Update: No complaints at bedside this morning. Denies SOB/chest pain/n/v/d. Reports cough is getting better. - Patient Data Vitals - Most Recent: Last Vital Signs Temp 98.0 F 09/15/19 12:00 Pulse 80 09/15/19 12:00 Resp 20 09/15/19 12:00 BP 92/50 L 09/15/19 12:00 Pulse Ox 95 09/15/19 12:00 Weight - Most Recent: 129.756 kg I&O - Last 24 Hours: Intake & Output 09/14/19 09/15/19 09/15/19 22:59 06:59 14:59 Intake Total 350 570 Output Total 0 500 Balance 350 70 Lab Results Last 24 Hours: Laboratory Results - last 24 hr 09/14/19 09/14/19 09/15/19 Range/Units 17:12 17:12 05:25 WBC (4.0-11.0) K/uL RBC (4.50-5.90) M/uL Hgb 12.5 L (13.0-17.0) g/dL Hct (38.0-50.0) % MCV (80.0-98.0) fL MCH (27.0-32.0) pg MCHC (31.0-37.0) g/dL RDW Std Deviation (28.0-62.0) fl RDW Coeff of Regulo (11.0-15.0) % Plt Count (150-400) K/uL MPV (7.40-12.00) fL Neut % (Auto) (48.0-80.0) % Lymph % (Auto) (16.0-40.0) % [place] % (Auto) (0.0-15.0) % Eos % (Auto) (0.0-7.0) % Baso % (Auto) (0.0-1.5) % Neut # (Auto) (1.4-5.7) K/uL Lymph # (Auto) (0.6-2.4) K/uL [place] # (Auto) (0.0-0.8) K/uL Eos # (Auto) (0.0-0.7) K/uL Baso # (Auto) (0.0-0.1) K/uL Nucleated RBC % /100WBC Nucleated RBCs # K/uL INR 2.27 Sodium (136-148) mmol/L Potassium (3.5-5.1) mmol/L Chloride (98-107) mmol/L Carbon Dioxide (21.0-32.0) mmol/L BUN (7.0-18.0) mg/dL Creatinine (0.8-1.3) mg/dL Est Cr Clr Drug Dosing mL/min Estimated GFR (MDRD) ml/min Glucose (74-106) mg/dL Calcium (8.5-10.1) mg/dL Total Bilirubin (0.2-1.0) mg/dL AST (15-37) IU/L ALT (14-63) IU/L Alkaline Phosphatase (46-116) U/L Total Protein (6.4-8.2) g/dL Albumin (3.4-5.0) g/dL Globulin (2.6-4.0) g/dL Albumin/Globulin Ratio (0.9-1.6) Vancomycin Trough 20.0 H (5.0-10.0) ug/mL 09/15/19 09/15/19 Range/Units 05:25 05:25 WBC 8.20 (4.0-11.0) K/uL RBC 3.99 L (4.50-5.90) M/uL Hgb 11.7 L (13.0-17.0) g/dL Hct 37.7 L (38.0-50.0) % MCV 94.5 (80.0-98.0) fL MCH 29.3 (27.0-32.0) pg MCHC 31.0 (31.0-37.0) g/dL RDW Std Deviation 58.8 (28.0-62.0) fl RDW Coeff of Regulo 17 H (11.0-15.0) % Plt Count 104 L (150-400) K/uL MPV 11.50 (7.40-12.00) fL Neut % (Auto) 70.6 (48.0-80.0) % Lymph % (Auto) 13.5 L (16.0-40.0) % [place] % (Auto) 15.2 H (0.0-15.0) % Eos % (Auto) 0.6 (0.0-7.0) % Baso % (Auto) 0.1 (0.0-1.5) % Neut # (Auto) 5.8 H (1.4-5.7) K/uL Lymph # (Auto) 1.1 (0.6-2.4) K/uL [place] # (Auto) 1.3 H (0.0-0.8) K/uL Eos # (Auto) 0.1 (0.0-0.7) K/uL Baso # (Auto) 0.0 (0.0-0.1) K/uL Nucleated RBC % 0.0 /100WBC Nucleated RBCs # 0 K/uL INR Sodium 141 (136-148) mmol/L Potassium 3.4 L (3.5-5.1) mmol/L Chloride 104 (98-107) mmol/L Carbon Dioxide 34.5 H (21.0-32.0) mmol/L BUN 17 (7.0-18.0) mg/dL Creatinine 0.9 (0.8-1.3) mg/dL Est Cr Clr Drug Dosing 55.64 mL/min Estimated GFR (MDRD) > 60.0 ml/min Glucose 101 (74-106) mg/dL Calcium 7.8 L (8.5-10.1) mg/dL Total Bilirubin 1.3 H (0.2-1.0) mg/dL AST 19 (15-37) IU/L ALT 30 (14-63) IU/L Alkaline Phosphatase 78 (46-116) U/L Total Protein 6.3 L (6.4-8.2) g/dL Albumin 2.6 L (3.4-5.0) g/dL Globulin 3.7 (2.6-4.0) g/dL Albumin/Globulin Ratio 0.7 L (0.9-1.6) Vancomycin Trough (5.0-10.0) ug/mL [facility] Results Last 24 Hours: Microbiology 09/13/19 18:45 Gram Stain - Preliminary Sputum - Expectorated 09/09/19 11:36 Aerobic Blood Culture - Final Blood - Venous - Lab Draw NO GROWTH AFTER 5 DAYS Anaerobic Blood Culture - Final NO GROWTH AFTER 5 DAYS 09/09/19 11:29 Aerobic Blood Culture - Final Blood - Venous NO GROWTH AFTER 5 DAYS Anaerobic Blood Culture - Final NO GROWTH AFTER 5 DAYS Med Orders - Current: Current Medications Acetaminophen (Tylenol) 650 mg PO Q4H PRN PRN Reason: Pain (Mild 1-3)/fever Albuterol/Ipratropium (Duoneb 3.0-0.5 Mg/3 Ml) 3 ml NEB Q6H PRN PRN Reason: COPD Artificial Tears (Refresh Plus 0.5%) 0 each EYEBOTH BID [facility] Last Admin: 09/15/19 09:23 Dose: 1 drop Bisacodyl (Dulcolax) 10 mg RECTAL DAILY PRN PRN Reason: Constipation Carbamide Perox/Anhydrous Glycerin (Debrox 6.5% Otic Soln) 0 ml EARBOTH BEDTIME PRN PRN Reason: EAR WAX Furosemide (Lasix) 80 mg IVPUSH BID [facility] Last Admin: 09/15/19 09:22 Dose: 80 mg Ceftriaxone Sodium/Dextrose 1 (gm/ Premix) 50 mls @ 100 mls/hr IV Q24H [facility] Last Admin: 09/15/19 06:56 Dose: 100 mls/hr Vancomycin HCl 0.75 gm/ Sodium (Chloride) 250 mls @ 250 mls/hr IV Q12H [facility] Last Admin: 09/15/19 09:21 Dose: 250 mls/hr Lansoprazole (Prevacid Solutab) 30 mg PO BEDTIME [facility] Last Admin: 09/14/19 21:27 Dose: 30 mg Levothyroxine Sodium (Levothyroxine) 75 mcg PO ACBREAKFAST [facility] Last Admin: 09/15/19 07:01 Dose: 75 mcg Magnesium Hydroxide (Milk Of Magnesia) 30 ml PO DAILY PRN PRN Reason: Constipation Ondansetron HCl (Zofran Odt) 4 mg PO Q4H PRN PRN Reason: nausea, able to take PO Ondansetron HCl (Zofran) 4 mg IVPUSH Q4H PRN PRN Reason: Nausea Simvastatin (Zocor) 40 mg PO BEDTIME [facility] Last Admin: 09/14/19 21:25 Dose: 40 mg Discontinued Medications Acetazolamide (Diamox) 250 mg PO ONETIME ONE Stop: 09/11/19 11:38 Last Admin: 09/11/19 11:58 Dose: 250 mg Enoxaparin Sodium (Lovenox) 200 mg SUBCUT ONETIME ONE Stop: 09/11/19 11:46 Last Admin: 09/11/19 11:59 Dose: 200 mg Enoxaparin Sodium (Lovenox) 200 mg SUBCUT ONETIME ONE Stop: 09/13/19 11:16 Last Admin: 09/13/19 12:09 Dose: 200 mg Furosemide (Lasix) 40 mg PO BIDDIURETIC [facility] Last Admin: 09/11/19 08:56 Dose: 40 mg Furosemide (Lasix) 20 mg IVPUSH NOW ONE Stop: 09/10/19 23:55 Last Admin: 09/11/19 00:30 Dose: 20 mg Furosemide (Lasix) 20 mg IVPUSH NOW ONE Stop: 09/11/19 11:23 Last Admin: 09/11/19 11:56 Dose: 20 mg Furosemide (Lasix) 40 mg IVPUSH BID [facility] Last Admin: 09/13/19 09:44 Dose: 40 mg Furosemide (Lasix) 60 mg IVPUSH BID [facility] Last Admin: 09/14/19 08:40 Dose: 60 mg Furosemide (Lasix) 20 mg IVPUSH NOW ONE Stop: 09/13/19 10:20 Last Admin: 09/13/19 12:12 Dose: 20 mg Piperacillin Sod/Tazobactam (Sod 3.375 gm/ Sodium Chloride) 50 mls @ 100 mls/ hr IV ONETIME ONE Stop: 09/09/19 15:15 Last Admin: 09/09/19 15:10 Dose: 100 mls/hr Vancomycin HCl 1 gm/ Sodium (Chloride) 250 mls @ 166 mls/hr IV ONETIME ONE Stop: 09/09/19 16:18 Last Admin: 09/09/19 16:24 Dose: 166 mls/hr Vancomycin HCl 1.25 gm/ Sodium (Chloride) 250 mls @ 166.667 mls/hr IV Q12H [facility] Last Admin: 09/11/19 04:20 Dose: 166.667 mls/hr Lactated Ringer's (Ringers, Lactated) 1,000 mls @ 500 mls/hr IV STAT [facility] Last Admin: 09/10/19 07:24 Dose: 500 mls/hr Lactated Ringer's (Ringers, Lactated) 1,000 mls @ 100 mls/hr IV ASDIRECTED [facility] Last Admin: 09/10/19 11:53 Dose: 100 mls/hr Vancomycin HCl 1 gm/ Sodium (Chloride) 250 mls @ 166 mls/hr IV Q12H [facility] Last Admin: 09/12/19 16:11 Dose: 166 mls/hr Potassium Chloride 40 meq/ (Premix) 100 mls @ 25 mls/hr IV ONETIME ONE Stop: 09/11/19 15:35 Last Admin: 09/11/19 12:08 Dose: Not Given Potassium Chloride 20 meq/ (Sodium Chloride) 260 mls @ 130 mls/hr IV ONETIME ONE Stop: 09/11/19 13:59 Last Admin: 09/11/19 12:22 Dose: 130 mls/hr Magnesium Sulfate 2 gm/ Premix 50 mls @ 50 mls/hr IV ONETIME ONE Stop: 09/12/19 12:03 Last Admin: 09/12/19 12:07 Dose: 50 mls/hr Vancomycin HCl 0.75 gm/ Sodium (Chloride) 250 mls @ 250 mls/hr IV Q12H [facility] Last Admin: 09/13/19 19:42 Dose: Not Given Vancomycin HCl 0.75 gm/ Sodium (Chloride) 250 mls @ 250 mls/hr IV Q12H [facility] Last Admin: 09/14/19 18:53 Dose: Not Given Iopamidol (Isovue Multipack-370 (76%)) 50 ml IVPUSH ONETIME [facility] Stop: 09/14/19 13:07 Last Admin: 09/14/19 13:30 Dose: 50 ml Omeprazole (Omeprazole) 20 mg PO BEDTIME [facility] Last Admin: 09/11/19 20:31 Dose: 20 mg Potassium Chloride (Potassium Chloride) 40 meq PO 09/12/19@0915 [facility] Stop: 09/12/19 09:16 Last Admin: 09/12/19 09:26 Dose: 40 meq Potassium Chloride (Klor-Con M20) 40 meq PO ONETIME ONE Stop: 09/14/19 07:12 Last Admin: 09/14/19 08:39 Dose: 40 meq Potassium Chloride (Klor-Con M20) 40 meq PO ONETIME ONE Stop: 09/15/19 07:20 Last Admin: 09/15/19 09:22 Dose: 40 meq Sodium Phosphate (Neutra-Phos) 250 mg PO QID [facility] Stop: 09/13/19 00:01 Last Admin: 09/13/19 01:20 Dose: 250 mg Vancomycin HCl (Pharmacy To Dose - Vancomycin) 1 dose .XX ASDIRECTED [facility] Warfarin Sodium (Coumadin) 2 mg PO Q24H [facility] Last Admin: 09/10/19 15:11 Dose: 2 mg Warfarin Sodium (Coumadin) 3 mg PO ONETIME ONE Stop: 09/11/19 14:01 Last Admin: 09/11/19 13:54 Dose: 3 mg Warfarin Sodium (Coumadin Ask) 0 each PO DAILY@1400 [facility] Last Admin: 09/14/19 15:37 Dose: Not Given Warfarin Sodium (Coumadin) 3 mg PO ONETIME [facility] Last Admin: 09/12/19 16:10 Dose: 3 mg Warfarin Sodium (Coumadin) 3 mg PO ONETIME ONE Stop: 09/13/19 14:46 Last Admin: 09/13/19 15:18 Dose: 3 mg Warfarin Sodium (Coumadin) 2 mg PO ONETIME ONE Stop: 09/14/19 15:16 Last Admin: 09/14/19 15:37 Dose: Not Given Warfarin Sodium (Coumadin) 2 mg PO ONETIME ONE Stop: 09/14/19 17:46 Last Admin: 09/14/19 18:04 Dose: 2 mg - Exam General: Alert, Oriented, Cooperative, No Acute Distress Lungs: Other (quiet breath sounds b/l) Cardiovascular: Regular Rate, Irregular Rhythm GI/Abdominal Exam: Normal Bowel Sounds, Soft, Non-Tender, No Distention (Male) Exam: Other (Murray catheter in place draining pink-colored urine) Extremities: Other (LLE: 5 cm x 5 cm area of erythema over anterior finley, dressings soaked with thin-yellow drainage. Minimally changed since previous exam.) Sepsis Event Note - Evaluation Sepsis Screening Result: No Definite Risk - Focused Exam Vital Signs: Vital Signs Temp Pulse Resp BP Pulse Ox 09/15/19 12:00 98.0 F 80 20 92/50 L 95 09/15/19 08:00 97.5 F 78 18 105/62 95 09/15/19 04:12 97.7 F 80 18 100/65 95 Date Exam was Performed: 09/15/19 Time Exam was Performed: 13:44 - Problem List Review Problem List Initiated/Reviewed/Updated: Yes - My Orders Last 24 Hours: My Active Orders 09/14/19 21:00 Furosemide [Lasix] 80 mg IVPUSH BID 09/15/19 15:00 HEMOGLOBIN [HEME] Routine - Plan Plan:: Assessment and Plan: 1. Left lower extremity cellulitis: - Currently on IV vancomycin day 7. Wound cultures pending. Cellulitis minimally improved since yesterday. - X-ray showed no bony involvement. Blood cultures were negative. - Per wound care, recommended aquacel dressing changes daily if padding is soaked. 2. CHF: - Continue IV lasix 80 mg BID, strict I/O's, standing daily weight and fluid restrict < 1.8 L per day. Patient continues to be in negative fluid balance. Murray catheter in place. - CT angio showed pulmonary vascular congestion suspicious of CHF. ECHO is pending. 3. Hematuria: - Will order u/s of b/l kidneys. Will hold warfarin dose for today. Hemoglobin and platelets have been stable. Hematuria could be secondary to recent murray catheter insertion. Will also recheck hemoglobin this afternoon. 4. Subtherapeutic INR: - Patient on warfarin for prosthetic heart valve. INR today is 2.27. Pharmacy consulted. Will hold warfarin dose today in the setting of #3. 5. Acute cystitis: - Continue IV Rocephin 1 g qd, currently on day 7. 6. Past medical history of atrial fibrillation, COPD, CHF, HTN and hyperlipidemia: - Resume home medications. 7. DVT prophylaxis: Patient on chronic warfarin therapy. <Liliane Lopez - Last Filed: 09/25/19 14:04> - Patient Data Vitals - Most Recent: Last Vital Signs Temp 36.2 C 09/19/19 11:39 Pulse 81 09/19/19 11:39 Resp 16 09/19/19 11:39 BP 107/68 09/19/19 11:39 Pulse Ox 94 L 09/19/19 11:39 Med Orders - Current: Current Medications Discontinued Medications Acetaminophen (Tylenol) 650 mg PO Q4H PRN PRN Reason: Pain (Mild 1-3)/fever Acetazolamide (Diamox) 250 mg PO ONETIME ONE Stop: 09/11/19 11:38 Last Admin: 09/11/19 11:58 Dose: 250 mg Albuterol/Ipratropium (Duoneb 3.0-0.5 Mg/3 Ml) 3 ml NEB Q6H PRN PRN Reason: COPD Artificial Tears (Refresh Plus 0.5%) 0 each EYEBOTH BID [facility] Last Admin: 09/19/19 09:53 Dose: 1 drop Bisacodyl (Dulcolax) 10 mg RECTAL DAILY PRN PRN Reason: Constipation Last Admin: 09/18/19 04:29 Dose: 10 mg Carbamide Perox/Anhydrous Glycerin (Debrox 6.5% Otic Soln) 0 ml EARBOTH BEDTIME PRN PRN Reason: EAR WAX Enoxaparin Sodium (Lovenox) 200 mg SUBCUT ONETIME ONE Stop: 09/11/19 11:46 Last Admin: 09/11/19 11:59 Dose: 200 mg Enoxaparin Sodium (Lovenox) 200 mg SUBCUT ONETIME ONE Stop: 09/13/19 11:16 Last Admin: 09/13/19 12:09 Dose: 200 mg Furosemide (Lasix) 40 mg PO BIDDIURETIC [facility] Last Admin: 09/11/19 08:56 Dose: 40 mg Furosemide (Lasix) 20 mg IVPUSH NOW ONE Stop: 09/10/19 23:55 Last Admin: 09/11/19 00:30 Dose: 20 mg Furosemide (Lasix) 20 mg IVPUSH NOW ONE Stop: 09/11/19 11:23 Last Admin: 09/11/19 11:56 Dose: 20 mg Furosemide (Lasix) 40 mg IVPUSH BID [facility] Last Admin: 09/13/19 09:44 Dose: 40 mg Furosemide (Lasix) 60 mg IVPUSH BID [facility] Last Admin: 09/14/19 08:40 Dose: 60 mg Furosemide (Lasix) 20 mg IVPUSH NOW ONE Stop: 09/13/19 10:20 Last Admin: 09/13/19 12:12 Dose: 20 mg Furosemide (Lasix) 80 mg IVPUSH BID [facility] Last Admin: 09/16/19 09:12 Dose: 80 mg Furosemide (Lasix) 80 mg IVPUSH DAILY [facility] Last Admin: 09/19/19 09:53 Dose: 80 mg Piperacillin Sod/Tazobactam (Sod 3.375 gm/ Sodium Chloride) 50 mls @ 100 mls/ hr IV ONETIME ONE Stop: 03/20/20 15:15 Last Admin: 09/09/19 15:10 Dose: 100 mls/hr Vancomycin HCl 1 gm/ Sodium (Chloride) 250 mls @ 166 mls/hr IV ONETIME ONE Stop: 09/09/19 16:18 Last Admin: 09/09/19 16:24 Dose: 166 mls/hr Vancomycin HCl 1.25 gm/ Sodium (Chloride) 250 mls @ 166.667 mls/hr IV Q12H [facility] Last Admin: 09/11/19 04:20 Dose: 166.667 mls/hr Lactated Ringer's (Ringers, Lactated) 1,000 mls @ 500 mls/hr IV STAT [facility] Last Admin: 09/10/19 07:24 Dose: 500 mls/hr Lactated Ringer's (Ringers, Lactated) 1,000 mls @ 100 mls/hr IV ASDIRECTED [facility] Last Admin: 09/10/19 11:53 Dose: 100 mls/hr Ceftriaxone Sodium/Dextrose 1 (gm/ Premix) 50 mls @ 100 mls/hr IV Q24H [facility] Last Admin: 09/19/19 06:48 Dose: 100 mls/hr Vancomycin HCl 1 gm/ Sodium (Chloride) 250 mls @ 166 mls/hr IV Q12H [facility] Last Admin: 09/12/19 16:11 Dose: 166 mls/hr Potassium Chloride 40 meq/ (Premix) 100 mls @ 25 mls/hr IV ONETIME ONE Stop: 09/11/19 15:35 Last Admin: 09/11/19 12:08 Dose: Not Given Potassium Chloride 20 meq/ (Sodium Chloride) 260 mls @ 130 mls/hr IV ONETIME ONE Stop: 09/11/19 13:59 Last Admin: 09/11/19 12:22 Dose: 130 mls/hr Magnesium Sulfate 2 gm/ Premix 50 mls @ 50 mls/hr IV ONETIME ONE Stop: 09/12/19 12:03 Last Admin: 09/12/19 12:07 Dose: 50 mls/hr Vancomycin HCl 0.75 gm/ Sodium (Chloride) 250 mls @ 250 mls/hr IV Q12H [facility] Last Admin: 09/13/19 19:42 Dose: Not Given Vancomycin HCl 0.75 gm/ Sodium (Chloride) 250 mls @ 250 mls/hr IV Q12H [facility] Last Admin: 09/14/19 18:53 Dose: Not Given Vancomycin HCl 0.75 gm/ Sodium (Chloride) 250 mls @ 250 mls/hr IV Q12H [facility] Last Admin: 09/15/19 21:29 Dose: Not Given Vancomycin HCl 500 mg/ Sodium (Chloride) 100 mls @ 100 mls/hr IV Q12H [facility] Last Admin: 09/15/19 22:14 Dose: 100 mls/hr Vancomycin HCl 500 mg/ Sodium (Chloride) 100 mls @ 100 mls/hr IV Q12H [facility] Last Admin: 09/16/19 10:35 Dose: Not Given Vancomycin HCl 1 gm/ Sodium (Chloride) 250 mls @ 166.667 mls/hr IV Q24H [facility] Last Admin: 09/19/19 09:53 Dose: 166.667 mls/hr Iopamidol (Isovue Multipack-370 (76%)) 50 ml IVPUSH ONETIME [facility] Stop: 09/14/19 13:07 Last Admin: 09/14/19 13:30 Dose: 50 ml Lansoprazole (Prevacid Solutab) 30 mg PO BEDTIME [facility] Last Admin: 09/18/19 20:41 Dose: 30 mg Levothyroxine Sodium (Levothyroxine) 75 mcg PO ACBREAKFAST [facility] Last Admin: 09/19/19 06:48 Dose: 75 mcg Magnesium Hydroxide (Milk Of Magnesia) 30 ml PO DAILY PRN PRN Reason: Constipation Last Admin: 09/17/19 09:19 Dose: 30 ml Omeprazole (Omeprazole) 20 mg PO BEDTIME [facility] Last Admin: 09/11/19 20:31 Dose: 20 mg Ondansetron HCl (Zofran Odt) 4 mg PO Q4H PRN PRN Reason: nausea, able to take PO Ondansetron HCl (Zofran) 4 mg IVPUSH Q4H PRN PRN Reason: Nausea Potassium Chloride (Potassium Chloride) 40 meq PO 09/12/19@0915 [facility] Stop: 09/12/19 09:16 Last Admin: 09/12/19 09:26 Dose: 40 meq Potassium Chloride (Klor-Con M20) 40 meq PO ONETIME ONE Stop: 09/14/19 07:12 Last Admin: 09/14/19 08:39 Dose: 40 meq Potassium Chloride (Klor-Con M20) 40 meq PO ONETIME ONE Stop: 09/15/19 07:20 Last Admin: 09/15/19 09:22 Dose: 40 meq Simvastatin (Zocor) 40 mg PO BEDTIME [facility] Last Admin: 09/18/19 20:40 Dose: 40 mg Sodium Phosphate (Neutra-Phos) 250 mg PO QID [facility] Stop: 09/13/19 00:01 Last Admin: 09/13/19 01:20 Dose: 250 mg Vancomycin HCl (Pharmacy To Dose - Vancomycin) 1 dose .XX ASDIRECTED [facility] Warfarin Sodium (Coumadin) 2 mg PO Q24H [facility] Last Admin: 09/10/19 15:11 Dose: 2 mg Warfarin Sodium (Coumadin) 3 mg PO ONETIME ONE Stop: 09/11/19 14:01 Last Admin: 09/11/19 13:54 Dose: 3 mg Warfarin Sodium (Coumadin Ask) 0 each PO DAILY@1400 [facility] Last Admin: 09/14/19 15:37 Dose: Not Given Warfarin Sodium (Coumadin) 3 mg PO ONETIME [facility] Last Admin: 09/12/19 16:10 Dose: 3 mg Warfarin Sodium (Coumadin) 3 mg PO ONETIME ONE Stop: 09/13/19 14:46 Last Admin: 09/13/19 15:18 Dose: 3 mg Warfarin Sodium (Coumadin) 2 mg PO ONETIME ONE Stop: 09/14/19 15:16 Last Admin: 09/14/19 15:37 Dose: Not Given Warfarin Sodium (Coumadin) 2 mg PO ONETIME ONE Stop: 09/14/19 17:46 Last Admin: 09/14/19 18:04 Dose: 2 mg Warfarin Sodium (Coumadin Ask) 1 each PO DAILY@1400 [facility] Last Admin: 09/18/19 15:01 Dose: Not Given Warfarin Sodium (Coumadin) 4 mg PO DAILY@1400 ONE Stop: 09/17/19 14:01 Last Admin: 09/17/19 14:32 Dose: 4 mg Warfarin Sodium (Coumadin) 3 mg PO DAILY@1400 ONE Stop: 09/18/19 14:01 Last Admin: 09/18/19 14:53 Dose: 3 mg - Problem List & Annotations (1) UTI, Urinary tract infectious disease SNOMED Code(s): 63487783 Code(s): N39.0 - URINARY TRACT INFECTION, SITE NOT SPECIFIED Status: Acute Onset Date: 01/16/14 (2) Hx of aortic valve replacement SNOMED Code(s): 6134658087061, 618875064, 8563060572628 Code(s): Z95.2 - PRESENCE OF PROSTHETIC HEART VALVE Status: Chronic (3) CHF (congestive heart failure) SNOMED Code(s): 49376737 Code(s): I50.9 - HEART FAILURE, UNSPECIFIED Status: Chronic (4) HTN (hypertension) SNOMED Code(s): 26218278 Code(s): I10 - ESSENTIAL (PRIMARY) HYPERTENSION Status: Chronic Qualifiers: Hypertension type: essential hypertension Qualified Code(s): I10 - Essential (primary) hypertension (5) Chronic anticoagulation SNOMED Code(s): 347268041 Code(s): Z79.01 - MCC (CURRENT) USE OF ANTICOAGULANTS Status: Chronic (6) Hyperbilirubinemia SNOMED Code(s): 70488298 Code(s): E80.6 - OTHER DISORDERS OF BILIRUBIN METABOLISM Status: Acute - Plan Plan:: I have seen and evaluated the patient and agree with the residents note unless specified in my note
--- NOTE | 2019-09-15 14:09 | US ---
Renal ultrasound: Multiple real-time images of the kidneys were obtained. Comparison: No prior renal imaging is available. Findings: 2 right renal cysts are seen measuring 1.5 cm and 4.9 cm. Single left renal cyst is seen measuring 7.0 cm. Kidneys show no hydronephrosis or discrete solid mass. No shadowing calculi are seen. Bladder is mostly empty resulting in suboptimal evaluation. Measurements: Right kidney length: 13.3 cm Left kidney length: 12.6 cm Impression: 1. Renal cysts. No additional abnormal is definitely appreciated. Diagnostic code #2 This report was dictated in MDT
[2019-09-15] MEDS: Simvastatin 40 MG Tab PO SCH (20:39)
[2019-09-15] MEDS: Lansoprazole 30 MG Orally Disintegrating Tab.CR PO SCH (20:40)
[2019-09-16 06:01] LABS: BLOOD UREA NITROGEN,BUN 18 mg/dL (7.0-18.0); CARBON DIOXIDE,CO2 31.1 mmol/L (21.0-32.0); CHLORIDE,CL 105 mmol/L (98-107); GLUCOSE RANDOM 100 mg/dL (74-106); SODIUM,NA 142 mmol/L (136-148)
[2019-09-16] MEDS: Levothyroxine 75 MCG Tab PO SCH (06:51)
[2019-09-16] MEDS: cefTRIAXone 1 GM in Premix Bag 1 BAG IV SCH (06:52)
--- NOTE | 2019-09-16 08:09 | PCM.PN ---
<Brandon De Luna M - Last Filed: 09/16/19 14:07> - General Info Date of Service: 09/16/19 Subjective Update: No complaints at bedside this morning. Denied having any pain, fevers, chills, SOB, nausea or vomiting. Murray catheter draining yellow-colored urine this morning. - Patient Data Vitals - Most Recent: Last Vital Signs Temp 97.7 F 09/16/19 04:00 Pulse 81 09/16/19 04:00 Resp 19 09/16/19 04:00 BP 98/58 L 09/16/19 04:00 Pulse Ox 94 L 09/16/19 06:00 Weight - Most Recent: 129.756 kg I&O - Last 24 Hours: Intake & Output 09/15/19 09/16/19 09/16/19 22:59 06:59 14:59 Intake Total 420 550 Output Total 1650 870 Balance -1230 -320 Lab Results Last 24 Hours: Laboratory Results - last 24 hr 09/15/19 09/15/19 09/16/19 Range/Units 15:07 19:47 05:12 WBC 9.18 (4.0-11.0) K/uL RBC 3.96 L (4.50-5.90) M/uL Hgb 12.1 L 11.7 L (13.0-17.0) g/dL Hct 37.6 L (38.0-50.0) % MCV 94.9 (80.0-98.0) fL MCH 29.5 (27.0-32.0) pg MCHC 31.1 (31.0-37.0) g/dL RDW Std Deviation 60.0 (28.0-62.0) fl RDW Coeff of Regulo 17 H (11.0-15.0) % Plt Count 132 L (150-400) K/uL MPV 11.30 (7.40-12.00) fL Neut % (Auto) 75.6 (48.0-80.0) % Lymph % (Auto) 10.2 L (16.0-40.0) % Pierce % (Auto) 13.0 (0.0-15.0) % Eos % (Auto) 1.0 (0.0-7.0) % Baso % (Auto) 0.2 (0.0-1.5) % Neut # (Auto) 6.9 H (1.4-5.7) K/uL Lymph # (Auto) 0.9 (0.6-2.4) K/uL Pierce # (Auto) 1.2 H (0.0-0.8) K/uL Eos # (Auto) 0.1 (0.0-0.7) K/uL Baso # (Auto) 0.0 (0.0-0.1) K/uL Nucleated RBC % 0.0 /100WBC Nucleated RBCs # 0 K/uL INR Sodium (136-148) mmol/L Potassium (3.5-5.1) mmol/L Chloride (98-107) mmol/L Carbon Dioxide (21.0-32.0) mmol/L BUN (7.0-18.0) mg/dL Creatinine (0.8-1.3) mg/dL Est Cr Clr Drug Dosing mL/min Estimated GFR (MDRD) ml/min Glucose (74-106) mg/dL Calcium (8.5-10.1) mg/dL Total Bilirubin (0.2-1.0) mg/dL AST (15-37) IU/L ALT (14-63) IU/L Alkaline Phosphatase (46-116) U/L Total Protein (6.4-8.2) g/dL Albumin (3.4-5.0) g/dL Globulin (2.6-4.0) g/dL Albumin/Globulin Ratio (0.9-1.6) Vancomycin Trough 18.6 H (5.0-10.0) ug/mL 09/16/19 09/16/19 Range/Units 05:12 05:12 WBC (4.0-11.0) K/uL RBC (4.50-5.90) M/uL Hgb (13.0-17.0) g/dL Hct (38.0-50.0) % MCV (80.0-98.0) fL MCH (27.0-32.0) pg MCHC (31.0-37.0) g/dL RDW Std Deviation (28.0-62.0) fl RDW Coeff of Regulo (11.0-15.0) % Plt Count (150-400) K/uL MPV (7.40-12.00) fL Neut % (Auto) (48.0-80.0) % Lymph % (Auto) (16.0-40.0) % Pierce % (Auto) (0.0-15.0) % Eos % (Auto) (0.0-7.0) % Baso % (Auto) (0.0-1.5) % Neut # (Auto) (1.4-5.7) K/uL Lymph # (Auto) (0.6-2.4) K/uL Pierce # (Auto) (0.0-0.8) K/uL Eos # (Auto) (0.0-0.7) K/uL Baso # (Auto) (0.0-0.1) K/uL Nucleated RBC % /100WBC Nucleated RBCs # K/uL INR 1.95 Sodium 142 (136-148) mmol/L Potassium 4.0 (3.5-5.1) mmol/L Chloride 105 (98-107) mmol/L Carbon Dioxide 31.1 (21.0-32.0) mmol/L BUN 18 (7.0-18.0) mg/dL Creatinine 0.9 (0.8-1.3) mg/dL Est Cr Clr Drug Dosing 55.64 mL/min Estimated GFR (MDRD) > 60.0 ml/min Glucose 100 (74-106) mg/dL Calcium 7.8 L (8.5-10.1) mg/dL Total Bilirubin 1.4 H (0.2-1.0) mg/dL AST 37 (15-37) IU/L ALT 37 (14-63) IU/L Alkaline Phosphatase 84 (46-116) U/L Total Protein 6.1 L (6.4-8.2) g/dL Albumin 2.4 L (3.4-5.0) g/dL Globulin 3.7 (2.6-4.0) g/dL Albumin/Globulin Ratio 0.7 L (0.9-1.6) Vancomycin Trough (5.0-10.0) ug/mL Ashvin Results Last 24 Hours: Microbiology 09/13/19 18:45 Gram Stain - Final Sputum - Expectorated Sputum Culture - Final Normal Respiratory Keeley 09/14/19 12:40 Wound Culture - Final Leg, Left Skin Keeley Med Orders - Current: Current Medications Acetaminophen (Tylenol) 650 mg PO Q4H PRN PRN Reason: Pain (Mild 1-3)/fever Albuterol/Ipratropium (Duoneb 3.0-0.5 Mg/3 Ml) 3 ml NEB Q6H PRN PRN Reason: COPD Artificial Tears (Refresh Plus 0.5%) 0 each EYEBOTH BID [facility] Last Admin: 09/15/19 20:39 Dose: 1 drop Bisacodyl (Dulcolax) 10 mg RECTAL DAILY PRN PRN Reason: Constipation Carbamide Perox/Anhydrous Glycerin (Debrox 6.5% Otic Soln) 0 ml EARBOTH BEDTIME PRN PRN Reason: EAR WAX Furosemide (Lasix) 80 mg IVPUSH BID [facility] Last Admin: 09/15/19 20:40 Dose: 80 mg Ceftriaxone Sodium/Dextrose 1 (gm/ Premix) 50 mls @ 100 mls/hr IV Q24H [facility] Last Admin: 09/16/19 06:52 Dose: 100 mls/hr Vancomycin HCl 500 mg/ Sodium (Chloride) 100 mls @ 100 mls/hr IV Q12H [facility] Last Admin: 09/15/19 22:14 Dose: 100 mls/hr Lansoprazole (Prevacid Solutab) 30 mg PO BEDTIME [facility] Last Admin: 09/15/19 20:40 Dose: 30 mg Levothyroxine Sodium (Levothyroxine) 75 mcg PO ACBREAKFAST [facility] Last Admin: 09/16/19 06:51 Dose: 75 mcg Magnesium Hydroxide (Milk Of Magnesia) 30 ml PO DAILY PRN PRN Reason: Constipation Ondansetron HCl (Zofran Odt) 4 mg PO Q4H PRN PRN Reason: nausea, able to take PO Ondansetron HCl (Zofran) 4 mg IVPUSH Q4H PRN PRN Reason: Nausea Simvastatin (Zocor) 40 mg PO BEDTIME [facility] Last Admin: 09/15/19 20:39 Dose: 40 mg Discontinued Medications Acetazolamide (Diamox) 250 mg PO ONETIME ONE Stop: 09/11/19 11:38 Last Admin: 09/11/19 11:58 Dose: 250 mg Enoxaparin Sodium (Lovenox) 200 mg SUBCUT ONETIME ONE Stop: 09/11/19 11:46 Last Admin: 09/11/19 11:59 Dose: 200 mg Enoxaparin Sodium (Lovenox) 200 mg SUBCUT ONETIME ONE Stop: 09/13/19 11:16 Last Admin: 09/13/19 12:09 Dose: 200 mg Furosemide (Lasix) 40 mg PO BIDDIURETIC [facility] Last Admin: 09/11/19 08:56 Dose: 40 mg Furosemide (Lasix) 20 mg IVPUSH NOW ONE Stop: 09/10/19 23:55 Last Admin: 09/11/19 00:30 Dose: 20 mg Furosemide (Lasix) 20 mg IVPUSH NOW ONE Stop: 09/11/19 11:23 Last Admin: 09/11/19 11:56 Dose: 20 mg Furosemide (Lasix) 40 mg IVPUSH BID [facility] Last Admin: 09/13/19 09:44 Dose: 40 mg Furosemide (Lasix) 60 mg IVPUSH BID [facility] Last Admin: 09/14/19 08:40 Dose: 60 mg Furosemide (Lasix) 20 mg IVPUSH NOW ONE Stop: 09/13/19 10:20 Last Admin: 09/13/19 12:12 Dose: 20 mg Piperacillin Sod/Tazobactam (Sod 3.375 gm/ Sodium Chloride) 50 mls @ 100 mls/ hr IV ONETIME ONE Stop: 09/09/19 15:15 Last Admin: 09/09/19 15:10 Dose: 100 mls/hr Vancomycin HCl 1 gm/ Sodium (Chloride) 250 mls @ 166 mls/hr IV ONETIME ONE Stop: 09/09/19 16:18 Last Admin: 09/09/19 16:24 Dose: 166 mls/hr Vancomycin HCl 1.25 gm/ Sodium (Chloride) 250 mls @ 166.667 mls/hr IV Q12H [facility] Last Admin: 09/11/19 04:20 Dose: 166.667 mls/hr Lactated Ringer's (Ringers, Lactated) 1,000 mls @ 500 mls/hr IV STAT [facility] Last Admin: 09/10/19 07:24 Dose: 500 mls/hr Lactated Ringer's (Ringers, Lactated) 1,000 mls @ 100 mls/hr IV ASDIRECTED [facility] Last Admin: 09/10/19 11:53 Dose: 100 mls/hr Vancomycin HCl 1 gm/ Sodium (Chloride) 250 mls @ 166 mls/hr IV Q12H [facility] Last Admin: 09/12/19 16:11 Dose: 166 mls/hr Potassium Chloride 40 meq/ (Premix) 100 mls @ 25 mls/hr IV ONETIME ONE Stop: 09/11/19 15:35 Last Admin: 09/11/19 12:08 Dose: Not Given Potassium Chloride 20 meq/ (Sodium Chloride) 260 mls @ 130 mls/hr IV ONETIME ONE Stop: 09/11/19 13:59 Last Admin: 09/11/19 12:22 Dose: 130 mls/hr Magnesium Sulfate 2 gm/ Premix 50 mls @ 50 mls/hr IV ONETIME ONE Stop: 09/12/19 12:03 Last Admin: 09/12/19 12:07 Dose: 50 mls/hr Vancomycin HCl 0.75 gm/ Sodium (Chloride) 250 mls @ 250 mls/hr IV Q12H [facility] Last Admin: 09/13/19 19:42 Dose: Not Given Vancomycin HCl 0.75 gm/ Sodium (Chloride) 250 mls @ 250 mls/hr IV Q12H [facility] Last Admin: 09/14/19 18:53 Dose: Not Given Vancomycin HCl 0.75 gm/ Sodium (Chloride) 250 mls @ 250 mls/hr IV Q12H [facility] Last Admin: 09/15/19 21:29 Dose: Not Given Iopamidol (Isovue Multipack-370 (76%)) 50 ml IVPUSH ONETIME STA Stop: 09/14/19 13:07 Last Admin: 09/14/19 13:30 Dose: 50 ml Omeprazole (Omeprazole) 20 mg PO BEDTIME [facility] Last Admin: 09/11/19 20:31 Dose: 20 mg Potassium Chloride (Potassium Chloride) 40 meq PO 09/12/19@0915 [facility] Stop: 09/12/19 09:16 Last Admin: 09/12/19 09:26 Dose: 40 meq Potassium Chloride (Klor-Con M20) 40 meq PO ONETIME ONE Stop: 09/14/19 07:12 Last Admin: 09/14/19 08:39 Dose: 40 meq Potassium Chloride (Klor-Con M20) 40 meq PO ONETIME ONE Stop: 09/15/19 07:20 Last Admin: 09/15/19 09:22 Dose: 40 meq Sodium Phosphate (Neutra-Phos) 250 mg PO QID [facility] Stop: 09/13/19 00:01 Last Admin: 09/13/19 01:20 Dose: 250 mg Vancomycin HCl (Pharmacy To Dose - Vancomycin) 1 dose .XX ASDIRECTED [facility] Warfarin Sodium (Coumadin) 2 mg PO Q24H [facility] Last Admin: 09/10/19 15:11 Dose: 2 mg Warfarin Sodium (Coumadin) 3 mg PO ONETIME ONE Stop: 09/11/19 14:01 Last Admin: 09/11/19 13:54 Dose: 3 mg Warfarin Sodium (Coumadin Ask) 0 each PO DAILY@1400 [facility] Last Admin: 09/14/19 15:37 Dose: Not Given Warfarin Sodium (Coumadin) 3 mg PO ONETIME [facility] Last Admin: 09/12/19 16:10 Dose: 3 mg Warfarin Sodium (Coumadin) 3 mg PO ONETIME ONE Stop: 09/13/19 14:46 Last Admin: 09/13/19 15:18 Dose: 3 mg Warfarin Sodium (Coumadin) 2 mg PO ONETIME ONE Stop: 09/14/19 15:16 Last Admin: 09/14/19 15:37 Dose: Not Given Warfarin Sodium (Coumadin) 2 mg PO ONETIME ONE Stop: 09/14/19 17:46 Last Admin: 09/14/19 18:04 Dose: 2 mg - Exam General: Alert, Oriented, No Acute Distress Cardiovascular: Regular Rate, Irregular Rhythm GI/Abdominal Exam: Normal Bowel Sounds, Soft, Non-Tender, No Distention (Male) Exam: Other (Murray catheter in place: yellow colored urine in tubing.) Extremities: Other (LLE: area of erythema minimally improved since previous exam. Aquacel dressings in place soaked with thin yellow drainage. Non-tender to palpation. Area of erythema appears to have receded slightly from pencil marking outlining margin.) Sepsis Event Note - Evaluation Sepsis Screening Result: No Definite Risk - Focused Exam Vital Signs: Vital Signs Temp Pulse Resp BP Pulse Ox Pulse Ox 09/16/19 06:00 94 L 09/16/19 04:00 97.7 F 81 19 98/58 L 95 09/16/19 00:00 98.1 F 82 20 101/64 95 Date Exam was Performed: 09/16/19 Time Exam was Performed: 14:07 - Problem List Review Problem List Initiated/Reviewed/Updated: Yes - Plan Plan:: Assessment and Plan: 1. Left lower extremity cellulitis: - Currently on IV vancomycin day 8. Wound cultures grew normal skin keeley. - X-ray showed no bony involvement. Blood cultures were negative. - Per wound care, recommended aquacel dressing changes daily if padding is soaked. Wound care reevaluated patient today and recommended keeping foot elevated. 2. CHF: - Will decrease to IV lasix 80 mg qd. Continue strict I/O's, standing daily weight and fluid restrict < 1.8 L per day. Patient in negative fluid balance. Will discontinue murray catheter. - CT angio showed pulmonary vascular congestion suspicious of CHF. - ECHO showed EF of 55% and diastology could not be evaluated. 3. Hematuria: - U/s b/l kidneys showed b/l renal cysts. Hemoglobin and platelets have been stable. Yellow-colored urine draining in catheter tubing this morning, will continue to monitor for hematuria. Hematuria could be secondary to recent murray catheter insertion. 4. Subtherapeutic INR: - Patient on warfarin for prosthetic heart valve. Pharmacy consulted. Warfarin held yesterday secondary to #3. Will resume warfarin this afternoon if patient urine remains clear. 5. Acute cystitis: - Continue IV Rocephin 1 g qd, currently on day 8. 6. Past medical history of atrial fibrillation, COPD, CHF, HTN and hyperlipidemia: - Continue home medications. 7. DVT prophylaxis: Patient on chronic warfarin therapy. <Liliane Lopez - Last Filed: 09/25/19 14:04> - Patient Data Vitals - Most Recent: Last Vital Signs Temp 36.2 C 09/19/19 11:39 Pulse 81 09/19/19 11:39 Resp 16 09/19/19 11:39 BP 107/68 09/19/19 11:39 Pulse Ox 94 L 09/19/19 11:39 Med Orders - Current: Current Medications Discontinued Medications Acetaminophen (Tylenol) 650 mg PO Q4H PRN PRN Reason: Pain (Mild 1-3)/fever Acetazolamide (Diamox) 250 mg PO ONETIME ONE Stop: 09/11/19 11:38 Last Admin: 09/11/19 11:58 Dose: 250 mg Albuterol/Ipratropium (Duoneb 3.0-0.5 Mg/3 Ml) 3 ml NEB Q6H PRN PRN Reason: COPD Artificial Tears (Refresh Plus 0.5%) 0 each EYEBOTH BID [facility] Last Admin: 09/19/19 09:53 Dose: 1 drop Bisacodyl (Dulcolax) 10 mg RECTAL DAILY PRN PRN Reason: Constipation Last Admin: 09/18/19 04:29 Dose: 10 mg Carbamide Perox/Anhydrous Glycerin (Debrox 6.5% Otic Soln) 0 ml EARBOTH BEDTIME PRN PRN Reason: EAR WAX Enoxaparin Sodium (Lovenox) 200 mg SUBCUT ONETIME ONE Stop: 09/11/19 11:46 Last Admin: 09/11/19 11:59 Dose: 200 mg Enoxaparin Sodium (Lovenox) 200 mg SUBCUT ONETIME ONE Stop: 09/13/19 11:16 Last Admin: 09/13/19 12:09 Dose: 200 mg Furosemide (Lasix) 40 mg PO BIDDIURETIC [facility] Last Admin: 09/11/19 08:56 Dose: 40 mg Furosemide (Lasix) 20 mg IVPUSH NOW ONE Stop: 09/10/19 23:55 Last Admin: 09/11/19 00:30 Dose: 20 mg Furosemide (Lasix) 20 mg IVPUSH NOW ONE Stop: 09/11/19 11:23 Last Admin: 09/11/19 11:56 Dose: 20 mg Furosemide (Lasix) 40 mg IVPUSH BID [facility] Last Admin: 09/13/19 09:44 Dose: 40 mg Furosemide (Lasix) 60 mg IVPUSH BID [facility] Last Admin: 09/14/19 08:40 Dose: 60 mg Furosemide (Lasix) 20 mg IVPUSH NOW ONE Stop: 09/13/19 10:20 Last Admin: 09/13/19 12:12 Dose: 20 mg Furosemide (Lasix) 80 mg IVPUSH BID [facility] Last Admin: 09/16/19 09:12 Dose: 80 mg Furosemide (Lasix) 80 mg IVPUSH DAILY [facility] Last Admin: 09/19/19 09:53 Dose: 80 mg Piperacillin Sod/Tazobactam (Sod 3.375 gm/ Sodium Chloride) 50 mls @ 100 mls/ hr IV ONETIME ONE Stop: 09/09/19 15:15 Last Admin: 09/09/19 15:10 Dose: 100 mls/hr Vancomycin HCl 1 gm/ Sodium (Chloride) 250 mls @ 166 mls/hr IV ONETIME ONE Stop: 09/09/19 16:18 Last Admin: 09/09/19 16:24 Dose: 166 mls/hr Vancomycin HCl 1.25 gm/ Sodium (Chloride) 250 mls @ 166.667 mls/hr IV Q12H [facility] Last Admin: 09/11/19 04:20 Dose: 166.667 mls/hr Lactated Ringer's (Ringers, Lactated) 1,000 mls @ 500 mls/hr IV STAT [facility] Last Admin: 09/10/19 07:24 Dose: 500 mls/hr Lactated Ringer's (Ringers, Lactated) 1,000 mls @ 100 mls/hr IV ASDIRECTED [facility] Last Admin: 09/10/19 11:53 Dose: 100 mls/hr Ceftriaxone Sodium/Dextrose 1 (gm/ Premix) 50 mls @ 100 mls/hr IV Q24H [facility] Last Admin: 09/19/19 06:48 Dose: 100 mls/hr Vancomycin HCl 1 gm/ Sodium (Chloride) 250 mls @ 166 mls/hr IV Q12H [facility] Last Admin: 09/12/19 16:11 Dose: 166 mls/hr Potassium Chloride 40 meq/ (Premix) 100 mls @ 25 mls/hr IV ONETIME ONE Stop: 09/11/19 15:35 Last Admin: 09/11/19 12:08 Dose: Not Given Potassium Chloride 20 meq/ (Sodium Chloride) 260 mls @ 130 mls/hr IV ONETIME ONE Stop: 09/11/19 13:59 Last Admin: 09/11/19 12:22 Dose: 130 mls/hr Magnesium Sulfate 2 gm/ Premix 50 mls @ 50 mls/hr IV ONETIME ONE Stop: 09/12/19 12:03 Last Admin: 09/12/19 12:07 Dose: 50 mls/hr Vancomycin HCl 0.75 gm/ Sodium (Chloride) 250 mls @ 250 mls/hr IV Q12H [facility] Last Admin: 09/13/19 19:42 Dose: Not Given Vancomycin HCl 0.75 gm/ Sodium (Chloride) 250 mls @ 250 mls/hr IV Q12H [facility] Last Admin: 09/14/19 18:53 Dose: Not Given Vancomycin HCl 0.75 gm/ Sodium (Chloride) 250 mls @ 250 mls/hr IV Q12H [facility] Last Admin: 09/15/19 21:29 Dose: Not Given Vancomycin HCl 500 mg/ Sodium (Chloride) 100 mls @ 100 mls/hr IV Q12H [facility] Last Admin: 09/15/19 22:14 Dose: 100 mls/hr Vancomycin HCl 500 mg/ Sodium (Chloride) 100 mls @ 100 mls/hr IV Q12H [facility] Last Admin: 09/16/19 10:35 Dose: Not Given Vancomycin HCl 1 gm/ Sodium (Chloride) 250 mls @ 166.667 mls/hr IV Q24H [facility] Last Admin: 09/19/19 09:53 Dose: 166.667 mls/hr Iopamidol (Isovue Multipack-370 (76%)) 50 ml IVPUSH ONETIME STA Stop: 09/14/19 13:07 Last Admin: 09/14/19 13:30 Dose: 50 ml Lansoprazole (Prevacid Solutab) 30 mg PO BEDTIME [facility] Last Admin: 09/18/19 20:41 Dose: 30 mg Levothyroxine Sodium (Levothyroxine) 75 mcg PO ACBREAKFAST [facility] Last Admin: 09/19/19 06:48 Dose: 75 mcg Magnesium Hydroxide (Milk Of Magnesia) 30 ml PO DAILY PRN PRN Reason: Constipation Last Admin: 09/17/19 09:19 Dose: 30 ml Omeprazole (Omeprazole) 20 mg PO BEDTIME [facility] Last Admin: 09/11/19 20:31 Dose: 20 mg Ondansetron HCl (Zofran Odt) 4 mg PO Q4H PRN PRN Reason: nausea, able to take PO Ondansetron HCl (Zofran) 4 mg IVPUSH Q4H PRN PRN Reason: Nausea Potassium Chloride (Potassium Chloride) 40 meq PO 09/12/19@0915 [facility] Stop: 09/12/19 09:16 Last Admin: 09/12/19 09:26 Dose: 40 meq Potassium Chloride (Klor-Con M20) 40 meq PO ONETIME ONE Stop: 09/14/19 07:12 Last Admin: 09/14/19 08:39 Dose: 40 meq Potassium Chloride (Klor-Con M20) 40 meq PO ONETIME ONE Stop: 09/15/19 07:20 Last Admin: 09/15/19 09:22 Dose: 40 meq Simvastatin (Zocor) 40 mg PO BEDTIME [facility] Last Admin: 09/18/19 20:40 Dose: 40 mg Sodium Phosphate (Neutra-Phos) 250 mg PO QID [facility] Stop: 09/13/19 00:01 Last Admin: 09/13/19 01:20 Dose: 250 mg Vancomycin HCl (Pharmacy To Dose - Vancomycin) 1 dose .XX ASDIRECTED [facility] Warfarin Sodium (Coumadin) 2 mg PO Q24H [facility] Last Admin: 09/10/19 15:11 Dose: 2 mg Warfarin Sodium (Coumadin) 3 mg PO ONETIME ONE Stop: 09/11/19 14:01 Last Admin: 09/11/19 13:54 Dose: 3 mg Warfarin Sodium (Coumadin Ask) 0 each PO DAILY@1400 [facility] Last Admin: 09/14/19 15:37 Dose: Not Given Warfarin Sodium (Coumadin) 3 mg PO ONETIME [facility] Last Admin: 09/12/19 16:10 Dose: 3 mg Warfarin Sodium (Coumadin) 3 mg PO ONETIME ONE Stop: 09/13/19 14:46 Last Admin: 09/13/19 15:18 Dose: 3 mg Warfarin Sodium (Coumadin) 2 mg PO ONETIME ONE Stop: 09/14/19 15:16 Last Admin: 09/14/19 15:37 Dose: Not Given Warfarin Sodium (Coumadin) 2 mg PO ONETIME ONE Stop: 09/14/19 17:46 Last Admin: 09/14/19 18:04 Dose: 2 mg Warfarin Sodium (Coumadin Ask) 1 each PO DAILY@1400 [facility] Last Admin: 09/18/19 15:01 Dose: Not Given Warfarin Sodium (Coumadin) 4 mg PO DAILY@1400 ONE Stop: 09/17/19 14:01 Last Admin: 09/17/19 14:32 Dose: 4 mg Warfarin Sodium (Coumadin) 3 mg PO DAILY@1400 ONE Stop: 09/18/19 14:01 Last Admin: 09/18/19 14:53 Dose: 3 mg - Problem List & Annotations (1) UTI, Urinary tract infectious disease SNOMED Code(s): 88259854 Code(s): N39.0 - URINARY TRACT INFECTION, SITE NOT SPECIFIED Status: Acute Onset Date: 01/16/14 (2) Hx of aortic valve replacement SNOMED Code(s): 8153997374582, 979150243, 8077238705478 Code(s): Z95.2 - PRESENCE OF PROSTHETIC HEART VALVE Status: Chronic (3) CHF (congestive heart failure) SNOMED Code(s): 31500650 Code(s): I50.9 - HEART FAILURE, UNSPECIFIED Status: Chronic (4) HTN (hypertension) SNOMED Code(s): 09406456 Code(s): I10 - ESSENTIAL (PRIMARY) HYPERTENSION Status: Chronic Qualifiers: Hypertension type: essential hypertension Qualified Code(s): I10 - Essential (primary) hypertension (5) Chronic anticoagulation SNOMED Code(s): 133475516 Code(s): Z79.01 - [employer] (CURRENT) USE OF ANTICOAGULANTS Status: Chronic (6) Hyperbilirubinemia SNOMED Code(s): 91926999 Code(s): E80.6 - OTHER DISORDERS OF BILIRUBIN METABOLISM Status: Acute - Plan Plan:: I have seen and evaluated the patient and agree with the residents note unless specified in my note
[2019-09-16] MEDS: Carboxymethylcellulose Sodium 0.5% Ophth Soln 0.4 ML UD Box of 30 EYEBOTH SCH ×2 (09:12→20:24)
[2019-09-16] MEDS: Furosemide 100 MG/10 ML SDV IVPUSH SCH (09:12)
--- NOTE | 2019-09-16 14:44 | ECHO ---
The echocardiogram report can be seen in this patient's EMR (Electronic Medical Record) in the REPORTS section. The echocardiogram report has also been scanned into PACS and can be seen there as well. [email or web address]
[2019-09-16] MEDS: Lansoprazole 30 MG Orally Disintegrating Tab.CR PO SCH (20:23)
[2019-09-16] MEDS: Simvastatin 40 MG Tab PO SCH (20:23)
[2019-09-17 06:51] LABS: BLOOD UREA NITROGEN,BUN 18 mg/dL (7.0-18.0); CARBON DIOXIDE,CO2 34.2 mmol/L (21.0-32.0); CHLORIDE,CL 103 mmol/L (98-107); GLUCOSE RANDOM 96 mg/dL (74-106); POTASSIUM,K 3.8 mmol/L (3.5-5.1); SODIUM,NA 143 mmol/L (136-148)
[2019-09-17] MEDS: Levothyroxine 75 MCG Tab PO SCH (06:56)
[2019-09-17] MEDS: cefTRIAXone 1 GM in Premix Bag 1 BAG IV SCH (06:56)
--- NOTE | 2019-09-17 08:19 | PCM.PN ---
- General Info Date of Service: 09/17/19 Subjective Update: Denies any fevers, chills, shortness of breath, chest pain, nausea or vomiting overnight. Reports cough has improved. Per nursing, no hematuria overnight. - Patient Data Vitals - Most Recent: Last Vital Signs Temp 97.7 F 09/17/19 04:00 Pulse 73 09/17/19 04:00 Resp 19 09/17/19 04:00 BP 99/61 09/17/19 04:00 Pulse Ox 94 L 09/17/19 06:00 Weight - Most Recent: 278 lb 1.6 oz I&O - Last 24 Hours: Intake & Output 09/16/19 09/17/19 09/17/19 22:59 06:59 14:59 Intake Total 750 380 50 Output Total 1100 Balance -350 380 50 Lab Results Last 24 Hours: Laboratory Results - last 24 hr 09/17/19 09/17/19 09/17/19 Range/Units 06:08 06:08 06:08 WBC 6.69 (4.0-11.0) K/uL RBC 4.23 L (4.50-5.90) M/uL Hgb 12.3 L (13.0-17.0) g/dL Hct 40.0 (38.0-50.0) % MCV 94.6 (80.0-98.0) fL MCH 29.1 (27.0-32.0) pg MCHC 30.8 L (31.0-37.0) g/dL RDW Std Deviation 60.0 (28.0-62.0) fl RDW Coeff of Regulo 17 H (11.0-15.0) % Plt Count 154 (150-400) K/uL MPV 11.30 (7.40-12.00) fL Neut % (Auto) 67.9 (48.0-80.0) % Lymph % (Auto) 15.1 L (16.0-40.0) % [place] % (Auto) 15.2 H (0.0-15.0) % Eos % (Auto) 1.5 (0.0-7.0) % Baso % (Auto) 0.3 (0.0-1.5) % Neut # (Auto) 4.5 (1.4-5.7) K/uL Lymph # (Auto) 1.0 (0.6-2.4) K/uL [place] # (Auto) 1.0 H (0.0-0.8) K/uL Eos # (Auto) 0.1 (0.0-0.7) K/uL Baso # (Auto) 0.0 (0.0-0.1) K/uL Nucleated RBC % 0.0 /100WBC Nucleated RBCs # 0 K/uL INR 1.52 Sodium 143 (136-148) mmol/L Potassium 3.8 (3.5-5.1) mmol/L Chloride 103 (98-107) mmol/L Carbon Dioxide 34.2 H (21.0-32.0) mmol/L BUN 18 (7.0-18.0) mg/dL Creatinine 1.0 (0.8-1.3) mg/dL Est Cr Clr Drug Dosing 50.08 mL/min Estimated GFR (MDRD) > 60.0 ml/min Glucose 96 (74-106) mg/dL Calcium 8.4 L (8.5-10.1) mg/dL Total Bilirubin 1.5 H (0.2-1.0) mg/dL AST 34 (15-37) IU/L ALT 39 (14-63) IU/L Alkaline Phosphatase 91 (46-116) U/L Total Protein 6.6 (6.4-8.2) g/dL Albumin 2.7 L (3.4-5.0) g/dL Globulin 3.9 (2.6-4.0) g/dL Albumin/Globulin Ratio 0.7 L (0.9-1.6) [place] Results Last 24 Hours: Microbiology 09/13/19 18:45 Gram Stain - Final Sputum - Expectorated Sputum Culture - Final Normal Respiratory Keeley 09/14/19 12:40 Wound Culture - Final Leg, Left Skin Keeley Med Orders - Current: Current Medications Acetaminophen (Tylenol) 650 mg PO Q4H PRN PRN Reason: Pain (Mild 1-3)/fever Albuterol/Ipratropium (Duoneb 3.0-0.5 Mg/3 Ml) 3 ml NEB Q6H PRN PRN Reason: COPD Artificial Tears (Refresh Plus 0.5%) 0 each EYEBOTH BID CARLOS Last Admin: 03/27/20 20:24 Dose: 1 drop Bisacodyl (Dulcolax) 10 mg RECTAL DAILY PRN PRN Reason: Constipation Carbamide Perox/Anhydrous Glycerin (Debrox 6.5% Otic Soln) 0 ml EARBOTH BEDTIME PRN PRN Reason: EAR WAX Furosemide (Lasix) 80 mg IVPUSH DAILY [facility]LOS Ceftriaxone Sodium/Dextrose 1 (gm/ Premix) 50 mls @ 100 mls/hr IV Q24H [facility] Last Admin: 09/17/19 06:56 Dose: 100 mls/hr Vancomycin HCl 1 gm/ Sodium (Chloride) 250 mls @ 166.667 mls/hr IV Q24H [facility] Last Admin: 09/16/19 10:46 Dose: 166.667 mls/hr Lansoprazole (Prevacid Solutab) 30 mg PO BEDTIME [facility] Last Admin: 09/16/19 20:23 Dose: 30 mg Levothyroxine Sodium (Levothyroxine) 75 mcg PO ACBREAKFAST [facility] Last Admin: 09/17/19 06:56 Dose: 75 mcg Magnesium Hydroxide (Milk Of Magnesia) 30 ml PO DAILY PRN PRN Reason: Constipation Ondansetron HCl (Zofran Odt) 4 mg PO Q4H PRN PRN Reason: nausea, able to take PO Ondansetron HCl (Zofran) 4 mg IVPUSH Q4H PRN PRN Reason: Nausea Simvastatin (Zocor) 40 mg PO BEDTIME [facility] Last Admin: 09/16/19 20:23 Dose: 40 mg Discontinued Medications Acetazolamide (Diamox) 250 mg PO ONETIME ONE Stop: 09/11/19 11:38 Last Admin: 09/11/19 11:58 Dose: 250 mg Enoxaparin Sodium (Lovenox) 200 mg SUBCUT ONETIME ONE Stop: 09/11/19 11:46 Last Admin: 09/11/19 11:59 Dose: 200 mg Enoxaparin Sodium (Lovenox) 200 mg SUBCUT ONETIME ONE Stop: 09/13/19 11:16 Last Admin: 09/13/19 12:09 Dose: 200 mg Furosemide (Lasix) 40 mg PO BIDDIURETIC [facility] Last Admin: 09/11/19 08:56 Dose: 40 mg Furosemide (Lasix) 20 mg IVPUSH NOW ONE Stop: 09/10/19 23:55 Last Admin: 09/11/19 00:30 Dose: 20 mg Furosemide (Lasix) 20 mg IVPUSH NOW ONE Stop: 09/11/19 11:23 Last Admin: 09/11/19 11:56 Dose: 20 mg Furosemide (Lasix) 40 mg IVPUSH BID [facility] Last Admin: 09/13/19 09:44 Dose: 40 mg Furosemide (Lasix) 60 mg IVPUSH BID [facility] Last Admin: 09/14/19 08:40 Dose: 60 mg Furosemide (Lasix) 20 mg IVPUSH NOW ONE Stop: 09/13/19 10:20 Last Admin: 09/13/19 12:12 Dose: 20 mg Furosemide (Lasix) 80 mg IVPUSH BID [facility] Last Admin: 09/16/19 09:12 Dose: 80 mg Piperacillin Sod/Tazobactam (Sod 3.375 gm/ Sodium Chloride) 50 mls @ 100 mls/ hr IV ONETIME ONE Stop: 09/09/19 15:15 Last Admin: 09/09/19 15:10 Dose: 100 mls/hr Vancomycin HCl 1 gm/ Sodium (Chloride) 250 mls @ 166 mls/hr IV ONETIME ONE Stop: 09/09/19 16:18 Last Admin: 09/09/19 16:24 Dose: 166 mls/hr Vancomycin HCl 1.25 gm/ Sodium (Chloride) 250 mls @ 166.667 mls/hr IV Q12H [facility] Last Admin: 09/11/19 04:20 Dose: 166.667 mls/hr Lactated Ringer's (Ringers, Lactated) 1,000 mls @ 500 mls/hr IV STAT [facility] Last Admin: 09/10/19 07:24 Dose: 500 mls/hr Lactated Ringer's (Ringers, Lactated) 1,000 mls @ 100 mls/hr IV ASDIRECTED [facility] Last Admin: 09/10/19 11:53 Dose: 100 mls/hr Vancomycin HCl 1 gm/ Sodium (Chloride) 250 mls @ 166 mls/hr IV Q12H [facility] Last Admin: 09/12/19 16:11 Dose: 166 mls/hr Potassium Chloride 40 meq/ (Premix) 100 mls @ 25 mls/hr IV ONETIME ONE Stop: 09/11/19 15:35 Last Admin: 09/11/19 12:08 Dose: Not Given Potassium Chloride 20 meq/ (Sodium Chloride) 260 mls @ 130 mls/hr IV ONETIME ONE Stop: 09/11/19 13:59 Last Admin: 09/11/19 12:22 Dose: 130 mls/hr Magnesium Sulfate 2 gm/ Premix 50 mls @ 50 mls/hr IV ONETIME ONE Stop: 09/12/19 12:03 Last Admin: 09/12/19 12:07 Dose: 50 mls/hr Vancomycin HCl 0.75 gm/ Sodium (Chloride) 250 mls @ 250 mls/hr IV Q12H [facility] Last Admin: 09/13/19 19:42 Dose: Not Given Vancomycin HCl 0.75 gm/ Sodium (Chloride) 250 mls @ 250 mls/hr IV Q12H [facility] Last Admin: 09/14/19 18:53 Dose: Not Given Vancomycin HCl 0.75 gm/ Sodium (Chloride) 250 mls @ 250 mls/hr IV Q12H [facility] Last Admin: 09/15/19 21:29 Dose: Not Given Vancomycin HCl 500 mg/ Sodium (Chloride) 100 mls @ 100 mls/hr IV Q12H [facility] Last Admin: 09/15/19 22:14 Dose: 100 mls/hr Vancomycin HCl 500 mg/ Sodium (Chloride) 100 mls @ 100 mls/hr IV Q12H [facility] Last Admin: 09/16/19 10:35 Dose: Not Given Iopamidol (Isovue Multipack-370 (76%)) 50 ml IVPUSH ONETIME STA Stop: 09/14/19 13:07 Last Admin: 09/14/19 13:30 Dose: 50 ml Omeprazole (Omeprazole) 20 mg PO BEDTIME [facility] Last Admin: 09/11/19 20:31 Dose: 20 mg Potassium Chloride (Potassium Chloride) 40 meq PO 09/12/19@0915 CARLOS Stop: 09/12/19 09:16 Last Admin: 09/12/19 09:26 Dose: 40 meq Potassium Chloride (Klor-Con M20) 40 meq PO ONETIME ONE Stop: 09/14/19 07:12 Last Admin: 09/14/19 08:39 Dose: 40 meq Potassium Chloride (Klor-Con M20) 40 meq PO ONETIME ONE Stop: 09/15/19 07:20 Last Admin: 09/15/19 09:22 Dose: 40 meq Sodium Phosphate (Neutra-Phos) 250 mg PO QID [facility] Stop: 09/13/19 00:01 Last Admin: 09/13/19 01:20 Dose: 250 mg Vancomycin HCl (Pharmacy To Dose - Vancomycin) 1 dose .XX ASDIRECTED [facility] Warfarin Sodium (Coumadin) 2 mg PO Q24H [facility] Last Admin: 09/10/19 15:11 Dose: 2 mg Warfarin Sodium (Coumadin) 3 mg PO ONETIME ONE Stop: 09/11/19 14:01 Last Admin: 09/11/19 13:54 Dose: 3 mg Warfarin Sodium (Coumadin Ask) 0 each PO DAILY@1400 [facility] Last Admin: 09/14/19 15:37 Dose: Not Given Warfarin Sodium (Coumadin) 3 mg PO ONETIME [facility] Last Admin: 09/12/19 16:10 Dose: 3 mg Warfarin Sodium (Coumadin) 3 mg PO ONETIME ONE Stop: 09/13/19 14:46 Last Admin: 09/13/19 15:18 Dose: 3 mg Warfarin Sodium (Coumadin) 2 mg PO ONETIME ONE Stop: 09/14/19 15:16 Last Admin: 09/14/19 15:37 Dose: Not Given Warfarin Sodium (Coumadin) 2 mg PO ONETIME ONE Stop: 09/14/19 17:46 Last Admin: 09/14/19 18:04 Dose: 2 mg - Exam General: Alert, Oriented, Cooperative, No Acute Distress Lungs: Normal Respiratory Effort, Other (quiet breath sounds b/l) Cardiovascular: Regular Rate, Irregular Rhythm GI/Abdominal Exam: Normal Bowel Sounds, Soft, Non-Tender, No Distention Extremities: Other (LLE: 5 cm x 5 cm area of erythema over anterior finley stable since previous exam, aquacel dressings in place. Area of erythema on left leg within pencil marked lines.) Sepsis Event Note - Evaluation Sepsis Screening Result: No Definite Risk - Focused Exam Vital Signs: Vital Signs Temp Pulse Resp BP Pulse Ox Pulse Ox 09/17/19 06:00 94 L 09/17/19 04:00 97.7 F 73 19 99/61 94 L 09/17/19 00:00 98.1 F 72 18 101/58 L 94 L Date Exam was Performed: 09/17/19 Time Exam was Performed: 11:18 - Problem List Review Problem List Initiated/Reviewed/Updated: Yes - My Orders Last 24 Hours: My Active Orders 09/16/19 10:36 Remove Murray Catheter [Urinary Catheter Removal] [RC] Per Unit Routine 09/17/19 09:00 Furosemide [Lasix] 80 mg IVPUSH DAILY 09/18/19 05:11 INR,PT,PROTHROMBIN TIME [COAG] DAILY 09/19/19 05:11 INR,PT,PROTHROMBIN TIME [COAG] DAILY 09/20/19 05:11 INR,PT,PROTHROMBIN TIME [COAG] DAILY 09/21/19 05:11 INR,PT,PROTHROMBIN TIME [COAG] DAILY 09/22/19 05:11 INR,PT,PROTHROMBIN TIME [COAG] DAILY - Plan Plan:: Assessment and Plan: 1. Left lower extremity cellulitis: - Currently on IV vancomycin day 9. Wound care reevaluated patient yesterday and recommended keeping foot elevated. Wound cultures grew normal skin keeley. - X-ray showed no bony involvement. Blood cultures were negative. 2. CHF: - Continue IV lasix 80 mg qd. Continue strict I/O's, standing daily weight and fluid restrict < 1.8 L per day. Patient in negative fluid balance. - CT angio showed pulmonary vascular congestion suspicious of CHF. - ECHO showed EF of 55% and diastology could not be evaluated. 3. Hematuria, resolved: - U/s b/l kidneys showed b/l renal cysts. Hemoglobin and platelets have been stable. Hematuria likely secondary to murray catheter insertion. 4. Subtherapeutic INR: - Patient on warfarin for prosthetic heart valve. Pharmacy consulted. Warfarin held yesterday secondary to #3. Will resume warfarin today. 5. Acute cystitis: - Continue IV Rocephin 1 g qd, currently on day 9. 6. Past medical history of atrial fibrillation, COPD, CHF, HTN and hyperlipidemia: - Continue home medications. 7. DVT prophylaxis: Patient on chronic warfarin therapy.
[2019-09-17] MEDS: Carboxymethylcellulose Sodium 0.5% Ophth Soln 0.4 ML UD Box of 30 EYEBOTH SCH ×2 (09:19→20:26)
[2019-09-17] MEDS: Furosemide 100 MG/10 ML SDV IVPUSH SCH (09:19)
[2019-09-17] MEDS ORDERED: Warfarin 2 MG Tab PO ONE (14:00)
[2019-09-17] MEDS: Lansoprazole 30 MG Orally Disintegrating Tab.CR PO SCH (20:25)
[2019-09-17] MEDS: Simvastatin 40 MG Tab PO SCH (20:25)
[2019-09-18] MEDS: Levothyroxine 75 MCG Tab PO SCH (06:39)
[2019-09-18] MEDS: cefTRIAXone 1 GM in Premix Bag 1 BAG IV SCH (06:41)
[2019-09-18 06:48] LABS: BLOOD UREA NITROGEN,BUN 19 mg/dL (7.0-18.0); CARBON DIOXIDE,CO2 33.8 mmol/L (21.0-32.0); CHLORIDE,CL 103 mmol/L (98-107); GLUCOSE RANDOM 105 mg/dL (74-106); POTASSIUM,K 4.1 mmol/L (3.5-5.1); SODIUM,NA 141 mmol/L (136-148)
[2019-09-18] MEDS: Carboxymethylcellulose Sodium 0.5% Ophth Soln 0.4 ML UD Box of 30 EYEBOTH SCH ×2 (09:57→20:41)
[2019-09-18] MEDS: Furosemide 100 MG/10 ML SDV IVPUSH SCH (10:03)
--- NOTE | 2019-09-18 11:18 | PCM.PN ---
- General Info Date of Service: 09/18/19 - Review of Systems Systems Review Comment:: no complaints - Patient Data Vitals - Most Recent: Last Vital Signs Temp 36.9 C 09/18/19 08:07 Pulse 72 09/18/19 09:55 Resp 22 H 09/18/19 08:07 BP 110/58 L 09/18/19 09:55 Pulse Ox 97 09/18/19 08:07 Weight - Most Recent: 126 kg I&O - Last 24 Hours: Intake & Output 09/17/19 09/18/19 09/18/19 22:59 06:59 14:59 Intake Total 740 750 250 Balance 740 750 250 Lab Results Last 24 Hours: Laboratory Results - last 24 hr 09/18/19 09/18/19 09/18/19 Range/Units 05:58 05:58 05:58 WBC 7.25 (4.0-11.0) K/uL RBC 4.24 L (4.50-5.90) M/uL Hgb 12.5 L (13.0-17.0) g/dL Hct 40.1 (38.0-50.0) % MCV 94.6 (80.0-98.0) fL MCH 29.5 (27.0-32.0) pg MCHC 31.2 (31.0-37.0) g/dL RDW Std Deviation 59.8 (28.0-62.0) fl RDW Coeff of Regulo 17 H (11.0-15.0) % Plt Count 169 (150-400) K/uL MPV 11.10 (7.40-12.00) fL Neut % (Auto) 64.1 (48.0-80.0) % Lymph % (Auto) 18.8 (16.0-40.0) % [place] % (Auto) 14.9 (0.0-15.0) % Eos % (Auto) 1.8 (0.0-7.0) % Baso % (Auto) 0.4 (0.0-1.5) % Neut # (Auto) 4.7 (1.4-5.7) K/uL Lymph # (Auto) 1.4 (0.6-2.4) K/uL [place] # (Auto) 1.1 H (0.0-0.8) K/uL Eos # (Auto) 0.1 (0.0-0.7) K/uL Baso # (Auto) 0.0 (0.0-0.1) K/uL Nucleated RBC % 0.0 /100WBC Nucleated RBCs # 0 K/uL INR 1.54 Sodium 141 (136-148) mmol/L Potassium 4.1 (3.5-5.1) mmol/L Chloride 103 (98-107) mmol/L Carbon Dioxide 33.8 H (21.0-32.0) mmol/L BUN 19 H (7.0-18.0) mg/dL Creatinine 0.9 (0.8-1.3) mg/dL Est Cr Clr Drug Dosing 55.64 mL/min Estimated GFR (MDRD) > 60.0 ml/min Glucose 105 (74-106) mg/dL Calcium 8.4 L (8.5-10.1) mg/dL Total Bilirubin 1.2 H (0.2-1.0) mg/dL AST 34 (15-37) IU/L ALT 41 (14-63) IU/L Alkaline Phosphatase 93 (46-116) U/L Total Protein 6.7 (6.4-8.2) g/dL Albumin 2.7 L (3.4-5.0) g/dL Globulin 4.0 (2.6-4.0) g/dL Albumin/Globulin Ratio 0.7 L (0.9-1.6) Vancomycin Trough (5.0-10.0) ug/mL 09/18/19 Range/Units 09:52 WBC (4.0-11.0) K/uL RBC (4.50-5.90) M/uL Hgb (13.0-17.0) g/dL Hct (38.0-50.0) % MCV (80.0-98.0) fL MCH (27.0-32.0) pg MCHC (31.0-37.0) g/dL RDW Std Deviation (28.0-62.0) fl RDW Coeff of Regulo (11.0-15.0) % Plt Count (150-400) K/uL MPV (7.40-12.00) fL Neut % (Auto) (48.0-80.0) % Lymph % (Auto) (16.0-40.0) % [place] % (Auto) (0.0-15.0) % Eos % (Auto) (0.0-7.0) % Baso % (Auto) (0.0-1.5) % Neut # (Auto) (1.4-5.7) K/uL Lymph # (Auto) (0.6-2.4) K/uL [place] # (Auto) (0.0-0.8) K/uL Eos # (Auto) (0.0-0.7) K/uL Baso # (Auto) (0.0-0.1) K/uL Nucleated RBC % /100WBC Nucleated RBCs # K/uL INR Sodium (136-148) mmol/L Potassium (3.5-5.1) mmol/L Chloride (98-107) mmol/L Carbon Dioxide (21.0-32.0) mmol/L BUN (7.0-18.0) mg/dL Creatinine (0.8-1.3) mg/dL Est Cr Clr Drug Dosing mL/min Estimated GFR (MDRD) ml/min Glucose (74-106) mg/dL Calcium (8.5-10.1) mg/dL Total Bilirubin (0.2-1.0) mg/dL AST (15-37) IU/L ALT (14-63) IU/L Alkaline Phosphatase (46-116) U/L Total Protein (6.4-8.2) g/dL Albumin (3.4-5.0) g/dL Globulin (2.6-4.0) g/dL Albumin/Globulin Ratio (0.9-1.6) Vancomycin Trough 15.3 H (5.0-10.0) ug/mL Med Orders - Current: Current Medications Acetaminophen (Tylenol) 650 mg PO Q4H PRN PRN Reason: Pain (Mild 1-3)/fever Albuterol/Ipratropium (Duoneb 3.0-0.5 Mg/3 Ml) 3 ml NEB Q6H PRN PRN Reason: COPD Artificial Tears (Refresh Plus 0.5%) 0 each EYEBOTH BID CARLOS Last Admin: 09/18/19 09:57 Dose: 1 drop Bisacodyl (Dulcolax) 10 mg RECTAL DAILY PRN PRN Reason: Constipation Last Admin: 09/18/19 04:29 Dose: 10 mg Carbamide Perox/Anhydrous Glycerin (Debrox 6.5% Otic Soln) 0 ml EARBOTH BEDTIME PRN PRN Reason: EAR WAX Furosemide (Lasix) 80 mg IVPUSH DAILY [facility] Last Admin: 09/18/19 10:03 Dose: 80 mg Ceftriaxone Sodium/Dextrose 1 (gm/ Premix) 50 mls @ 100 mls/hr IV Q24H [facility] Last Admin: 09/18/19 06:41 Dose: 100 mls/hr Vancomycin HCl 1 gm/ Sodium (Chloride) 250 mls @ 166.667 mls/hr IV Q24H [facility] Last Admin: 09/18/19 10:53 Dose: 166.667 mls/hr Lansoprazole (Prevacid Solutab) 30 mg PO BEDTIME [facility] Last Admin: 09/17/19 20:25 Dose: 30 mg Levothyroxine Sodium (Levothyroxine) 75 mcg PO ACBREAKFAST [facility] Last Admin: 09/18/19 06:39 Dose: 75 mcg Magnesium Hydroxide (Milk Of Magnesia) 30 ml PO DAILY PRN PRN Reason: Constipation Last Admin: 09/17/19 09:19 Dose: 30 ml Ondansetron HCl (Zofran Odt) 4 mg PO Q4H PRN PRN Reason: nausea, able to take PO Ondansetron HCl (Zofran) 4 mg IVPUSH Q4H PRN PRN Reason: Nausea Simvastatin (Zocor) 40 mg PO BEDTIME [facility] Last Admin: 09/17/19 20:25 Dose: 40 mg Warfarin Sodium (Coumadin Ask) 1 each PO DAILY@1400 [facility] Last Admin: 09/17/19 15:13 Dose: Not Given Warfarin Sodium (Coumadin) 3 mg PO DAILY@1400 ONE Stop: 09/18/19 14:01 Discontinued Medications Acetazolamide (Diamox) 250 mg PO ONETIME ONE Stop: 09/11/19 11:38 Last Admin: 09/11/19 11:58 Dose: 250 mg Enoxaparin Sodium (Lovenox) 200 mg SUBCUT ONETIME ONE Stop: 09/11/19 11:46 Last Admin: 09/11/19 11:59 Dose: 200 mg Enoxaparin Sodium (Lovenox) 200 mg SUBCUT ONETIME ONE Stop: 09/13/19 11:16 Last Admin: 09/13/19 12:09 Dose: 200 mg Furosemide (Lasix) 40 mg PO BIDDIURETIC [facility]LOS Last Admin: 09/11/19 08:56 Dose: 40 mg Furosemide (Lasix) 20 mg IVPUSH NOW ONE Stop: 09/10/19 23:55 Last Admin: 09/11/19 00:30 Dose: 20 mg Furosemide (Lasix) 20 mg IVPUSH NOW ONE Stop: 09/11/19 11:23 Last Admin: 09/11/19 11:56 Dose: 20 mg Furosemide (Lasix) 40 mg IVPUSH BID [facility] Last Admin: 09/13/19 09:44 Dose: 40 mg Furosemide (Lasix) 60 mg IVPUSH BID [facility] Last Admin: 09/14/19 08:40 Dose: 60 mg Furosemide (Lasix) 20 mg IVPUSH NOW ONE Stop: 09/13/19 10:20 Last Admin: 09/13/19 12:12 Dose: 20 mg Furosemide (Lasix) 80 mg IVPUSH BID [facility] Last Admin: 09/16/19 09:12 Dose: 80 mg Piperacillin Sod/Tazobactam (Sod 3.375 gm/ Sodium Chloride) 50 mls @ 100 mls/ hr IV ONETIME ONE Stop: 09/09/19 15:15 Last Admin: 09/09/19 15:10 Dose: 100 mls/hr Vancomycin HCl 1 gm/ Sodium (Chloride) 250 mls @ 166 mls/hr IV ONETIME ONE Stop: 09/09/19 16:18 Last Admin: 09/09/19 16:24 Dose: 166 mls/hr Vancomycin HCl 1.25 gm/ Sodium (Chloride) 250 mls @ 166.667 mls/hr IV Q12H [facility] Last Admin: 09/11/19 04:20 Dose: 166.667 mls/hr Lactated Ringer's (Ringers, Lactated) 1,000 mls @ 500 mls/hr IV STAT [facility] Last Admin: 09/10/19 07:24 Dose: 500 mls/hr Lactated Ringer's (Ringers, Lactated) 1,000 mls @ 100 mls/hr IV ASDIRECTED [facility] Last Admin: 09/10/19 11:53 Dose: 100 mls/hr Vancomycin HCl 1 gm/ Sodium (Chloride) 250 mls @ 166 mls/hr IV Q12H [facility] Last Admin: 09/12/19 16:11 Dose: 166 mls/hr Potassium Chloride 40 meq/ (Premix) 100 mls @ 25 mls/hr IV ONETIME ONE Stop: 09/11/19 15:35 Last Admin: 09/11/19 12:08 Dose: Not Given Potassium Chloride 20 meq/ (Sodium Chloride) 260 mls @ 130 mls/hr IV ONETIME ONE Stop: 09/11/19 13:59 Last Admin: 09/11/19 12:22 Dose: 130 mls/hr Magnesium Sulfate 2 gm/ Premix 50 mls @ 50 mls/hr IV ONETIME ONE Stop: 09/12/19 12:03 Last Admin: 09/12/19 12:07 Dose: 50 mls/hr Vancomycin HCl 0.75 gm/ Sodium (Chloride) 250 mls @ 250 mls/hr IV Q12H [facility] Last Admin: 09/13/19 19:42 Dose: Not Given Vancomycin HCl 0.75 gm/ Sodium (Chloride) 250 mls @ 250 mls/hr IV Q12H [facility] Last Admin: 09/14/19 18:53 Dose: Not Given Vancomycin HCl 0.75 gm/ Sodium (Chloride) 250 mls @ 250 mls/hr IV Q12H [facility] Last Admin: 09/15/19 21:29 Dose: Not Given Vancomycin HCl 500 mg/ Sodium (Chloride) 100 mls @ 100 mls/hr IV Q12H [facility] Last Admin: 09/15/19 22:14 Dose: 100 mls/hr Vancomycin HCl 500 mg/ Sodium (Chloride) 100 mls @ 100 mls/hr IV Q12H [facility] Last Admin: 09/16/19 10:35 Dose: Not Given Iopamidol (Isovue Multipack-370 (76%)) 50 ml IVPUSH ONETIME STA Stop: 09/14/19 13:07 Last Admin: 09/14/19 13:30 Dose: 50 ml Omeprazole (Omeprazole) 20 mg PO BEDTIME [facility] Last Admin: 09/11/19 20:31 Dose: 20 mg Potassium Chloride (Potassium Chloride) 40 meq PO 09/12/19@0915 [facility] Stop: 09/12/19 09:16 Last Admin: 09/12/19 09:26 Dose: 40 meq Potassium Chloride (Klor-Con M20) 40 meq PO ONETIME ONE Stop: 09/14/19 07:12 Last Admin: 09/14/19 08:39 Dose: 40 meq Potassium Chloride (Klor-Con M20) 40 meq PO ONETIME ONE Stop: 09/15/19 07:20 Last Admin: 09/15/19 09:22 Dose: 40 meq Sodium Phosphate (Neutra-Phos) 250 mg PO QID [facility] Stop: 09/13/19 00:01 Last Admin: 09/13/19 01:20 Dose: 250 mg Vancomycin HCl (Pharmacy To Dose - Vancomycin) 1 dose .XX ASDIRECTED [facility] Warfarin Sodium (Coumadin) 2 mg PO Q24H [facility] Last Admin: 09/10/19 15:11 Dose: 2 mg Warfarin Sodium (Coumadin) 3 mg PO ONETIME ONE Stop: 09/11/19 14:01 Last Admin: 09/11/19 13:54 Dose: 3 mg Warfarin Sodium (Coumadin Ask) 0 each PO DAILY@1400 [facility] Last Admin: 09/14/19 15:37 Dose: Not Given Warfarin Sodium (Coumadin) 3 mg PO ONETIME [facility] Last Admin: 09/12/19 16:10 Dose: 3 mg Warfarin Sodium (Coumadin) 3 mg PO ONETIME ONE Stop: 09/13/19 14:46 Last Admin: 09/13/19 15:18 Dose: 3 mg Warfarin Sodium (Coumadin) 2 mg PO ONETIME ONE Stop: 09/14/19 15:16 Last Admin: 09/14/19 15:37 Dose: Not Given Warfarin Sodium (Coumadin) 2 mg PO ONETIME ONE Stop: 09/14/19 17:46 Last Admin: 09/14/19 18:04 Dose: 2 mg Warfarin Sodium (Coumadin) 4 mg PO DAILY@1400 ONE Stop: 09/17/19 14:01 Last Admin: 09/17/19 14:32 Dose: 4 mg - Exam General: Alert, Oriented Neck: Supple Lungs: Clear to Auscultation, Normal Respiratory Effort Cardiovascular: Regular Rate, Regular Rhythm Extremities: Pedal Edema (+2) Sepsis Event Note - Evaluation Sepsis Screening Result: No Definite Risk - Focused Exam Vital Signs: Vital Signs Temp Pulse Resp BP BP Pulse Ox 09/18/19 09:55 72 110/58 L 09/18/19 08:07 36.9 C 79 22 H 100/62 97 09/18/19 04:00 35.9 C L 75 22 H 119/73 93 L 09/18/19 00:00 37.0 C 88 20 114/69 94 L Date Exam was Performed: 09/18/19 Time Exam was Performed: 11:16 - Problem List Review Problem List Initiated/Reviewed/Updated: Yes - Plan Plan:: 88 yo male admitted with left lower extremity cellulitis, UTI and CHF. Will continue vancomycin, Rocephin and lasix. Anticipate discharge tomorrow.
[2019-09-18] MEDS ORDERED: Warfarin 2 MG Tab PO ONE (14:00)
[2019-09-18] MEDS: Simvastatin 40 MG Tab PO SCH (20:40)
[2019-09-18] MEDS: Lansoprazole 30 MG Orally Disintegrating Tab.CR PO SCH (20:41)
[2019-09-19] MEDS: cefTRIAXone 1 GM in Premix Bag 1 BAG IV SCH (06:48)
[2019-09-19] MEDS: Levothyroxine 75 MCG Tab PO SCH (06:48)
[2019-09-19 09:45] VITALS: PULSE 81
[2019-09-19] MEDS: Carboxymethylcellulose Sodium 0.5% Ophth Soln 0.4 ML UD Box of 30 EYEBOTH SCH (09:53)
[2019-09-19] MEDS: Furosemide 100 MG/10 ML SDV IVPUSH SCH (09:53)
--- NOTE | 2019-09-19 11:00 | PCM.DCSUM1 ---
<Brandon De Luna - Last Filed: 09/19/19 11:00> Discharge Summary - Hospital Course Free Text/Narrative:: 88-year-old male resident of [facility] admitted for left lower extremity cellulitis and acute cystitis. He has a PMH of atrial fibrillation on warfarin, COPD, CHF and hyperlipidemia. For LLE cellulitis, he was treated with IV vancomycin for 10 days. Wound care was consulted who recommended continuing daily Aquacel dressing changes and to keep foot elevated. Patient has venous insufficiency and chronic leg edema and was diuresed with IV lasix. Wound cultures grew normal skin keeley. X-ray showed no bony involvement, doppler u/s negative for DVT, blood cultures negative and patient had no leukocytosis or fever. For his UTI, he was treated with IV ceftriaxone for 10 days. Patient was noted to have a cough which was productive of dark brown sputum. CXR was negative. CT angio showed pulmonary vascular congestion. ECHO was done which showed EF of 55% and diastology could not be evaluated. Sputum culture grew normal respiratory keeley. Patient's cough did improve by time of discharge. Patient also had some hematuria after murray catheter insertion. U/S of b/l kidneys showed bilateral renal cysts. Hematuria resolved shortly after and was likely secondary to murray catheter insertion. His hemolgobin and platelet count remained stable. As his INR is subtherapeutic, on discharge pharmacy recommend warfarin 2 mg on Mo, Wed, Fri and 3 mg on all other days for 1 week. INR needs to be rechecked in 1 week. Patient remained afebrile and hemodynamically stable throughout his hospitalization. Discharged in stable condition to [place]. - Discharge Data Discharge Date: 09/19/19 Discharge Disposition: DC/Tfer to [facility] 62 Condition: Stable - Referral to Home Health Primary Care Physician: Aguilar Thomas MD - Patient Summary/Data Consults: Consultations 09/09/19 15:42 OT Evaluation and Treatment [CONS] Routine PT Evaluation and Treatment [CONS] Routine 09/09/19 17:55 Consult to Wound Care Services [CONS] Routine - Patient Instructions Diet, Other: Soft diet, nectar thick, low salt < 2 g per day, fluid restriction < 1.8L Activity: As Tolerated Notify Provider of: Fever, Increased Pain, Swelling and Redness, Drainage, Nausea and/or Vomiting Other/Special Instructions: PT/OT/ST - Discharge Plan *PRESCRIPTION DRUG MONITORING PROGRAM REVIEWED*: Not Applicable *COPY OF PRESCRIPTION DRUG MONITORING REPORT IN PATIENT ENE: Not Applicable Prescriptions/Med Rec: Warfarin [Coumadin] 2 mg PO DAILY 7 Days #9 tab Home Medications: Home Meds Furosemide [Lasix] 40 mg PO BID 01/16/14 [History] Simvastatin [Zocor] 40 mg PO BEDTIME 01/16/14 [History] Bisacodyl [Dulcolax] 10 mg RECTAL DAILY PRN 11/03/16 [History] Mag Carb/Al Hydrox/Alginic Ac [Gaviscon Liquid] 30 ml PO DAILY PRN 11/03/16 [ History] Magnesium Hydroxide [Milk of Magnesia] 30 ml PO DAILY PRN 11/03/16 [History] Acetaminophen 500 mg PO Q8H PRN 05/09/19 [History] Acetaminophen 500 mg PO TID 05/09/19 [History] Albuterol/Ipratropium [DuoNeb 3.0-0.5 MG/3 ML] 3 ml NEB Q6H PRN 05/09/19 [ History] Carbamide Peroxide [Debrox] 3 drop EARBOTH BEDTIME PRN 05/09/19 [History] Carboxymethylcellulose Sodium [Refresh Tears 0.5%] 1 drop EYEBOTH BID 05/09/19 [ History] Levothyroxine Sodium [Tirosint] 75 mg PO ACBREAKFAST 05/09/19 [History] Lutein/Minerals/Vit A,C & E [Ocuvite] 1 tab PO DAILY 05/09/19 [History] Menthol [Biofreeze] 1 applic TOP BID 05/09/19 [History] Terbinafine [LamISIL AT 1% Crm] 1 applic TOP Q12H PRN MDD GROIN/ABDOMINAL [History] Omeprazole 20 mg PO BEDTIME 09/09/19 [History] guaiFENesin/Dextromethorphan [Tussin Dm 400-20 mg/20 ml Liq] 5 ml PO Q4H PRN [History] Warfarin [Coumadin] 2 mg PO DAILY 7 Days #9 tab 09/19/19 [Rx] Oxygen Therapy Mode: Room Air Patient Handouts: Warfarin tablets, Cellulitis, Adult, [id number] Referrals: Lex You MD [Physician] - - Discharge Summary/Plan Comment DC Time >30 min.: No - Patient Data Vitals - Most Recent: Last Vital Signs Temp 97.7 F 09/19/19 08:00 Pulse 81 09/19/19 08:00 Resp 20 09/19/19 08:00 BP 105/60 09/19/19 08:00 Pulse Ox 95 09/19/19 08:00 Weight - Most Recent: 126.1 kg I&O - Last 24 hours: Intake & Output 09/18/19 09/19/19 09/19/19 22:59 06:59 14:59 Intake Total 585 500 Output Total 200 350 Balance 385 150 Lab Results - Last 24 hrs: Laboratory Results - last 24 hr 09/19/19 Range/Units 06:13 INR 1.80 Med Orders - Current: Current Medications Acetaminophen (Tylenol) 650 mg PO Q4H PRN PRN Reason: Pain (Mild 1-3)/fever Albuterol/Ipratropium (Duoneb 3.0-0.5 Mg/3 Ml) 3 ml NEB Q6H PRN PRN Reason: COPD Artificial Tears (Refresh Plus 0.5%) 0 each EYEBOTH BID [facility] Last Admin: 09/19/19 09:53 Dose: 1 drop Bisacodyl (Dulcolax) 10 mg RECTAL DAILY PRN PRN Reason: Constipation Last Admin: 09/18/19 04:29 Dose: 10 mg Carbamide Perox/Anhydrous Glycerin (Debrox 6.5% Otic Soln) 0 ml EARBOTH BEDTIME PRN PRN Reason: EAR WAX Furosemide (Lasix) 80 mg IVPUSH DAILY [facility] Last Admin: 09/19/19 09:53 Dose: 80 mg Ceftriaxone Sodium/Dextrose 1 (gm/ Premix) 50 mls @ 100 mls/hr IV Q24H [facility] Last Admin: 09/19/19 06:48 Dose: 100 mls/hr Vancomycin HCl 1 gm/ Sodium (Chloride) 250 mls @ 166.667 mls/hr IV Q24H [facility] Last Admin: 09/19/19 09:53 Dose: 166.667 mls/hr Lansoprazole (Prevacid Solutab) 30 mg PO BEDTIME [facility] Last Admin: 09/18/19 20:41 Dose: 30 mg Levothyroxine Sodium (Levothyroxine) 75 mcg PO ACBREAKFAST [facility] Last Admin: 09/19/19 06:48 Dose: 75 mcg Magnesium Hydroxide (Milk Of Magnesia) 30 ml PO DAILY PRN PRN Reason: Constipation Last Admin: 09/17/19 09:19 Dose: 30 ml Ondansetron HCl (Zofran Odt) 4 mg PO Q4H PRN PRN Reason: nausea, able to take PO Ondansetron HCl (Zofran) 4 mg IVPUSH Q4H PRN PRN Reason: Nausea Simvastatin (Zocor) 40 mg PO BEDTIME [facility] Last Admin: 09/18/19 20:40 Dose: 40 mg Warfarin Sodium (Coumadin Ask) 1 each PO DAILY@1400 [facility] Last Admin: 09/18/19 15:01 Dose: Not Given Discontinued Medications Acetazolamide (Diamox) 250 mg PO ONETIME ONE Stop: 09/11/19 11:38 Last Admin: 09/11/19 11:58 Dose: 250 mg Enoxaparin Sodium (Lovenox) 200 mg SUBCUT ONETIME ONE Stop: 09/11/19 11:46 Last Admin: 09/11/19 11:59 Dose: 200 mg Enoxaparin Sodium (Lovenox) 200 mg SUBCUT ONETIME ONE Stop: 09/13/19 11:16 Last Admin: 09/13/19 12:09 Dose: 200 mg Furosemide (Lasix) 40 mg PO BIDDIURETIC [facility] Last Admin: 09/11/19 08:56 Dose: 40 mg Furosemide (Lasix) 20 mg IVPUSH NOW ONE Stop: 09/10/19 23:55 Last Admin: 09/11/19 00:30 Dose: 20 mg Furosemide (Lasix) 20 mg IVPUSH NOW ONE Stop: 09/11/19 11:23 Last Admin: 09/11/19 11:56 Dose: 20 mg Furosemide (Lasix) 40 mg IVPUSH BID [facility] Last Admin: 09/13/19 09:44 Dose: 40 mg Furosemide (Lasix) 60 mg IVPUSH BID [facility] Last Admin: 09/14/19 08:40 Dose: 60 mg Furosemide (Lasix) 20 mg IVPUSH NOW ONE Stop: 09/13/19 10:20 Last Admin: 09/13/19 12:12 Dose: 20 mg Furosemide (Lasix) 80 mg IVPUSH BID [facility] Last Admin: 09/16/19 09:12 Dose: 80 mg Piperacillin Sod/Tazobactam (Sod 3.375 gm/ Sodium Chloride) 50 mls @ 100 mls/ hr IV ONETIME ONE Stop: 09/09/19 15:15 Last Admin: 09/09/19 15:10 Dose: 100 mls/hr Vancomycin HCl 1 gm/ Sodium (Chloride) 250 mls @ 166 mls/hr IV ONETIME ONE Stop: 09/09/19 16:18 Last Admin: 09/09/19 16:24 Dose: 166 mls/hr Vancomycin HCl 1.25 gm/ Sodium (Chloride) 250 mls @ 166.667 mls/hr IV Q12H [facility] Last Admin: 09/11/19 04:20 Dose: 166.667 mls/hr Lactated Ringer's (Ringers, Lactated) 1,000 mls @ 500 mls/hr IV STAT [facility] Last Admin: 09/10/19 07:24 Dose: 500 mls/hr Lactated Ringer's (Ringers, Lactated) 1,000 mls @ 100 mls/hr IV ASDIRECTED [facility] Last Admin: 09/10/19 11:53 Dose: 100 mls/hr Vancomycin HCl 1 gm/ Sodium (Chloride) 250 mls @ 166 mls/hr IV Q12H [facility] Last Admin: 09/12/19 16:11 Dose: 166 mls/hr Potassium Chloride 40 meq/ (Premix) 100 mls @ 25 mls/hr IV ONETIME ONE Stop: 09/11/19 15:35 Last Admin: 09/11/19 12:08 Dose: Not Given Potassium Chloride 20 meq/ (Sodium Chloride) 260 mls @ 130 mls/hr IV ONETIME ONE Stop: 09/11/19 13:59 Last Admin: 09/11/19 12:22 Dose: 130 mls/hr Magnesium Sulfate 2 gm/ Premix 50 mls @ 50 mls/hr IV ONETIME ONE Stop: 09/12/19 12:03 Last Admin: 09/12/19 12:07 Dose: 50 mls/hr Vancomycin HCl 0.75 gm/ Sodium (Chloride) 250 mls @ 250 mls/hr IV Q12H [facility] Last Admin: 09/13/19 19:42 Dose: Not Given Vancomycin HCl 0.75 gm/ Sodium (Chloride) 250 mls @ 250 mls/hr IV Q12H [facility] Last Admin: 09/14/19 18:53 Dose: Not Given Vancomycin HCl 0.75 gm/ Sodium (Chloride) 250 mls @ 250 mls/hr IV Q12H [facility] Last Admin: 09/15/19 21:29 Dose: Not Given Vancomycin HCl 500 mg/ Sodium (Chloride) 100 mls @ 100 mls/hr IV Q12H [facility] Last Admin: 09/15/19 22:14 Dose: 100 mls/hr Vancomycin HCl 500 mg/ Sodium (Chloride) 100 mls @ 100 mls/hr IV Q12H [facility] Last Admin: 09/16/19 10:35 Dose: Not Given Iopamidol (Isovue Multipack-370 (76%)) 50 ml IVPUSH ONETIME STA Stop: 09/14/19 13:07 Last Admin: 09/14/19 13:30 Dose: 50 ml Omeprazole (Omeprazole) 20 mg PO BEDTIME [facility] Last Admin: 09/11/19 20:31 Dose: 20 mg Potassium Chloride (Potassium Chloride) 40 meq PO 09/12/19@0915 [facility] Stop: 09/12/19 09:16 Last Admin: 09/12/19 09:26 Dose: 40 meq Potassium Chloride (Klor-Con M20) 40 meq PO ONETIME ONE Stop: 09/14/19 07:12 Last Admin: 09/14/19 08:39 Dose: 40 meq Potassium Chloride (Klor-Con M20) 40 meq PO ONETIME ONE Stop: 09/15/19 07:20 Last Admin: 09/15/19 09:22 Dose: 40 meq Sodium Phosphate (Neutra-Phos) 250 mg PO QID [facility] Stop: 09/13/19 00:01 Last Admin: 09/13/19 01:20 Dose: 250 mg Vancomycin HCl (Pharmacy To Dose - Vancomycin) 1 dose .XX ASDIRECTED [facility] Warfarin Sodium (Coumadin) 2 mg PO Q24H [facility] Last Admin: 09/10/19 15:11 Dose: 2 mg Warfarin Sodium (Coumadin) 3 mg PO ONETIME ONE Stop: 09/11/19 14:01 Last Admin: 09/11/19 13:54 Dose: 3 mg Warfarin Sodium (Coumadin Ask) 0 each PO DAILY@1400 [facility] Last Admin: 09/14/19 15:37 Dose: Not Given Warfarin Sodium (Coumadin) 3 mg PO ONETIME [facility] Last Admin: 09/12/19 16:10 Dose: 3 mg Warfarin Sodium (Coumadin) 3 mg PO ONETIME ONE Stop: 09/13/19 14:46 Last Admin: 09/13/19 15:18 Dose: 3 mg Warfarin Sodium (Coumadin) 2 mg PO ONETIME ONE Stop: 09/14/19 15:16 Last Admin: 09/14/19 15:37 Dose: Not Given Warfarin Sodium (Coumadin) 2 mg PO ONETIME ONE Stop: 09/14/19 17:46 Last Admin: 09/14/19 18:04 Dose: 2 mg Warfarin Sodium (Coumadin) 4 mg PO DAILY@1400 ONE Stop: 09/17/19 14:01 Last Admin: 09/17/19 14:32 Dose: 4 mg Warfarin Sodium (Coumadin) 3 mg PO DAILY@1400 ONE Stop: 09/18/19 14:01 Last Admin: 09/18/19 14:53 Dose: 3 mg <Brian Barakat - Last Filed: 09/24/19 20:01> Discharge Summary - Referral to Home Health Primary Care Physician: Aguilar Thomas MD - Patient Summary/Data Consults: Consultations 09/09/19 15:42 OT Evaluation and Treatment [CONS] Routine PT Evaluation and Treatment [CONS] Routine 09/09/19 17:55 Consult to Wound Care Services [CONS] Routine - Patient Data Vitals - Most Recent: Last Vital Signs Temp 36.2 C 09/19/19 11:39 Pulse 81 09/19/19 11:39 Resp 16 09/19/19 11:39 BP 107/68 09/19/19 11:39 Pulse Ox 94 L 09/19/19 11:39 Med Orders - Current: Current Medications Discontinued Medications Acetaminophen (Tylenol) 650 mg PO Q4H PRN PRN Reason: Pain (Mild 1-3)/fever Acetazolamide (Diamox) 250 mg PO ONETIME ONE Stop: 09/11/19 11:38 Last Admin: 09/11/19 11:58 Dose: 250 mg Albuterol/Ipratropium (Duoneb 3.0-0.5 Mg/3 Ml) 3 ml NEB Q6H PRN PRN Reason: COPD Artificial Tears (Refresh Plus 0.5%) 0 each EYEBOTH BID [facility] Last Admin: 09/19/19 09:53 Dose: 1 drop Bisacodyl (Dulcolax) 10 mg RECTAL DAILY PRN PRN Reason: Constipation Last Admin: 09/18/19 04:29 Dose: 10 mg Carbamide Perox/Anhydrous Glycerin (Debrox 6.5% Otic Soln) 0 ml EARBOTH BEDTIME PRN PRN Reason: EAR WAX Enoxaparin Sodium (Lovenox) 200 mg SUBCUT ONETIME ONE Stop: 09/11/19 11:46 Last Admin: 09/11/19 11:59 Dose: 200 mg Enoxaparin Sodium (Lovenox) 200 mg SUBCUT ONETIME ONE Stop: 09/13/19 11:16 Last Admin: 09/13/19 12:09 Dose: 200 mg Furosemide (Lasix) 40 mg PO BIDDIURETIC [facility] Last Admin: 09/11/19 08:56 Dose: 40 mg Furosemide (Lasix) 20 mg IVPUSH NOW ONE Stop: 09/10/19 23:55 Last Admin: 09/11/19 00:30 Dose: 20 mg Furosemide (Lasix) 20 mg IVPUSH NOW ONE Stop: 09/11/19 11:23 Last Admin: 09/11/19 11:56 Dose: 20 mg Furosemide (Lasix) 40 mg IVPUSH BID [facility] Last Admin: 09/13/19 09:44 Dose: 40 mg Furosemide (Lasix) 60 mg IVPUSH BID [facility] Last Admin: 09/14/19 08:40 Dose: 60 mg Furosemide (Lasix) 20 mg IVPUSH NOW ONE Stop: 09/13/19 10:20 Last Admin: 09/13/19 12:12 Dose: 20 mg Furosemide (Lasix) 80 mg IVPUSH BID [facility] Last Admin: 09/16/19 09:12 Dose: 80 mg Furosemide (Lasix) 80 mg IVPUSH DAILY [facility] Last Admin: 09/19/19 09:53 Dose: 80 mg Piperacillin Sod/Tazobactam (Sod 3.375 gm/ Sodium Chloride) 50 mls @ 100 mls/ hr IV ONETIME ONE Stop: 09/09/19 15:15 Last Admin: 09/09/19 15:10 Dose: 100 mls/hr Vancomycin HCl 1 gm/ Sodium (Chloride) 250 mls @ 166 mls/hr IV ONETIME ONE Stop: 09/09/19 16:18 Last Admin: 09/09/19 16:24 Dose: 166 mls/hr Vancomycin HCl 1.25 gm/ Sodium (Chloride) 250 mls @ 166.667 mls/hr IV Q12H [facility] Last Admin: 09/11/19 04:20 Dose: 166.667 mls/hr Lactated Ringer's (Ringers, Lactated) 1,000 mls @ 500 mls/hr IV STAT [facility] Last Admin: 09/10/19 07:24 Dose: 500 mls/hr Lactated Ringer's (Ringers, Lactated) 1,000 mls @ 100 mls/hr IV ASDIRECTED [facility] Last Admin: 09/10/19 11:53 Dose: 100 mls/hr Ceftriaxone Sodium/Dextrose 1 (gm/ Premix) 50 mls @ 100 mls/hr IV Q24H [facility] Last Admin: 09/19/19 06:48 Dose: 100 mls/hr Vancomycin HCl 1 gm/ Sodium (Chloride) 250 mls @ 166 mls/hr IV Q12H [facility] Last Admin: 09/12/19 16:11 Dose: 166 mls/hr Potassium Chloride 40 meq/ (Premix) 100 mls @ 25 mls/hr IV ONETIME ONE Stop: 09/11/19 15:35 Last Admin: 09/11/19 12:08 Dose: Not Given Potassium Chloride 20 meq/ (Sodium Chloride) 260 mls @ 130 mls/hr IV ONETIME ONE Stop: 09/11/19 13:59 Last Admin: 09/11/19 12:22 Dose: 130 mls/hr Magnesium Sulfate 2 gm/ Premix 50 mls @ 50 mls/hr IV ONETIME ONE Stop: 09/12/19 12:03 Last Admin: 09/12/19 12:07 Dose: 50 mls/hr Vancomycin HCl 0.75 gm/ Sodium (Chloride) 250 mls @ 250 mls/hr IV Q12H [facility] Last Admin: 09/13/19 19:42 Dose: Not Given Vancomycin HCl 0.75 gm/ Sodium (Chloride) 250 mls @ 250 mls/hr IV Q12H [facility] Last Admin: 09/14/19 18:53 Dose: Not Given Vancomycin HCl 0.75 gm/ Sodium (Chloride) 250 mls @ 250 mls/hr IV Q12H [facility] Last Admin: 09/15/19 21:29 Dose: Not Given Vancomycin HCl 500 mg/ Sodium (Chloride) 100 mls @ 100 mls/hr IV Q12H [facility] Last Admin: 09/15/19 22:14 Dose: 100 mls/hr Vancomycin HCl 500 mg/ Sodium (Chloride) 100 mls @ 100 mls/hr IV Q12H [facility] Last Admin: 09/16/19 10:35 Dose: Not Given Vancomycin HCl 1 gm/ Sodium (Chloride) 250 mls @ 166.667 mls/hr IV Q24H [facility] Last Admin: 09/19/19 09:53 Dose: 166.667 mls/hr Iopamidol (Isovue Multipack-370 (76%)) 50 ml IVPUSH ONETIME [facility] Stop: 09/14/19 13:07 Last Admin: 09/14/19 13:30 Dose: 50 ml Lansoprazole (Prevacid Solutab) 30 mg PO BEDTIME [facility] Last Admin: 09/18/19 20:41 Dose: 30 mg Levothyroxine Sodium (Levothyroxine) 75 mcg PO ACBREAKFAST [facility] Last Admin: 09/19/19 06:48 Dose: 75 mcg Magnesium Hydroxide (Milk Of Magnesia) 30 ml PO DAILY PRN PRN Reason: Constipation Last Admin: 09/17/19 09:19 Dose: 30 ml Omeprazole (Omeprazole) 20 mg PO BEDTIME [facility] Last Admin: 09/11/19 20:31 Dose: 20 mg Ondansetron HCl (Zofran Odt) 4 mg PO Q4H PRN PRN Reason: nausea, able to take PO Ondansetron HCl (Zofran) 4 mg IVPUSH Q4H PRN PRN Reason: Nausea Potassium Chloride (Potassium Chloride) 40 meq PO 09/12/19@0915 [facility] Stop: 09/12/19 09:16 Last Admin: 09/12/19 09:26 Dose: 40 meq Potassium Chloride (Klor-Con M20) 40 meq PO ONETIME ONE Stop: 09/14/19 07:12 Last Admin: 09/14/19 08:39 Dose: 40 meq Potassium Chloride (Klor-Con M20) 40 meq PO ONETIME ONE Stop: 09/15/19 07:20 Last Admin: 09/15/19 09:22 Dose: 40 meq Simvastatin (Zocor) 40 mg PO BEDTIME [facility] Last Admin: 09/18/19 20:40 Dose: 40 mg Sodium Phosphate (Neutra-Phos) 250 mg PO QID [facility] Stop: 09/13/19 00:01 Last Admin: 09/13/19 01:20 Dose: 250 mg Vancomycin HCl (Pharmacy To Dose - Vancomycin) 1 dose .XX ASDIRECTED [facility] Warfarin Sodium (Coumadin) 2 mg PO Q24H [facility] Last Admin: 09/10/19 15:11 Dose: 2 mg Warfarin Sodium (Coumadin) 3 mg PO ONETIME ONE Stop: 09/11/19 14:01 Last Admin: 09/11/19 13:54 Dose: 3 mg Warfarin Sodium (Coumadin Ask) 0 each PO DAILY@1400 [facility] Last Admin: 09/14/19 15:37 Dose: Not Given Warfarin Sodium (Coumadin) 3 mg PO ONETIME [facility] Last Admin: 09/12/19 16:10 Dose: 3 mg Warfarin Sodium (Coumadin) 3 mg PO ONETIME ONE Stop: 09/13/19 14:46 Last Admin: 09/13/19 15:18 Dose: 3 mg Warfarin Sodium (Coumadin) 2 mg PO ONETIME ONE Stop: 09/14/19 15:16 Last Admin: 09/14/19 15:37 Dose: Not Given Warfarin Sodium (Coumadin) 2 mg PO ONETIME ONE Stop: 09/14/19 17:46 Last Admin: 09/14/19 18:04 Dose: 2 mg Warfarin Sodium (Coumadin Ask) 1 each PO DAILY@1400 [facility] Last Admin: 09/18/19 15:01 Dose: Not Given Warfarin Sodium (Coumadin) 4 mg PO DAILY@1400 ONE Stop: 09/17/19 14:01 Last Admin: 09/17/19 14:32 Dose: 4 mg Warfarin Sodium (Coumadin) 3 mg PO DAILY@1400 ONE Stop: 09/18/19 14:01 Last Admin: 09/18/19 14:53 Dose: 3 mg - Free Text/Narrative Note: I have seen and examined the patient. I have discussed findings and treatment plan with resident. I agree with the assessment and plan as outlined in the following note.
[2019-09-19 11:41] VITALS: BP 107/68
== END 2019-09-19 13:40 | DRG 603 ==
LOC: MW.ED 10:19 → MW.MS 15:13 → OBSVTOIN 09-11 13:19
PROVIDERS: ADMIT Student in an Organized Health Care Education/Training Program; ATTEND Student in an Organized Health Care Education/Training Program
DX: L03.115 Cellulitis of right lower limb (principal); N30.01 Acute cystitis with hematuria; N30.00 Acute cystitis without hematuria; H91.90 Unspecified hearing loss, unspecified ear; H54.7 Unspecified visual loss; Z68.42 Body mass index [BMI] 45.0-49.9, adult; T83.83XA Hemorrhage due to genitourinary prosthetic devices, implants and grafts, initial encounter; I11.0 Hypertensive heart disease with heart failure; L03.116 Cellulitis of left lower limb; R79.1 Abnormal coagulation profile; I48.91 Unspecified atrial fibrillation; I50.9 Heart failure, unspecified; E78.00 Pure hypercholesterolemia, unspecified; J44.9 Chronic obstructive pulmonary disease, unspecified; M19.90 Unspecified osteoarthritis, unspecified site; R33.9 Retention of urine, unspecified; K22.4 Dyskinesia of esophagus; E03.9 Hypothyroidism, unspecified; E66.9 Obesity, unspecified; E78.5 Hyperlipidemia, unspecified; E80.6 Other disorders of bilirubin metabolism; N28.1 Cyst of kidney, acquired; Z79.01 Long term (current) use of anticoagulants; Z79.890 Hormone replacement therapy; Z79.899 Other long term (current) drug therapy; Z95.2 Presence of prosthetic heart valve; Z99.81 Dependence on supplemental oxygen
CPT/HCPCS: 36415; 51702; 71045; 71045-26; 71275; 71275-26; 735902650; 73590-50; 76770; 76770-26; 80048; 80053; 80202; 81001; 83735; 83880; 84100; 84484; 85018; 85025; 85610; 87040; 87070; 87205; 93306; 93970; 93970-26; 96361; 96365; 96366; 96367; 96372; 96375; 96376; 97110-GO; 97110-GP; 97161-GP; 97165-GO; 97530-GP; 99284; 99285-25; A9270-GY; G0378; J0696; J1650; J1940; J2543; J3370; J3475; J3480; J7050; J7120; Q9967

== ENCOUNTER 2019-11-08 14:12 | Inpatient (IN) | payer MEDICARE, OTHER, MEDICAID ==
[2019-11-08] MEDS ORDERED: Sodium Chloride 0.9% 2.5 ML Syringe FLUSH PRN (14:28)
[2019-11-08] MEDS ORDERED: Sodium Chloride 0.9% 10 ML Syringe FLUSH PRN (14:28)
--- NOTE | 2019-11-08 14:50 | EDM.PDOC ---
ED HPI GENERAL MEDICAL PROBLEM - General Stated Complaint: AMS Time Seen by Provider: 11/08/19 14:45 Source of Information: Reports: EMS, [facility] Records History Limitations: Reports: Altered Mental Status - History of Present Illness INITIAL COMMENTS - FREE TEXT/NARRATIVE: Patient is a 88-year-old male with a past medical history of CHF, atrial fibrillation presenting from [facility] with concerns for altered mental status. The patient is unable to provide a history given his condition. Per the residential report and EMS, patient was tested for a urinary tract infection yesterday after noticing some hallucinations and it appeared like his urinalysis was positive. Patient was not initiated on antibiotics at that time. Today, the patient appeared worse becoming more lethargic and on EMS arrival the patient was hypoxic with a saturation in the low to mid 80s. He did respond well to 4 L via facemask but did not have any other change in his status since. Pmhx: Per HPI and past history on the EMR Pshx: None Family Hx: noncontributory Smoking history? no Etoh use? none Drug use? none Review of systems were unable to be obtained secondary to patient's mental status I have reviewed the triage vital signs Const: As of stated age however patient is lethargic and responds only to loud verbal stimulation. Eyes: PERRL, no conjunctival injection HENT: NCAT, Neck supple without meningismus CV: RRR, Warm, well-perfused extremities RESP: CTAB, Unlabored respiratory effort GI: soft, non-tender, non-distended, no masses MSK: Bilateral lower extremities are swollen. Very large area of ecchymosis to the left hip extending to the left gluteal cleft. No gross deformities appreciated Skin: Warm, dry. No rashes Neuro: Patient follows commands and answer simple questions but unable to obtain current year. Patient moves all 4 extremities.. Psych: Unable to assess Assessment and plan: Patient is a 88-year-old male presenting to the ER with altered mental status, hypoxia, hypotension present. Patient also demonstrated elevated temperature with EMS and had a temperature in the ER. There is a broad differential diagnosis given the patient's comorbidities. Septic shock is the most likely diagnosis given the patient's elevated temperature and hypotension. Patient does have evidence of a urinary tract infection and was therefore initiated on broad-spectrum antibiotics. Also considered in the differential is pneumonia due to hypoxia and also sepsis this seems less likely given the normal chest x-ray. Pulmonary embolism was considered although a seems low likelihood but he is hypoxic and tachycardic with atrial fibrillation putting him at increased risk for PE. A PE study will be ordered and performed to rule out PE. The PE study was discussed with by hospitalist and we agreed that patient does have mild acute kidney injury benefits of PE study outweigh the risk. Altered mental status could also be secondary to acute intracranial hemorrhage from supratherapeutic INR and recent trauma. A CT scan of the brain was ordered performed to rule this out. However, this also seems less likely given the patient's associated hypoxia and hypotension. ER course: 1430: Patient initially hypotensive with blood pressure 80s over 40s. Did not improve after 500 cc normal saline bolus. Initiated on peripheral vasopressors immediately following fluid bolus. 1445: The patient's power of contracts attorney Karlee Cutler was contacted. He was alerted of the patient's critical condition including patient's hypotension. He was informed that patient would likely require a central line to improve blood pressure. Patient son agreed. Noted in patient's paperwork is CODE STATUS to which indicates no mechanical ventilation. 1500: Patient's Yamileth Cutler was contacted via telephone and alerted the patient's condition. All questions were addressed and answered. 1725: Right femoral central venous triple-lumen catheter was successfully inserted Femoral Central Line Procedure Note INDICATION: Poor IV access, vasopressors PROCEDURE CREDIT REVIEW MANAGER: Dr. Dunaway CONSENT: Consent was obtained from the patient's son his power of contracts attorney, karlee cutler prior to the procedure. Indications, risks, and benefits were explained at length. PROCEDURE SUMMARY: A time out was performed. My hands were washed immediately prior to the procedure. I wore a surgical cap, mask with protective eyewear, full gown and sterile gloves throughout the procedure. The patient was placed in Trendelenburg position. Right femoral area was prepped using chlorhexidine scrub and draped in sterile fashion using a full drape and sterile probe cover employed. The right femoral vein was identified using the ultrasound. Anesthesia was achieved over the vein using 1% lidocaine. Using real-time out of plane guidance, the introducer needle was inserted into the right femoral vein under direct ultrasound visualization. Venous blood was withdrawn. The syringe was removed and a guidewire was advanced into the introducer needle. The guidewire was visualized in the right femoral vein by ultrasound. A small incision was made at the skin surface with a scalpel and the introducer needle was exchanged for a dilator over the guidewire. After appropriate dilation was obtained, the dilator was exchanged over the wire for a triple-lumen central venous catheter. The wire was removed and the catheter was sutured in place at 20 cm. A sterile sorbaview shield was placed over the catheter at the insertion site. The patient tolerated the procedure without any hemodynamic compromise. At time of procedure completion, all ports aspirated and flushed properly. Prior to this, a left internal jugular CVC was attempted unsuccessfully. Attempts to aspirate the left internal jugular were unsuccessful and the left external jugular was punctured. There is no dilation or cannulation of the vessel. Small hematoma was noticed at the site which was compressed for a period of 5 minutes and also covered with a pressure dressing. No evidence of any airway obstruction or expanding hematoma after period of 1 hour of observation. Critical Care Procedure Note Authorized and Performed by: Dr. Dunaway Total critical care time: Approximately 90 minutes Due to a high probability of clinically significant, life threatening deterioration, the patient required my highest level of preparedness to intervene emergently and I personally spent this critical care time directly and personally managing the patient. This critical care time included obtaining a history; examining the patient; pulse oximetry; ordering and review of studies ; arranging urgent treatment with development of a management plan; evaluation of patient's response to treatment; discussions with the patient's family; frequent reassessment; and, discussions with other providers. This critical care time was performed to assess and manage the high probability of imminent, life-threatening deterioration that could result in multi-organ failure. It was exclusive of separately billable procedures and treating other patients and teaching time. Please see MDM section and the rest of the note for further information on patient assessment and treatment. - Related Data Allergies Allergy/AdvReac Type Severity Reaction Status Date / Time No Known Allergies Allergy Verified 11/08/19 15:04 Home Meds: Home Meds Furosemide [Lasix] 40 mg PO BID 01/16/14 [History] Simvastatin [Zocor] 40 mg PO BEDTIME 01/16/14 [History] Bisacodyl [Dulcolax] 10 mg RECTAL DAILY PRN 11/03/16 [History] Mag Carb/Aluminum Hydrox/Algin [Gaviscon Liquid] 30 ml PO DAILY PRN 11/03/16 [ History] Magnesium Hydroxide [Milk of Magnesia] 30 ml PO DAILY PRN 11/03/16 [History] Acetaminophen 500 mg PO TID 05/09/19 [History] Acetaminophen 650 mg PO Q4H PRN MDD 3000mg 05/09/19 [History] Albuterol/Ipratropium [DuoNeb 3.0-0.5 MG/3 ML] 3 ml NEB Q6H PRN 05/09/19 [ History] Carbamide Peroxide [Debrox] 3 drop EARBOTH BEDTIME PRN 05/09/19 [History] Carboxymethylcellulose Sodium [Refresh Tears 0.5%] 1 drop EYEBOTH BID 05/09/19 [ History] Levothyroxine Sodium [Tirosint] 75 mg PO ACBREAKFAST 05/09/19 [History] Lutein/Minerals/Vit A,C & E [Ocuvite] 1 tab PO DAILY 05/09/19 [History] Menthol [Biofreeze] 1 applic TOP BID 05/09/19 [History] Terbinafine [LamISIL AT 1% Crm] 1 applic TOP Q12H PRN MDD GROIN/ABDOMINAL [History] Omeprazole 20 mg PO BEDTIME 09/09/19 [History] guaiFENesin/Dextromethorphan [Tussin Dm 400-20 mg/20 ml Liq] 5 ml PO Q4H PRN [History] Acetaminophen with Codeine [Tylenol with Codeine #3 Tablet] 2 each PO BEDTIME [History] Docusate Sodium 200 mg PO BEDTIME 11/08/19 [History] Ferrous Sulfate 325 mg PO BID 11/08/19 [History] Finasteride [Proscar] 5 mg PO QAM 11/08/19 [History] Warfarin [Coumadin] 2 mg PO .TUE,BECCA,SAT,Thu11/08/19 [History] Warfarin [Coumadin] 3 mg PO .MON,WED,FRI 11/08/19 [History] Past Medical History HEENT History: Reports: Hard of Hearing, Impaired Vision Other HEENT History: on hearing aid Cardiovascular History: Reports: Afib, Heart Failure, Heart Valve Replacement, High Cholesterol, Hypertension Respiratory History: Reports: COPD Other Respiratory History: Oxygen dependent Other Gastrointestinal History: Esophogeal dyskinesia Genitourinary History: Reports: Retention, Urinary Musculoskeletal History: Reports: Osteoarthritis Neurological History: Reports: None Psychiatric History: Reports: None Endocrine/Metabolic History: Reports: Hypothyroidism, Obesity/BMI 30+ Hematologic History: Reports: None Immunologic History: Reports: None Oncologic (Cancer) History: Reports: None Dermatologic History: Reports: Cellulitis - Infectious Disease History Infectious Disease History: Reports: Measles Other Infectious Disease History: pseudomonas aeruginosa - Past Surgical History Cardiovascular Surgical History: Reports: Valve Replacement GI Surgical History: Reports: EGD Other GI Surgeries/Procedures: Esophageal surgery 1996 Social & Family History - Family History Family Medical History: Noncontributory - Caffeine Use Caffeine Use: Reports: Coffee, Soda ED ROS GENERAL - Review of Systems Review Of Systems: See Below ED EXAM, SEPSIS - Physical Exam Exam: See Below Course - Vital Signs Last Recorded V/S: Last Vital Signs Temp 36.4 C 11/09/19 04:00 Pulse 102 H 11/08/19 20:10 Resp 17 11/09/19 06:00 BP 102/64 11/09/19 06:00 Pulse Ox 96 11/09/19 06:00 - Orders/Labs/Meds Orders: Active Orders 24 hr Category Date Time Status Insert Curry Catheter [Insert Urinary Catheter] [OM.PC] Care 11/08/19 15:00 Ordered Q24H Urinary Catheter Assessment [RC] Q6H Care 11/08/19 14:53 Active CULTURE BLOOD [BC] Stat Lab 11/08/19 14:30 Results CULTURE BLOOD [BC] Stat Lab 11/08/19 14:30 Results CULTURE URINE [RM] Stat Lab 11/08/19 14:30 Ordered PROCALCITONIN [REF] Stat Lab 11/08/19 14:30 Ordered Norepinephrine Bit/0.9 % NaCl [Norepinephr-0.9% NaCl 4 Med 11/08/19 15:15 Active mg/250] 4 mg in 250 ml IV TITRATE Sodium Chloride 0.9% [Saline Flush] Med 11/08/19 14:28 Active 10 ml FLUSH ASDIRECTED PRN Sodium Chloride 0.9% [Saline Flush] Med 11/08/19 14:28 Active 2.5 ml FLUSH ASDIRECTED PRN Blood Culture x2 Reflex Set [OM.PC] Stat Oth 11/08/19 14:28 Ordered Saline Lock Insert [OM.PC] Stat Oth 11/08/19 14:28 Ordered Medication Orders Albuterol/Ipratropium (Duoneb 3.0-0.5 Mg/3 Ml) 3 ml NEB Q4HRRT PRN PRN Reason: Shortness Of Breath/wheezing Norepinephrine Bitartrate (Norepinephr-0.9% Nacl 4 Mg/250) 4 mg in 250 mls @ 15 mls/hr IV TITRATE CARLOS; Protocol Last Titration: 11/09/19 06:52 Dose: 3 mcg/min, 11.25 mls/hr Titration: 11/09/19 06:20 Dose: 4 mcg/min, 15 mls/hr Titration: 11/09/19 04:19 Dose: 5 mcg/min, 18.75 mls/hr Titration: 11/09/19 03:10 Dose: 6 mcg/min, 22.5 mls/hr Titration: 11/09/19 01:45 Dose: 7 mcg/min, 26.25 mls/hr Admin: 11/09/19 00:30 Dose: 8 mcg/min, 30 mls/hr Titration: 11/09/19 00:30 Dose: 8 mcg/min, 30 mls/hr Titration: 11/08/19 21:00 Dose: 8 mcg/min, 30 mls/hr Titration: 11/08/19 15:20 Dose: 6 mcg/min, 22.5 mls/hr Admin: 11/08/19 15:15 Dose: 4 mcg/min, 15 mls/hr Lactated Ringer's (Ringers, Lactated) 1,000 mls @ 125 mls/hr IV ASDIRECTED CARLOS Last Admin: 11/09/19 01:45 Dose: 125 mls/hr Infusion: 11/09/19 01:45 Dose: 125 mls/hr Admin: 11/08/19 22:01 Dose: 125 mls/hr Piperacillin Sod/Tazobactam (Sod 4.5 gm/ Sodium Chloride) 100 mls @ 100 mls/hr IV Q8H CARLOS Last Admin: 11/09/19 03:25 Dose: 100 mls/hr Infusion: 11/08/19 20:16 Dose: 100 mls/hr Admin: 11/08/19 19:16 Dose: 100 mls/hr Vancomycin HCl 2 gm/ Sodium (Chloride) 500 mls @ 333.333 mls/hr IV Q24H [facility] Pantoprazole Sodium 40 mg/ (Sodium Chloride) 10 mls @ 300 mls/hr IV Q24H [facility] Last Admin: 11/08/19 21:30 Dose: 300 mls/hr Sodium Chloride (Saline Flush) 10 ml FLUSH ASDIRECTED PRN PRN Reason: Keep Vein Open Last Admin: 11/08/19 14:58 Dose: 10 ml Sodium Chloride (Saline Flush) 2.5 ml FLUSH ASDIRECTED PRN PRN Reason: Keep Vein Open Last Admin: 11/08/19 14:58 Dose: 2.5 ml Vancomycin HCl (Pharmacy To Dose - Vancomycin) 1 dose .XX ASDIRECTED [facility] Labs: Laboratory Tests 11/08/19 11/08/19 11/08/19 Range/Units 14:10 14:10 14:10 WBC 9.37 (4.0-11.0) K/uL RBC 3.17 L (4.50-5.90) M/uL Hgb 9.3 L (13.0-17.0) g/dL Hct 29.1 L (38.0-50.0) % MCV 91.8 (80.0-98.0) fL MCH 29.3 (27.0-32.0) pg MCHC 32.0 (31.0-37.0) g/dL RDW Std Deviation 62.5 H (28.0-62.0) fl RDW Coeff of Regulo 18 H (11.0-15.0) % Plt Count 152 (150-400) K/uL MPV 11.20 (7.40-12.00) fL Neut % (Auto) 90.5 H (48.0-80.0) % Lymph % (Auto) 4.3 L (16.0-40.0) % [place] % (Auto) 5.0 (0.0-15.0) % Eos % (Auto) 0.1 (0.0-7.0) % Baso % (Auto) 0.1 (0.0-1.5) % Neut # (Auto) 8.5 H (1.4-5.7) K/uL Lymph # (Auto) 0.4 L (0.6-2.4) K/uL [place] # (Auto) 0.5 (0.0-0.8) K/uL Eos # (Auto) 0.0 (0.0-0.7) K/uL Baso # (Auto) 0.0 (0.0-0.1) K/uL Nucleated RBC % 0.0 /100WBC Nucleated RBCs # 0 K/uL INR D-Dimer, Quantitative (0.0-0.50) mg/L FEU Lactate 2.7 H* (0.20-2.00) mmol/L Sodium 139 (136-148) mmol/L Potassium 3.6 (3.5-5.1) mmol/L Chloride 100 (98-107) mmol/L Carbon Dioxide 27.9 (21.0-32.0) mmol/L BUN 35 H (7.0-18.0) mg/dL Creatinine 1.4 H (0.8-1.3) mg/dL Est Cr Clr Drug Dosing 39.26 mL/min Estimated GFR (MDRD) 47.7 ml/min Glucose 141 H (74-106) mg/dL Calcium 8.2 L (8.5-10.1) mg/dL Total Bilirubin 1.9 H (0.2-1.0) mg/dL AST 51 H (15-37) IU/L ALT 39 (14-63) IU/L Alkaline Phosphatase 149 H (46-116) U/L Lactate Dehydrogenase 242 H (81-234) U/L C-Reactive Protein 14.60 H (0.00-0.90) mg/dL B-Natriuretic Peptide (<100) PG/ML Total Protein 6.2 L (6.4-8.2) g/dL Albumin 2.9 L (3.4-5.0) g/dL Globulin 3.3 (2.6-4.0) g/dL Albumin/Globulin Ratio 0.9 (0.9-1.6) Urine Color Urine Appearance Urine pH (5.0-8.0) Ur Specific [place] (1.001-1.035) Urine Protein (NEGATIVE) mg/dL Urine Glucose (UA) (NEGATIVE) mg/dL Urine Ketones (NEGATIVE) mg/dL Urine Occult Blood (NEGATIVE) Urine Nitrite (NEGATIVE) Urine Bilirubin (NEGATIVE) Urine Urobilinogen (<2.0) EU/dL Ur Leukocyte Esterase (NEGATIVE) Urine RBC (0-2/HPF) Urine WBC (0-5/HPF) Ur Epithelial Cells (NONE-FEW) Urine Bacteria (NEGATIVE) Urine Mucus (NONE-MOD) SARS-CoV-2 RNA (RT-PCR) (NEGATIVE) 11/08/19 11/08/19 11/08/19 Range/Units 14:10 14:20 14:30 WBC (4.0-11.0) K/uL RBC (4.50-5.90) M/uL Hgb (13.0-17.0) g/dL Hct (38.0-50.0) % MCV (80.0-98.0) fL MCH (27.0-32.0) pg MCHC (31.0-37.0) g/dL RDW Std Deviation (28.0-62.0) fl RDW Coeff of Regulo (11.0-15.0) % Plt Count (150-400) K/uL MPV (7.40-12.00) fL Neut % (Auto) (48.0-80.0) % Lymph % (Auto) (16.0-40.0) % [place] % (Auto) (0.0-15.0) % Eos % (Auto) (0.0-7.0) % Baso % (Auto) (0.0-1.5) % Neut # (Auto) (1.4-5.7) K/uL Lymph # (Auto) (0.6-2.4) K/uL [place] # (Auto) (0.0-0.8) K/uL Eos # (Auto) (0.0-0.7) K/uL Baso # (Auto) (0.0-0.1) K/uL Nucleated RBC % /100WBC Nucleated RBCs # K/uL INR 9.75 H* D-Dimer, Quantitative 1.14 H (0.0-0.50) mg/L FEU Lactate (0.20-2.00) mmol/L Sodium (136-148) mmol/L Potassium (3.5-5.1) mmol/L Chloride (98-107) mmol/L Carbon Dioxide (21.0-32.0) mmol/L BUN (7.0-18.0) mg/dL Creatinine (0.8-1.3) mg/dL Est Cr Clr Drug Dosing mL/min Estimated GFR (MDRD) ml/min Glucose (74-106) mg/dL Calcium (8.5-10.1) mg/dL Total Bilirubin (0.2-1.0) mg/dL AST (15-37) IU/L ALT (14-63) IU/L Alkaline Phosphatase (46-116) U/L Lactate Dehydrogenase (81-234) U/L C-Reactive Protein (0.00-0.90) mg/dL B-Natriuretic Peptide 333 H (<100) PG/ML Total Protein (6.4-8.2) g/dL Albumin (3.4-5.0) g/dL Globulin (2.6-4.0) g/dL Albumin/Globulin Ratio (0.9-1.6) Urine Color Urine Appearance Urine pH (5.0-8.0) Ur Specific [place] (1.001-1.035) Urine Protein (NEGATIVE) mg/dL Urine Glucose (UA) (NEGATIVE) mg/dL Urine Ketones (NEGATIVE) mg/dL Urine Occult Blood (NEGATIVE) Urine Nitrite (NEGATIVE) Urine Bilirubin (NEGATIVE) Urine Urobilinogen (<2.0) EU/dL Ur Leukocyte Esterase (NEGATIVE) Urine RBC (0-2/HPF) Urine WBC (0-5/HPF) Ur Epithelial Cells (NONE-FEW) Urine Bacteria (NEGATIVE) Urine Mucus (NONE-MOD) SARS-CoV-2 RNA (RT-PCR) (NEGATIVE) 11/08/19 11/08/19 Range/Units 14:39 14:45 WBC (4.0-11.0) K/uL RBC (4.50-5.90) M/uL Hgb (13.0-17.0) g/dL Hct (38.0-50.0) % MCV (80.0-98.0) fL MCH (27.0-32.0) pg MCHC (31.0-37.0) g/dL RDW Std Deviation (28.0-62.0) fl RDW Coeff of Regulo (11.0-15.0) % Plt Count (150-400) K/uL MPV (7.40-12.00) fL Neut % (Auto) (48.0-80.0) % Lymph % (Auto) (16.0-40.0) % [place] % (Auto) (0.0-15.0) % Eos % (Auto) (0.0-7.0) % Baso % (Auto) (0.0-1.5) % Neut # (Auto) (1.4-5.7) K/uL Lymph # (Auto) (0.6-2.4) K/uL [place] # (Auto) (0.0-0.8) K/uL Eos # (Auto) (0.0-0.7) K/uL Baso # (Auto) (0.0-0.1) K/uL Nucleated RBC % /100WBC Nucleated RBCs # K/uL INR D-Dimer, Quantitative (0.0-0.50) mg/L FEU Lactate (0.20-2.00) mmol/L Sodium (136-148) mmol/L Potassium (3.5-5.1) mmol/L Chloride (98-107) mmol/L Carbon Dioxide (21.0-32.0) mmol/L BUN (7.0-18.0) mg/dL Creatinine (0.8-1.3) mg/dL Est Cr Clr Drug Dosing mL/min Estimated GFR (MDRD) ml/min Glucose (74-106) mg/dL Calcium (8.5-10.1) mg/dL Total Bilirubin (0.2-1.0) mg/dL AST (15-37) IU/L ALT (14-63) IU/L Alkaline Phosphatase (46-116) U/L Lactate Dehydrogenase (81-234) U/L C-Reactive Protein (0.00-0.90) mg/dL B-Natriuretic Peptide (<100) PG/ML Total Protein (6.4-8.2) g/dL Albumin (3.4-5.0) g/dL Globulin (2.6-4.0) g/dL Albumin/Globulin Ratio (0.9-1.6) Urine Color YELLOW Urine Appearance CLOUDY Urine pH 5.5 (5.0-8.0) Ur Specific [place] 1.015 (1.001-1.035) Urine Protein 30 H (NEGATIVE) mg/dL Urine Glucose (UA) NEGATIVE (NEGATIVE) mg/dL Urine Ketones NEGATIVE (NEGATIVE) mg/dL Urine Occult Blood LARGE H (NEGATIVE) Urine Nitrite POSITIVE H (NEGATIVE) Urine Bilirubin NEGATIVE (NEGATIVE) Urine Urobilinogen 1.0 (<2.0) EU/dL Ur Leukocyte Esterase SMALL H (NEGATIVE) Urine RBC TOO NUMEROUS TO CT (0-2/HPF) Urine WBC 10-15 (0-5/HPF) Ur Epithelial Cells MODERATE (NONE-FEW) Urine Bacteria 3+ H (NEGATIVE) Urine Mucus LIGHT (NONE-MOD) SARS-CoV-2 RNA (RT-PCR) NEGATIVE (NEGATIVE) Meds: Medications Generic Name Dose Route Start Last Admin Trade Name Freq PRN Reason Stop Dose Admin Albuterol/Ipratropium 3 ml 11/08/19 18:44 Duoneb 3.0-0.5 Mg/3 Ml NEB Q4HRRT PRN Shortness Of Breath/wheezing Norepinephrine Bitartrate 4 mg in 250 mls @ 15 mls/hr 11/08/19 15:15 06:52 Norepinephr-0.9% Nacl 4 Mg/250 IV 3 mcg/min TITRATE CARLOS 11.25 mls/hr Titration Protocol 4 MCG/MIN Lactated Ringer's 1,000 mls @ 125 mls/hr 11/08/19 18:45 11/09/19 01:45 Ringers, Lactated IV 125 mls/hr ASDIRECTED CARLOS Administration Piperacillin Sod/Tazobactam 100 mls @ 100 mls/hr 11/08/19 19:00 11/09/19 03: 25 Sod 4.5 gm/ Sodium Chloride IV 100 mls/hr Q8H CARLOS Administration Vancomycin HCl 2 gm/ Sodium 500 mls @ 333.333 mls/hr 11/09/19 17:00 Chloride IV Q24H CARLOS Pantoprazole Sodium 40 mg/ 10 mls @ 300 mls/hr 11/08/19 19:30 11/08/19 21:30 Sodium Chloride IV 300 mls/hr Q24H CARLOS Administration Sodium Chloride 10 ml 11/08/19 14:28 11/08/19 14:58 Saline Flush FLUSH 10 ml ASDIRECTED PRN Administration Keep Vein Open Sodium Chloride 2.5 ml 11/08/19 14:28 05/19/20 14:58 Saline Flush FLUSH 2.5 ml ASDIRECTED PRN Administration Keep Vein Open Vancomycin HCl 1 dose 11/08/19 19:00 Pharmacy To Dose - Vancomycin .XX ASDIRECTED CARLOS Discontinued Medications Generic Name Dose Route Start Last Admin Trade Name Freq PRN Reason Stop Dose Admin Sodium Chloride 1,000 mls @ 999 mls/hr 11/08/19 15:00 11/08/19 14:58 Normal Saline IV 999 mls/hr STAT CARLOS Administration Cefepime HCl 1 gm/ Premix 50 mls @ 100 mls/hr 11/08/19 15:19 11/08/19 15:56 IV 11/08/19 15:48 100 mls/hr ONETIME ONE Administration Vancomycin HCl 1.25 gm/ Sodium 250 mls @ 167 mls/hr 11/08/19 15:19 11/08/19 16:41 Chloride IV 11/08/19 16:48 167 mls/hr ONETIME ONE Administration Vancomycin HCl 0.75 gm/ Sodium 250 mls @ 166.667 mls/hr 11/08/19 19:15 21:40 Chloride IV 11/08/19 20:44 166.667 mls/hr ONETIME ONE Administration Lactated Ringer's 500 mls @ 999 mls/hr 11/08/19 19:29 11/08/19 21:30 Ringers, Lactated IV 11/08/19 19:59 999 mls/hr .BOLUS ONE Administration Magnesium Sulfate 2 gm/ Premix 50 mls @ 50 mls/hr 11/09/19 01:51 11/09/19 02: 06 IV 11/09/19 02:50 25 mls/hr ONETIME ONE Administration Phytonadione 2.5 mg 11/08/19 18:17 11/08/19 19:47 Aquamephyton SUBCUT 11/08/19 18:18 Not Given ONETIME ONE Phytonadione Confirm 11/08/19 19:35 11/08/19 19:47 Aquamephyton Administered 11/08/19 19:36 Not Given Dose 10 mg .ROUTE .STK-MED ONE Phytonadione 2.5 mg 11/08/19 19:37 11/08/19 19:47 Aquamephyton SUBCUT 11/08/19 20:07 2.5 mg NOW ONE Administration Departure - Departure Time of Disposition: 18:07 Disposition: Admitted As Inpatient 65 Clinical Impression: UTI, Urinary tract infectious disease, Septic shock, CHF (congestive heart failure), Chronic anticoagulation Afib Qualifiers: Atrial fibrillation type: chronic Qualified Code(s): I48.2 - Chronic atrial fibrillation - Discharge Information Sepsis Event Note - Focused Exam Date Exam was Performed: 11/09/19 Time Exam was Performed: 07:32 - My Orders Last 24 Hours: My Active Orders 11/08/19 14:28 Sodium Chloride 0.9% [Saline Flush] 10 ml FLUSH ASDIRECTED PRN Sodium Chloride 0.9% [Saline Flush] 2.5 ml FLUSH ASDIRECTED PRN Blood Culture x2 Reflex Set [OM.PC] Stat Saline Lock Insert [OM.PC] Stat 11/08/19 14:30 CULTURE BLOOD [BC] Stat CULTURE BLOOD [BC] Stat CULTURE URINE [RM] Stat PROCALCITONIN [REF] Stat 11/08/19 14:53 Urinary Catheter Assessment [RC] Q6H 11/08/19 15:00 Insert Curry Catheter [Insert Urinary Catheter] [OM.PC] Q24H 11/08/19 15:15 Norepinephrine Bit/0.9 % NaCl [Norepinephr-0.9% NaCl 4 mg/250] 4 mg in 250 ml IV TITRATE - Assessment/Plan Last 24 Hours: My Active Orders 11/08/19 14:28 Sodium Chloride 0.9% [Saline Flush] 10 ml FLUSH ASDIRECTED PRN Sodium Chloride 0.9% [Saline Flush] 2.5 ml FLUSH ASDIRECTED PRN Blood Culture x2 Reflex Set [OM.PC] Stat Saline Lock Insert [OM.PC] Stat 11/08/19 14:30 CULTURE BLOOD [BC] Stat CULTURE BLOOD [BC] Stat CULTURE URINE [RM] Stat PROCALCITONIN [REF] Stat 11/08/19 14:53 Urinary Catheter Assessment [RC] Q6H 11/08/19 15:00 Insert Curry Catheter [Insert Urinary Catheter] [OM.PC] Q24H 11/08/19 15:15 Norepinephrine Bit/0.9 % NaCl [Norepinephr-0.9% NaCl 4 mg/250] 4 mg in 250 ml IV TITRATE
[2019-11-08] MEDS ORDERED: Sodium Chloride 0.9% 1,000 ML IV SCH (15:00)
--- NOTE | 2019-11-08 15:11 | CR ---
Chest: AP view of the chest was obtained. Comparison: Prior chest CT study of 09/14/19 and chest x-ray also of 09/09/19. Heart is enlarged. Pulmonary vessels are mildly congested. Minimal atelectasis within the left lung base is noted. Sternotomy wires are seen. Chronic rotator cuff tear within the right shoulder is present. Bony structures are osteopenic. Impression: 1. Cardiomegaly and mild pulmonary vascular congestion. 2. Other findings as described above. Diagnostic code #3 This report was dictated in MDT
[2019-11-08] MEDS ORDERED: Cefepime 1 GM in Premix Bag 1 BAG IV ONE (15:19)
[2019-11-08 15:34] LABS: CARBON DIOXIDE,CO2 27.9 mmol/L (21.0-32.0); POTASSIUM,K 3.6 mmol/L (3.5-5.1)
--- NOTE | 2019-11-08 15:57 | CR ---
Pelvis and left hip: AP view of the pelvis was obtained as well as slight frog-leg lateral view left hip. Severe joint space narrowing noted within the right hip. Joint space within left hip is mildly narrowed. Osteoporosis is noted. No discrete fracture or other bony abnormality is appreciated. Impression: 1. Degenerative change as noted above. 2. Osteoporosis. 3. Nothing acute is definitely appreciated. Diagnostic code #2 This report was dictated in MDT
--- NOTE | 2019-11-08 18:41 | PCM.HP.2 ---
H&P History of Present Illness - General Date of Service: 11/08/19 Admit Problem/Dx: Admission Diagnosis/Problem Admission Diagnosis/Problem Septic shock - History of Present Illness Initial Comments - Free Text/Narative: Patient is a 88-year-old male with a past medical history of CHF, atrial fibrillation presenting from [facility] with concerns for altered mental status. Per the [facility] report and EMS, patient was tested for a urinary tract infection yesterday after noticing some hallucinations and it appeared like his urinalysis was positive reportedly no antibiotics were started that time. Today patients condition worsened so EMS was called and upon arrival the patient was hypoxic with a saturation in the low to mid 80s. Patient was started on 4L of oxygen which improved his saturation. Patient was also found to be hypotensive with SBP in 60s, fluid bolus was given, with minimal response, patient was started on peripheral vasopressors and eventfully femoral line was started (unable to get IJ) BP improved after that. Blood cultures were obtained, patient was started on broad spectrum antibiotics, lactate was elevated as well. Patients INR was supratherapeutic. CT head was done which was negative for acute bleed, CXR showed cardiomegaly and vascular congestion. Patient was admitted to ICU for further care. Family was contacted by ER doctors, wanted all other measures except intubation. - Related Data Allergies/Adverse Reactions: Allergies Allergy/AdvReac Type Severity Reaction Status Date / Time No Known Allergies Allergy Verified 11/08/19 15:04 Home Medications: Home Meds Furosemide [Lasix] 40 mg PO BID 01/16/14 [History] Simvastatin [Zocor] 40 mg PO BEDTIME 01/16/14 [History] Bisacodyl [Dulcolax] 10 mg RECTAL DAILY PRN 11/03/16 [History] Mag Carb/Aluminum Hydrox/Algin [Gaviscon Liquid] 30 ml PO DAILY PRN 11/03/16 [ History] Magnesium Hydroxide [Milk of Magnesia] 30 ml PO DAILY PRN 11/03/16 [History] Acetaminophen 500 mg PO TID 05/09/19 [History] Acetaminophen 650 mg PO Q4H PRN MDD 3000mg 05/09/19 [History] Albuterol/Ipratropium [DuoNeb 3.0-0.5 MG/3 ML] 3 ml NEB Q6H PRN 05/09/19 [ History] Carbamide Peroxide [Debrox] 3 drop EARBOTH BEDTIME PRN 05/09/19 [History] Carboxymethylcellulose Sodium [Refresh Tears 0.5%] 1 drop EYEBOTH BID 05/09/19 [ History] Levothyroxine Sodium [Tirosint] 75 mg PO ACBREAKFAST 05/09/19 [History] Lutein/Minerals/Vit A,C & E [Ocuvite] 1 tab PO DAILY 05/09/19 [History] Menthol [Biofreeze] 1 applic TOP BID 05/09/19 [History] Terbinafine [LamISIL AT 1% Crm] 1 applic TOP Q12H PRN MDD GROIN/ABDOMINAL [History] Omeprazole 20 mg PO BEDTIME 09/09/19 [History] guaiFENesin/Dextromethorphan [Tussin Dm 400-20 mg/20 ml Liq] 5 ml PO Q4H PRN [History] Acetaminophen with Codeine [Tylenol with Codeine #3 Tablet] 2 each PO BEDTIME [History] Docusate Sodium 200 mg PO BEDTIME 11/08/19 [History] Ferrous Sulfate 325 mg PO BID 11/08/19 [History] Finasteride [Proscar] 5 mg PO QAM 11/08/19 [History] Warfarin [Coumadin] 2 mg PO .TUE,BECCA,SAT,SUN 11/08/19 [History] Warfarin [Coumadin] 3 mg PO .MON,WED,FRI 11/08/19 [History] Past Medical History HEENT History: Reports: Hard of Hearing, Impaired Vision Other HEENT History: on hearing aid Cardiovascular History: Reports: Afib, Heart Failure, Heart Valve Replacement, High Cholesterol, Hypertension Respiratory History: Reports: COPD Other Respiratory History: Oxygen dependent Other Gastrointestinal History: Esophogeal dyskinesia Genitourinary History: Reports: Retention, Urinary Musculoskeletal History: Reports: Osteoarthritis Neurological History: Reports: None Psychiatric History: Reports: None Endocrine/Metabolic History: Reports: Hypothyroidism, Obesity/BMI 30+ Hematologic History: Reports: None Immunologic History: Reports: None Oncologic (Cancer) History: Reports: None Dermatologic History: Reports: Cellulitis - Infectious Disease History Infectious Disease History: Reports: Measles Other Infectious Disease History: pseudomonas aeruginosa - Past Surgical History Cardiovascular Surgical History: Reports: Valve Replacement GI Surgical History: Reports: EGD Other GI Surgeries/Procedures: Esophageal surgery 1996 Social & Family History - Family History Family Medical History: Noncontributory - Tobacco Use Smoking Status *Q: Unknown Ever Smoked - Caffeine Use Caffeine Use: Reports: Coffee, Soda - Recreational Drug Use Recreational Drug Use: No H&P Review of Systems - Review of Systems: Review Of Systems: Unable To Obtain Reason Not Obtained: AMS Exam - Exam Exam: See Below - Vital Signs Vital Signs: Last Vital Signs Temp 37.7 C 11/08/19 14:54 Pulse 112 H 11/08/19 16:16 Resp 20 11/08/19 15:55 BP 111/46 L 11/08/19 16:16 Pulse Ox 97 11/08/19 15:55 Weight: 128.367 kg - Exam General: Lethargic. No: Alert, Oriented Neck: Trachea Midline Lungs: Decreased Breath Sounds, Crackles Cardiovascular: Irregular Rhythm, Tachycardia GI/Abdominal Exam: Normal Bowel Sounds, Soft, Non-Tender, Distended Peripheral Pulses: 2+: Dorsalis Pedis (L), Dorsalis Pedis (R) Skin: Cool, Ecchymosis Neuro Extensive - Mental Status: Withdraws to Pain. No: Alert, Oriented x3, Normal Cognition, Memory Intact DTR: 3+: Patella (L), Patella (R) - Patient Data Lab Results Last 24 hrs: Laboratory Results - last 24 hr 11/08/19 11/08/19 11/08/19 Range/Units 14:10 14:10 14:10 WBC 9.37 (4.0-11.0) K/uL RBC 3.17 L (4.50-5.90) M/uL Hgb 9.3 L (13.0-17.0) g/dL Hct 29.1 L (38.0-50.0) % MCV 91.8 (80.0-98.0) fL MCH 29.3 (27.0-32.0) pg MCHC 32.0 (31.0-37.0) g/dL RDW Std Deviation 62.5 H (28.0-62.0) fl RDW Coeff of Regulo 18 H (11.0-15.0) % Plt Count 152 (150-400) K/uL MPV 11.20 (7.40-12.00) fL Neut % (Auto) 90.5 H (48.0-80.0) % Lymph % (Auto) 4.3 L (16.0-40.0) % [place] % (Auto) 5.0 (0.0-15.0) % Eos % (Auto) 0.1 (0.0-7.0) % Baso % (Auto) 0.1 (0.0-1.5) % Neut # (Auto) 8.5 H (1.4-5.7) K/uL Lymph # (Auto) 0.4 L (0.6-2.4) K/uL Jefferson # (Auto) 0.5 (0.0-0.8) K/uL Eos # (Auto) 0.0 (0.0-0.7) K/uL Baso # (Auto) 0.0 (0.0-0.1) K/uL Nucleated RBC % 0.0 /100WBC Nucleated RBCs # 0 K/uL INR D-Dimer, Quantitative (0.0-0.50) mg/L FEU Lactate 2.7 H* (0.20-2.00) mmol/L Sodium 139 (136-148) mmol/L Potassium 3.6 (3.5-5.1) mmol/L Chloride 100 (98-107) mmol/L Carbon Dioxide 27.9 (21.0-32.0) mmol/L BUN 35 H (7.0-18.0) mg/dL Creatinine 1.4 H (0.8-1.3) mg/dL Est Cr Clr Drug Dosing 39.26 mL/min Estimated GFR (MDRD) 47.7 ml/min Glucose 141 H (74-106) mg/dL Calcium 8.2 L (8.5-10.1) mg/dL Total Bilirubin 1.9 H (0.2-1.0) mg/dL AST 51 H (15-37) IU/L ALT 39 (14-63) IU/L Alkaline Phosphatase 149 H (46-116) U/L Lactate Dehydrogenase 242 H (81-234) U/L C-Reactive Protein 14.60 H (0.00-0.90) mg/dL B-Natriuretic Peptide (<100) PG/ML Total Protein 6.2 L (6.4-8.2) g/dL Albumin 2.9 L (3.4-5.0) g/dL Globulin 3.3 (2.6-4.0) g/dL Albumin/Globulin Ratio 0.9 (0.9-1.6) Urine Color Urine Appearance Urine pH (5.0-8.0) Ur Specific [place] (1.001-1.035) Urine Protein (NEGATIVE) mg/dL Urine Glucose (UA) (NEGATIVE) mg/dL Urine Ketones (NEGATIVE) mg/dL Urine Occult Blood (NEGATIVE) Urine Nitrite (NEGATIVE) Urine Bilirubin (NEGATIVE) Urine Urobilinogen (<2.0) EU/dL Ur Leukocyte Esterase (NEGATIVE) Urine RBC (0-2/HPF) Urine WBC (0-5/HPF) Ur Epithelial Cells (NONE-FEW) Urine Bacteria (NEGATIVE) Urine Mucus (NONE-MOD) SARS-CoV-2 RNA (RT-PCR) (NEGATIVE) 11/08/19 11/08/19 11/08/19 Range/Units 14:10 14:20 14:30 WBC (4.0-11.0) K/uL RBC (4.50-5.90) M/uL Hgb (13.0-17.0) g/dL Hct (38.0-50.0) % MCV (80.0-98.0) fL MCH (27.0-32.0) pg MCHC (31.0-37.0) g/dL RDW Std Deviation (28.0-62.0) fl RDW Coeff of Regulo (11.0-15.0) % Plt Count (150-400) K/uL MPV (7.40-12.00) fL Neut % (Auto) (48.0-80.0) % Lymph % (Auto) (16.0-40.0) % Jefferson % (Auto) (0.0-15.0) % Eos % (Auto) (0.0-7.0) % Baso % (Auto) (0.0-1.5) % Neut # (Auto) (1.4-5.7) K/uL Lymph # (Auto) (0.6-2.4) K/uL Jefferson # (Auto) (0.0-0.8) K/uL Eos # (Auto) (0.0-0.7) K/uL Baso # (Auto) (0.0-0.1) K/uL Nucleated RBC % /100WBC Nucleated RBCs # K/uL INR 9.75 H* D-Dimer, Quantitative 1.14 H (0.0-0.50) mg/L FEU Lactate (0.20-2.00) mmol/L Sodium (136-148) mmol/L Potassium (3.5-5.1) mmol/L Chloride (98-107) mmol/L Carbon Dioxide (21.0-32.0) mmol/L BUN (7.0-18.0) mg/dL Creatinine (0.8-1.3) mg/dL Est Cr Clr Drug Dosing mL/min Estimated GFR (MDRD) ml/min Glucose (74-106) mg/dL Calcium (8.5-10.1) mg/dL Total Bilirubin (0.2-1.0) mg/dL AST (15-37) IU/L ALT (14-63) IU/L Alkaline Phosphatase (46-116) U/L Lactate Dehydrogenase (81-234) U/L C-Reactive Protein (0.00-0.90) mg/dL B-Natriuretic Peptide 333 H (<100) PG/ML Total Protein (6.4-8.2) g/dL Albumin (3.4-5.0) g/dL Globulin (2.6-4.0) g/dL Albumin/Globulin Ratio (0.9-1.6) Urine Color Urine Appearance Urine pH (5.0-8.0) Ur Specific [place] (1.001-1.035) Urine Protein (NEGATIVE) mg/dL Urine Glucose (UA) (NEGATIVE) mg/dL Urine Ketones (NEGATIVE) mg/dL Urine Occult Blood (NEGATIVE) Urine Nitrite (NEGATIVE) Urine Bilirubin (NEGATIVE) Urine Urobilinogen (<2.0) EU/dL Ur Leukocyte Esterase (NEGATIVE) Urine RBC (0-2/HPF) Urine WBC (0-5/HPF) Ur Epithelial Cells (NONE-FEW) Urine Bacteria (NEGATIVE) Urine Mucus (NONE-MOD) SARS-CoV-2 RNA (RT-PCR) (NEGATIVE) 11/08/19 11/08/19 11/08/19 Range/Units 14:39 14:45 17:30 WBC (4.0-11.0) K/uL RBC (4.50-5.90) M/uL Hgb (13.0-17.0) g/dL Hct (38.0-50.0) % MCV (80.0-98.0) fL MCH (27.0-32.0) pg MCHC (31.0-37.0) g/dL RDW Std Deviation (28.0-62.0) fl RDW Coeff of Regulo (11.0-15.0) % Plt Count (150-400) K/uL MPV (7.40-12.00) fL Neut % (Auto) (48.0-80.0) % Lymph % (Auto) (16.0-40.0) % Jefferson % (Auto) (0.0-15.0) % Eos % (Auto) (0.0-7.0) % Baso % (Auto) (0.0-1.5) % Neut # (Auto) (1.4-5.7) K/uL Lymph # (Auto) (0.6-2.4) K/uL Jefferson # (Auto) (0.0-0.8) K/uL Eos # (Auto) (0.0-0.7) K/uL Baso # (Auto) (0.0-0.1) K/uL Nucleated RBC % /100WBC Nucleated RBCs # K/uL INR 10.52 H* D-Dimer, Quantitative (0.0-0.50) mg/L FEU Lactate (0.20-2.00) mmol/L Sodium (136-148) mmol/L Potassium (3.5-5.1) mmol/L Chloride (98-107) mmol/L Carbon Dioxide (21.0-32.0) mmol/L BUN (7.0-18.0) mg/dL Creatinine (0.8-1.3) mg/dL Est Cr Clr Drug Dosing mL/min Estimated GFR (MDRD) ml/min Glucose (74-106) mg/dL Calcium (8.5-10.1) mg/dL Total Bilirubin (0.2-1.0) mg/dL AST (15-37) IU/L ALT (14-63) IU/L Alkaline Phosphatase (46-116) U/L Lactate Dehydrogenase (81-234) U/L C-Reactive Protein (0.00-0.90) mg/dL B-Natriuretic Peptide (<100) PG/ML Total Protein (6.4-8.2) g/dL Albumin (3.4-5.0) g/dL Globulin (2.6-4.0) g/dL Albumin/Globulin Ratio (0.9-1.6) Urine Color YELLOW Urine Appearance CLOUDY Urine pH 5.5 (5.0-8.0) Ur Specific [place] 1.015 (1.001-1.035) Urine Protein 30 H (NEGATIVE) mg/dL Urine Glucose (UA) NEGATIVE (NEGATIVE) mg/dL Urine Ketones NEGATIVE (NEGATIVE) mg/dL Urine Occult Blood LARGE H (NEGATIVE) Urine Nitrite POSITIVE H (NEGATIVE) Urine Bilirubin NEGATIVE (NEGATIVE) Urine Urobilinogen 1.0 (<2.0) EU/dL Ur Leukocyte Esterase SMALL H (NEGATIVE) Urine RBC TOO NUMEROUS TO CT (0-2/HPF) Urine WBC 10-15 (0-5/HPF) Ur Epithelial Cells MODERATE (NONE-FEW) Urine Bacteria 3+ H (NEGATIVE) Urine Mucus LIGHT (NONE-MOD) SARS-CoV-2 RNA (RT-PCR) NEGATIVE (NEGATIVE) 11/08/19 Range/Units 17:30 WBC (4.0-11.0) K/uL RBC (4.50-5.90) M/uL Hgb (13.0-17.0) g/dL Hct (38.0-50.0) % MCV (80.0-98.0) fL MCH (27.0-32.0) pg MCHC (31.0-37.0) g/dL RDW Std Deviation (28.0-62.0) fl RDW Coeff of Regulo (11.0-15.0) % Plt Count (150-400) K/uL MPV (7.40-12.00) fL Neut % (Auto) (48.0-80.0) % Lymph % (Auto) (16.0-40.0) % [place] % (Auto) (0.0-15.0) % Eos % (Auto) (0.0-7.0) % Baso % (Auto) (0.0-1.5) % Neut # (Auto) (1.4-5.7) K/uL Lymph # (Auto) (0.6-2.4) K/uL [place] # (Auto) (0.0-0.8) K/uL Eos # (Auto) (0.0-0.7) K/uL Baso # (Auto) (0.0-0.1) K/uL Nucleated RBC % /100WBC Nucleated RBCs # K/uL INR D-Dimer, Quantitative (0.0-0.50) mg/L FEU Lactate 2.2 H* (0.20-2.00) mmol/L Sodium (136-148) mmol/L Potassium (3.5-5.1) mmol/L Chloride (98-107) mmol/L Carbon Dioxide (21.0-32.0) mmol/L BUN (7.0-18.0) mg/dL Creatinine (0.8-1.3) mg/dL Est Cr Clr Drug Dosing mL/min Estimated GFR (MDRD) ml/min Glucose (74-106) mg/dL Calcium (8.5-10.1) mg/dL Total Bilirubin (0.2-1.0) mg/dL AST (15-37) IU/L ALT (14-63) IU/L Alkaline Phosphatase (46-116) U/L Lactate Dehydrogenase (81-234) U/L C-Reactive Protein (0.00-0.90) mg/dL B-Natriuretic Peptide (<100) PG/ML Total Protein (6.4-8.2) g/dL Albumin (3.4-5.0) g/dL Globulin (2.6-4.0) g/dL Albumin/Globulin Ratio (0.9-1.6) Urine Color Urine Appearance Urine pH (5.0-8.0) Ur Specific [place] (1.001-1.035) Urine Protein (NEGATIVE) mg/dL Urine Glucose (UA) (NEGATIVE) mg/dL Urine Ketones (NEGATIVE) mg/dL Urine Occult Blood (NEGATIVE) Urine Nitrite (NEGATIVE) Urine Bilirubin (NEGATIVE) Urine Urobilinogen (<2.0) EU/dL Ur Leukocyte Esterase (NEGATIVE) Urine RBC (0-2/HPF) Urine WBC (0-5/HPF) Ur Epithelial Cells (NONE-FEW) Urine Bacteria (NEGATIVE) Urine Mucus (NONE-MOD) SARS-CoV-2 RNA (RT-PCR) (NEGATIVE) Result Diagrams: 11/08/19 14:10 11/08/19 14:10 Sepsis Event Note - Evaluation Sepsis Screening Result: No Definite Risk - Focused Exam Vital Signs: Vital Signs Temp Pulse Pulse Resp BP BP Pulse Ox 11/08/19 16:16 112 H 111/46 L 11/08/19 15:55 103 H 20 120/51 L 97 11/08/19 15:36 103 H 20 104/42 L 96 11/08/19 15:19 80 74/36 L 11/08/19 15:13 93 12 66/25 L 99 11/08/19 15:03 82 20 71/30 L 100 11/08/19 14:54 37.7 C 83 26 H 76/36 L 100 11/08/19 14:15 37.4 C 88 20 80/37 L 100 Date Exam was Performed: 11/08/19 Time Exam was Performed: 19:14 - Problem List (1) Septic shock SNOMED Code(s): 82964604 ICD Code: A41.9 - SEPSIS, UNSPECIFIED ORGANISM; R65.21 - SEVERE SEPSIS WITH SEPTIC SHOCK Status: Acute Current Visit: Yes (2) Acute respiratory failure with hypoxia SNOMED Code(s): 05689898, 971738538 ICD Code: J96.01 - ACUTE RESPIRATORY FAILURE WITH HYPOXIA Status: Acute Current Visit: Yes (3) UTI, Urinary tract infectious disease SNOMED Code(s): 85424271 ICD Code: N39.0 - URINARY TRACT INFECTION, SITE NOT SPECIFIED Status: Acute Current Visit: No Onset Date: 01/16/14 (4) Supratherapeutic INR SNOMED Code(s): 239469250 ICD Code: R79.1 - ABNORMAL COAGULATION PROFILE Status: Acute Current Visit: Yes Problem List Initiated/Reviewed/Updated: Yes Orders Last 24hrs: Active Orders 24 hr Category Date Time Status Patient Status [ADT] Stat ADT 11/08/19 16:45 Active EKG Documentation Completion [RC] STAT Care 11/08/19 15:07 Active Insert Curry Catheter [Insert Urinary Catheter] [OM.PC] Care 11/08/19 15:00 Ordered Q24H Urinary Catheter Assessment [RC] ASDIRECTED Care 11/08/19 14:53 Active Ang Chest [CT] Routine Exams 11/08/19 17:32 Ordered Chest 1V Frontal [CR] Routine Exams 11/08/19 17:31 Taken Head wo Cont [CT] Routine Exams 11/08/19 17:35 Taken CULTURE BLOOD [BC] Stat Lab 11/08/19 14:30 Ordered CULTURE BLOOD [BC] Stat Lab 11/08/19 14:30 Ordered CULTURE URINE [RM] Stat Lab 11/08/19 14:30 Ordered PROCALCITONIN [REF] Stat Lab 11/08/19 14:30 Ordered Norepinephrine Bit/0.9 % NaCl [Norepinephr-0.9% NaCl 4 Med 11/08/19 15:15 Active mg/250] 4 mg in 250 ml IV TITRATE Sodium Chloride 0.9% [Normal Saline] 1,000 ml Med 11/08/19 15:00 Active IV STAT Sodium Chloride 0.9% [Saline Flush] Med 11/08/19 14:28 Active 10 ml FLUSH ASDIRECTED PRN Sodium Chloride 0.9% [Saline Flush] Med 11/08/19 14:28 Active 2.5 ml FLUSH ASDIRECTED PRN Blood Culture x2 Reflex Set [OM.PC] Stat Oth 11/08/19 14:28 Ordered Saline Lock Insert [OM.PC] Stat Oth 11/08/19 14:28 Ordered Medication Orders Sodium Chloride (Normal Saline) 1,000 mls @ 999 mls/hr IV STAT CARLOS Last Admin: 11/08/19 14:58 Dose: 999 mls/hr Norepinephrine Bitartrate (Norepinephr-0.9% Nacl 4 Mg/250) 4 mg in 250 mls @ 15 mls/hr IV TITRATE CARLOS; Protocol Last Titration: 11/08/19 15:20 Dose: 6 mcg/min, 22.5 mls/hr Admin: 11/08/19 15:15 Dose: 4 mcg/min, 15 mls/hr Sodium Chloride (Saline Flush) 10 ml FLUSH ASDIRECTED PRN PRN Reason: Keep Vein Open Last Admin: 11/08/19 14:58 Dose: 10 ml Sodium Chloride (Saline Flush) 2.5 ml FLUSH ASDIRECTED PRN PRN Reason: Keep Vein Open Last Admin: 11/08/19 14:58 Dose: 2.5 ml Assessment/Plan Comment:: 88 y/0 M admitted for septic shock sec to UTI Admit to ICU cont vasopressors, goal MAP>65 Given intubation is not an option have to watch for volume overload, will give another 500 cc bolus of fluids, consider BiPAP for volume overload Start broad spectrum antibiotics Vt K for Supr therapeutic INR Recheck INR in AM NPO for now IV PPI DuoNEbs PRN fu on repeat lactate f/u on blood cultures - Mortality Measure Prognosis:: Poor
--- NOTE | 2019-11-08 18:42 | CR ---
INDICATION: Transient alteration of awareness. Fever. Status post central line attempt TECHNIQUE: Chest radiograph 1 view COMPARISON: None FINDINGS: Moderate degradation of image quality noted due to body habitus. Mediastinum: Previous median sternotomy with aortic valve replacement noted. The heart silhouette is normal in size and morphology. Lung: Mild perihilar edema, vascular congestion and minimal bibasilar atelectasis seen. No sign of pleural effusion seen. No pneumothorax is identified but the semi supine positioning may limit the sensitivity. Bone and Soft tissue: Unremarkable for age. IMPRESSION: 1. Mild perihilar edema, vascular congestion and minimal bibasilar atelectasis seen. Dictated by Himanshu Petersen MD @ 11/08/2019 6:41:16 PM Dictated by: Himanshu Petersen MD @ 11/08/2019 18:41:23 (Electronically Signed)
[2019-11-08] MEDS: Piperacillin/Tazobactam 4.5 GM in Sodium Chloride 0.9% 100 ML IV SCH (19:16)
--- NOTE | 2019-11-08 19:27 | CT ---
INDICATION: Change in mental status TECHNIQUE: CT head without contrast. COMPARISON: 01/06/2019 FINDINGS: CSF spaces: Within normal limits for age. Brain parenchyma: The lr-white differentiation is normal. No sign of mass, hemorrhage, or midline shift. Skull base and calvarium: The visualized paranasal sinuses and mastoid air cells demonstrate no acute or significant findings. The visualized orbits are grossly unremarkable. No skull fractures. IMPRESSION: Unremarkable noncontrast head CT. Dictated by Vladislav Hall MD @ 11/08/2019 7:26:24 PM Please note that all CT scans at this facility use dose modulation, iterative reconstruction, and/or weight-based dosing when appropriate to reduce radiation dose to as low as reasonably achievable. Dictated by: Vladislav Hall MD @ 11/08/2019 19:26:28 (Electronically Signed)
[2019-11-08] MEDS ORDERED: Lactated Ringers 500 ML IV ONE (19:29)
[2019-11-08] MEDS: Pantoprazole 40 MG in Sodium Chloride 0.9% 10 ML IV SCH (21:30)
[2019-11-08] MEDS: Lactated Ringers 1,000 ML IV SCH (22:01)
--- NOTE | 2019-11-08 22:42 | PN ---
THC Physician - Brief Progress [id number]/19/2020 22:32[facility] Mera almaguer, MELISSA - KEO ([facility]) - ONEL GARCIADate of Service 11/08/2019 22:32HPI/Events of Note Case discussed with RN. 88 year old M with afib on AC, admitted from [facility] with SOB/hypoxia/fev ers. Being treated for coagulopthy/sepsis/UTI with fluids, abx and now on levo for hemodynamic suppo rt. Was also treated with vit k. Had some hematuria after murray placement and this is clearing up a t present. RN also notes large hematoma on L buttock which was there prior to admission as he had fal catherine at [facility] and no acute fracture noted.106 112/58 95%COVID negativeRecs include: hemodynamic monit oring, fluids, wean pressors as tolerated, echo when available, supplemental O2 PRN, ABG PRN, GI and DVT prophylaxis, abx, follow cultures, trend LA, replace lytes as needed, trend Cr and I+Os, glycemic monitoring, monitor for bleeding, follow CBC/coags, neuro checks, pain control, rehab eval.Interventi ons Minor-Communication with other healthcare providers and/or family
[2019-11-09] MEDS: Lactated Ringers 1,000 ML IV SCH ×3 (01:45→19:58)
[2019-11-09] MEDS ORDERED: Magnesium Sulfate/Water 2 GM in Premix Bag 1 BAG IV ONE (01:51)
[2019-11-09] MEDS: Piperacillin/Tazobactam 4.5 GM in Sodium Chloride 0.9% 100 ML IV SCH ×3 (03:25→19:07)
[2019-11-09 06:39] LABS: CARBON DIOXIDE,CO2 29.1 mmol/L (21.0-32.0); POTASSIUM,K 2.9 mmol/L (3.5-5.1)
--- NOTE | 2019-11-09 09:14 | PCM.PN ---
<Janette Grider - Last Filed: 11/09/19 11:33> - General Info Date of Service: 11/09/19 Subjective Update: Patient more awake, states he feels ok. Denies trouble breathing. Still on Levophed drip. - Review of Systems General: Reports: No Symptoms HEENT: Reports: No Symptoms Pulmonary: Reports: No Symptoms Cardiovascular: Reports: Edema. Denies: Chest Pain Gastrointestinal: Reports: No Symptoms Genitourinary: Reports: No Symptoms Musculoskeletal: Reports: No Symptoms Skin: Reports: No Symptoms Neurological: Reports: No Symptoms Psychiatric: Reports: No Symptoms - Patient Data Vitals - Most Recent: Last Vital Signs Temp 97.7 F 11/09/19 08:00 Pulse 102 H 11/08/19 20:10 Resp 17 11/09/19 08:00 BP 97/56 L 11/09/19 08:00 Pulse Ox 98 11/09/19 08:00 Weight - Most Recent: 125.191 kg I&O - Last 24 Hours: Intake & Output 11/08/19 11/09/19 11/09/19 22:59 06:59 14:59 Intake Total 500 1392 Output Total 1175 Balance 500 217 Lab Results Last 24 Hours: Laboratory Results - last 24 hr 11/08/19 11/08/19 11/08/19 Range/Units 14:10 14:10 14:10 WBC 9.37 (4.0-11.0) K/uL RBC 3.17 L (4.50-5.90) M/uL Hgb 9.3 L (13.0-17.0) g/dL Hct 29.1 L (38.0-50.0) % MCV 91.8 (80.0-98.0) fL MCH 29.3 (27.0-32.0) pg MCHC 32.0 (31.0-37.0) g/dL RDW Std Deviation 62.5 H (28.0-62.0) fl RDW Coeff of Regulo 18 H (11.0-15.0) % Plt Count 152 (150-400) K/uL MPV 11.20 (7.40-12.00) fL Neut % (Auto) 90.5 H (48.0-80.0) % Lymph % (Auto) 4.3 L (16.0-40.0) % [place] % (Auto) 5.0 (0.0-15.0) % Eos % (Auto) 0.1 (0.0-7.0) % Baso % (Auto) 0.1 (0.0-1.5) % Neut # (Auto) 8.5 H (1.4-5.7) K/uL Lymph # (Auto) 0.4 L (0.6-2.4) K/uL [place] # (Auto) 0.5 (0.0-0.8) K/uL Eos # (Auto) 0.0 (0.0-0.7) K/uL Baso # (Auto) 0.0 (0.0-0.1) K/uL Add Manual Diff Neutrophils % (Manual) (48.0-80.0) % Band Neutrophils % % Lymphocytes % (Manual) (16.0-40.0) % Monocytes % (Manual) (0.0-15.0) % Nucleated RBC % 0.0 /100WBC Absolute Seg Neuts (1.4-5.7) Band Neutrophils # Lymphocytes # (Manual) (0.6-2.4) Monocytes # (Manual) (0.0-0.8) Nucleated RBCs # 0 K/uL INR D-Dimer, Quantitative (0.0-0.50) mg/L FEU Lactate 2.7 H* (0.20-2.00) mmol/L Sodium 139 (136-148) mmol/L Potassium 3.6 (3.5-5.1) mmol/L Chloride 100 (98-107) mmol/L Carbon Dioxide 27.9 (21.0-32.0) mmol/L BUN 35 H (7.0-18.0) mg/dL Creatinine 1.4 H (0.8-1.3) mg/dL Est Cr Clr Drug Dosing 39.26 mL/min Estimated GFR (MDRD) 47.7 ml/min Glucose 141 H (74-106) mg/dL Calcium 8.2 L (8.5-10.1) mg/dL Phosphorus (2.6-4.7) mg/dL Magnesium (1.8-2.4) mg/dL Total Bilirubin 1.9 H (0.2-1.0) mg/dL AST 51 H (15-37) IU/L ALT 39 (14-63) IU/L Alkaline Phosphatase 149 H (46-116) U/L Lactate Dehydrogenase 242 H (81-234) U/L C-Reactive Protein 14.60 H (0.00-0.90) mg/dL B-Natriuretic Peptide (<100) PG/ML Total Protein 6.2 L (6.4-8.2) g/dL Albumin 2.9 L (3.4-5.0) g/dL Globulin 3.3 (2.6-4.0) g/dL Albumin/Globulin Ratio 0.9 (0.9-1.6) Urine Color Urine Appearance Urine pH (5.0-8.0) Ur Specific [place] (1.001-1.035) Urine Protein (NEGATIVE) mg/dL Urine Glucose (UA) (NEGATIVE) mg/dL Urine Ketones (NEGATIVE) mg/dL Urine Occult Blood (NEGATIVE) Urine Nitrite (NEGATIVE) Urine Bilirubin (NEGATIVE) Urine Urobilinogen (<2.0) EU/dL Ur Leukocyte Esterase (NEGATIVE) Urine RBC (0-2/HPF) Urine WBC (0-5/HPF) Ur Epithelial Cells (NONE-FEW) Urine Bacteria (NEGATIVE) Urine Mucus (NONE-MOD) SARS-CoV-2 RNA (RT-PCR) (NEGATIVE) 11/08/19 11/08/19 11/08/19 Range/Units 14:10 14:20 14:30 WBC (4.0-11.0) K/uL RBC (4.50-5.90) M/uL Hgb (13.0-17.0) g/dL Hct (38.0-50.0) % MCV (80.0-98.0) fL MCH (27.0-32.0) pg MCHC (31.0-37.0) g/dL RDW Std Deviation (28.0-62.0) fl RDW Coeff of Regulo (11.0-15.0) % Plt Count (150-400) K/uL MPV (7.40-12.00) fL Neut % (Auto) (48.0-80.0) % Lymph % (Auto) (16.0-40.0) % [place] % (Auto) (0.0-15.0) % Eos % (Auto) (0.0-7.0) % Baso % (Auto) (0.0-1.5) % Neut # (Auto) (1.4-5.7) K/uL Lymph # (Auto) (0.6-2.4) K/uL [place] # (Auto) (0.0-0.8) K/uL Eos # (Auto) (0.0-0.7) K/uL Baso # (Auto) (0.0-0.1) K/uL Add Manual Diff Neutrophils % (Manual) (48.0-80.0) % Band Neutrophils % % Lymphocytes % (Manual) (16.0-40.0) % Monocytes % (Manual) (0.0-15.0) % Nucleated RBC % /100WBC Absolute Seg Neuts (1.4-5.7) Band Neutrophils # Lymphocytes # (Manual) (0.6-2.4) Monocytes # (Manual) (0.0-0.8) Nucleated RBCs # K/uL INR 9.75 H* D-Dimer, Quantitative 1.14 H (0.0-0.50) mg/L FEU Lactate (0.20-2.00) mmol/L Sodium (136-148) mmol/L Potassium (3.5-5.1) mmol/L Chloride (98-107) mmol/L Carbon Dioxide (21.0-32.0) mmol/L BUN (7.0-18.0) mg/dL Creatinine (0.8-1.3) mg/dL Est Cr Clr Drug Dosing mL/min Estimated GFR (MDRD) ml/min Glucose (74-106) mg/dL Calcium (8.5-10.1) mg/dL Phosphorus (2.6-4.7) mg/dL Magnesium (1.8-2.4) mg/dL Total Bilirubin (0.2-1.0) mg/dL AST (15-37) IU/L ALT (14-63) IU/L Alkaline Phosphatase (46-116) U/L Lactate Dehydrogenase (81-234) U/L C-Reactive Protein (0.00-0.90) mg/dL B-Natriuretic Peptide 333 H (<100) PG/ML Total Protein (6.4-8.2) g/dL Albumin (3.4-5.0) g/dL Globulin (2.6-4.0) g/dL Albumin/Globulin Ratio (0.9-1.6) Urine Color Urine Appearance Urine pH (5.0-8.0) Ur Specific [place] (1.001-1.035) Urine Protein (NEGATIVE) mg/dL Urine Glucose (UA) (NEGATIVE) mg/dL Urine Ketones (NEGATIVE) mg/dL Urine Occult Blood (NEGATIVE) Urine Nitrite (NEGATIVE) Urine Bilirubin (NEGATIVE) Urine Urobilinogen (<2.0) EU/dL Ur Leukocyte Esterase (NEGATIVE) Urine RBC (0-2/HPF) Urine WBC (0-5/HPF) Ur Epithelial Cells (NONE-FEW) Urine Bacteria (NEGATIVE) Urine Mucus (NONE-MOD) SARS-CoV-2 RNA (RT-PCR) (NEGATIVE) 11/08/19 11/08/19 11/08/19 Range/Units 14:39 14:45 17:30 WBC (4.0-11.0) K/uL RBC (4.50-5.90) M/uL Hgb (13.0-17.0) g/dL Hct (38.0-50.0) % MCV (80.0-98.0) fL MCH (27.0-32.0) pg MCHC (31.0-37.0) g/dL RDW Std Deviation (28.0-62.0) fl RDW Coeff of Regulo (11.0-15.0) % Plt Count (150-400) K/uL MPV (7.40-12.00) fL Neut % (Auto) (48.0-80.0) % Lymph % (Auto) (16.0-40.0) % [place] % (Auto) (0.0-15.0) % Eos % (Auto) (0.0-7.0) % Baso % (Auto) (0.0-1.5) % Neut # (Auto) (1.4-5.7) K/uL Lymph # (Auto) (0.6-2.4) K/uL [place] # (Auto) (0.0-0.8) K/uL Eos # (Auto) (0.0-0.7) K/uL Baso # (Auto) (0.0-0.1) K/uL Add Manual Diff Neutrophils % (Manual) (48.0-80.0) % Band Neutrophils % % Lymphocytes % (Manual) (16.0-40.0) % Monocytes % (Manual) (0.0-15.0) % Nucleated RBC % /100WBC Absolute Seg Neuts (1.4-5.7) Band Neutrophils # Lymphocytes # (Manual) (0.6-2.4) Monocytes # (Manual) (0.0-0.8) Nucleated RBCs # K/uL INR 10.52 H* D-Dimer, Quantitative (0.0-0.50) mg/L FEU Lactate (0.20-2.00) mmol/L Sodium (136-148) mmol/L Potassium (3.5-5.1) mmol/L Chloride (98-107) mmol/L Carbon Dioxide (21.0-32.0) mmol/L BUN (7.0-18.0) mg/dL Creatinine (0.8-1.3) mg/dL Est Cr Clr Drug Dosing mL/min Estimated GFR (MDRD) ml/min Glucose (74-106) mg/dL Calcium (8.5-10.1) mg/dL Phosphorus (2.6-4.7) mg/dL Magnesium (1.8-2.4) mg/dL Total Bilirubin (0.2-1.0) mg/dL AST (15-37) IU/L ALT (14-63) IU/L Alkaline Phosphatase (46-116) U/L Lactate Dehydrogenase (81-234) U/L C-Reactive Protein (0.00-0.90) mg/dL B-Natriuretic Peptide (<100) PG/ML Total Protein (6.4-8.2) g/dL Albumin (3.4-5.0) g/dL Globulin (2.6-4.0) g/dL Albumin/Globulin Ratio (0.9-1.6) Urine Color YELLOW Urine Appearance CLOUDY Urine pH 5.5 (5.0-8.0) Ur Specific [place] 1.015 (1.001-1.035) Urine Protein 30 H (NEGATIVE) mg/dL Urine Glucose (UA) NEGATIVE (NEGATIVE) mg/dL Urine Ketones NEGATIVE (NEGATIVE) mg/dL Urine Occult Blood LARGE H (NEGATIVE) Urine Nitrite POSITIVE H (NEGATIVE) Urine Bilirubin NEGATIVE (NEGATIVE) Urine Urobilinogen 1.0 (<2.0) EU/dL Ur Leukocyte Esterase SMALL H (NEGATIVE) Urine RBC TOO NUMEROUS TO CT (0-2/HPF) Urine WBC 10-15 (0-5/HPF) Ur Epithelial Cells MODERATE (NONE-FEW) Urine Bacteria 3+ H (NEGATIVE) Urine Mucus LIGHT (NONE-MOD) SARS-CoV-2 RNA (RT-PCR) NEGATIVE (NEGATIVE) 11/08/19 11/08/19 11/08/19 Range/Units 17:30 21:05 21:05 WBC (4.0-11.0) K/uL RBC (4.50-5.90) M/uL Hgb (13.0-17.0) g/dL Hct (38.0-50.0) % MCV (80.0-98.0) fL MCH (27.0-32.0) pg MCHC (31.0-37.0) g/dL RDW Std Deviation (28.0-62.0) fl RDW Coeff of Regulo (11.0-15.0) % Plt Count (150-400) K/uL MPV (7.40-12.00) fL Neut % (Auto) (48.0-80.0) % Lymph % (Auto) (16.0-40.0) % [place] % (Auto) (0.0-15.0) % Eos % (Auto) (0.0-7.0) % Baso % (Auto) (0.0-1.5) % Neut # (Auto) (1.4-5.7) K/uL Lymph # (Auto) (0.6-2.4) K/uL [place] # (Auto) (0.0-0.8) K/uL Eos # (Auto) (0.0-0.7) K/uL Baso # (Auto) (0.0-0.1) K/uL Add Manual Diff Neutrophils % (Manual) (48.0-80.0) % Band Neutrophils % % Lymphocytes % (Manual) (16.0-40.0) % Monocytes % (Manual) (0.0-15.0) % Nucleated RBC % /100WBC Absolute Seg Neuts (1.4-5.7) Band Neutrophils # Lymphocytes # (Manual) (0.6-2.4) Monocytes # (Manual) (0.0-0.8) Nucleated RBCs # K/uL INR D-Dimer, Quantitative (0.0-0.50) mg/L FEU Lactate 2.2 H* 2.1 H* (0.20-2.00) mmol/L Sodium (136-148) mmol/L Potassium (3.5-5.1) mmol/L Chloride (98-107) mmol/L Carbon Dioxide (21.0-32.0) mmol/L BUN (7.0-18.0) mg/dL Creatinine (0.8-1.3) mg/dL Est Cr Clr Drug Dosing mL/min Estimated GFR (MDRD) ml/min Glucose (74-106) mg/dL Calcium (8.5-10.1) mg/dL Phosphorus (2.6-4.7) mg/dL Magnesium 1.7 L (1.8-2.4) mg/dL Total Bilirubin (0.2-1.0) mg/dL AST (15-37) IU/L ALT (14-63) IU/L Alkaline Phosphatase (46-116) U/L Lactate Dehydrogenase (81-234) U/L C-Reactive Protein (0.00-0.90) mg/dL B-Natriuretic Peptide (<100) PG/ML Total Protein (6.4-8.2) g/dL Albumin (3.4-5.0) g/dL Globulin (2.6-4.0) g/dL Albumin/Globulin Ratio (0.9-1.6) Urine Color Urine Appearance Urine pH (5.0-8.0) Ur Specific [place] (1.001-1.035) Urine Protein (NEGATIVE) mg/dL Urine Glucose (UA) (NEGATIVE) mg/dL Urine Ketones (NEGATIVE) mg/dL Urine Occult Blood (NEGATIVE) Urine Nitrite (NEGATIVE) Urine Bilirubin (NEGATIVE) Urine Urobilinogen (<2.0) EU/dL Ur Leukocyte Esterase (NEGATIVE) Urine RBC (0-2/HPF) Urine WBC (0-5/HPF) Ur Epithelial Cells (NONE-FEW) Urine Bacteria (NEGATIVE) Urine Mucus (NONE-MOD) SARS-CoV-2 RNA (RT-PCR) (NEGATIVE) 11/09/19 11/09/19 11/09/19 Range/Units 02:58 05:26 05:26 WBC 24.77 H (4.0-11.0) K/uL RBC 2.74 L (4.50-5.90) M/uL Hgb 8.0 L (13.0-17.0) g/dL Hct 25.3 L (38.0-50.0) % MCV 92.3 (80.0-98.0) fL MCH 29.2 (27.0-32.0) pg MCHC 31.6 (31.0-37.0) g/dL RDW Std Deviation 62.9 H (28.0-62.0) fl RDW Coeff of Regulo 19 H (11.0-15.0) % Plt Count 162 (150-400) K/uL MPV 10.60 (7.40-12.00) fL Neut % (Auto) (48.0-80.0) % Lymph % (Auto) (16.0-40.0) % [place] % (Auto) (0.0-15.0) % Eos % (Auto) (0.0-7.0) % Baso % (Auto) (0.0-1.5) % Neut # (Auto) (1.4-5.7) K/uL Lymph # (Auto) (0.6-2.4) K/uL [place] # (Auto) (0.0-0.8) K/uL Eos # (Auto) (0.0-0.7) K/uL Baso # (Auto) (0.0-0.1) K/uL Add Manual Diff YES Neutrophils % (Manual) 87 H (48.0-80.0) % Band Neutrophils % 3 % Lymphocytes % (Manual) 7 L (16.0-40.0) % Monocytes % (Manual) 3 (0.0-15.0) % Nucleated RBC % 0.0 /100WBC Absolute Seg Neuts 21.5 H (1.4-5.7) Band Neutrophils # 0.7 Lymphocytes # (Manual) 1.7 (0.6-2.4) Monocytes # (Manual) 0.7 (0.0-0.8) Nucleated RBCs # 0 K/uL INR 7.73 H* D-Dimer, Quantitative (0.0-0.50) mg/L FEU Lactate 1.5 (0.20-2.00) mmol/L Sodium (136-148) mmol/L Potassium (3.5-5.1) mmol/L Chloride (98-107) mmol/L Carbon Dioxide (21.0-32.0) mmol/L BUN (7.0-18.0) mg/dL Creatinine (0.8-1.3) mg/dL Est Cr Clr Drug Dosing mL/min Estimated GFR (MDRD) ml/min Glucose (74-106) mg/dL Calcium (8.5-10.1) mg/dL Phosphorus (2.6-4.7) mg/dL Magnesium (1.8-2.4) mg/dL Total Bilirubin (0.2-1.0) mg/dL AST (15-37) IU/L ALT (14-63) IU/L Alkaline Phosphatase (46-116) U/L Lactate Dehydrogenase (81-234) U/L C-Reactive Protein (0.00-0.90) mg/dL B-Natriuretic Peptide (<100) PG/ML Total Protein (6.4-8.2) g/dL Albumin (3.4-5.0) g/dL Globulin (2.6-4.0) g/dL Albumin/Globulin Ratio (0.9-1.6) Urine Color Urine Appearance Urine pH (5.0-8.0) Ur Specific [place] (1.001-1.035) Urine Protein (NEGATIVE) mg/dL Urine Glucose (UA) (NEGATIVE) mg/dL Urine Ketones (NEGATIVE) mg/dL Urine Occult Blood (NEGATIVE) Urine Nitrite (NEGATIVE) Urine Bilirubin (NEGATIVE) Urine Urobilinogen (<2.0) EU/dL Ur Leukocyte Esterase (NEGATIVE) Urine RBC (0-2/HPF) Urine WBC (0-5/HPF) Ur Epithelial Cells (NONE-FEW) Urine Bacteria (NEGATIVE) Urine Mucus (NONE-MOD) SARS-CoV-2 RNA (RT-PCR) (NEGATIVE) 11/09/19 Range/Units 05:26 WBC (4.0-11.0) K/uL RBC (4.50-5.90) M/uL Hgb (13.0-17.0) g/dL Hct (38.0-50.0) % MCV (80.0-98.0) fL MCH (27.0-32.0) pg MCHC (31.0-37.0) g/dL RDW Std Deviation (28.0-62.0) fl RDW Coeff of Regulo (11.0-15.0) % Plt Count (150-400) K/uL MPV (7.40-12.00) fL Neut % (Auto) (48.0-80.0) % Lymph % (Auto) (16.0-40.0) % [place] % (Auto) (0.0-15.0) % Eos % (Auto) (0.0-7.0) % Baso % (Auto) (0.0-1.5) % Neut # (Auto) (1.4-5.7) K/uL Lymph # (Auto) (0.6-2.4) K/uL [place] # (Auto) (0.0-0.8) K/uL Eos # (Auto) (0.0-0.7) K/uL Baso # (Auto) (0.0-0.1) K/uL Add Manual Diff Neutrophils % (Manual) (48.0-80.0) % Band Neutrophils % % Lymphocytes % (Manual) (16.0-40.0) % Monocytes % (Manual) (0.0-15.0) % Nucleated RBC % /100WBC Absolute Seg Neuts (1.4-5.7) Band Neutrophils # Lymphocytes # (Manual) (0.6-2.4) Monocytes # (Manual) (0.0-0.8) Nucleated RBCs # K/uL INR D-Dimer, Quantitative (0.0-0.50) mg/L FEU Lactate (0.20-2.00) mmol/L Sodium 142 (136-148) mmol/L Potassium 2.9 L (3.5-5.1) mmol/L Chloride 104 (98-107) mmol/L Carbon Dioxide 29.1 (21.0-32.0) mmol/L BUN 30 H (7.0-18.0) mg/dL Creatinine 1.3 (0.8-1.3) mg/dL Est Cr Clr Drug Dosing 42.28 mL/min Estimated GFR (MDRD) 52.0 ml/min Glucose 96 (74-106) mg/dL Calcium 7.8 L (8.5-10.1) mg/dL Phosphorus 3.6 (2.6-4.7) mg/dL Magnesium 2.0 (1.8-2.4) mg/dL Total Bilirubin 1.9 H (0.2-1.0) mg/dL AST 36 (15-37) IU/L ALT 21 (14-63) IU/L Alkaline Phosphatase 118 H (46-116) U/L Lactate Dehydrogenase (81-234) U/L C-Reactive Protein (0.00-0.90) mg/dL B-Natriuretic Peptide (<100) PG/ML Total Protein 5.3 L (6.4-8.2) g/dL Albumin 2.1 L (3.4-5.0) g/dL Globulin 3.2 (2.6-4.0) g/dL Albumin/Globulin Ratio 0.7 L (0.9-1.6) Urine Color Urine Appearance Urine pH (5.0-8.0) Ur Specific [place] (1.001-1.035) Urine Protein (NEGATIVE) mg/dL Urine Glucose (UA) (NEGATIVE) mg/dL Urine Ketones (NEGATIVE) mg/dL Urine Occult Blood (NEGATIVE) Urine Nitrite (NEGATIVE) Urine Bilirubin (NEGATIVE) Urine Urobilinogen (<2.0) EU/dL Ur Leukocyte Esterase (NEGATIVE) Urine RBC (0-2/HPF) Urine WBC (0-5/HPF) Ur Epithelial Cells (NONE-FEW) Urine Bacteria (NEGATIVE) Urine Mucus (NONE-MOD) SARS-CoV-2 RNA (RT-PCR) (NEGATIVE) [place] Results Last 24 Hours: Microbiology 11/08/19 14:30 Urine Culture - Preliminary Urine, Catheterized 11/08/19 14:30 Aerobic Blood Culture - Preliminary Blood - Venous Anaerobic Blood Culture - Preliminary 11/08/19 14:30 Aerobic Blood Culture - Preliminary Blood - Venous - Lab Draw Anaerobic Blood Culture - Preliminary Med Orders - Current: Current Medications Albuterol/Ipratropium (Duoneb 3.0-0.5 Mg/3 Ml) 3 ml NEB Q4HRRT PRN PRN Reason: Shortness Of Breath/wheezing Norepinephrine Bitartrate (Norepinephr-0.9% Nacl 4 Mg/250) 4 mg in 250 mls @ 15 mls/hr IV TITRATE CARLOS; Protocol Last Titration: 11/09/19 06:52 Dose: 3 mcg/min, 11.25 mls/hr Lactated Ringer's (Ringers, Lactated) 1,000 mls @ 125 mls/hr IV ASDIRECTED CARLOS Last Admin: 11/09/19 01:45 Dose: 125 mls/hr Piperacillin Sod/Tazobactam (Sod 4.5 gm/ Sodium Chloride) 100 mls @ 100 mls/hr IV Q8H CARLOS Last Admin: 11/09/19 03:25 Dose: 100 mls/hr Vancomycin HCl 2 gm/ Sodium (Chloride) 500 mls @ 333.333 mls/hr IV Q24H CARLOS Pantoprazole Sodium 40 mg/ (Sodium Chloride) 10 mls @ 300 mls/hr IV Q24H CARLOS Last Admin: 11/08/19 21:30 Dose: 300 mls/hr Sodium Chloride (Saline Flush) 10 ml FLUSH ASDIRECTED PRN PRN Reason: Keep Vein Open Last Admin: 11/08/19 14:58 Dose: 10 ml Sodium Chloride (Saline Flush) 2.5 ml FLUSH ASDIRECTED PRN PRN Reason: Keep Vein Open Last Admin: 11/08/19 14:58 Dose: 2.5 ml Vancomycin HCl (Pharmacy To Dose - Vancomycin) 1 dose .XX ASDIRECTED CARLOS Discontinued Medications Sodium Chloride (Normal Saline) 1,000 mls @ 999 mls/hr IV STAT CARLOS Last Admin: 11/08/19 14:58 Dose: 999 mls/hr Cefepime HCl 1 gm/ Premix 50 mls @ 100 mls/hr IV ONETIME ONE Stop: 11/08/19 15:48 Last Admin: 11/08/19 15:56 Dose: 100 mls/hr Vancomycin HCl 1.25 gm/ Sodium (Chloride) 250 mls @ 167 mls/hr IV ONETIME ONE Stop: 11/08/19 16:48 Last Admin: 11/08/19 16:41 Dose: 167 mls/hr Vancomycin HCl 0.75 gm/ Sodium (Chloride) 250 mls @ 166.667 mls/hr IV ONETIME ONE Stop: 11/08/19 20:44 Last Admin: 11/08/19 21:40 Dose: 166.667 mls/hr Lactated Ringer's (Ringers, Lactated) 500 mls @ 999 mls/hr IV .BOLUS ONE Stop: 11/08/19 19:59 Last Admin: 11/08/19 21:30 Dose: 999 mls/hr Magnesium Sulfate 2 gm/ Premix 50 mls @ 50 mls/hr IV ONETIME ONE Stop: 11/09/19 02:50 Last Admin: 11/09/19 02:06 Dose: 25 mls/hr Phytonadione (Aquamephyton) 2.5 mg SUBCUT ONETIME ONE Stop: 11/08/19 18:18 Last Admin: 11/08/19 19:47 Dose: Not Given Phytonadione (Aquamephyton) Confirm Administered Dose 10 mg .ROUTE .STK-MED ONE Stop: 11/08/19 19:36 Last Admin: 11/08/19 19:47 Dose: Not Given Phytonadione (Aquamephyton) 2.5 mg SUBCUT NOW ONE Stop: 11/08/19 20:07 Last Admin: 11/08/19 19:47 Dose: 2.5 mg - Exam Quality Assessment: Supplemental Oxygen General: Alert, Cooperative Lungs: Normal Respiratory Effort, Crackles Cardiovascular: Irregular Rhythm GI/Abdominal Exam: Normal Bowel Sounds, Soft, Non-Tender Extremities: Pedal Edema (edema up his legs to mid thigh) Skin: Ecchymosis Psy/Mental Status: Alert Sepsis Event Note - Evaluation Sepsis Screening Result: Sepsis Risk - Focused Exam Vital Signs: Vital Signs Temp Resp BP Pulse Ox 11/09/19 08:00 97.7 F 17 97/56 L 98 11/09/19 07:00 20 97/58 L 98 11/09/19 06:00 17 102/64 96 11/09/19 05:00 21 H 104/56 L 96 11/09/19 04:00 97.6 F 22 H 109/65 95 11/09/19 03:00 20 105/51 L 97 11/09/19 02:00 19 102/53 L 92 L 11/09/19 01:00 18 103/51 L 90 L 11/09/19 00:00 98 F 23 H 97/52 L 93 L 11/08/19 23:00 23 H 99/52 L 93 L 11/08/19 22:24 93 L 11/08/19 22:00 28 H 101/55 L 96 Date Exam was Performed: 11/09/19 Time Exam was Performed: 11:33 - Problem List Review Problem List Initiated/Reviewed/Updated: Yes - Plan Plan:: 1. Septic shock with gram negative bacteremia and gram negative UTI- Continue IV antibiotics- Zosyn and Vancomycin. Continue Levophed drip for BP. Will decrease IVF due to edema, need to keep a close eye on fluid status as he has a hx of CHF. Patient does not want intubation, may require BiPAP. 2. Supratherapeutic INR- will give dose of vitamin K and recheck in AM. Keep close eye for bleeding. Continue to hold warfarin. 3. Hypokalemia- will replace and recheck in AM 4. Chronic condition- CHF, Afib, COPD, HTN- holding warfarin and BP meds. Monitor fluid status and monitor on telemetry. <Liliane Lopez - Last Filed: 11/17/19 11:01> - General Info Subjective Update: I have seen and evaluated the patient and agree with the residents note unless specified in my note - Patient Data Vitals - Most Recent: Last Vital Signs Temp 36.3 C 11/17/19 08:00 Pulse 92 11/17/19 08:00 Resp 36 H 11/17/19 08:00 BP 90/53 L 11/17/19 08:00 Pulse Ox 100 11/17/19 08:00 I&O - Last 24 Hours: Intake & Output 11/16/19 11/17/19 11/17/19 22:59 06:59 14:59 Intake Total 150 Output Total 775 700 Balance -625 -700 Lab Results Last 24 Hours: Laboratory Results - last 24 hr 11/17/19 Range/Units 07:00 SARS-CoV-2 RNA (RT-PCR) NEGATIVE (NEGATIVE) [place] Results Last 24 Hours: Microbiology 11/13/19 16:20 Gram Stain - Final Sputum - Expectorated Sputum Culture - Final Normal Respiratory Abbey Non Fermenting Gram Neg Rods 11/11/19 12:53 Aerobic Blood Culture - Final Blood - Venous - Lab Draw NO GROWTH AFTER 5 DAYS Anaerobic Blood Culture - Final 11/11/19 12:30 Aerobic Blood Culture - Final Blood - Venous NO GROWTH AFTER 5 DAYS Anaerobic Blood Culture - Final NO GROWTH AFTER 5 DAYS Med Orders - Current: Current Medications Albuterol/Ipratropium (Duoneb 3.0-0.5 Mg/3 Ml) 3 ml NEB Q4HRRT PRN PRN Reason: Shortness Of Breath/wheezing Last Admin: 11/16/19 05:11 Dose: 3 ml Lorazepam (Ativan) 1 mg IVPUSH Q6H PRN PRN Reason: Agitation Midodrine (Midodrine) 10 mg PO TIDAC CARLOS Last Admin: 11/17/19 06:30 Dose: 10 mg Morphine Sulfate (Morphine) 2 mg IVPUSH Q1H PRN PRN Reason: Pain/airhunger/agitation Last Admin: 11/17/19 06:21 Dose: 2 mg Discontinued Medications Aspirin (Aspirin) 81 mg PO ONETIME ONE Stop: 11/09/19 18:28 Last Admin: 11/09/19 18:57 Dose: 81 mg Furosemide (Lasix) 20 mg IVPUSH NOW ONE Stop: 11/13/19 02:18 Last Admin: 11/13/19 02:29 Dose: 20 mg Furosemide (Lasix) 20 mg IVPUSH NOW ONE Stop: 11/14/19 10:25 Last Admin: 11/14/19 10:45 Dose: 20 mg Furosemide (Lasix) 40 mg IVPUSH NOW ONE Stop: 11/16/19 09:55 Last Admin: 11/16/19 10:42 Dose: 40 mg Sodium Chloride (Normal Saline) 1,000 mls @ 999 mls/hr IV STAT CARLOS Last Admin: 11/08/19 14:58 Dose: 999 mls/hr Norepinephrine Bitartrate (Norepinephr-0.9% Nacl 4 Mg/250) 4 mg in 250 mls @ 15 mls/hr IV TITRATE CARLOS; Protocol Last Titration: 11/16/19 04:01 Dose: 0 mcg/min, 0 mls/hr Cefepime HCl 1 gm/ Premix 50 mls @ 100 mls/hr IV ONETIME ONE Stop: 11/08/19 15:48 Last Admin: 11/08/19 15:56 Dose: 100 mls/hr Vancomycin HCl 1.25 gm/ Sodium (Chloride) 250 mls @ 167 mls/hr IV ONETIME ONE Stop: 11/08/19 16:48 Last Admin: 11/08/19 16:41 Dose: 167 mls/hr Lactated Ringer's (Ringers, Lactated) 1,000 mls @ 125 mls/hr IV ASDIRECTED [facility] Last Admin: 11/09/19 01:45 Dose: 125 mls/hr Piperacillin Sod/Tazobactam (Sod 4.5 gm/ Sodium Chloride) 100 mls @ 100 mls/hr IV Q8H [facility] Last Admin: 11/13/19 11:06 Dose: 100 mls/hr Vancomycin HCl 0.75 gm/ Sodium (Chloride) 250 mls @ 166.667 mls/hr IV ONETIME ONE Stop: 11/08/19 20:44 Last Admin: 11/08/19 21:40 Dose: 166.667 mls/hr Vancomycin HCl 2 gm/ Sodium (Chloride) 500 mls @ 333.333 mls/hr IV Q24H [facility] Last Admin: 11/10/19 17:13 Dose: 333.333 mls/hr Pantoprazole Sodium 40 mg/ (Sodium Chloride) 10 mls @ 300 mls/hr IV Q24H [facility] Last Admin: 11/15/19 18:36 Dose: 300 mls/hr Lactated Ringer's (Ringers, Lactated) 500 mls @ 999 mls/hr IV .BOLUS ONE Stop: 11/08/19 19:59 Last Admin: 11/08/19 21:30 Dose: 999 mls/hr Magnesium Sulfate 2 gm/ Premix 50 mls @ 50 mls/hr IV ONETIME ONE Stop: 11/09/19 02:50 Last Admin: 11/09/19 02:06 Dose: 25 mls/hr Lactated Ringer's (Ringers, Lactated) 1,000 mls @ 100 mls/hr IV Q10H [facility] Last Admin: 11/10/19 05:33 Dose: 100 mls/hr Magnesium Sulfate 4 gm/ Premix 100 mls @ 33.333 mls/hr IV ONETIME ONE Stop: 11/09/19 20:34 Last Admin: 11/09/19 17:57 Dose: 33.333 mls/hr Lactated Ringer's (Ringers, Lactated) 250 mls @ 999 mls/hr IV .BOLUS ONE Stop: 11/10/19 10:04 Last Admin: 11/10/19 09:57 Dose: 999 mls/hr Lactated Ringer's (Ringers, Lactated) 250 mls @ 999 mls/hr IV .BOLUS [facility] Last Admin: 11/10/19 19:05 Dose: 999 mls/hr Sodium Chloride (Normal Saline) 250 mls @ 999 mls/hr IV ONETIME ONE Stop: 11/10/19 19:15 Last Admin: 11/10/19 19:32 Dose: Not Given Sodium Chloride (Normal Saline) 500 mls @ 15 mls/hr IV ASDIRECTED [facility] Last Infusion: 11/15/19 21:00 Dose: 0 mls/hr Albumin Human (Buminate 5%) 250 mls @ 125 mls/hr IV Q2H CARLOS Stop: 11/12/19 20:59 Last Admin: 11/12/19 19:32 Dose: 125 mls/hr Cefepime HCl 2 gm/ Premix 50 mls @ 100 mls/hr IV Q8H [facility] Last Admin: 11/16/19 05:06 Dose: 100 mls/hr Dextrose/Water (Dextrose 5% In Water) 500 mls @ 10 mls/hr IV ASDIRECTED [facility] Last Admin: 11/15/19 20:44 Dose: 10 mls/hr Phytonadione (Aquamephyton) 2.5 mg SUBCUT ONETIME ONE Stop: 11/08/19 18:18 Last Admin: 11/08/19 19:47 Dose: Not Given Phytonadione (Aquamephyton) Confirm Administered Dose 10 mg .ROUTE .STK-MED ONE Stop: 11/08/19 19:36 Last Admin: 11/08/19 19:47 Dose: Not Given Phytonadione (Aquamephyton) 2.5 mg SUBCUT NOW ONE Stop: 11/08/19 20:07 Last Admin: 11/08/19 19:47 Dose: 2.5 mg Phytonadione (Aquamephyton) 2.5 mg PO ONETIME ONE Stop: 11/09/19 09:34 Last Admin: 11/09/19 10:03 Dose: 2.5 mg Potassium Chloride (Klor-Con M20) 40 meq PO ONETIME ONE Stop: 11/09/19 11:41 Last Admin: 11/09/19 11:51 Dose: 40 meq Potassium Chloride (Klor-Con M20) 40 meq PO ONETIME ONE Stop: 11/09/19 21:01 Last Admin: 11/09/19 20:29 Dose: 40 meq Potassium Chloride (Klor-Con M20) 40 meq PO ONETIME ONE Stop: 11/11/19 07:40 Last Admin: 11/11/19 08:31 Dose: 40 meq Potassium Chloride (Klor-Con M20) 40 meq PO ONETIME ONE Stop: 11/12/19 08:25 Last Admin: 11/12/19 11:12 Dose: Not Given Potassium Chloride (Klor-Con M20) 40 meq PO ONETIME ONE Stop: 11/12/19 11:16 Last Admin: 11/12/19 11:21 Dose: 40 meq Potassium Chloride (Klor-Con M20) 20 meq PO TID [facility] Last Admin: 11/13/19 21:07 Dose: 20 meq Potassium Chloride (Potassium Chloride) 20 meq PO TID [facility] Last Admin: 11/16/19 05:46 Dose: 20 meq Sodium Chloride (Saline Flush) 10 ml FLUSH ASDIRECTED PRN PRN Reason: Keep Vein Open Last Admin: 11/08/19 14:58 Dose: 10 ml Sodium Chloride (Saline Flush) 2.5 ml FLUSH ASDIRECTED PRN PRN Reason: Keep Vein Open Last Admin: 11/08/19 14:58 Dose: 2.5 ml Vancomycin HCl (Pharmacy To Dose - Vancomycin) 1 dose .XX ASDIRECTED [facility] Warfarin Sodium (Coumadin Ask) 1 each PO Q24H [facility] Last Admin: 11/15/19 13:48 Dose: Not Given Warfarin Sodium (Coumadin) 3 mg PO ONETIME ONE Stop: 11/10/19 13:46 Last Admin: 11/10/19 13:51 Dose: 3 mg Warfarin Sodium (Coumadin) 3 mg PO DAILY@1400 ONE Stop: 11/11/19 14:01 Last Admin: 11/11/19 13:43 Dose: 3 mg Warfarin Sodium (Coumadin) 2 mg PO DAILY@1400 ONE Stop: 11/12/19 14:01 Last Admin: 11/12/19 13:53 Dose: 2 mg Sepsis Event Note - Focused Exam Vital Signs: Vital Signs Temp Pulse Resp BP Pulse Ox 11/17/19 08:00 36.3 C 92 36 H 90/53 L 100 Date Exam was Performed: 11/17/19 Time Exam was Performed: 11:01 - Problem List & Annotations (1) Septic shock SNOMED Code(s): 79453093 Code(s): A41.9 - SEPSIS, UNSPECIFIED ORGANISM; R65.21 - SEVERE SEPSIS WITH SEPTIC SHOCK Status: Acute Current Visit: Yes (2) Acute respiratory failure with hypoxia SNOMED Code(s): 59502486, 889364509 Code(s): J96.01 - ACUTE RESPIRATORY FAILURE WITH HYPOXIA Status: Acute Current Visit: Yes (3) UTI, Urinary tract infectious disease SNOMED Code(s): 64160646 Code(s): N39.0 - URINARY TRACT INFECTION, SITE NOT SPECIFIED Status: Acute Current Visit: Yes Onset Date: 01/16/14 (4) Supratherapeutic INR SNOMED Code(s): 814490522 Code(s): R79.1 - ABNORMAL COAGULATION PROFILE Status: Acute Current Visit : Yes - My Orders Last 24 Hours: My Active Orders 11/16/19 21:00 Vital Signs [RC] Q12H
[2019-11-09] MEDS ORDERED: Potassium Chloride 20 MEQ Tab.ER PO ONE ×2 (11:40→21:00)
--- NOTE | 2019-11-09 12:19 | PN ---
THC Physician - Brief Progress [id number]/20/2020 12:18[facility] Mera almaguer, MELISSA - GREGORYN (CHOCO) - KEO GASCA ONEL GarciaRalfDate of Service 11/09/2019 12:18HPI/Events of Note eICU Progress [id number] admitted for septic shock attributed to UTI. History obtained primarily from review of EMR.Camera exam: Laying in bed. Vitals monitor reviewed.Labs: reviewedRadiology: fabian Aguirre Impression and Recommendations:Septic shock attributed to UTIElevated INR, attributed in par t to warfarinContinue broad spectrum antibiotics, would de-escalate based on culture resultsContinue to trend INR, agree with vitamin KContinue vasopressor support with norepinephrineDVT and GI prophyla xis as appropriate.We are available to assist in further clarification, or implementation of any of t he above recommendations if desired by primary service.Thank you for allowing us to participate in th e care of this patient.The above note transcribed with the assistance of dictation software. Please e xcuse any errors.Interventions Major-Sepsis - evaluation and management, Shock - evaluation and manag ement
[2019-11-09 12:41] LABS: CARBON DIOXIDE,CO2 30.2 mmol/L (21.0-32.0); POTASSIUM,K 3.1 mmol/L (3.5-5.1)
[2019-11-09] MEDS ORDERED: Magnesium Sulfate/Water 4 GM in Premix Bag 1 BAG IV ONE (17:35)
[2019-11-09] MEDS: Vancomycin 2 GM in Sodium Chloride 0.9% 500 ML IV SCH (17:47)
[2019-11-09] MEDS: Albuterol/Ipratropium 3.0-0.5 MG/3 ML Neb Soln NEB PRN (17:47)
[2019-11-09] MEDS ORDERED: Aspirin 81 MG Tab.Chew PO ONE (18:27)
--- NOTE | 2019-11-09 18:34 | PCM.SN.2 ---
- Free Text/Narrative Note: Called by ICU with concern for VTach on telemetry. Patient was chest pain free. EKG showed AFib with RBBB and HR of 118. He felt short of breath, was given breathing treatment. Troponin was elevated at 0.108. Patient was given magnesium and ASA. HR improved to 96. Will repeat troponin in three hours.
[2019-11-09] MEDS: Pantoprazole 40 MG in Sodium Chloride 0.9% 10 ML IV SCH (19:02)
[2019-11-10] MEDS: Piperacillin/Tazobactam 4.5 GM in Sodium Chloride 0.9% 100 ML IV SCH ×3 (02:34→19:08)
[2019-11-10] MEDS: Lactated Ringers 1,000 ML IV SCH (05:33)
[2019-11-10 08:38] LABS: CARBON DIOXIDE,CO2 29.1 mmol/L (21.0-32.0); POTASSIUM,K 3.6 mmol/L (3.5-5.1)
--- NOTE | 2019-11-10 09:11 | PCM.PN ---
<Janette Grider - Last Filed: 11/10/19 10:49> - General Info Date of Service: 11/10/19 Subjective Update: Patient reports he feels ok, denies worsening shortness of breath, denies chest pain, tolerating clear liquid diet - Review of Systems General: Reports: No Symptoms HEENT: Reports: No Symptoms Pulmonary: Reports: Shortness of Breath Cardiovascular: Reports: Edema. Denies: Chest Pain Gastrointestinal: Reports: No Symptoms Genitourinary: Reports: No Symptoms Musculoskeletal: Reports: No Symptoms Skin: Reports: No Symptoms Neurological: Reports: No Symptoms Psychiatric: Reports: No Symptoms - Patient Data Vitals - Most Recent: Last Vital Signs Temp 98.3 F 11/10/19 08:00 Pulse 102 H 11/08/19 20:10 Resp 26 H 11/10/19 09:00 BP 94/50 L 11/10/19 09:00 Pulse Ox 95 11/10/19 09:00 Weight - Most Recent: 128.026 kg I&O - Last 24 Hours: Intake & Output 11/09/19 11/10/19 11/10/19 22:59 06:59 14:59 Intake Total 2024 Output Total 660 Balance 1364 Lab Results Last 24 Hours: Laboratory Results - last 24 hr 11/09/19 11/09/19 11/09/19 Range/Units 09:02 11:58 11:58 WBC 18.36 H (4.0-11.0) K/uL RBC 2.84 L (4.50-5.90) M/uL Hgb 8.3 L (13.0-17.0) g/dL Hct 26.3 L (38.0-50.0) % MCV 92.6 (80.0-98.0) fL MCH 29.2 (27.0-32.0) pg MCHC 31.6 (31.0-37.0) g/dL RDW Std Deviation 63.2 H (28.0-62.0) fl RDW Coeff of Regulo 19 H (11.0-15.0) % Plt Count 173 (150-400) K/uL MPV 10.20 (7.40-12.00) fL Neut % (Auto) 90.7 H (48.0-80.0) % Lymph % (Auto) 5.9 L (16.0-40.0) % [place] % (Auto) 3.3 (0.0-15.0) % Eos % (Auto) 0.0 (0.0-7.0) % Baso % (Auto) 0.1 (0.0-1.5) % Neut # (Auto) 16.7 H (1.4-5.7) K/uL Lymph # (Auto) 1.1 (0.6-2.4) K/uL [place] # (Auto) 0.6 (0.0-0.8) K/uL Eos # (Auto) 0.0 (0.0-0.7) K/uL Baso # (Auto) 0.0 (0.0-0.1) K/uL Add Manual Diff Neutrophils % (Manual) (48.0-80.0) % Band Neutrophils % % Lymphocytes % (Manual) (16.0-40.0) % Monocytes % (Manual) (0.0-15.0) % Nucleated RBC % 0.0 /100WBC Absolute Seg Neuts (1.4-5.7) Band Neutrophils # Lymphocytes # (Manual) (0.6-2.4) Monocytes # (Manual) (0.0-0.8) Nucleated RBCs # 0 K/uL Vacuolated Monocytes Toxic Granulation Poikilocytosis Target Cells Helmet Cells Elliptocytes INR 5.61 Lactate 1.0 (0.20-2.00) mmol/L Sodium (136-148) mmol/L Potassium (3.5-5.1) mmol/L Chloride (98-107) mmol/L Carbon Dioxide (21.0-32.0) mmol/L BUN (7.0-18.0) mg/dL Creatinine (0.8-1.3) mg/dL Est Cr Clr Drug Dosing mL/min Estimated GFR (MDRD) ml/min Glucose (74-106) mg/dL Calcium (8.5-10.1) mg/dL Phosphorus (2.6-4.7) mg/dL Magnesium (1.8-2.4) mg/dL Total Bilirubin (0.2-1.0) mg/dL AST (15-37) IU/L ALT (14-63) IU/L Alkaline Phosphatase (46-116) U/L Troponin I (0.000-0.056) ng/mL Total Protein (6.4-8.2) g/dL Albumin (3.4-5.0) g/dL Globulin (2.6-4.0) g/dL Albumin/Globulin Ratio (0.9-1.6) 11/09/19 11/09/19 11/09/19 Range/Units 11:58 15:05 17:46 WBC (4.0-11.0) K/uL RBC (4.50-5.90) M/uL Hgb (13.0-17.0) g/dL Hct (38.0-50.0) % MCV (80.0-98.0) fL MCH (27.0-32.0) pg MCHC (31.0-37.0) g/dL RDW Std Deviation (28.0-62.0) fl RDW Coeff of Regulo (11.0-15.0) % Plt Count (150-400) K/uL MPV (7.40-12.00) fL Neut % (Auto) (48.0-80.0) % Lymph % (Auto) (16.0-40.0) % [place] % (Auto) (0.0-15.0) % Eos % (Auto) (0.0-7.0) % Baso % (Auto) (0.0-1.5) % Neut # (Auto) (1.4-5.7) K/uL Lymph # (Auto) (0.6-2.4) K/uL [place] # (Auto) (0.0-0.8) K/uL Eos # (Auto) (0.0-0.7) K/uL Baso # (Auto) (0.0-0.1) K/uL Add Manual Diff Neutrophils % (Manual) (48.0-80.0) % Band Neutrophils % % Lymphocytes % (Manual) (16.0-40.0) % Monocytes % (Manual) (0.0-15.0) % Nucleated RBC % /100WBC Absolute Seg Neuts (1.4-5.7) Band Neutrophils # Lymphocytes # (Manual) (0.6-2.4) Monocytes # (Manual) (0.0-0.8) Nucleated RBCs # K/uL Vacuolated Monocytes Toxic Granulation Poikilocytosis Target Cells Helmet Cells Elliptocytes INR Lactate 1.2 (0.20-2.00) mmol/L Sodium 142 (136-148) mmol/L Potassium 3.1 L (3.5-5.1) mmol/L Chloride 105 (98-107) mmol/L Carbon Dioxide 30.2 (21.0-32.0) mmol/L BUN 31 H (7.0-18.0) mg/dL Creatinine 1.2 (0.8-1.3) mg/dL Est Cr Clr Drug Dosing 45.81 mL/min Estimated GFR (MDRD) 57.0 ml/min Glucose 95 (74-106) mg/dL Calcium 7.9 L (8.5-10.1) mg/dL Phosphorus (2.6-4.7) mg/dL Magnesium (1.8-2.4) mg/dL Total Bilirubin 2.1 H (0.2-1.0) mg/dL AST 39 H (15-37) IU/L ALT 24 (14-63) IU/L Alkaline Phosphatase 119 H (46-116) U/L Troponin I 0.108 H* (0.000-0.056) ng/mL Total Protein 5.4 L (6.4-8.2) g/dL Albumin 2.2 L (3.4-5.0) g/dL Globulin 3.2 (2.6-4.0) g/dL Albumin/Globulin Ratio 0.7 L (0.9-1.6) 11/09/19 11/10/19 11/10/19 Range/Units 21:04 00:01 06:37 WBC (4.0-11.0) K/uL RBC (4.50-5.90) M/uL Hgb (13.0-17.0) g/dL Hct (38.0-50.0) % MCV (80.0-98.0) fL MCH (27.0-32.0) pg MCHC (31.0-37.0) g/dL RDW Std Deviation (28.0-62.0) fl RDW Coeff of Regulo (11.0-15.0) % Plt Count (150-400) K/uL MPV (7.40-12.00) fL Neut % (Auto) (48.0-80.0) % Lymph % (Auto) (16.0-40.0) % [place] % (Auto) (0.0-15.0) % Eos % (Auto) (0.0-7.0) % Baso % (Auto) (0.0-1.5) % Neut # (Auto) (1.4-5.7) K/uL Lymph # (Auto) (0.6-2.4) K/uL [place] # (Auto) (0.0-0.8) K/uL Eos # (Auto) (0.0-0.7) K/uL Baso # (Auto) (0.0-0.1) K/uL Add Manual Diff Neutrophils % (Manual) (48.0-80.0) % Band Neutrophils % % Lymphocytes % (Manual) (16.0-40.0) % Monocytes % (Manual) (0.0-15.0) % Nucleated RBC % /100WBC Absolute Seg Neuts (1.4-5.7) Band Neutrophils # Lymphocytes # (Manual) (0.6-2.4) Monocytes # (Manual) (0.0-0.8) Nucleated RBCs # K/uL Vacuolated Monocytes Toxic Granulation Poikilocytosis Target Cells Helmet Cells Elliptocytes INR Lactate (0.20-2.00) mmol/L Sodium (136-148) mmol/L Potassium (3.5-5.1) mmol/L Chloride (98-107) mmol/L Carbon Dioxide (21.0-32.0) mmol/L BUN (7.0-18.0) mg/dL Creatinine (0.8-1.3) mg/dL Est Cr Clr Drug Dosing mL/min Estimated GFR (MDRD) ml/min Glucose (74-106) mg/dL Calcium (8.5-10.1) mg/dL Phosphorus 2.8 (2.6-4.7) mg/dL Magnesium 2.8 H (1.8-2.4) mg/dL Total Bilirubin (0.2-1.0) mg/dL AST (15-37) IU/L ALT (14-63) IU/L Alkaline Phosphatase (46-116) U/L Troponin I 0.109 H* 0.106 H* 0.082 H* (0.000-0.056) ng/mL Total Protein (6.4-8.2) g/dL Albumin (3.4-5.0) g/dL Globulin (2.6-4.0) g/dL Albumin/Globulin Ratio (0.9-1.6) 11/10/19 11/10/19 11/10/19 Range/Units 06:37 06:37 08:33 WBC 16.29 H (4.0-11.0) K/uL RBC 2.61 L (4.50-5.90) M/uL Hgb 7.8 L (13.0-17.0) g/dL Hct 24.1 L (38.0-50.0) % MCV 92.3 (80.0-98.0) fL MCH 29.9 (27.0-32.0) pg MCHC 32.4 (31.0-37.0) g/dL RDW Std Deviation 62.5 H (28.0-62.0) fl RDW Coeff of Regulo 19 H (11.0-15.0) % Plt Count 158 (150-400) K/uL MPV 11.00 (7.40-12.00) fL Neut % (Auto) (48.0-80.0) % Lymph % (Auto) (16.0-40.0) % [place] % (Auto) (0.0-15.0) % Eos % (Auto) (0.0-7.0) % Baso % (Auto) (0.0-1.5) % Neut # (Auto) (1.4-5.7) K/uL Lymph # (Auto) (0.6-2.4) K/uL [place] # (Auto) (0.0-0.8) K/uL Eos # (Auto) (0.0-0.7) K/uL Baso # (Auto) (0.0-0.1) K/uL Add Manual Diff YES Neutrophils % (Manual) 77 (48.0-80.0) % Band Neutrophils % 17 % Lymphocytes % (Manual) 4 L (16.0-40.0) % Monocytes % (Manual) 2 (0.0-15.0) % Nucleated RBC % 0.0 /100WBC Absolute Seg Neuts 12.5 H (1.4-5.7) Band Neutrophils # 2.8 Lymphocytes # (Manual) 0.7 (0.6-2.4) Monocytes # (Manual) 0.3 (0.0-0.8) Nucleated RBCs # 0 K/uL Vacuolated Monocytes 1+ SLIGHT Toxic Granulation 1+ SLIGHT Poikilocytosis 2+ MODERATE Target Cells 1+ SLIGHT Helmet Cells FEW Elliptocytes 1+ SLIGHT INR 1.73 Lactate (0.20-2.00) mmol/L Sodium 143 (136-148) mmol/L Potassium 3.6 (3.5-5.1) mmol/L Chloride 107 (98-107) mmol/L Carbon Dioxide 29.1 (21.0-32.0) mmol/L BUN 33 H (7.0-18.0) mg/dL Creatinine 1.4 H (0.8-1.3) mg/dL Est Cr Clr Drug Dosing 39.32 mL/min Estimated GFR (MDRD) 47.7 ml/min Glucose 118 H (74-106) mg/dL Calcium 7.9 L (8.5-10.1) mg/dL Phosphorus (2.6-4.7) mg/dL Magnesium (1.8-2.4) mg/dL Total Bilirubin 2.7 H (0.2-1.0) mg/dL AST 52 H (15-37) IU/L ALT 29 (14-63) IU/L Alkaline Phosphatase 124 H (46-116) U/L Troponin I (0.000-0.056) ng/mL Total Protein 5.3 L (6.4-8.2) g/dL Albumin 2.1 L (3.4-5.0) g/dL Globulin 3.2 (2.6-4.0) g/dL Albumin/Globulin Ratio 0.7 L (0.9-1.6) [place]vin Results Last 24 Hours: Microbiology 11/08/19 14:30 Aerobic Blood Culture - Preliminary Blood - Venous - Lab Draw Anaerobic Blood Culture - Preliminary 11/08/19 14:30 Aerobic Blood Culture - Preliminary Blood - Venous Anaerobic Blood Culture - Preliminary 11/08/19 14:30 Urine Culture - Final Urine, Catheterized Escherichia Coli 11/09/19 22:34 Anaerobic Blood Culture - Final Blood - Venous - Lab Draw Med Orders - Current: Current Medications Albuterol/Ipratropium (Duoneb 3.0-0.5 Mg/3 Ml) 3 ml NEB Q4HRRT PRN PRN Reason: Shortness Of Breath/wheezing Last Admin: 11/09/19 17:47 Dose: 3 ml Norepinephrine Bitartrate (Norepinephr-0.9% Nacl 4 Mg/250) 4 mg in 250 mls @ 15 mls/hr IV TITRATE CARLOS; Protocol Last Titration: 11/10/19 08:57 Dose: 2 mcg/min, 7.5 mls/hr Piperacillin Sod/Tazobactam (Sod 4.5 gm/ Sodium Chloride) 100 mls @ 100 mls/hr IV Q8H [facility] Last Admin: 11/10/19 02:34 Dose: 100 mls/hr Vancomycin HCl 2 gm/ Sodium (Chloride) 500 mls @ 333.333 mls/hr IV Q24H [facility]LOS Last Admin: 11/09/19 17:47 Dose: 333.333 mls/hr Pantoprazole Sodium 40 mg/ (Sodium Chloride) 10 mls @ 300 mls/hr IV Q24H [facility]LOS Last Admin: 11/09/19 19:02 Dose: 300 mls/hr Lactated Ringer's (Ringers, Lactated) 1,000 mls @ 100 mls/hr IV Q10H [facility]LOS Last Admin: 11/10/19 05:33 Dose: 100 mls/hr Sodium Chloride (Saline Flush) 10 ml FLUSH ASDIRECTED PRN PRN Reason: Keep Vein Open Last Admin: 11/08/19 14:58 Dose: 10 ml Sodium Chloride (Saline Flush) 2.5 ml FLUSH ASDIRECTED PRN PRN Reason: Keep Vein Open Last Admin: 11/08/19 14:58 Dose: 2.5 ml Vancomycin HCl (Pharmacy To Dose - Vancomycin) 1 dose .XX ASDIRECTED CARLOS Discontinued Medications Aspirin (Aspirin) 81 mg PO ONETIME ONE Stop: 11/09/19 18:28 Last Admin: 11/09/19 18:57 Dose: 81 mg Sodium Chloride (Normal Saline) 1,000 mls @ 999 mls/hr IV STAT CARLOS Last Admin: 11/08/19 14:58 Dose: 999 mls/hr Cefepime HCl 1 gm/ Premix 50 mls @ 100 mls/hr IV ONETIME ONE Stop: 11/08/19 15:48 Last Admin: 11/08/19 15:56 Dose: 100 mls/hr Vancomycin HCl 1.25 gm/ Sodium (Chloride) 250 mls @ 167 mls/hr IV ONETIME ONE Stop: 11/08/19 16:48 Last Admin: 11/08/19 16:41 Dose: 167 mls/hr Lactated Ringer's (Ringers, Lactated) 1,000 mls @ 125 mls/hr IV ASDIRECTED [facility] Last Admin: 11/09/19 01:45 Dose: 125 mls/hr Vancomycin HCl 0.75 gm/ Sodium (Chloride) 250 mls @ 166.667 mls/hr IV ONETIME ONE Stop: 11/08/19 20:44 Last Admin: 11/08/19 21:40 Dose: 166.667 mls/hr Lactated Ringer's (Ringers, Lactated) 500 mls @ 999 mls/hr IV .BOLUS ONE Stop: 11/08/19 19:59 Last Admin: 11/08/19 21:30 Dose: 999 mls/hr Magnesium Sulfate 2 gm/ Premix 50 mls @ 50 mls/hr IV ONETIME ONE Stop: 11/09/19 02:50 Last Admin: 11/09/19 02:06 Dose: 25 mls/hr Magnesium Sulfate 4 gm/ Premix 100 mls @ 33.333 mls/hr IV ONETIME ONE Stop: 11/09/19 20:34 Last Admin: 11/09/19 17:57 Dose: 33.333 mls/hr Phytonadione (Aquamephyton) 2.5 mg SUBCUT ONETIME ONE Stop: 11/08/19 18:18 Last Admin: 11/08/19 19:47 Dose: Not Given Phytonadione (Aquamephyton) Confirm Administered Dose 10 mg .ROUTE .STK-MED ONE Stop: 11/08/19 19:36 Last Admin: 11/08/19 19:47 Dose: Not Given Phytonadione (Aquamephyton) 2.5 mg SUBCUT NOW ONE Stop: 11/08/19 20:07 Last Admin: 11/08/19 19:47 Dose: 2.5 mg Phytonadione (Aquamephyton) 2.5 mg PO ONETIME ONE Stop: 11/09/19 09:34 Last Admin: 11/09/19 10:03 Dose: 2.5 mg Potassium Chloride (Klor-Con M20) 40 meq PO ONETIME ONE Stop: 11/09/19 11:41 Last Admin: 11/09/19 11:51 Dose: 40 meq Potassium Chloride (Klor-Con M20) 40 meq PO ONETIME ONE Stop: 11/09/19 21:01 Last Admin: 11/09/19 20:29 Dose: 40 meq - Exam Quality Assessment: Supplemental Oxygen General: Alert, Cooperative Lungs: Decreased Breath Sounds Cardiovascular: Irregular Rhythm GI/Abdominal Exam: Normal Bowel Sounds, Soft, Non-Tender Extremities: Pedal Edema Skin: Warm, Dry Neurological: No New Focal Deficit Psy/Mental Status: Alert, Normal Affect, Normal Mood Sepsis Event Note - Evaluation Sepsis Screening Result: No Definite Risk - Focused Exam Vital Signs: Vital Signs Temp Resp BP Pulse Ox Pulse Ox 11/10/19 09:00 26 H 94/50 L 95 11/10/19 08:00 98.3 F 26 H 96/59 L 97 11/10/19 07:00 26 H 90/57 L 94 L 11/10/19 06:00 18 102/57 L 93 L 11/10/19 05:00 26 H 100/49 L 97 96 11/10/19 04:00 98.3 F 27 H 108/61 99 11/10/19 03:00 28 H 108/54 L 97 11/10/19 02:00 26 H 98/59 L 96 11/10/19 01:00 24 H 99/54 L 97 11/10/19 00:00 98.1 F 21 H 122/75 90 L 11/09/19 23:00 21 H 98/53 L 98 11/09/19 22:00 24 H 104/55 L 96 Date Exam was Performed: 11/10/19 Time Exam was Performed: 10:49 - Problem List Review Problem List Initiated/Reviewed/Updated: Yes - My Orders Last 24 Hours: My Active Orders 11/09/19 Dinner Clear Liquid Diet [DIET] 11/11/19 05:11 MAGNESIUM [CHEM] AM PHOSPHORUS [CHEM] AM 11/12/19 05:11 MAGNESIUM [CHEM] AM PHOSPHORUS [CHEM] AM - Plan Plan:: 1. Septic shock with gram negative bacteremia and gram negative UTI- Continue IV antibiotics- Zosyn and Vancomycin. Attempt to wean off Levophed drip. Need to keep a close eye on fluid status as he has a hx of CHF. Patient does not want intubation, may require BiPAP. Will stop mainentence fluid, and give bolus of 250 mL of LR. May need another bolus later this afternoon. 2. Elevated troponin- likely demand ischemia- trending down, no ST elevation on EKG, no chest pain. 3. Supratherapeutic INR- resolved, now subtherapeutic- restart warfarin 4. Hypokalemia- resolved 5.Elevated LFTs- may be related to sepsis, patient denies abdominal pain. Will get US to look for other causes. 6. Chronic condition- CHF, Afib, COPD, HTN- holding warfarin and BP meds. Monitor fluid status and monitor on telemetry. <Liliane Lopez - Last Filed: 11/17/19 11:01> - General Info Subjective Update: I have seen and evaluated the patient and agree with the residents note unless specified in my note - Patient Data Vitals - Most Recent: Last Vital Signs Temp 36.3 C 11/17/19 08:00 Pulse 92 11/17/19 08:00 Resp 36 H 11/17/19 08:00 BP 90/53 L 11/17/19 08:00 Pulse Ox 100 11/17/19 08:00 I&O - Last 24 Hours: Intake & Output 11/16/19 11/17/19 11/17/19 22:59 06:59 14:59 Intake Total 150 Output Total 775 700 Balance -625 -700 Lab Results Last 24 Hours: Laboratory Results - last 24 hr 11/17/19 Range/Units 07:00 SARS-CoV-2 RNA (RT-PCR) NEGATIVE (NEGATIVE) Ashvin Results Last 24 Hours: Microbiology 11/13/19 16:20 Gram Stain - Final Sputum - Expectorated Sputum Culture - Final Normal Respiratory [place] Non Fermenting Gram Neg Rods 11/11/19 12:53 Aerobic Blood Culture - Final Blood - Venous - Lab Draw NO GROWTH AFTER 5 DAYS Anaerobic Blood Culture - Final 11/11/19 12:30 Aerobic Blood Culture - Final Blood - Venous NO GROWTH AFTER 5 DAYS Anaerobic Blood Culture - Final NO GROWTH AFTER 5 DAYS Med Orders - Current: Current Medications Albuterol/Ipratropium (Duoneb 3.0-0.5 Mg/3 Ml) 3 ml NEB Q4HRRT PRN PRN Reason: Shortness Of Breath/wheezing Last Admin: 11/16/19 05:11 Dose: 3 ml Lorazepam (Ativan) 1 mg IVPUSH Q6H PRN PRN Reason: Agitation Midodrine (Midodrine) 10 mg PO TIDAC CARLOS Last Admin: 11/17/19 06:30 Dose: 10 mg Morphine Sulfate (Morphine) 2 mg IVPUSH Q1H PRN PRN Reason: Pain/airhunger/agitation Last Admin: 11/17/19 06:21 Dose: 2 mg Discontinued Medications Aspirin (Aspirin) 81 mg PO ONETIME ONE Stop: 11/09/19 18:28 Last Admin: 11/09/19 18:57 Dose: 81 mg Furosemide (Lasix) 20 mg IVPUSH NOW ONE Stop: 11/13/19 02:18 Last Admin: 11/13/19 02:29 Dose: 20 mg Furosemide (Lasix) 20 mg IVPUSH NOW ONE Stop: 11/14/19 10:25 Last Admin: 11/14/19 10:45 Dose: 20 mg Furosemide (Lasix) 40 mg IVPUSH NOW ONE Stop: 11/16/19 09:55 Last Admin: 11/16/19 10:42 Dose: 40 mg Sodium Chloride (Normal Saline) 1,000 mls @ 999 mls/hr IV STAT CARLOS Last Admin: 11/08/19 14:58 Dose: 999 mls/hr Norepinephrine Bitartrate (Norepinephr-0.9% Nacl 4 Mg/250) 4 mg in 250 mls @ 15 mls/hr IV TITRATE CARLOS; Protocol Last Titration: 11/16/19 04:01 Dose: 0 mcg/min, 0 mls/hr Cefepime HCl 1 gm/ Premix 50 mls @ 100 mls/hr IV ONETIME ONE Stop: 11/08/19 15:48 Last Admin: 11/08/19 15:56 Dose: 100 mls/hr Vancomycin HCl 1.25 gm/ Sodium (Chloride) 250 mls @ 167 mls/hr IV ONETIME ONE Stop: 11/08/19 16:48 Last Admin: 11/08/19 16:41 Dose: 167 mls/hr Lactated Ringer's (Ringers, Lactated) 1,000 mls @ 125 mls/hr IV ASDIRECTED [facility] Last Admin: 11/09/19 01:45 Dose: 125 mls/hr Piperacillin Sod/Tazobactam (Sod 4.5 gm/ Sodium Chloride) 100 mls @ 100 mls/hr IV Q8H [facility] Last Admin: 11/13/19 11:06 Dose: 100 mls/hr Vancomycin HCl 0.75 gm/ Sodium (Chloride) 250 mls @ 166.667 mls/hr IV ONETIME ONE Stop: 11/08/19 20:44 Last Admin: 11/08/19 21:40 Dose: 166.667 mls/hr Vancomycin HCl 2 gm/ Sodium (Chloride) 500 mls @ 333.333 mls/hr IV Q24H [facility] Last Admin: 11/10/19 17:13 Dose: 333.333 mls/hr Pantoprazole Sodium 40 mg/ (Sodium Chloride) 10 mls @ 300 mls/hr IV Q24H [facility] Last Admin: 11/15/19 18:36 Dose: 300 mls/hr Lactated Ringer's (Ringers, Lactated) 500 mls @ 999 mls/hr IV .BOLUS ONE Stop: 11/08/19 19:59 Last Admin: 11/08/19 21:30 Dose: 999 mls/hr Magnesium Sulfate 2 gm/ Premix 50 mls @ 50 mls/hr IV ONETIME ONE Stop: 11/09/19 02:50 Last Admin: 11/09/19 02:06 Dose: 25 mls/hr Lactated Ringer's (Ringers, Lactated) 1,000 mls @ 100 mls/hr IV Q10H [facility] Last Admin: 11/10/19 05:33 Dose: 100 mls/hr Magnesium Sulfate 4 gm/ Premix 100 mls @ 33.333 mls/hr IV ONETIME ONE Stop: 11/09/19 20:34 Last Admin: 11/09/19 17:57 Dose: 33.333 mls/hr Lactated Ringer's (Ringers, Lactated) 250 mls @ 999 mls/hr IV .BOLUS ONE Stop: 11/10/19 10:04 Last Admin: 11/10/19 09:57 Dose: 999 mls/hr Lactated Ringer's (Ringers, Lactated) 250 mls @ 999 mls/hr IV .BOLUS CARLOS Last Admin: 11/10/19 19:05 Dose: 999 mls/hr Sodium Chloride (Normal Saline) 250 mls @ 999 mls/hr IV ONETIME ONE Stop: 11/10/19 19:15 Last Admin: 11/10/19 19:32 Dose: Not Given Sodium Chloride (Normal Saline) 500 mls @ 15 mls/hr IV ASDIRECTED [facility] Last Infusion: 11/15/19 21:00 Dose: 0 mls/hr Albumin Human (Buminate 5%) 250 mls @ 125 mls/hr IV Q2H [facility] Stop: 11/12/19 20:59 Last Admin: 11/12/19 19:32 Dose: 125 mls/hr Cefepime HCl 2 gm/ Premix 50 mls @ 100 mls/hr IV Q8H [facility] Last Admin: 11/16/19 05:06 Dose: 100 mls/hr Dextrose/Water (Dextrose 5% In Water) 500 mls @ 10 mls/hr IV ASDIRECTED [facility] Last Admin: 11/15/19 20:44 Dose: 10 mls/hr Phytonadione (Aquamephyton) 2.5 mg SUBCUT ONETIME ONE Stop: 11/08/19 18:18 Last Admin: 11/08/19 19:47 Dose: Not Given Phytonadione (Aquamephyton) Confirm Administered Dose 10 mg .ROUTE .STK-MED ONE Stop: 11/08/19 19:36 Last Admin: 11/08/19 19:47 Dose: Not Given Phytonadione (Aquamephyton) 2.5 mg SUBCUT NOW ONE Stop: 11/08/19 20:07 Last Admin: 11/08/19 19:47 Dose: 2.5 mg Phytonadione (Aquamephyton) 2.5 mg PO ONETIME ONE Stop: 11/09/19 09:34 Last Admin: 11/09/19 10:03 Dose: 2.5 mg Potassium Chloride (Klor-Con M20) 40 meq PO ONETIME ONE Stop: 11/09/19 11:41 Last Admin: 11/09/19 11:51 Dose: 40 meq Potassium Chloride (Klor-Con M20) 40 meq PO ONETIME ONE Stop: 11/09/19 21:01 Last Admin: 11/09/19 20:29 Dose: 40 meq Potassium Chloride (Klor-Con M20) 40 meq PO ONETIME ONE Stop: 11/11/19 07:40 Last Admin: 11/11/19 08:31 Dose: 40 meq Potassium Chloride (Klor-Con M20) 40 meq PO ONETIME ONE Stop: 11/12/19 08:25 Last Admin: 11/12/19 11:12 Dose: Not Given Potassium Chloride (Klor-Con M20) 40 meq PO ONETIME ONE Stop: 11/12/19 11:16 Last Admin: 11/12/19 11:21 Dose: 40 meq Potassium Chloride (Klor-Con M20) 20 meq PO TID [facility] Last Admin: 11/13/19 21:07 Dose: 20 meq Potassium Chloride (Potassium Chloride) 20 meq PO TID [facility] Last Admin: 11/16/19 05:46 Dose: 20 meq Sodium Chloride (Saline Flush) 10 ml FLUSH ASDIRECTED PRN PRN Reason: Keep Vein Open Last Admin: 11/08/19 14:58 Dose: 10 ml Sodium Chloride (Saline Flush) 2.5 ml FLUSH ASDIRECTED PRN PRN Reason: Keep Vein Open Last Admin: 11/08/19 14:58 Dose: 2.5 ml Vancomycin HCl (Pharmacy To Dose - Vancomycin) 1 dose .XX ASDIRECTED [facility] Warfarin Sodium (Coumadin Ask) 1 each PO Q24H [facility] Last Admin: 11/15/19 13:48 Dose: Not Given Warfarin Sodium (Coumadin) 3 mg PO ONETIME ONE Stop: 11/10/19 13:46 Last Admin: 11/10/19 13:51 Dose: 3 mg Warfarin Sodium (Coumadin) 3 mg PO DAILY@1400 ONE Stop: 11/11/19 14:01 Last Admin: 11/11/19 13:43 Dose: 3 mg Warfarin Sodium (Coumadin) 2 mg PO DAILY@1400 ONE Stop: 11/12/19 14:01 Last Admin: 11/12/19 13:53 Dose: 2 mg Sepsis Event Note - Focused Exam Vital Signs: Vital Signs Temp Pulse Resp BP Pulse Ox 11/17/19 08:00 36.3 C 92 36 H 90/53 L 100 Date Exam was Performed: 11/17/19 Time Exam was Performed: 11:01 - Problem List & Annotations (1) Septic shock SNOMED Code(s): 77714769 Code(s): A41.9 - SEPSIS, UNSPECIFIED ORGANISM; R65.21 - SEVERE SEPSIS WITH SEPTIC SHOCK Status: Acute Current Visit: Yes (2) Acute respiratory failure with hypoxia SNOMED Code(s): 78854629, 388996264 Code(s): J96.01 - ACUTE RESPIRATORY FAILURE WITH HYPOXIA Status: Acute Current Visit: Yes (3) UTI, Urinary tract infectious disease SNOMED Code(s): 44804794 Code(s): N39.0 - URINARY TRACT INFECTION, SITE NOT SPECIFIED Status: Acute Current Visit: Yes Onset Date: 01/16/14 (4) Supratherapeutic INR SNOMED Code(s): 292847100 Code(s): R79.1 - ABNORMAL COAGULATION PROFILE Status: Acute Current Visit : Yes - My Orders Last 24 Hours: My Active Orders 11/16/19 21:00 Vital Signs [RC] Q12H
[2019-11-10] MEDS ORDERED: Lactated Ringers 250 ML IV ONE (09:49)
[2019-11-10] MEDS: Albuterol/Ipratropium 3.0-0.5 MG/3 ML Neb Soln NEB PRN ×2 (09:58→21:22)
--- NOTE | 2019-11-10 11:34 | PN ---
THC Physician - Brief Progress [id number]/21/2020 11:34[facility] [place] - [place]REGORYN ([place]) - KEO VÁZQUEZONEL SANDSRalfDate of Service 11/10/2019 11:34HPI/Events of Note eICU Progress [id number] admitted for septic shock attributed to UTI. History obtained primarily from review of EMR.Camera exam: Laying in bed. Vitals monitor reviewed.Labs: reviewedRadiology: fabian Aguirre Impression and Recommendations:Septic shock attributed to E. coli UTIContinue antibiotics, c an consider de-escalation to ceftriaxone given arzate-sensitive E. coli on culture resultsContinue vasop ressor support with norepinephrineSuggest determination of volume status to determine if patient woul d benefit from additional fluid resuscitation (ie bedside ultrasound of IVC, NICOM, ETCO2 monitoring with passive leg raise, CVP monitoring, VBG from central line for calculation of ScVO2) - we are avai lable to assist with this if desiredDVT and GI prophylaxis as appropriate.We are available to assist in further clarification, or implementation of any of the aboverecommendations if desired by primary service.Thank you for allowing us to participate in the care of this patient.The above note transcrib ed with the assistance of dictation software. Please excuse any errors.Interventions Major-Sepsis - e valuation and management, Shock - evaluation and management
--- NOTE | 2019-11-10 11:36 | US ---
Limited abdominal ultrasound: Multiple real-time images of the upper right abdomen were obtained. Comparison: Previous renal ultrasound of 09/15/19. Limitations: Increased gas, patient unable to hold breath, increased patient's size and patient inability to move decreases details of this exam Liver is slightly echogenic and mildly enlarged raising the possibility of fatty infiltration. Right kidney shows an upper pole cyst measuring 4.5 cm and a lower pole cyst measuring 2.0 cm. Right kidney has a length of 10.8 cm. Multiple gallstones are seen within the gallbladder. No discrete gallbladder wall thickening is seen. No biliary duct dilatation is noted. Pancreas not seen due to bowel gas. Inferior vena cava not well seen. Impression: 1. Possible fatty infiltration within the liver as noted above. 2. Multiple gallstones without discrete gallbladder wall thickening or biliary duct dilatation. 3. Right renal cysts. Diagnostic code #3 This report was dictated in MDT
[2019-11-10] MEDS ORDERED: Lactated Ringers 250 ML IV SCH (15:00)
[2019-11-10] MEDS: Vancomycin 2 GM in Sodium Chloride 0.9% 500 ML IV SCH (17:13)
[2019-11-10] MEDS ORDERED: Sodium Chloride 0.9% 250 ML IV ONE (19:00)
[2019-11-10] MEDS: Pantoprazole 40 MG in Sodium Chloride 0.9% 10 ML IV SCH (19:08)
[2019-11-11] MEDS: Piperacillin/Tazobactam 4.5 GM in Sodium Chloride 0.9% 100 ML IV SCH ×3 (02:33→19:57)
[2019-11-11 07:28] LABS: CARBON DIOXIDE,CO2 30.4 mmol/L (21.0-32.0); POTASSIUM,K 3.3 mmol/L (3.5-5.1)
[2019-11-11] MEDS ORDERED: Potassium Chloride 20 MEQ Tab.ER PO ONE (07:39)
--- NOTE | 2019-11-11 09:10 | PCM.PN ---
- General Info Date of Service: 11/11/19 Subjective Update: Patient was a little confused this morning, didn't know where he was but was able to be redirected. States he feels good. Denies trouble breathing, at baseline oxygen requirement. Denies chest pain. - Review of Systems General: Reports: No Symptoms HEENT: Reports: No Symptoms Pulmonary: Reports: Shortness of Breath Cardiovascular: Reports: Edema. Denies: Chest Pain Gastrointestinal: Reports: No Symptoms Genitourinary: Reports: No Symptoms Musculoskeletal: Reports: No Symptoms Skin: Reports: No Symptoms Neurological: Reports: No Symptoms Psychiatric: Reports: No Symptoms - Patient Data Vitals - Most Recent: Last Vital Signs Temp 97.4 F 11/11/19 08:00 Pulse 102 H 11/08/19 20:10 Resp 29 H 11/11/19 08:00 BP 98/57 L 11/11/19 08:00 Pulse Ox 94 L 11/11/19 08:00 Weight - Most Recent: 128.82 kg I&O - Last 24 Hours: Intake & Output 11/10/19 11/11/19 11/11/19 22:59 06:59 14:59 Intake Total 2609 730 Output Total 680 750 210 Balance 1929 Lab Results Last 24 Hours: Laboratory Results - last 24 hr 11/08/19 11/10/19 11/11/19 Range/Units 14:35 08:33 06:20 WBC (4.0-11.0) K/uL RBC (4.50-5.90) M/uL Hgb (13.0-17.0) g/dL Hct (38.0-50.0) % MCV (80.0-98.0) fL MCH (27.0-32.0) pg MCHC (31.0-37.0) g/dL RDW Std Deviation (28.0-62.0) fl RDW Coeff of Regulo (11.0-15.0) % Plt Count (150-400) K/uL MPV (7.40-12.00) fL Neut % (Auto) (48.0-80.0) % Lymph % (Auto) (16.0-40.0) % [place] % (Auto) (0.0-15.0) % Eos % (Auto) (0.0-7.0) % Baso % (Auto) (0.0-1.5) % Neut # (Auto) (1.4-5.7) K/uL Lymph # (Auto) (0.6-2.4) K/uL [place] # (Auto) (0.0-0.8) K/uL Eos # (Auto) (0.0-0.7) K/uL Baso # (Auto) (0.0-0.1) K/uL Nucleated RBC % /100WBC Nucleated RBCs # K/uL INR 1.73 Sodium 146 (136-148) mmol/L Potassium 3.3 L (3.5-5.1) mmol/L Chloride 110 H (98-107) mmol/L Carbon Dioxide 30.4 (21.0-32.0) mmol/L BUN 30 H (7.0-18.0) mg/dL Creatinine 1.3 (0.8-1.3) mg/dL Est Cr Clr Drug Dosing 42.34 mL/min Estimated GFR (MDRD) 52.0 ml/min Glucose 114 H (74-106) mg/dL Calcium 7.3 L (8.5-10.1) mg/dL Phosphorus 2.7 (2.6-4.7) mg/dL Magnesium 2.6 H (1.8-2.4) mg/dL Total Bilirubin 2.7 H (0.2-1.0) mg/dL AST 46 H (15-37) IU/L ALT 30 (14-63) IU/L Alkaline Phosphatase 100 (46-116) U/L Total Protein 5.3 L (6.4-8.2) g/dL Albumin 1.8 L (3.4-5.0) g/dL Globulin 3.5 (2.6-4.0) g/dL Albumin/Globulin Ratio 0.5 L (0.9-1.6) Procalcitonin 0.59 H (<0.10) ng/mL 11/11/19 Range/Units 06:20 WBC 14.10 H (4.0-11.0) K/uL RBC 2.54 L (4.50-5.90) M/uL Hgb 7.4 L (13.0-17.0) g/dL Hct 23.4 L (38.0-50.0) % MCV 92.1 (80.0-98.0) fL MCH 29.1 (27.0-32.0) pg MCHC 31.6 (31.0-37.0) g/dL RDW Std Deviation 63.7 H (28.0-62.0) fl RDW Coeff of Regulo 19 H (11.0-15.0) % Plt Count 153 (150-400) K/uL MPV 10.60 (7.40-12.00) fL Neut % (Auto) 85.0 H (48.0-80.0) % Lymph % (Auto) 7.7 L (16.0-40.0) % [place] % (Auto) 6.8 (0.0-15.0) % Eos % (Auto) 0.4 (0.0-7.0) % Baso % (Auto) 0.1 (0.0-1.5) % Neut # (Auto) 12.0 H (1.4-5.7) K/uL Lymph # (Auto) 1.1 (0.6-2.4) K/uL [place] # (Auto) 1.0 H (0.0-0.8) K/uL Eos # (Auto) 0.1 (0.0-0.7) K/uL Baso # (Auto) 0.0 (0.0-0.1) K/uL Nucleated RBC % 0.0 /100WBC Nucleated RBCs # 0 K/uL INR Sodium (136-148) mmol/L Potassium (3.5-5.1) mmol/L Chloride (98-107) mmol/L Carbon Dioxide (21.0-32.0) mmol/L BUN (7.0-18.0) mg/dL Creatinine (0.8-1.3) mg/dL Est Cr Clr Drug Dosing mL/min Estimated GFR (MDRD) ml/min Glucose (74-106) mg/dL Calcium (8.5-10.1) mg/dL Phosphorus (2.6-4.7) mg/dL Magnesium (1.8-2.4) mg/dL Total Bilirubin (0.2-1.0) mg/dL AST (15-37) IU/L ALT (14-63) IU/L Alkaline Phosphatase (46-116) U/L Total Protein (6.4-8.2) g/dL Albumin (3.4-5.0) g/dL Globulin (2.6-4.0) g/dL Albumin/Globulin Ratio (0.9-1.6) Procalcitonin (<0.10) ng/mL Ashvin Results Last 24 Hours: Microbiology 11/08/19 14:30 Aerobic Blood Culture - Final Blood - Venous - Lab Draw Anaerobic Blood Culture - Final 11/08/19 14:30 Aerobic Blood Culture - Final Blood - Venous Escherichia Coli Anaerobic Blood Culture - Final 11/09/19 22:22 Aerobic Blood Culture - Preliminary Blood - Venous Anaerobic Blood Culture - Preliminary NO GROWTH AFTER 1 DAY 11/09/19 22:34 Aerobic Blood Culture - Preliminary Blood - Venous - Lab Draw Anaerobic Blood Culture - Final 11/09/19 10:18 Aerobic Blood Culture - Preliminary Blood - Venous - Lab Draw Anaerobic Blood Culture - Preliminary NO GROWTH AFTER 1 DAY 11/09/19 10:10 Aerobic Blood Culture - Preliminary Blood - Venous Anaerobic Blood Culture - Preliminary NO GROWTH AFTER 1 DAY 11/08/19 14:30 Urine Culture - Final Urine, Catheterized Escherichia Coli Med Orders - Current: Current Medications Albuterol/Ipratropium (Duoneb 3.0-0.5 Mg/3 Ml) 3 ml NEB Q4HRRT PRN PRN Reason: Shortness Of Breath/wheezing Last Admin: 11/10/19 21:22 Dose: 3 ml Norepinephrine Bitartrate (Norepinephr-0.9% Nacl 4 Mg/250) 4 mg in 250 mls @ 15 mls/hr IV TITRATE [facility]; Protocol Last Titration: 11/11/19 02:30 Dose: 0 mcg/min, 0 mls/hr Piperacillin Sod/Tazobactam (Sod 4.5 gm/ Sodium Chloride) 100 mls @ 100 mls/hr IV Q8H [facility] Last Admin: 11/11/19 02:33 Dose: 100 mls/hr Vancomycin HCl 2 gm/ Sodium (Chloride) 500 mls @ 333.333 mls/hr IV Q24H [facility] Last Admin: 11/10/19 17:13 Dose: 333.333 mls/hr Pantoprazole Sodium 40 mg/ (Sodium Chloride) 10 mls @ 300 mls/hr IV Q24H [facility] Last Admin: 11/10/19 19:08 Dose: 300 mls/hr Lactated Ringer's (Ringers, Lactated) 250 mls @ 999 mls/hr IV .BOLUS [facility] Last Admin: 11/10/19 19:05 Dose: 999 mls/hr Sodium Chloride (Saline Flush) 10 ml FLUSH ASDIRECTED PRN PRN Reason: Keep Vein Open Last Admin: 11/08/19 14:58 Dose: 10 ml Sodium Chloride (Saline Flush) 2.5 ml FLUSH ASDIRECTED PRN PRN Reason: Keep Vein Open Last Admin: 11/08/19 14:58 Dose: 2.5 ml Vancomycin HCl (Pharmacy To Dose - Vancomycin) 1 dose .XX ASDIRECTED [facility] Warfarin Sodium (Coumadin Ask) 1 each PO Q24H [facility] Last Admin: 11/10/19 14:35 Dose: 1 each Discontinued Medications Aspirin (Aspirin) 81 mg PO ONETIME ONE Stop: 11/09/19 18:28 Last Admin: 11/09/19 18:57 Dose: 81 mg Sodium Chloride (Normal Saline) 1,000 mls @ 999 mls/hr IV STAT [facility] Last Admin: 11/08/19 14:58 Dose: 999 mls/hr Cefepime HCl 1 gm/ Premix 50 mls @ 100 mls/hr IV ONETIME ONE Stop: 11/08/19 15:48 Last Admin: 11/08/19 15:56 Dose: 100 mls/hr Vancomycin HCl 1.25 gm/ Sodium (Chloride) 250 mls @ 167 mls/hr IV ONETIME ONE Stop: 11/08/19 16:48 Last Admin: 11/08/19 16:41 Dose: 167 mls/hr Lactated Ringer's (Ringers, Lactated) 1,000 mls @ 125 mls/hr IV ASDIRECTED [facility] Last Admin: 11/09/19 01:45 Dose: 125 mls/hr Vancomycin HCl 0.75 gm/ Sodium (Chloride) 250 mls @ 166.667 mls/hr IV ONETIME ONE Stop: 11/08/19 20:44 Last Admin: 11/08/19 21:40 Dose: 166.667 mls/hr Lactated Ringer's (Ringers, Lactated) 500 mls @ 999 mls/hr IV .BOLUS ONE Stop: 11/08/19 19:59 Last Admin: 11/08/19 21:30 Dose: 999 mls/hr Magnesium Sulfate 2 gm/ Premix 50 mls @ 50 mls/hr IV ONETIME ONE Stop: 11/09/19 02:50 Last Admin: 11/09/19 02:06 Dose: 25 mls/hr Lactated Ringer's (Ringers, Lactated) 1,000 mls @ 100 mls/hr IV Q10H [facility] Last Admin: 11/10/19 05:33 Dose: 100 mls/hr Magnesium Sulfate 4 gm/ Premix 100 mls @ 33.333 mls/hr IV ONETIME ONE Stop: 11/09/19 20:34 Last Admin: 11/09/19 17:57 Dose: 33.333 mls/hr Lactated Ringer's (Ringers, Lactated) 250 mls @ 999 mls/hr IV .BOLUS ONE Stop: 11/10/19 10:04 Last Admin: 11/10/19 09:57 Dose: 999 mls/hr Sodium Chloride (Normal Saline) 250 mls @ 999 mls/hr IV ONETIME ONE Stop: 11/10/19 19:15 Last Admin: 11/10/19 19:32 Dose: Not Given Phytonadione (Aquamephyton) 2.5 mg SUBCUT ONETIME ONE Stop: 11/08/19 18:18 Last Admin: 11/08/19 19:47 Dose: Not Given Phytonadione (Aquamephyton) Confirm Administered Dose 10 mg .ROUTE .STK-MED ONE Stop: 11/08/19 19:36 Last Admin: 11/08/19 19:47 Dose: Not Given Phytonadione (Aquamephyton) 2.5 mg SUBCUT NOW ONE Stop: 11/08/19 20:07 Last Admin: 11/08/19 19:47 Dose: 2.5 mg Phytonadione (Aquamephyton) 2.5 mg PO ONETIME ONE Stop: 11/09/19 09:34 Last Admin: 11/09/19 10:03 Dose: 2.5 mg Potassium Chloride (Klor-Con M20) 40 meq PO ONETIME ONE Stop: 11/09/19 11:41 Last Admin: 11/09/19 11:51 Dose: 40 meq Potassium Chloride (Klor-Con M20) 40 meq PO ONETIME ONE Stop: 11/09/19 21:01 Last Admin: 11/09/19 20:29 Dose: 40 meq Potassium Chloride (Klor-Con M20) 40 meq PO ONETIME ONE Stop: 11/11/19 07:40 Last Admin: 11/11/19 08:31 Dose: 40 meq Warfarin Sodium (Coumadin) 3 mg PO ONETIME ONE Stop: 11/10/19 13:46 Last Admin: 11/10/19 13:51 Dose: 3 mg - Exam General: Alert, Cooperative Lungs: Crackles Cardiovascular: Irregular Rhythm GI/Abdominal Exam: Normal Bowel Sounds, Soft, Non-Tender Extremities: Pedal Edema Skin: Warm, Dry Neurological: No New Focal Deficit Psy/Mental Status: Alert, Normal Affect, Normal Mood Sepsis Event Note - Evaluation Sepsis Screening Result: Severe Sepsis Risk - Focused Exam Vital Signs: Vital Signs Temp Resp BP Pulse Ox 11/11/19 08:00 97.4 F 29 H 98/57 L 94 L 11/11/19 07:00 14 111/47 L 95 11/11/19 06:00 26 H 90/53 L 97 11/11/19 05:00 27 H 99/59 L 97 11/11/19 04:00 96.7 F L 28 H 100/62 98 11/11/19 03:00 30 H 95/59 L 98 11/11/19 02:00 25 H 103/58 L 97 11/11/19 01:00 24 H 100/60 92 L 11/11/19 00:00 98.1 F 16 105/53 L 97 11/10/19 23:00 20 105/59 L 97 11/10/19 22:00 22 H 105/60 98 Date Exam was Performed: 11/11/19 Time Exam was Performed: 11:24 - Problem List Review Problem List Initiated/Reviewed/Updated: Yes - My Orders Last 24 Hours: My Active Orders 11/11/19 08:57 INR,PT,PROTHROMBIN TIME [COAG] Routine 11/12/19 05:11 CBC WITH AUTO DIFF [HEME] AM COMPREHENSIVE METABOLIC PN,CMP [CHEM] AM MAGNESIUM [CHEM] AM PHOSPHORUS [CHEM] AM - Plan Plan:: 1. Septic shock with Ecoli bacteremia and Ecoli UTI- Continue Zosyn but stop Vancomycin. Currently off Levophed drip, keep close eye on BP. Need to keep a close eye on fluid status as he has a hx of CHF. Patient does not want intubation, may require BiPAP, currently on home oxygen requirement. 2 sets of repeat blood cultures still growing gram negative rods. Will repeat BC again. 3. Subtherapeutic INR- restarted warfarin, pharmacy dosing 4. Hypokalemia- replaced, will recheck in AM 5.Elevated LFTs- stable-may be related to sepsis, patient denies abdominal pain. US revealed fatty liver and gallstones but no thickening or dilation. Will obtain CT ab/pelvis today. 6. Chronic condition- CHF, Afib, COPD, HTN- holding warfarin and BP meds. Monitor fluid status and monitor on telemetry. Had echo completed August with EF or 55%.
[2019-11-11] MEDS: Albuterol/Ipratropium 3.0-0.5 MG/3 ML Neb Soln NEB PRN (10:21)
--- NOTE | 2019-11-11 10:27 | PN ---
THC Physician - Brief Progress [id number]/22/2020 10:26[facility] Mera Mchugh, MELISSA - MWN (CHOCO) - MWN LAMONTONEL GRANTDate of Service 11/11/2019 10:26HPI/Events of Note eICU Progress [id number] admitted for septic shock attributed to UTI. History obtained primarily from review of EMR.Camera exam: Laying in bed, appears to be receiving a breathing treatment via mas k. Vitals monitor reviewed.Labs: reviewedRadiology: reviewedeICU Impression and Recommendations:Septi c shock attributed to E. coli UTI, resolvedNo further recommendations at this time. Please refer to p chayo note regarding de-escalation of antibiotic therapyDVT and GI prophylaxis as appropriate.Thank timothy kennedy for allowing us to participate in the care of this patient.The above note transcribed with the assi stance of dictation software. Please excuse any errors.Interventions Major-Sepsis - evaluation and ma nagement, Shock - evaluation and management 20 10:26
--- NOTE | 2019-11-11 12:55 | CT ---
CT abdomen and pelvis Comparison: No prior CT abdomen or pelvis exam, previous renal ultrasound to 09/15/19. Right upper quadrant abdominal ultrasound of 11/10/19 is also available. Technique: Multiple axial sections were obtained from above the dome of the diaphragm inferiorly through the pubic symphysis. Intravenous and oral contrast was not utilized. Artifact is also noted from the patient's arms being along his side. Findings: Diffuse body wall edema is identified. Small bilateral pleural effusions and increased parenchymal densities within both lung bases most likely representing atelectasis. Mild coronary artery calcification is seen. Prior sternotomy noted. Heart is mildly enlarged. No gross abnormality is seen within the noncontrast liver and spleen. Adrenal glands show no discrete nodule. Low density lesion which does not appear as a simple cyst is seen within the left kidney measuring 6.2 cm. Kidneys otherwise show no gross abnormality. Pancreas shows no gross abnormality. Aorta shows atherosclerotic change without aneurysm. No retroperitoneal adenopathy is seen. No mesenteric abnormalities are seen. Curry catheter is seen within the bladder. Diffuse degenerative change and scoliosis is noted within the spine. Impression: 1. Lack of IV or oral contrast as well as artifact from the patient's arms significantly diminished details of the exam. 2. Small bilateral pleural effusions with bibasilar atelectasis. 3. 6.2 cm abnormality within the left kidney. This appears to represent a cyst on ultrasound of 09/15/19. 4. Diffuse body wall edema. 5. Other findings as noted above believed to be chronic. No other acute finding is definitely appreciated. Diagnostic code #3 This report was dictated in MDT
[2019-11-11] MEDS: Pantoprazole 40 MG in Sodium Chloride 0.9% 10 ML IV SCH (19:37)
[2019-11-11] MEDS: Sodium Chloride 0.9% 500 ML IV SCH (23:42)
[2019-11-12] MEDS: Albuterol/Ipratropium 3.0-0.5 MG/3 ML Neb Soln NEB PRN (02:12)
[2019-11-12] MEDS: Piperacillin/Tazobactam 4.5 GM in Sodium Chloride 0.9% 100 ML IV SCH ×3 (03:05→18:50)
[2019-11-12 07:03] LABS: CARBON DIOXIDE,CO2 29.9 mmol/L (21.0-32.0); POTASSIUM,K 3.4 mmol/L (3.5-5.1)
--- NOTE | 2019-11-12 08:23 | PCM.PN ---
- General Info Date of Service: 11/12/19 Subjective Update: The patient report he feels fine today, denies chest pain or shortness of breath. His MAPs did drop below 65 last night and he required pressor support with Levophed, only has peripheral access at this time. Good appetite. - Review of Systems General: Reports: No Symptoms HEENT: Reports: No Symptoms Pulmonary: Reports: No Symptoms Cardiovascular: Reports: No Symptoms Gastrointestinal: Reports: No Symptoms Genitourinary: Reports: No Symptoms Musculoskeletal: Reports: No Symptoms Skin: Reports: No Symptoms Neurological: Reports: No Symptoms Psychiatric: Reports: No Symptoms - Patient Data Vitals - Most Recent: Last Vital Signs Temp 97.5 F 11/12/19 04:00 Pulse 102 H 11/08/19 20:10 Resp 21 H 11/12/19 07:00 BP 98/57 L 11/12/19 07:00 Pulse Ox 95 11/12/19 07:00 Weight - Most Recent: 127.732 kg I&O - Last 24 Hours: Intake & Output 11/11/19 11/12/19 11/12/19 22:59 06:59 14:59 Intake Total 340 650 Output Total 250 650 Balance 90 0 Lab Results Last 24 Hours: Laboratory Results - last 24 hr 11/11/19 11/12/19 11/12/19 Range/Units 08:57 06:30 06:30 WBC 16.95 H (4.0-11.0) K/uL RBC 2.76 L (4.50-5.90) M/uL Hgb 8.1 L (13.0-17.0) g/dL Hct 25.2 L (38.0-50.0) % MCV 91.3 (80.0-98.0) fL MCH 29.3 (27.0-32.0) pg MCHC 32.1 (31.0-37.0) g/dL RDW Std Deviation 63.9 H (28.0-62.0) fl RDW Coeff of Regulo 19 H (11.0-15.0) % Plt Count 200 (150-400) K/uL MPV 10.80 (7.40-12.00) fL Neut % (Auto) 80.2 H (48.0-80.0) % Lymph % (Auto) 9.1 L (16.0-40.0) % [place] % (Auto) 9.8 (0.0-15.0) % Eos % (Auto) 0.8 (0.0-7.0) % Baso % (Auto) 0.1 (0.0-1.5) % Neut # (Auto) 13.6 H (1.4-5.7) K/uL Lymph # (Auto) 1.6 (0.6-2.4) K/uL [place] # (Auto) 1.7 H (0.0-0.8) K/uL Eos # (Auto) 0.1 (0.0-0.7) K/uL Baso # (Auto) 0.0 (0.0-0.1) K/uL Nucleated RBC % 0.3 /100WBC Nucleated RBCs # 0 K/uL INR 1.93 Sodium 148 (136-148) mmol/L Potassium 3.4 L (3.5-5.1) mmol/L Chloride 111 H (98-107) mmol/L Carbon Dioxide 29.9 (21.0-32.0) mmol/L BUN 28 H (7.0-18.0) mg/dL Creatinine 1.2 (0.8-1.3) mg/dL Est Cr Clr Drug Dosing 45.87 mL/min Estimated GFR (MDRD) 57.0 ml/min Glucose 129 H (74-106) mg/dL Calcium 7.2 L (8.5-10.1) mg/dL Phosphorus 2.2 L (2.6-4.7) mg/dL Magnesium 2.4 (1.8-2.4) mg/dL Total Bilirubin 2.9 H (0.2-1.0) mg/dL AST 39 H (15-37) IU/L ALT 30 (14-63) IU/L Alkaline Phosphatase 97 (46-116) U/L Total Protein 5.5 L (6.4-8.2) g/dL Albumin 1.9 L (3.4-5.0) g/dL Globulin 3.6 (2.6-4.0) g/dL Albumin/Globulin Ratio 0.5 L (0.9-1.6) Ashvin Results Last 24 Hours: Microbiology 11/09/19 22:34 Aerobic Blood Culture - Final Blood - Venous - Lab Draw Anaerobic Blood Culture - Final 11/09/19 22:22 Aerobic Blood Culture - Final Blood - Venous Escherichia Coli Anaerobic Blood Culture - Preliminary NO GROWTH AFTER 2 DAYS 11/11/19 12:53 Anaerobic Blood Culture - Final Blood - Venous - Lab Draw 11/09/19 10:18 Aerobic Blood Culture - Preliminary Blood - Venous - Lab Draw Anaerobic Blood Culture - Preliminary NO GROWTH AFTER 2 DAYS 11/09/19 10:10 Aerobic Blood Culture - Preliminary Blood - Venous Anaerobic Blood Culture - Preliminary NO GROWTH AFTER 2 DAYS 11/08/19 14:30 Aerobic Blood Culture - Final Blood - Venous - Lab Draw Anaerobic Blood Culture - Final 11/08/19 14:30 Aerobic Blood Culture - Final Blood - Venous Escherichia Coli Anaerobic Blood Culture - Final Med Orders - Current: Current Medications Albuterol/Ipratropium (Duoneb 3.0-0.5 Mg/3 Ml) 3 ml NEB Q4HRRT PRN PRN Reason: Shortness Of Breath/wheezing Last Admin: 11/12/19 02:12 Dose: 3 ml Norepinephrine Bitartrate (Norepinephr-0.9% Nacl 4 Mg/250) 4 mg in 250 mls @ 15 mls/hr IV TITRATE [facility]; Protocol Last Titration: 11/12/19 03:04 Dose: 2 mcg/min, 7.5 mls/hr Piperacillin Sod/Tazobactam (Sod 4.5 gm/ Sodium Chloride) 100 mls @ 100 mls/hr IV Q8H [facility] Last Admin: 11/12/19 03:05 Dose: 100 mls/hr Pantoprazole Sodium 40 mg/ (Sodium Chloride) 10 mls @ 300 mls/hr IV Q24H [facility] Last Admin: 11/11/19 19:37 Dose: 300 mls/hr Lactated Ringer's (Ringers, Lactated) 250 mls @ 999 mls/hr IV .BOLUS [facility] Last Admin: 11/10/19 19:05 Dose: 999 mls/hr Sodium Chloride (Normal Saline) 500 mls @ 15 mls/hr IV ASDIRECTED [facility] Last Admin: 11/11/19 23:42 Dose: 15 mls/hr Sodium Chloride (Saline Flush) 10 ml FLUSH ASDIRECTED PRN PRN Reason: Keep Vein Open Last Admin: 11/08/19 14:58 Dose: 10 ml Sodium Chloride (Saline Flush) 2.5 ml FLUSH ASDIRECTED PRN PRN Reason: Keep Vein Open Last Admin: 11/08/19 14:58 Dose: 2.5 ml Warfarin Sodium (Coumadin Ask) 1 each PO Q24H [facility] Last Admin: 11/11/19 13:46 Dose: 1 each Discontinued Medications Aspirin (Aspirin) 81 mg PO ONETIME ONE Stop: 11/09/19 18:28 Last Admin: 11/09/19 18:57 Dose: 81 mg Sodium Chloride (Normal Saline) 1,000 mls @ 999 mls/hr IV STAT [facility] Last Admin: 11/08/19 14:58 Dose: 999 mls/hr Cefepime HCl 1 gm/ Premix 50 mls @ 100 mls/hr IV ONETIME ONE Stop: 11/08/19 15:48 Last Admin: 11/08/19 15:56 Dose: 100 mls/hr Vancomycin HCl 1.25 gm/ Sodium (Chloride) 250 mls @ 167 mls/hr IV ONETIME ONE Stop: 11/08/19 16:48 Last Admin: 11/08/19 16:41 Dose: 167 mls/hr Lactated Ringer's (Ringers, Lactated) 1,000 mls @ 125 mls/hr IV ASDIRECTED [facility] Last Admin: 11/09/19 01:45 Dose: 125 mls/hr Vancomycin HCl 0.75 gm/ Sodium (Chloride) 250 mls @ 166.667 mls/hr IV ONETIME ONE Stop: 11/08/19 20:44 Last Admin: 11/08/19 21:40 Dose: 166.667 mls/hr Vancomycin HCl 2 gm/ Sodium (Chloride) 500 mls @ 333.333 mls/hr IV Q24H [facility] Last Admin: 11/10/19 17:13 Dose: 333.333 mls/hr Lactated Ringer's (Ringers, Lactated) 500 mls @ 999 mls/hr IV .BOLUS ONE Stop: 11/08/19 19:59 Last Admin: 11/08/19 21:30 Dose: 999 mls/hr Magnesium Sulfate 2 gm/ Premix 50 mls @ 50 mls/hr IV ONETIME ONE Stop: 11/09/19 02:50 Last Admin: 11/09/19 02:06 Dose: 25 mls/hr Lactated Ringer's (Ringers, Lactated) 1,000 mls @ 100 mls/hr IV Q10H [facility] Last Admin: 11/10/19 05:33 Dose: 100 mls/hr Magnesium Sulfate 4 gm/ Premix 100 mls @ 33.333 mls/hr IV ONETIME ONE Stop: 11/09/19 20:34 Last Admin: 11/09/19 17:57 Dose: 33.333 mls/hr Lactated Ringer's (Ringers, Lactated) 250 mls @ 999 mls/hr IV .BOLUS ONE Stop: 11/10/19 10:04 Last Admin: 11/10/19 09:57 Dose: 999 mls/hr Sodium Chloride (Normal Saline) 250 mls @ 999 mls/hr IV ONETIME ONE Stop: 11/10/19 19:15 Last Admin: 11/10/19 19:32 Dose: Not Given Phytonadione (Aquamephyton) 2.5 mg SUBCUT ONETIME ONE Stop: 11/08/19 18:18 Last Admin: 11/08/19 19:47 Dose: Not Given Phytonadione (Aquamephyton) Confirm Administered Dose 10 mg .ROUTE .STK-MED ONE Stop: 11/08/19 19:36 Last Admin: 11/08/19 19:47 Dose: Not Given Phytonadione (Aquamephyton) 2.5 mg SUBCUT NOW ONE Stop: 11/08/19 20:07 Last Admin: 11/08/19 19:47 Dose: 2.5 mg Phytonadione (Aquamephyton) 2.5 mg PO ONETIME ONE Stop: 11/09/19 09:34 Last Admin: 11/09/19 10:03 Dose: 2.5 mg Potassium Chloride (Klor-Con M20) 40 meq PO ONETIME ONE Stop: 11/09/19 11:41 Last Admin: 11/09/19 11:51 Dose: 40 meq Potassium Chloride (Klor-Con M20) 40 meq PO ONETIME ONE Stop: 11/09/19 21:01 Last Admin: 11/09/19 20:29 Dose: 40 meq Potassium Chloride (Klor-Con M20) 40 meq PO ONETIME ONE Stop: 11/11/19 07:40 Last Admin: 11/11/19 08:31 Dose: 40 meq Vancomycin HCl (Pharmacy To Dose - Vancomycin) 1 dose .XX ASDIRECTED [facility] Warfarin Sodium (Coumadin) 3 mg PO ONETIME ONE Stop: 11/10/19 13:46 Last Admin: 11/10/19 13:51 Dose: 3 mg Warfarin Sodium (Coumadin) 3 mg PO DAILY@1400 ONE Stop: 11/11/19 14:01 Last Admin: 11/11/19 13:43 Dose: 3 mg - Exam Quality Assessment: Supplemental Oxygen General: Alert, Cooperative Lungs: Crackles. No: Normal Respiratory Effort Cardiovascular: Irregular Rhythm GI/Abdominal Exam: Normal Bowel Sounds, Soft, Non-Tender Extremities: Pedal Edema Skin: Warm, Dry Neurological: No New Focal Deficit Psy/Mental Status: Alert, Normal Affect, Normal Mood Sepsis Event Note - Evaluation Sepsis Screening Result: Sepsis Risk - Focused Exam Vital Signs: Vital Signs Temp Resp BP BP Pulse Ox 11/12/19 07:00 21 H 98/57 L 95 11/12/19 06:00 25 H 95/60 96 11/12/19 05:00 25 H 99/62 97 11/12/19 04:00 97.5 F 25 H 96/50 L 98 11/12/19 03:00 18 94/49 L 97 11/12/19 02:00 17 108/63 96 11/12/19 01:00 97.4 F 23 H 108/55 L 99 11/12/19 00:00 12 82/49 L 98 11/11/19 23:00 16 84/52 L 96 11/11/19 22:00 22 H 84/50 L 97 11/11/19 21:00 22 H 94/58 L 95 Date Exam was Performed: 11/12/19 Time Exam was Performed: 10:30 - Problem List Review Problem List Initiated/Reviewed/Updated: Yes - My Orders Last 24 Hours: My Active Orders 11/11/19 11:27 Blood Culture x2 Reflex Set [OM.PC] Stat 11/11/19 12:30 CULTURE BLOOD [BC] Stat 11/11/19 12:53 CULTURE BLOOD [BC] Stat 11/12/19 07:05 Consult to Physician [CONS] Routine 11/12/19 07:07 Notify Provider Consults [RC] ASDIRECTED - Plan Plan:: 1. Septic shock with Ecoli bacteremia and Ecoli UTI-Requiring Levophed drip again. Consulted anesthesia to place central line. Continue Zosyn . Need to keep a close eye on fluid status as he has a hx of CHF. Patient does not want intubation, currently on home oxygen requirement. 2 sets of repeat blood cultures still growing gram negative rods. 3rd repeat blood cultures pending. 3. Subtherapeutic INR- restarted warfarin, pharmacy dosing 4. Hypokalemia- improving, will replace again and recheck in AM. 5.Elevated LFTs- stable-may be related to sepsis, patient denies abdominal pain. US revealed fatty liver and gallstones but no thickening or dilation. Ct ab/pelvis showed small bialteral pleural effusion, cyst left kidney and diffuse body wall edema. 6. Chronic condition- CHF, Afib, COPD, HTN- holding warfarin and BP meds. Monitor fluid status and monitor on telemetry. Had echo completed August with EF or 55%.
[2019-11-12] MEDS ORDERED: Potassium Chloride 20 MEQ Tab.ER PO ONE ×2 (08:24→11:15)
--- NOTE | 2019-11-12 08:50 | PN ---
THC Physician - Brief Progress [id number]/23/2020 08:12[facility] Mera Mchugh, MELISSA - KEO ([place]) - KEO ONEL GASCARalfDate of Service 11/12/2019 08:12HPI/Events of Note eICU progress note:88-year-old male who presented to hospital with septic shock secondary to E. coli bacteremia thought to be from UTI. Over the last 24 hours patient ended up being restarted o n Levophed at 2mcg but otherwise no further acute events noted. CT abd done yesterday did not show an y acute pathology.Patient seen on camera, laying flat under sterile field receiving central line and left subclavian region. Does not seem to be in any acute distress.Labs/EMR/imaging/vitals reviewedSe ptic shock secondary to E. coli bacteremia-Secondary to UTI-Agree with antibiotic regimen can conside r de-escalating to ceftriaxone given arzate susceptible E. coli.-Once central line is placed can obtain VBG to check ScVO2-Given grossly edematous state can consider volume resuscitation with 5% albumin. W cristy levophed as tolerated.-Also given uptrending Na will need to be initiated on free water, if patie nt can tolerate PO, will recommend encouraging that.Thank you for allowing us to participate in the c are of this patient.Interventions Major-Electrolyte abnormality - evaluation and management, Sepsis - evaluation and management, Shock - evaluation and management
--- NOTE | 2019-11-12 10:41 | PCM.SN.2 ---
- Free Text/Narrative Note: Central line placement Indication- sepsis on vasopressors Ultrasound used yes Patient identified, consent was obtained. Right femoral artery palpated. Sterile technique right inguinal region prepped using chlorhexidine scrub and draped in sterile fashion. Sterile probe cover placed on ultrasound and Femoral Vein visualized. 1% lidocaine injected 2 cc. The introducer needle was inserted medial to the femoral artery and vein visualized on the ultrasound positive venous blood return. Syringe removed and a guidewire was advanced. A small incision was made at the skin surface with a scalpel and introducer needle was replaced with dilator over the guidewire. The dilator was exchanged with the central venous cath. Three port flushed easily and capped. The catheter sutured in place and dressing applied. No complications noted.
--- NOTE | 2019-11-12 11:18 | PCM.SN.2 ---
- Free Text/Narrative Note: arterial line placement indication- sepsis and on vasopressors Ultrasound used- yes Patient identified. Left radial pulse palpated and visualized on ultrasound. chlorahexidine scrub to left wrist. 2% lidocaine injected at site. Sterile technique with sterile towels for a drape 20 ga arrow cath inserted into the left radial artery cath threaded easily. Transducer connected appropriate waveform noted. Artline zeroed. Sterile dressing applied and secured with tape. No complications noted time 30 min
[2019-11-12] MEDS ORDERED: Warfarin 2 MG Tab PO ONE (14:00)
[2019-11-12] MEDS: Pantoprazole 40 MG in Sodium Chloride 0.9% 10 ML IV SCH (18:51)
[2019-11-12] MEDS ORDERED: Albumin 5% 250 ML IV SCH (19:00)
[2019-11-13] MEDS: Albuterol/Ipratropium 3.0-0.5 MG/3 ML Neb Soln NEB PRN ×4 (01:17→21:07)
--- NOTE | 2019-11-13 02:00 | CR ---
INDICATION: Hypoxia, shortness of breath TECHNIQUE: Chest radiograph 1 view COMPARISON: 11/08/2019 FINDINGS: Moderate to severe degradation of image quality noted due to body habitus. 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 The heart silhouette is normal in size and morphology. Lung: Moderate, perihilar ground-glass opacities are present bilaterally, likely due to pulmonary edema. Small pleural effusions are suspected. No pneumothorax is identified. Bone and Soft tissue: Unremarkable for age. IMPRESSION: 1. Moderate, perihilar ground-glass opacities are present bilaterally, likely due to pulmonary edema. Dictated by Himanshu Petersen MD @ 11/13/2019 1:57:04 AM Dictated by: Himanshu Petersen MD @ 11/13/2019 01:58:21 (Electronically Signed)
[2019-11-13] MEDS ORDERED: Furosemide 40 MG/4 ML VIAL IVPUSH ONE (02:17)
--- NOTE | 2019-11-13 02:19 | PN ---
THC Physician - Brief Progress [id number]/24/2020 02:17[facility] MeraMELISSA - KEO ([facility] - ONEL GARCIADate of Service 11/13/2019 02:17HPI/Events of Note Pt has increased WOBCXR w pulm edemaPositive balanceWill give lasixInterventions Major-Respir atory failure - evaluation and management 0 2:18
[2019-11-13] MEDS: Piperacillin/Tazobactam 4.5 GM in Sodium Chloride 0.9% 100 ML IV SCH ×2 (03:02→11:06)
[2019-11-13 06:49] LABS: BLOOD UREA NITROGEN,BUN 23 mg/dL (7.0-18.0); CARBON DIOXIDE,CO2 31.9 mmol/L (21.0-32.0); CHLORIDE,CL 112 mmol/L (98-107); GLUCOSE RANDOM 131 mg/dL (74-106); POTASSIUM,K 3.2 mmol/L (3.5-5.1); SODIUM,NA 149 mmol/L (136-148)
--- NOTE | 2019-11-13 09:13 | PN ---
THC Physician - Brief Progress [id number]/24/2020 08:47[facility] Mera Mchugh, MELISSA - GREGORYN ([facility] - KEO GASCAONELRalfDate of Service 11/13/2019 08:47HPI/Events of Note EICU progress note88 year old male, admitted for UTI and Bactermia from UTI with E.ColiOverni ght levophed had to again be restarted for shockPatient also given lasix overnight for possible chf, however the patient's Na climbed to 149Advised:Change zosyn to cefepime or merremstart midodrine 10mg po tidGive po free water if possible, may also be aspirating, so would monitor for this, however pat ient is dnr/dniWould obtain sputum culture if productive.Ordered:Kcl replacement POMidodrinePo free w ater.Have reviewed in the chart:Labs, CXR result, MicroPatient seen on camerea, sleeping in bed VSSNu rsing notes with restart of levophed.Suggest:Palliative evalChanging abx due to the patient remaining hypotensive and septicMidodrine restartPO potassium replacementIncrease activity if toleratedMonitor closely the NaThank you for involving the EICU in the care of this patient.Will continue to follow a long and monitor closely with excellent bedside team.Interventions Minor-Clinical assessment - orderi ng diagnostic tests, Communication with other healthcare providers and/or family, Routine modificatio ns to care plan (e.g. PRN medications for pain, fever)
[2019-11-13] MEDS: Midodrine 5 MG Tab PO SCH ×2 (11:06→16:40)
--- NOTE | 2019-11-13 13:06 | PCM.PN ---
- General Info Date of Service: 11/13/19 - Patient Data Vitals - Most Recent: Last Vital Signs Temp 36.9 C 11/13/19 12:00 Pulse 102 H 11/08/19 20:10 Resp 28 H 11/13/19 12:00 BP 105/54 L 11/13/19 12:00 Pulse Ox 96 11/13/19 12:00 Weight - Most Recent: 127.913 kg I&O - Last 24 Hours: Intake & Output 11/12/19 11/13/19 11/13/19 22:59 06:59 14:59 Intake Total 890 846 Output Total 580 1275 Balance 310 -429 Lab Results Last 24 Hours: Laboratory Results - last 24 hr 11/13/19 11/13/19 11/13/19 Range/Units 05:55 05:55 05:55 WBC 17.75 H (4.0-11.0) K/uL RBC 2.72 L (4.50-5.90) M/uL Hgb 8.0 L (13.0-17.0) g/dL Hct 25.2 L (38.0-50.0) % MCV 92.6 (80.0-98.0) fL MCH 29.4 (27.0-32.0) pg MCHC 31.7 (31.0-37.0) g/dL RDW Std Deviation 64.4 H (28.0-62.0) fl RDW Coeff of Regulo 19 H (11.0-15.0) % Plt Count 253 (150-400) K/uL MPV 10.30 (7.40-12.00) fL Add Manual Diff YES Neutrophils % (Manual) 81 H (48.0-80.0) % Band Neutrophils % 9 % Lymphocytes % (Manual) 7 L (16.0-40.0) % Monocytes % (Manual) 2 (0.0-15.0) % Eosinophils % (Manual) 1 (0.0-7.0) % Nucleated RBC % 0.7 /100WBC Absolute Seg Neuts 14.4 H (1.4-5.7) Band Neutrophils # 1.6 Lymphocytes # (Manual) 1.2 (0.6-2.4) Monocytes # (Manual) 0.4 (0.0-0.8) Eosinophils # (Manual) 0.2 (0.0-0.7) Nucleated RBCs # 0 K/uL INR 3.91 Sodium 149 H (136-148) mmol/L Potassium 3.2 L (3.5-5.1) mmol/L Chloride 112 H (98-107) mmol/L Carbon Dioxide 31.9 (21.0-32.0) mmol/L BUN 23 H (7.0-18.0) mg/dL Creatinine 1.1 (0.8-1.3) mg/dL Est Cr Clr Drug Dosing 50.04 mL/min Estimated GFR (MDRD) > 60.0 ml/min Glucose 131 H (74-106) mg/dL Calcium 7.4 L (8.5-10.1) mg/dL Total Bilirubin 2.7 H (0.2-1.0) mg/dL AST 36 (15-37) IU/L ALT 29 (14-63) IU/L Alkaline Phosphatase 91 (46-116) U/L Total Protein 5.7 L (6.4-8.2) g/dL Albumin 2.0 L (3.4-5.0) g/dL Globulin 3.7 (2.6-4.0) g/dL Albumin/Globulin Ratio 0.5 L (0.9-1.6) Ashvin Results Last 24 Hours: Microbiology 11/11/19 12:53 Aerobic Blood Culture - Preliminary Blood - Venous - Lab Draw NO GROWTH AFTER 2 DAYS Anaerobic Blood Culture - Final 11/11/19 12:30 Aerobic Blood Culture - Preliminary Blood - Venous NO GROWTH AFTER 2 DAYS Anaerobic Blood Culture - Preliminary NO GROWTH AFTER 2 DAYS 11/09/19 10:18 Aerobic Blood Culture - Final Blood - Venous - Lab Draw Anaerobic Blood Culture - Preliminary NO GROWTH AFTER 4 DAYS 11/09/19 10:10 Aerobic Blood Culture - Final Blood - Venous Escherichia Coli Anaerobic Blood Culture - Preliminary NO GROWTH AFTER 4 DAYS 11/09/19 22:22 Aerobic Blood Culture - Final Blood - Venous Escherichia Coli Anaerobic Blood Culture - Preliminary NO GROWTH AFTER 3 DAYS Med Orders - Current: Current Medications Albuterol/Ipratropium (Duoneb 3.0-0.5 Mg/3 Ml) 3 ml NEB Q4HRRT PRN PRN Reason: Shortness Of Breath/wheezing Last Admin: 11/13/19 02:15 Dose: 3 ml Norepinephrine Bitartrate (Norepinephr-0.9% Nacl 4 Mg/250) 4 mg in 250 mls @ 15 mls/hr IV TITRATE CARLOS; Protocol Last Admin: 11/13/19 09:53 Dose: 2 mcg/min, 7.5 mls/hr Pantoprazole Sodium 40 mg/ (Sodium Chloride) 10 mls @ 300 mls/hr IV Q24H CARLOS Last Admin: 11/12/19 18:51 Dose: 300 mls/hr Lactated Ringer's (Ringers, Lactated) 250 mls @ 999 mls/hr IV .BOLUS CARLOS Last Admin: 11/10/19 19:05 Dose: 999 mls/hr Sodium Chloride (Normal Saline) 500 mls @ 15 mls/hr IV ASDIRECTED CARLSO Last Admin: 11/11/19 23:42 Dose: 15 mls/hr Cefepime HCl 2 gm/ Premix 50 mls @ 100 mls/hr IV Q8H CARLOS Midodrine (Midodrine) 10 mg PO TIDAC CARLOS Last Admin: 11/13/19 11:06 Dose: 10 mg Potassium Chloride (Klor-Con M20) 20 meq PO TID CARLOS Sodium Chloride (Saline Flush) 10 ml FLUSH ASDIRECTED PRN PRN Reason: Keep Vein Open Last Admin: 11/08/19 14:58 Dose: 10 ml Sodium Chloride (Saline Flush) 2.5 ml FLUSH ASDIRECTED PRN PRN Reason: Keep Vein Open Last Admin: 11/08/19 14:58 Dose: 2.5 ml Warfarin Sodium (Coumadin Ask) 1 each PO Q24H CARLOS Last Admin: 11/12/19 13:54 Dose: 1 each Discontinued Medications Aspirin (Aspirin) 81 mg PO ONETIME ONE Stop: 11/09/19 18:28 Last Admin: 11/09/19 18:57 Dose: 81 mg Furosemide (Lasix) 20 mg IVPUSH NOW ONE Stop: 11/13/19 02:18 Last Admin: 11/13/19 02:29 Dose: 20 mg Sodium Chloride (Normal Saline) 1,000 mls @ 999 mls/hr IV STAT CARLOS Last Admin: 11/08/19 14:58 Dose: 999 mls/hr Cefepime HCl 1 gm/ Premix 50 mls @ 100 mls/hr IV ONETIME ONE Stop: 11/08/19 15:48 Last Admin: 11/08/19 15:56 Dose: 100 mls/hr Vancomycin HCl 1.25 gm/ Sodium (Chloride) 250 mls @ 167 mls/hr IV ONETIME ONE Stop: 11/08/19 16:48 Last Admin: 11/08/19 16:41 Dose: 167 mls/hr Lactated Ringer's (Ringers, Lactated) 1,000 mls @ 125 mls/hr IV ASDIRECTED [facility] Last Admin: 11/09/19 01:45 Dose: 125 mls/hr Piperacillin Sod/Tazobactam (Sod 4.5 gm/ Sodium Chloride) 100 mls @ 100 mls/hr IV Q8H [facility] Last Admin: 11/13/19 11:06 Dose: 100 mls/hr Vancomycin HCl 0.75 gm/ Sodium (Chloride) 250 mls @ 166.667 mls/hr IV ONETIME ONE Stop: 11/08/19 20:44 Last Admin: 11/08/19 21:40 Dose: 166.667 mls/hr Vancomycin HCl 2 gm/ Sodium (Chloride) 500 mls @ 333.333 mls/hr IV Q24H [facility] Last Admin: 11/10/19 17:13 Dose: 333.333 mls/hr Lactated Ringer's (Ringers, Lactated) 500 mls @ 999 mls/hr IV .BOLUS ONE Stop: 11/08/19 19:59 Last Admin: 11/08/19 21:30 Dose: 999 mls/hr Magnesium Sulfate 2 gm/ Premix 50 mls @ 50 mls/hr IV ONETIME ONE Stop: 11/09/19 02:50 Last Admin: 11/09/19 02:06 Dose: 25 mls/hr Lactated Ringer's (Ringers, Lactated) 1,000 mls @ 100 mls/hr IV Q10H [facility] Last Admin: 11/10/19 05:33 Dose: 100 mls/hr Magnesium Sulfate 4 gm/ Premix 100 mls @ 33.333 mls/hr IV ONETIME ONE Stop: 11/09/19 20:34 Last Admin: 11/09/19 17:57 Dose: 33.333 mls/hr Lactated Ringer's (Ringers, Lactated) 250 mls @ 999 mls/hr IV .BOLUS ONE Stop: 11/10/19 10:04 Last Admin: 11/10/19 09:57 Dose: 999 mls/hr Sodium Chloride (Normal Saline) 250 mls @ 999 mls/hr IV ONETIME ONE Stop: 11/10/19 19:15 Last Admin: 11/10/19 19:32 Dose: Not Given Albumin Human (Buminate 5%) 250 mls @ 125 mls/hr IV Q2H CARLOS Stop: 11/12/19 20:59 Last Admin: 11/12/19 19:32 Dose: 125 mls/hr Phytonadione (Aquamephyton) 2.5 mg SUBCUT ONETIME ONE Stop: 11/08/19 18:18 Last Admin: 11/08/19 19:47 Dose: Not Given Phytonadione (Aquamephyton) Confirm Administered Dose 10 mg .ROUTE .STK-MED ONE Stop: 11/08/19 19:36 Last Admin: 11/08/19 19:47 Dose: Not Given Phytonadione (Aquamephyton) 2.5 mg SUBCUT NOW ONE Stop: 11/08/19 20:07 Last Admin: 11/08/19 19:47 Dose: 2.5 mg Phytonadione (Aquamephyton) 2.5 mg PO ONETIME ONE Stop: 11/09/19 09:34 Last Admin: 11/09/19 10:03 Dose: 2.5 mg Potassium Chloride (Klor-Con M20) 40 meq PO ONETIME ONE Stop: 11/09/19 11:41 Last Admin: 11/09/19 11:51 Dose: 40 meq Potassium Chloride (Klor-Con M20) 40 meq PO ONETIME ONE Stop: 11/09/19 21:01 Last Admin: 11/09/19 20:29 Dose: 40 meq Potassium Chloride (Klor-Con M20) 40 meq PO ONETIME ONE Stop: 11/11/19 07:40 Last Admin: 11/11/19 08:31 Dose: 40 meq Potassium Chloride (Klor-Con M20) 40 meq PO ONETIME ONE Stop: 11/12/19 08:25 Last Admin: 11/12/19 11:12 Dose: Not Given Potassium Chloride (Klor-Con M20) 40 meq PO ONETIME ONE Stop: 11/12/19 11:16 Last Admin: 11/12/19 11:21 Dose: 40 meq Vancomycin HCl (Pharmacy To Dose - Vancomycin) 1 dose .XX ASDIRECTED CARLOS Warfarin Sodium (Coumadin) 3 mg PO ONETIME ONE Stop: 11/10/19 13:46 Last Admin: 11/10/19 13:51 Dose: 3 mg Warfarin Sodium (Coumadin) 3 mg PO DAILY@1400 ONE Stop: 11/11/19 14:01 Last Admin: 11/11/19 13:43 Dose: 3 mg Warfarin Sodium (Coumadin) 2 mg PO DAILY@1400 ONE Stop: 11/12/19 14:01 Last Admin: 11/12/19 13:53 Dose: 2 mg - Exam General: No Acute Distress Lungs: Decreased Breath Sounds, Rales Cardiovascular: Regular Rate, Regular Rhythm GI/Abdominal Exam: Soft, Non-Tender, Other (obese) Extremities: Other (+2 edema up to abdomen and arms) Sepsis Event Note - Evaluation Sepsis Screening Result: Severe Sepsis Risk - Focused Exam Vital Signs: Vital Signs Temp Resp BP BP Pulse Ox 11/13/19 12:00 36.9 C 28 H 105/54 L 96 11/13/19 11:00 28 H 95/47 L 95 11/13/19 10:00 28 H 92/45 L 95 11/13/19 09:00 26 H 118/62 95 11/13/19 08:00 36.6 C 21 H 105/52 L 92 L 11/13/19 07:00 30 H 102/48 L 94 L 11/13/19 06:00 22 H 111/53 L 93 L 11/13/19 05:00 28 H 106/48 L 95 11/13/19 04:00 36.3 C 26 H 98/80 106/65 93 L 11/13/19 03:00 30 H 106/49 L 96 11/13/19 02:00 32 H 98/47 L 96 Date Exam was Performed: 11/13/19 Time Exam was Performed: 13:02 - Problem List Review Problem List Initiated/Reviewed/Updated: Yes - My Orders Last 24 Hours: My Active Orders 11/13/19 13:15 Cefepime [Maxipime in D5W 2 GM/50 ML] 2 gm Premix Bag 1 bag IV Q8H - Plan Plan:: 88 yo male admitted for septic shock with E.coli bacteremia for UTI and chronic indwelling murray. Septic shock: Femoral line reinserted yesterday. continue levophed drip, Will switch to Cefepime due to slow improvement on Zosyn. Continue Midodrine. Hypernatremia: received lasix last night, continue to monitor
[2019-11-13] MEDS: Cefepime 2 GM in Premix Bag 1 BAG IV SCH ×2 (13:25→21:07)
[2019-11-13] MEDS: Potassium Chloride 20 MEQ Tab.ER PO SCH ×2 (13:35→21:07)
[2019-11-13] MEDS: Pantoprazole 40 MG in Sodium Chloride 0.9% 10 ML IV SCH (18:48)
[2019-11-14] MEDS: Albuterol/Ipratropium 3.0-0.5 MG/3 ML Neb Soln NEB PRN ×3 (03:56→17:19)
[2019-11-14] MEDS: Cefepime 2 GM in Premix Bag 1 BAG IV SCH ×3 (04:57→20:50)
[2019-11-14] MEDS: Potassium Chloride 10% 20 MEQ/15 ML Soln 30 ML UD Cup PO SCH ×3 (05:21→22:37)
[2019-11-14 06:38] LABS: BLOOD UREA NITROGEN,BUN 22 mg/dL (7.0-18.0); CHLORIDE,CL 112 mmol/L (98-107); GLUCOSE RANDOM 163 mg/dL (74-106); POTASSIUM,K 3.6 mmol/L (3.5-5.1); SODIUM,NA 148 mmol/L (136-148)
[2019-11-14] MEDS: Midodrine 5 MG Tab PO SCH ×3 (06:38→16:49)
--- NOTE | 2019-11-14 08:39 | PN ---
THC Physician - Brief Progress [id number]/25/2020 08:30[facility] Mera Mchugh, MELISSA - KEO (CHOCO) - KEO VÁZQUEZONEL SANDSRalfDate of Service 11/14/2019 08:30HPI/Events of Note eICU progress note:88-year-old male admitted to the hospital for septic shock secondary to UT I with E. coli bacteremia. Overnight patient has been weaned on Levophed to 2 mcg and otherwise had no further acute events.Patient seen on camera, appears to be sleeping does not seem to be in any acu te distress.Vital signs reviewedLabs/EMR reviewedSeptic shock secondary to UTI with bacteremia-Agree with current antibiotic regimen with cefepime as patient has clinically improved with decreasing Levo phed requirement and downtrending WBC count-Recommend titrating Levophed to MAP 65 and wean as tolera lukasz-Continue midodrine 10 TID-Recommend continued holding diuresis for now. Hypernatremia-Na 148 toda y, recommend continued PO free water intakeAnticoagulation-Recommend Pharmacy to dose coumadin and ho ld due to significant uptrend.Interventions Major-Electrolyte abnormality - evaluation and management , Sepsis - evaluation and management, Shock - evaluation and management
--- NOTE | 2019-11-14 08:45 | PCM.PN ---
- General Info Date of Service: 11/14/19 Subjective Update: Patient reports he is ok. Has been eating and having bowel movements. Has increased work of breathing today. - Review of Systems General: Reports: No Symptoms HEENT: Reports: No Symptoms Pulmonary: Reports: Shortness of Breath Cardiovascular: Reports: Edema. Denies: Chest Pain Gastrointestinal: Reports: No Symptoms Genitourinary: Reports: No Symptoms Musculoskeletal: Reports: No Symptoms Skin: Reports: No Symptoms Neurological: Reports: No Symptoms Psychiatric: Reports: No Symptoms - Patient Data Vitals - Most Recent: Last Vital Signs Temp 97.9 F 11/14/19 08:00 Pulse 102 H 11/08/19 20:10 Resp 38 H 11/14/19 08:00 BP 102/50 L 11/14/19 08:00 Pulse Ox 92 L 11/14/19 08:00 Weight - Most Recent: 128.231 kg I&O - Last 24 Hours: Intake & Output 11/13/19 11/14/19 11/14/19 22:59 06:59 14:59 Intake Total 941 840 Output Total 940 600 Balance 1 240 Lab Results Last 24 Hours: Laboratory Results - last 24 hr 11/14/19 11/14/19 11/14/19 Range/Units 06:00 06:05 06:05 WBC 14.86 H (4.0-11.0) K/uL RBC 2.71 L (4.50-5.90) M/uL Hgb 7.9 L (13.0-17.0) g/dL Hct 25.6 L (38.0-50.0) % MCV 94.5 (80.0-98.0) fL MCH 29.2 (27.0-32.0) pg MCHC 30.9 L (31.0-37.0) g/dL RDW Std Deviation 65.9 H (28.0-62.0) fl RDW Coeff of Regulo 20 H (11.0-15.0) % Plt Count 276 (150-400) K/uL MPV 10.30 (7.40-12.00) fL Add Manual Diff YES Neutrophils % (Manual) 78 (48.0-80.0) % Band Neutrophils % 6 % Lymphocytes % (Manual) 9 L (16.0-40.0) % Monocytes % (Manual) 4 (0.0-15.0) % Eosinophils % (Manual) 3 (0.0-7.0) % Nucleated RBC % 1.3 /100WBC Absolute Seg Neuts 11.6 H (1.4-5.7) Band Neutrophils # 0.9 Lymphocytes # (Manual) 1.3 (0.6-2.4) Monocytes # (Manual) 0.6 (0.0-0.8) Eosinophils # (Manual) 0.4 (0.0-0.7) Nucleated RBCs # 0 K/uL INR 5.44 Sodium 148 (136-148) mmol/L Potassium 3.6 (3.5-5.1) mmol/L Chloride 112 H (98-107) mmol/L Carbon Dioxide 31.0 (21.0-32.0) mmol/L BUN 22 H (7.0-18.0) mg/dL Creatinine 1.1 (0.8-1.3) mg/dL Est Cr Clr Drug Dosing 50.04 mL/min Estimated GFR (MDRD) > 60.0 ml/min Glucose 163 H (74-106) mg/dL Calcium 7.3 L (8.5-10.1) mg/dL Total Bilirubin 2.7 H (0.2-1.0) mg/dL AST 30 (15-37) IU/L ALT 23 (14-63) IU/L Alkaline Phosphatase 81 (46-116) U/L Total Protein 5.9 L (6.4-8.2) g/dL Albumin 2.0 L (3.4-5.0) g/dL Globulin 3.9 (2.6-4.0) g/dL Albumin/Globulin Ratio 0.5 L (0.9-1.6) Ashvin Results Last 24 Hours: Microbiology 11/09/19 22:22 Aerobic Blood Culture - Final Blood - Venous Escherichia Coli Anaerobic Blood Culture - Preliminary NO GROWTH AFTER 4 DAYS 11/13/19 16:20 Gram Stain - Preliminary Sputum - Expectorated 11/11/19 12:53 Aerobic Blood Culture - Preliminary Blood - Venous - Lab Draw NO GROWTH AFTER 2 DAYS Anaerobic Blood Culture - Final 11/11/19 12:30 Aerobic Blood Culture - Preliminary Blood - Venous NO GROWTH AFTER 2 DAYS Anaerobic Blood Culture - Preliminary NO GROWTH AFTER 2 DAYS 11/09/19 10:18 Aerobic Blood Culture - Final Blood - Venous - Lab Draw Anaerobic Blood Culture - Preliminary NO GROWTH AFTER 4 DAYS 11/09/19 10:10 Aerobic Blood Culture - Final Blood - Venous Escherichia Coli Anaerobic Blood Culture - Preliminary NO GROWTH AFTER 4 DAYS Med Orders - Current: Current Medications Albuterol/Ipratropium (Duoneb 3.0-0.5 Mg/3 Ml) 3 ml NEB Q4HRRT PRN PRN Reason: Shortness Of Breath/wheezing Last Admin: 11/14/19 03:56 Dose: 3 ml Norepinephrine Bitartrate (Norepinephr-0.9% Nacl 4 Mg/250) 4 mg in 250 mls @ 15 mls/hr IV TITRATE CARLOS; Protocol Last Titration: 11/13/19 15:49 Dose: 0 mcg/min, 0 mls/hr Pantoprazole Sodium 40 mg/ (Sodium Chloride) 10 mls @ 300 mls/hr IV Q24H CARLOS Last Admin: 11/13/19 18:48 Dose: 300 mls/hr Sodium Chloride (Normal Saline) 500 mls @ 15 mls/hr IV ASDIRECTED CARLOS Last Infusion: 11/13/19 15:50 Dose: Infused Cefepime HCl 2 gm/ Premix 50 mls @ 100 mls/hr IV Q8H CARLOS Last Admin: 11/14/19 04:57 Dose: 100 mls/hr Midodrine (Midodrine) 10 mg PO TIDAC [facility] Last Admin: 11/14/19 06:38 Dose: 10 mg Potassium Chloride (Potassium Chloride) 20 meq PO TID CARLOS Last Admin: 11/14/19 05:21 Dose: 20 meq Sodium Chloride (Saline Flush) 10 ml FLUSH ASDIRECTED PRN PRN Reason: Keep Vein Open Last Admin: 11/08/19 14:58 Dose: 10 ml Sodium Chloride (Saline Flush) 2.5 ml FLUSH ASDIRECTED PRN PRN Reason: Keep Vein Open Last Admin: 11/08/19 14:58 Dose: 2.5 ml Warfarin Sodium (Coumadin Ask) 1 each PO Q24H [facility] Last Admin: 11/13/19 14:36 Dose: Not Given Discontinued Medications Aspirin (Aspirin) 81 mg PO ONETIME ONE Stop: 11/09/19 18:28 Last Admin: 11/09/19 18:57 Dose: 81 mg Furosemide (Lasix) 20 mg IVPUSH NOW ONE Stop: 11/13/19 02:18 Last Admin: 11/13/19 02:29 Dose: 20 mg Sodium Chloride (Normal Saline) 1,000 mls @ 999 mls/hr IV STAT [facility] Last Admin: 11/08/19 14:58 Dose: 999 mls/hr Cefepime HCl 1 gm/ Premix 50 mls @ 100 mls/hr IV ONETIME ONE Stop: 11/08/19 15:48 Last Admin: 11/08/19 15:56 Dose: 100 mls/hr Vancomycin HCl 1.25 gm/ Sodium (Chloride) 250 mls @ 167 mls/hr IV ONETIME ONE Stop: 11/08/19 16:48 Last Admin: 11/08/19 16:41 Dose: 167 mls/hr Lactated Ringer's (Ringers, Lactated) 1,000 mls @ 125 mls/hr IV ASDIRECTED [facility] Last Admin: 11/09/19 01:45 Dose: 125 mls/hr Piperacillin Sod/Tazobactam (Sod 4.5 gm/ Sodium Chloride) 100 mls @ 100 mls/hr IV Q8H [facility] Last Admin: 11/13/19 11:06 Dose: 100 mls/hr Vancomycin HCl 0.75 gm/ Sodium (Chloride) 250 mls @ 166.667 mls/hr IV ONETIME ONE Stop: 11/08/19 20:44 Last Admin: 11/08/19 21:40 Dose: 166.667 mls/hr Vancomycin HCl 2 gm/ Sodium (Chloride) 500 mls @ 333.333 mls/hr IV Q24H [facility] Last Admin: 11/10/19 17:13 Dose: 333.333 mls/hr Lactated Ringer's (Ringers, Lactated) 500 mls @ 999 mls/hr IV .BOLUS ONE Stop: 11/08/19 19:59 Last Admin: 11/08/19 21:30 Dose: 999 mls/hr Magnesium Sulfate 2 gm/ Premix 50 mls @ 50 mls/hr IV ONETIME ONE Stop: 11/09/19 02:50 Last Admin: 11/09/19 02:06 Dose: 25 mls/hr Lactated Ringer's (Ringers, Lactated) 1,000 mls @ 100 mls/hr IV Q10H [facility] Last Admin: 11/10/19 05:33 Dose: 100 mls/hr Magnesium Sulfate 4 gm/ Premix 100 mls @ 33.333 mls/hr IV ONETIME ONE Stop: 11/09/19 20:34 Last Admin: 11/09/19 17:57 Dose: 33.333 mls/hr Lactated Ringer's (Ringers, Lactated) 250 mls @ 999 mls/hr IV .BOLUS ONE Stop: 11/10/19 10:04 Last Admin: 11/10/19 09:57 Dose: 999 mls/hr Lactated Ringer's (Ringers, Lactated) 250 mls @ 999 mls/hr IV .BOLUS CARLOS Last Admin: 11/10/19 19:05 Dose: 999 mls/hr Sodium Chloride (Normal Saline) 250 mls @ 999 mls/hr IV ONETIME ONE Stop: 11/10/19 19:15 Last Admin: 11/10/19 19:32 Dose: Not Given Albumin Human (Buminate 5%) 250 mls @ 125 mls/hr IV Q2H CARLOS Stop: 11/12/19 20:59 Last Admin: 11/12/19 19:32 Dose: 125 mls/hr Phytonadione (Aquamephyton) 2.5 mg SUBCUT ONETIME ONE Stop: 11/08/19 18:18 Last Admin: 11/08/19 19:47 Dose: Not Given Phytonadione (Aquamephyton) Confirm Administered Dose 10 mg .ROUTE .STK-MED ONE Stop: 11/08/19 19:36 Last Admin: 11/08/19 19:47 Dose: Not Given Phytonadione (Aquamephyton) 2.5 mg SUBCUT NOW ONE Stop: 11/08/19 20:07 Last Admin: 11/08/19 19:47 Dose: 2.5 mg Phytonadione (Aquamephyton) 2.5 mg PO ONETIME ONE Stop: 11/09/19 09:34 Last Admin: 11/09/19 10:03 Dose: 2.5 mg Potassium Chloride (Klor-Con M20) 40 meq PO ONETIME ONE Stop: 11/09/19 11:41 Last Admin: 11/09/19 11:51 Dose: 40 meq Potassium Chloride (Klor-Con M20) 40 meq PO ONETIME ONE Stop: 11/09/19 21:01 Last Admin: 11/09/19 20:29 Dose: 40 meq Potassium Chloride (Klor-Con M20) 40 meq PO ONETIME ONE Stop: 11/11/19 07:40 Last Admin: 11/11/19 08:31 Dose: 40 meq Potassium Chloride (Klor-Con M20) 40 meq PO ONETIME ONE Stop: 11/12/19 08:25 Last Admin: 11/12/19 11:12 Dose: Not Given Potassium Chloride (Klor-Con M20) 40 meq PO ONETIME ONE Stop: 11/12/19 11:16 Last Admin: 11/12/19 11:21 Dose: 40 meq Potassium Chloride (Klor-Con M20) 20 meq PO TID CARLOS Last Admin: 11/13/19 21:07 Dose: 20 meq Vancomycin HCl (Pharmacy To Dose - Vancomycin) 1 dose .XX ASDIRECTED [facility] Warfarin Sodium (Coumadin) 3 mg PO ONETIME ONE Stop: 11/10/19 13:46 Last Admin: 11/10/19 13:51 Dose: 3 mg Warfarin Sodium (Coumadin) 3 mg PO DAILY@1400 ONE Stop: 11/11/19 14:01 Last Admin: 11/11/19 13:43 Dose: 3 mg Warfarin Sodium (Coumadin) 2 mg PO DAILY@1400 ONE Stop: 11/12/19 14:01 Last Admin: 11/12/19 13:53 Dose: 2 mg - Exam General: Alert, Cooperative Lungs: Crackles. No: Normal Respiratory Effort Cardiovascular: Irregular Rhythm GI/Abdominal Exam: Normal Bowel Sounds, Soft, Non-Tender, No Distention Extremities: Pedal Edema Skin: Warm, Dry Neurological: No New Focal Deficit Psy/Mental Status: Alert, Normal Affect, Normal Mood Sepsis Event Note - Evaluation Sepsis Screening Result: Severe Sepsis Risk - Focused Exam Vital Signs: Vital Signs Temp Resp BP BP Pulse Ox 11/14/19 08:00 97.9 F 38 H 102/50 L 92 L 11/14/19 07:00 31 H 101/56 L 91 L 11/14/19 06:00 26 H 111/58 L 90 L 11/14/19 05:00 30 H 109/54 L 93 L 11/14/19 04:00 97.8 F 35 H 114/58 L 106/49 L 99 11/14/19 03:00 25 H 103/51 L 94 L 11/14/19 02:00 33 H 106/53 L 92 L 11/14/19 01:00 33 H 108/55 L 96 11/13/19 23:54 97.5 F 30 H 107/54 L 111/68 97 11/13/19 23:00 25 H 106/47 L 95 11/13/19 22:00 31 H 99/48 L 97 11/13/19 21:00 26 H 103/56 L 95 Date Exam was Performed: 11/14/19 Time Exam was Performed: 10:24 - Problem List Review Problem List Initiated/Reviewed/Updated: Yes - My Orders Last 24 Hours: My Active Orders 11/15/19 05:11 CBC WITH AUTO DIFF [HEME] AM COMPREHENSIVE METABOLIC PN,CMP [CHEM] AM INR,PT,PROTHROMBIN TIME [COAG] AM - Plan Plan:: 1. Septic shock with Ecoli bacteremia and UTI-Off Levophed drip and maintaining MAP >65 on midodrine 10 TID. Was switched from Zosyn to Cefepime yesterday and white count improving. 2 sets of repeat blood cultures grew Ecoli. 3rd repeat blood cultures clear so far. 2. Pulmonary edema- received lasix yesterday. Requiring more oxygen and is more tachypneic today. Repeat CXR showed slightly worsening pulmonary vascular congestion. Will give dose of IV Lasix. 3. Hypernatremia- encourage PO free water. Continue to monitor. 4. Supratherapeutic INR- pharmacy dosing, held yesterday, should be held again today. 5. Hypokalemia- resolved, getting 20 mg TID 6. Chronic condition- CHF, Afib, COPD, HTN- holding warfarin and BP meds. Monitor fluid status and monitor on telemetry. Had echo completed August with EF or 55%.
--- NOTE | 2019-11-14 10:11 | CR ---
Chest: Portable view of the chest was obtained. Comparison: Prior chest x-ray of 11/13/19. Heart size is enlarged. Increased lung markings are seen. Findings appear fairly symmetric and findings most likely due to worsening pulmonary vascular congestion although please exclude any infectious symptoms. Slight atelectasis noted within the left lung base. Possible small right sided pleural effusion. Impression: 1. Findings felt compatible with continuing pulmonary vascular congestion. As mentioned above, please exclude any symptoms of infection. Possible small right sided pleural effusion. 3. Findings have slightly worsened from previous study. Diagnostic code #3 Study was dictated in MDT
[2019-11-14] MEDS ORDERED: Furosemide 40 MG/4 ML VIAL IVPUSH ONE (10:24)
[2019-11-14] MEDS: Sodium Chloride 0.9% 500 ML IV SCH (14:50)
[2019-11-14] MEDS: Pantoprazole 40 MG in Sodium Chloride 0.9% 10 ML IV SCH (18:54)
[2019-11-15] MEDS: Albuterol/Ipratropium 3.0-0.5 MG/3 ML Neb Soln NEB PRN ×4 (02:30→22:34)
[2019-11-15] MEDS: Cefepime 2 GM in Premix Bag 1 BAG IV SCH ×3 (05:22→20:45)
[2019-11-15] MEDS: Potassium Chloride 10% 20 MEQ/15 ML Soln 30 ML UD Cup PO SCH ×3 (05:57→21:53)
[2019-11-15 06:02] LABS: BLOOD UREA NITROGEN,BUN 20 mg/dL (7.0-18.0); CARBON DIOXIDE,CO2 31.2 mmol/L (21.0-32.0); CHLORIDE,CL 114 mmol/L (98-107); GLUCOSE RANDOM 117 mg/dL (74-106); POTASSIUM,K 3.8 mmol/L (3.5-5.1); SODIUM,NA 150 mmol/L (136-148)
[2019-11-15] MEDS: Midodrine 5 MG Tab PO SCH ×3 (06:33→16:10)
--- NOTE | 2019-11-15 08:55 | PN ---
THC Physician - Brief Progress [id number]/26/2020 08:28[facility] Mera Mchugh, MELISSA - KEO (CHOCO) - KEO VÁZQUEZONEL SANDSRalfDate of Service 11/15/2019 08:28HPI/Events of Note eICU progress note:88-year-old male admitted to the hospital for septic shock secondary to UT I with E. coli bacteremia. Patient had increase work of breathing in the morning yesterday and was fo und to have worsening pulmonary edema/effusion thus given lasix. Subsequently required levophed to ma intain MAP thereafter. No further issues over the last 24 hours. Patient seen on camera, eyes closed, does not seem to be in acute distress. 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 Hyperna tremia-Na 150 today, recommend continued PO free water intake, trying to avoid D5 gtt as it will like ly 3rd space and cause worsening hypoxia. Anticoagulation-coumadin held, until INR therapeuticInterve ntions Major-Hypoxemia - evaluation and management, Sepsis - evaluation and management, Shock - evalu ation and management
--- NOTE | 2019-11-15 09:16 | PCM.PN ---
- General Info Date of Service: 11/15/19 Subjective Update: Patient states he doesn't feel good today but can't articulate anything specific. Is oriented to self only. - Review of Systems General: Reports: No Symptoms HEENT: Reports: No Symptoms Pulmonary: Reports: Shortness of Breath Cardiovascular: Reports: Edema. Denies: Chest Pain Gastrointestinal: Reports: No Symptoms Genitourinary: Reports: No Symptoms Musculoskeletal: Reports: No Symptoms Skin: Reports: No Symptoms Neurological: Reports: No Symptoms Psychiatric: Reports: No Symptoms - Patient Data Vitals - Most Recent: Last Vital Signs Temp 97.8 F 11/15/19 08:00 Pulse 102 H 11/08/19 20:10 Resp 33 H 11/15/19 08:00 BP 116/73 11/15/19 08:00 Pulse Ox 96 11/15/19 08:00 Weight - Most Recent: 128.503 kg I&O - Last 24 Hours: Intake & Output 11/14/19 11/15/19 11/15/19 22:59 06:59 14:59 Intake Total 720 987 Output Total 890 925 75 Balance -170 62 -75 Lab Results Last 24 Hours: Laboratory Results - last 24 hr 11/15/19 11/15/19 11/15/19 Range/Units 05:16 05:16 05:16 WBC 14.41 H (4.0-11.0) K/uL RBC 2.71 L (4.50-5.90) M/uL Hgb 7.9 L (13.0-17.0) g/dL Hct 26.1 L (38.0-50.0) % MCV 96.3 (80.0-98.0) fL MCH 29.2 (27.0-32.0) pg MCHC 30.3 L (31.0-37.0) g/dL RDW Std Deviation 67.3 H (28.0-62.0) fl RDW Coeff of Regulo 21 H (11.0-15.0) % Plt Count 316 (150-400) K/uL MPV 9.80 (7.40-12.00) fL Add Manual Diff YES Neutrophils % (Manual) 76 (48.0-80.0) % Band Neutrophils % 7 % Lymphocytes % (Manual) 9 L (16.0-40.0) % Monocytes % (Manual) 7 (0.0-15.0) % Metamyelocytes % 1 % Nucleated RBC % 1.3 /100WBC Absolute Seg Neuts 11.0 H (1.4-5.7) Band Neutrophils # 1.0 Lymphocytes # (Manual) 1.3 (0.6-2.4) Monocytes # (Manual) 1.0 H (0.0-0.8) Absolute Metamyelocyte 0.1 Nucleated RBCs # 0 K/uL INR 5.75 Sodium 150 H (136-148) mmol/L Potassium 3.8 (3.5-5.1) mmol/L Chloride 114 H (98-107) mmol/L Carbon Dioxide 31.2 (21.0-32.0) mmol/L BUN 20 H (7.0-18.0) mg/dL Creatinine 1.0 (0.8-1.3) mg/dL Est Cr Clr Drug Dosing 55.04 mL/min Estimated GFR (MDRD) > 60.0 ml/min Glucose 117 H (74-106) mg/dL Calcium 7.2 L (8.5-10.1) mg/dL Total Bilirubin 2.7 H (0.2-1.0) mg/dL AST 22 (15-37) IU/L ALT 20 (14-63) IU/L Alkaline Phosphatase 77 (46-116) U/L Total Protein 5.8 L (6.4-8.2) g/dL Albumin 2.0 L (3.4-5.0) g/dL Globulin 3.8 (2.6-4.0) g/dL Albumin/Globulin Ratio 0.5 L (0.9-1.6) Ashvin Results Last 24 Hours: Microbiology 11/09/19 22:22 Aerobic Blood Culture - Final Blood - Venous Escherichia Coli Anaerobic Blood Culture - Final NO GROWTH AFTER 5 DAYS 11/11/19 12:53 Aerobic Blood Culture - Preliminary Blood - Venous - Lab Draw NO GROWTH AFTER 3 DAYS Anaerobic Blood Culture - Final 11/11/19 12:30 Aerobic Blood Culture - Preliminary Blood - Venous NO GROWTH AFTER 3 DAYS Anaerobic Blood Culture - Preliminary NO GROWTH AFTER 3 DAYS 11/09/19 10:18 Aerobic Blood Culture - Final Blood - Venous - Lab Draw Anaerobic Blood Culture - Final NO GROWTH AFTER 5 DAYS 11/09/19 10:10 Aerobic Blood Culture - Final Blood - Venous Escherichia Coli Anaerobic Blood Culture - Final NO GROWTH AFTER 5 DAYS Med Orders - Current: Current Medications Albuterol/Ipratropium (Duoneb 3.0-0.5 Mg/3 Ml) 3 ml NEB Q4HRRT PRN PRN Reason: Shortness Of Breath/wheezing Last Admin: 11/15/19 02:30 Dose: 3 ml Norepinephrine Bitartrate (Norepinephr-0.9% Nacl 4 Mg/250) 4 mg in 250 mls @ 15 mls/hr IV TITRATE CARLOS; Protocol Last Titration: 11/15/19 04:45 Dose: 1 mcg/min, 3.75 mls/hr Pantoprazole Sodium 40 mg/ (Sodium Chloride) 10 mls @ 300 mls/hr IV Q24H CARLOS Last Admin: 11/14/19 18:54 Dose: 300 mls/hr Sodium Chloride (Normal Saline) 500 mls @ 15 mls/hr IV ASDIRECTED CARLOS Last Infusion: 11/14/19 18:53 Dose: 10 mls/hr Cefepime HCl 2 gm/ Premix 50 mls @ 100 mls/hr IV Q8H CARLOS Last Admin: 11/15/19 05:22 Dose: 100 mls/hr Midodrine (Midodrine) 10 mg PO TIDAC [facility] Last Admin: 11/15/19 06:33 Dose: 10 mg Potassium Chloride (Potassium Chloride) 20 meq PO TID CARLOS Last Admin: 11/15/19 05:57 Dose: 20 meq Sodium Chloride (Saline Flush) 10 ml FLUSH ASDIRECTED PRN PRN Reason: Keep Vein Open Last Admin: 11/08/19 14:58 Dose: 10 ml Sodium Chloride (Saline Flush) 2.5 ml FLUSH ASDIRECTED PRN PRN Reason: Keep Vein Open Last Admin: 11/08/19 14:58 Dose: 2.5 ml Warfarin Sodium (Coumadin Ask) 1 each PO Q24H [facility] Last Admin: 11/14/19 14:46 Dose: Not Given Discontinued Medications Aspirin (Aspirin) 81 mg PO ONETIME ONE Stop: 11/09/19 18:28 Last Admin: 11/09/19 18:57 Dose: 81 mg Furosemide (Lasix) 20 mg IVPUSH NOW ONE Stop: 11/13/19 02:18 Last Admin: 05/24/20 02:29 Dose: 20 mg Furosemide (Lasix) 20 mg IVPUSH NOW ONE Stop: 11/14/19 10:25 Last Admin: 11/14/19 10:45 Dose: 20 mg Sodium Chloride (Normal Saline) 1,000 mls @ 999 mls/hr IV STAT CARLOS Last Admin: 11/08/19 14:58 Dose: 999 mls/hr Cefepime HCl 1 gm/ Premix 50 mls @ 100 mls/hr IV ONETIME ONE Stop: 11/08/19 15:48 Last Admin: 11/08/19 15:56 Dose: 100 mls/hr Vancomycin HCl 1.25 gm/ Sodium (Chloride) 250 mls @ 167 mls/hr IV ONETIME ONE Stop: 11/08/19 16:48 Last Admin: 11/08/19 16:41 Dose: 167 mls/hr Lactated Ringer's (Ringers, Lactated) 1,000 mls @ 125 mls/hr IV ASDIRECTED [facility] Last Admin: 11/09/19 01:45 Dose: 125 mls/hr Piperacillin Sod/Tazobactam (Sod 4.5 gm/ Sodium Chloride) 100 mls @ 100 mls/hr IV Q8H [facility] Last Admin: 11/13/19 11:06 Dose: 100 mls/hr Vancomycin HCl 0.75 gm/ Sodium (Chloride) 250 mls @ 166.667 mls/hr IV ONETIME ONE Stop: 11/08/19 20:44 Last Admin: 11/08/19 21:40 Dose: 166.667 mls/hr Vancomycin HCl 2 gm/ Sodium (Chloride) 500 mls @ 333.333 mls/hr IV Q24H [facility] Last Admin: 11/10/19 17:13 Dose: 333.333 mls/hr Lactated Ringer's (Ringers, Lactated) 500 mls @ 999 mls/hr IV .BOLUS ONE Stop: 11/08/19 19:59 Last Admin: 11/08/19 21:30 Dose: 999 mls/hr Magnesium Sulfate 2 gm/ Premix 50 mls @ 50 mls/hr IV ONETIME ONE Stop: 11/09/19 02:50 Last Admin: 11/09/19 02:06 Dose: 25 mls/hr Lactated Ringer's (Ringers, Lactated) 1,000 mls @ 100 mls/hr IV Q10H CARLOS Last Admin: 11/10/19 05:33 Dose: 100 mls/hr Magnesium Sulfate 4 gm/ Premix 100 mls @ 33.333 mls/hr IV ONETIME ONE Stop: 11/09/19 20:34 Last Admin: 11/09/19 17:57 Dose: 33.333 mls/hr Lactated Ringer's (Ringers, Lactated) 250 mls @ 999 mls/hr IV .BOLUS ONE Stop: 11/10/19 10:04 Last Admin: 11/10/19 09:57 Dose: 999 mls/hr Lactated Ringer's (Ringers, Lactated) 250 mls @ 999 mls/hr IV .BOLUS CARLSO Last Admin: 11/10/19 19:05 Dose: 999 mls/hr Sodium Chloride (Normal Saline) 250 mls @ 999 mls/hr IV ONETIME ONE Stop: 11/10/19 19:15 Last Admin: 11/10/19 19:32 Dose: Not Given Albumin Human (Buminate 5%) 250 mls @ 125 mls/hr IV Q2H CARLOS Stop: 11/12/19 20:59 Last Admin: 11/12/19 19:32 Dose: 125 mls/hr Phytonadione (Aquamephyton) 2.5 mg SUBCUT ONETIME ONE Stop: 11/08/19 18:18 Last Admin: 11/08/19 19:47 Dose: Not Given Phytonadione (Aquamephyton) Confirm Administered Dose 10 mg .ROUTE .STK-MED ONE Stop: 11/08/19 19:36 Last Admin: 11/08/19 19:47 Dose: Not Given Phytonadione (Aquamephyton) 2.5 mg SUBCUT NOW ONE Stop: 11/08/19 20:07 Last Admin: 11/08/19 19:47 Dose: 2.5 mg Phytonadione (Aquamephyton) 2.5 mg PO ONETIME ONE Stop: 11/09/19 09:34 Last Admin: 11/09/19 10:03 Dose: 2.5 mg Potassium Chloride (Klor-Con M20) 40 meq PO ONETIME ONE Stop: 11/09/19 11:41 Last Admin: 11/09/19 11:51 Dose: 40 meq Potassium Chloride (Klor-Con M20) 40 meq PO ONETIME ONE Stop: 11/09/19 21:01 Last Admin: 11/09/19 20:29 Dose: 40 meq Potassium Chloride (Klor-Con M20) 40 meq PO ONETIME ONE Stop: 11/11/19 07:40 Last Admin: 11/11/19 08:31 Dose: 40 meq Potassium Chloride (Klor-Con M20) 40 meq PO ONETIME ONE Stop: 11/12/19 08:25 Last Admin: 11/12/19 11:12 Dose: Not Given Potassium Chloride (Klor-Con M20) 40 meq PO ONETIME ONE Stop: 11/12/19 11:16 Last Admin: 11/12/19 11:21 Dose: 40 meq Potassium Chloride (Klor-Con M20) 20 meq PO TID CARLOS Last Admin: 11/13/19 21:07 Dose: 20 meq Vancomycin HCl (Pharmacy To Dose - Vancomycin) 1 dose .XX ASDIRECTED [facility] Warfarin Sodium (Coumadin) 3 mg PO ONETIME ONE Stop: 11/10/19 13:46 Last Admin: 11/10/19 13:51 Dose: 3 mg Warfarin Sodium (Coumadin) 3 mg PO DAILY@1400 ONE Stop: 11/11/19 14:01 Last Admin: 11/11/19 13:43 Dose: 3 mg Warfarin Sodium (Coumadin) 2 mg PO DAILY@1400 ONE Stop: 11/12/19 14:01 Last Admin: 11/12/19 13:53 Dose: 2 mg - Exam General: Alert. No: Oriented Lungs: Crackles. No: Normal Respiratory Effort Cardiovascular: Irregular Rhythm GI/Abdominal Exam: Normal Bowel Sounds, Soft, Non-Tender Extremities: Pedal Edema Skin: Warm, Dry Neurological: No New Focal Deficit Psy/Mental Status: Alert Sepsis Event Note - Evaluation Sepsis Screening Result: Severe Sepsis Risk - Focused Exam Vital Signs: Vital Signs Temp Resp BP BP Pulse Ox 11/15/19 08:00 97.8 F 33 H 100/51 L 116/73 96 11/15/19 07:00 10 L 104/53 L 90 L 11/15/19 06:00 33 H 113/51 L 106/58 L 95 11/15/19 05:00 35 H 113/58 L 97 11/15/19 04:00 97.5 F 35 H 111/54 L 96 11/15/19 03:00 38 H 114/53 L 95 11/15/19 02:00 35 H 111/58 L 92 L 11/15/19 01:00 35 H 93/43 L 99 11/15/19 00:00 97.8 F 33 H 103/53 L 102/57 L 96 11/14/19 23:00 35 H 114/60 96 11/14/19 22:00 37 H 105/54 L 98 Date Exam was Performed: 11/15/19 Time Exam was Performed: 10:39 - Problem List Review Problem List Initiated/Reviewed/Updated: Yes - My Orders Last 24 Hours: My Active Orders 11/14/19 15:18 Consult to Hospice [CONS] Routine - Plan Plan:: 1. Septic shock with Ecoli bacteremia and UTI-Continue Levophed drip to keep MAP >65 and midodrine 10 TID. Continue on Cefepime. 2 sets of repeat blood cultures grew Ecoli. 3rd repeat blood cultures clear so far. 2. Pulmonary edema- received lasix yesterday. Repeat CXR yesterday showed slightly worsening pulmonary vascular congestion. 3. Hypernatremia- worsening-encourage PO free water. Continue to monitor. 4. Supratherapeutic INR- pharmacy dosing, held yesterday, should be held again today. 5. Hypokalemia- resolved, getting 20 mg TID 6. Chronic condition- CHF, Afib, COPD, HTN- holding warfarin and BP meds. Monitor fluid status and monitor on telemetry. Had echo completed August 2019 with EF or 55%. Discussed hospice with yesterday and she is unsure. She would like to speak with someone from hospice. Hospice consult placed.
[2019-11-15] MEDS: Pantoprazole 40 MG in Sodium Chloride 0.9% 10 ML IV SCH (18:36)
[2019-11-15] MEDS ORDERED: Dextrose 5% in Water 500 ML IV SCH (20:45)
[2019-11-16] MEDS: Cefepime 2 GM in Premix Bag 1 BAG IV SCH (05:06)
[2019-11-16] MEDS: Albuterol/Ipratropium 3.0-0.5 MG/3 ML Neb Soln NEB PRN (05:11)
[2019-11-16] MEDS: Potassium Chloride 10% 20 MEQ/15 ML Soln 30 ML UD Cup PO SCH (05:46)
[2019-11-16] MEDS: Midodrine 5 MG Tab PO SCH ×3 (06:32→17:05)
[2019-11-16 07:05] LABS: BLOOD UREA NITROGEN,BUN 19 mg/dL (7.0-18.0); CARBON DIOXIDE,CO2 29.6 mmol/L (21.0-32.0); CHLORIDE,CL 115 mmol/L (98-107); GLUCOSE RANDOM 134 mg/dL (74-106); POTASSIUM,K 4.1 mmol/L (3.5-5.1); SODIUM,NA 151 mmol/L (136-148)
--- NOTE | 2019-11-16 08:21 | PCM.PN ---
- General Info Date of Service: 11/16/19 Subjective Update: Patient was able to speak with his over video chat last night. Patient's respiratory status worsened last night, required 10 L of oxygen, no currently on 6 L. - Review of Systems General: Reports: No Symptoms HEENT: Reports: No Symptoms Pulmonary: Reports: Shortness of Breath Cardiovascular: Reports: Edema. Denies: Chest Pain Gastrointestinal: Reports: No Symptoms Genitourinary: Reports: No Symptoms Musculoskeletal: Reports: No Symptoms Skin: Reports: No Symptoms - Patient Data Vitals - Most Recent: Last Vital Signs Temp 97.5 F 11/16/19 04:00 Pulse 102 H 11/08/19 20:10 Resp 29 H 11/16/19 07:00 BP 104/58 L 11/16/19 07:00 Pulse Ox 92 L 11/16/19 07:00 Weight - Most Recent: 125.6 kg I&O - Last 24 Hours: Intake & Output 11/15/19 11/16/19 11/16/19 22:59 06:59 14:59 Intake Total 374 862 Output Total 330 550 80 Balance 44 312 -80 Lab Results Last 24 Hours: Laboratory Results - last 24 hr 11/16/19 11/16/19 11/16/19 Range/Units 06:03 06:03 06:03 WBC 13.87 H (4.0-11.0) K/uL RBC 2.77 L (4.50-5.90) M/uL Hgb 8.2 L (13.0-17.0) g/dL Hct 27.5 L (38.0-50.0) % MCV 99.3 H (80.0-98.0) fL MCH 29.6 (27.0-32.0) pg MCHC 29.8 L (31.0-37.0) g/dL RDW Std Deviation 70.6 H (28.0-62.0) fl RDW Coeff of Regulo 22 H (11.0-15.0) % Plt Count 350 (150-400) K/uL MPV 9.90 (7.40-12.00) fL Add Manual Diff YES Neutrophils % (Manual) 82 H (48.0-80.0) % Lymphocytes % (Manual) 17 (16.0-40.0) % Monocytes % (Manual) 1 (0.0-15.0) % Nucleated RBC % 1.6 /100WBC Absolute Seg Neuts 11.4 H (1.4-5.7) Lymphocytes # (Manual) 2.4 (0.6-2.4) Monocytes # (Manual) 0.1 (0.0-0.8) Nucleated RBCs # 0 K/uL INR 6.98 Sodium 151 H (136-148) mmol/L Potassium 4.1 (3.5-5.1) mmol/L Chloride 115 H (98-107) mmol/L Carbon Dioxide 29.6 (21.0-32.0) mmol/L BUN 19 H (7.0-18.0) mg/dL Creatinine 1.0 (0.8-1.3) mg/dL Est Cr Clr Drug Dosing 55.04 mL/min Estimated GFR (MDRD) > 60.0 ml/min Glucose 134 H (74-106) mg/dL Calcium 7.3 L (8.5-10.1) mg/dL Total Bilirubin 2.4 H (0.2-1.0) mg/dL AST 23 (15-37) IU/L ALT 20 (14-63) IU/L Alkaline Phosphatase 75 (46-116) U/L Total Protein 6.0 L (6.4-8.2) g/dL Albumin 2.0 L (3.4-5.0) g/dL Globulin 4.0 (2.6-4.0) g/dL Albumin/Globulin Ratio 0.5 L (0.9-1.6) [place] Results Last 24 Hours: Microbiology 11/11/19 12:53 Aerobic Blood Culture - Preliminary Blood - Venous - Lab Draw NO GROWTH AFTER 4 DAYS Anaerobic Blood Culture - Final 11/11/19 12:30 Aerobic Blood Culture - Preliminary Blood - Venous NO GROWTH AFTER 4 DAYS Anaerobic Blood Culture - Preliminary NO GROWTH AFTER 4 DAYS 11/13/19 16:20 Gram Stain - Final Sputum - Expectorated Sputum Culture - Preliminary Normal Respiratory [facility] Orders - Current: Current Medications Albuterol/Ipratropium (Duoneb 3.0-0.5 Mg/3 Ml) 3 ml NEB Q4HRRT PRN PRN Reason: Shortness Of Breath/wheezing Last Admin: 11/16/19 05:11 Dose: 3 ml Norepinephrine Bitartrate (Norepinephr-0.9% Nacl 4 Mg/250) 4 mg in 250 mls @ 15 mls/hr IV TITRATE [facility]; Protocol Last Titration: 11/16/19 04:01 Dose: 0 mcg/min, 0 mls/hr Pantoprazole Sodium 40 mg/ (Sodium Chloride) 10 mls @ 300 mls/hr IV Q24H [facility] Last Admin: 11/15/19 18:36 Dose: 300 mls/hr Cefepime HCl 2 gm/ Premix 50 mls @ 100 mls/hr IV Q8H [facility] Last Admin: 11/16/19 05:06 Dose: 100 mls/hr Dextrose/Water (Dextrose 5% In Water) 500 mls @ 10 mls/hr IV ASDIRECTED [facility] Last Admin: 11/15/19 20:44 Dose: 10 mls/hr Midodrine (Midodrine) 10 mg PO TIDAC [facility] Last Admin: 11/16/19 06:32 Dose: 10 mg Potassium Chloride (Potassium Chloride) 20 meq PO TID [facility] Last Admin: 11/16/19 05:46 Dose: 20 meq Sodium Chloride (Saline Flush) 10 ml FLUSH ASDIRECTED PRN PRN Reason: Keep Vein Open Last Admin: 11/08/19 14:58 Dose: 10 ml Sodium Chloride (Saline Flush) 2.5 ml FLUSH ASDIRECTED PRN PRN Reason: Keep Vein Open Last Admin: 11/08/19 14:58 Dose: 2.5 ml Warfarin Sodium (Coumadin Ask) 1 each PO Q24H [facility] Last Admin: 11/15/19 13:48 Dose: Not Given Discontinued Medications Aspirin (Aspirin) 81 mg PO ONETIME ONE Stop: 11/09/19 18:28 Last Admin: 11/09/19 18:57 Dose: 81 mg Furosemide (Lasix) 20 mg IVPUSH NOW ONE Stop: 11/13/19 02:18 Last Admin: 11/13/19 02:29 Dose: 20 mg Furosemide (Lasix) 20 mg IVPUSH NOW ONE Stop: 11/14/19 10:25 Last Admin: 11/14/19 10:45 Dose: 20 mg Sodium Chloride (Normal Saline) 1,000 mls @ 999 mls/hr IV STAT [facility] Last Admin: 11/08/19 14:58 Dose: 999 mls/hr Cefepime HCl 1 gm/ Premix 50 mls @ 100 mls/hr IV ONETIME ONE Stop: 11/08/19 15:48 Last Admin: 11/08/19 15:56 Dose: 100 mls/hr Vancomycin HCl 1.25 gm/ Sodium (Chloride) 250 mls @ 167 mls/hr IV ONETIME ONE Stop: 11/08/19 16:48 Last Admin: 11/08/19 16:41 Dose: 167 mls/hr Lactated Ringer's (Ringers, Lactated) 1,000 mls @ 125 mls/hr IV ASDIRECTED [facility] Last Admin: 11/09/19 01:45 Dose: 125 mls/hr Piperacillin Sod/Tazobactam (Sod 4.5 gm/ Sodium Chloride) 100 mls @ 100 mls/hr IV Q8H [facility] Last Admin: 11/13/19 11:06 Dose: 100 mls/hr Vancomycin HCl 0.75 gm/ Sodium (Chloride) 250 mls @ 166.667 mls/hr IV ONETIME ONE Stop: 11/08/19 20:44 Last Admin: 11/08/19 21:40 Dose: 166.667 mls/hr Vancomycin HCl 2 gm/ Sodium (Chloride) 500 mls @ 333.333 mls/hr IV Q24H [facility] Last Admin: 11/10/19 17:13 Dose: 333.333 mls/hr Lactated Ringer's (Ringers, Lactated) 500 mls @ 999 mls/hr IV .BOLUS ONE Stop: 11/08/19 19:59 Last Admin: 11/08/19 21:30 Dose: 999 mls/hr Magnesium Sulfate 2 gm/ Premix 50 mls @ 50 mls/hr IV ONETIME ONE Stop: 11/09/19 02:50 Last Admin: 11/09/19 02:06 Dose: 25 mls/hr Lactated Ringer's (Ringers, Lactated) 1,000 mls @ 100 mls/hr IV Q10H [facility] Last Admin: 11/10/19 05:33 Dose: 100 mls/hr Magnesium Sulfate 4 gm/ Premix 100 mls @ 33.333 mls/hr IV ONETIME ONE Stop: 11/09/19 20:34 Last Admin: 11/09/19 17:57 Dose: 33.333 mls/hr Lactated Ringer's (Ringers, Lactated) 250 mls @ 999 mls/hr IV .BOLUS ONE Stop: 11/10/19 10:04 Last Admin: 11/10/19 09:57 Dose: 999 mls/hr Lactated Ringer's (Ringers, Lactated) 250 mls @ 999 mls/hr IV .BOLUS [facility] Last Admin: 11/10/19 19:05 Dose: 999 mls/hr Sodium Chloride (Normal Saline) 250 mls @ 999 mls/hr IV ONETIME ONE Stop: 11/10/19 19:15 Last Admin: 11/10/19 19:32 Dose: Not Given Sodium Chloride (Normal Saline) 500 mls @ 15 mls/hr IV ASDIRECTED [facility] Last Infusion: 11/15/19 21:00 Dose: 0 mls/hr Albumin Human (Buminate 5%) 250 mls @ 125 mls/hr IV Q2H [facility] Stop: 11/12/19 20:59 Last Admin: 11/12/19 19:32 Dose: 125 mls/hr Phytonadione (Aquamephyton) 2.5 mg SUBCUT ONETIME ONE Stop: 11/08/19 18:18 Last Admin: 11/08/19 19:47 Dose: Not Given Phytonadione (Aquamephyton) Confirm Administered Dose 10 mg .ROUTE .STK-MED ONE Stop: 11/08/19 19:36 Last Admin: 11/08/19 19:47 Dose: Not Given Phytonadione (Aquamephyton) 2.5 mg SUBCUT NOW ONE Stop: 11/08/19 20:07 Last Admin: 11/08/19 19:47 Dose: 2.5 mg Phytonadione (Aquamephyton) 2.5 mg PO ONETIME ONE Stop: 11/09/19 09:34 Last Admin: 11/09/19 10:03 Dose: 2.5 mg Potassium Chloride (Klor-Con M20) 40 meq PO ONETIME ONE Stop: 11/09/19 11:41 Last Admin: 11/09/19 11:51 Dose: 40 meq Potassium Chloride (Klor-Con M20) 40 meq PO ONETIME ONE Stop: 11/09/19 21:01 Last Admin: 11/09/19 20:29 Dose: 40 meq Potassium Chloride (Klor-Con M20) 40 meq PO ONETIME ONE Stop: 11/11/19 07:40 Last Admin: 11/11/19 08:31 Dose: 40 meq Potassium Chloride (Klor-Con M20) 40 meq PO ONETIME ONE Stop: 11/12/19 08:25 Last Admin: 11/12/19 11:12 Dose: Not Given Potassium Chloride (Klor-Con M20) 40 meq PO ONETIME ONE Stop: 11/12/19 11:16 Last Admin: 11/12/19 11:21 Dose: 40 meq Potassium Chloride (Klor-Con M20) 20 meq PO TID CARL[facility] Last Admin: 11/13/19 21:07 Dose: 20 meq Vancomycin HCl (Pharmacy To Dose - Vancomycin) 1 dose .XX ASDIRECTED [facility] Warfarin Sodium (Coumadin) 3 mg PO ONETIME ONE Stop: 11/10/19 13:46 Last Admin: 11/10/19 13:51 Dose: 3 mg Warfarin Sodium (Coumadin) 3 mg PO DAILY@1400 ONE Stop: 11/11/19 14:01 Last Admin: 11/11/19 13:43 Dose: 3 mg Warfarin Sodium (Coumadin) 2 mg PO DAILY@1400 ONE Stop: 11/12/19 14:01 Last Admin: 11/12/19 13:53 Dose: 2 mg - Exam General: Alert. No: Oriented Lungs: Crackles. No: Normal Respiratory Effort Cardiovascular: Irregular Rhythm GI/Abdominal Exam: Normal Bowel Sounds, Soft, Non-Tender Extremities: Pedal Edema Skin: Warm, Dry Neurological: No New Focal Deficit Psy/Mental Status: Alert, Normal Affect, Normal Mood Sepsis Event Note - Evaluation Sepsis Screening Result: Severe Sepsis Risk - Focused Exam Vital Signs: Vital Signs Temp Resp BP BP Pulse Ox 11/16/19 07:00 29 H 104/58 L 92 L 11/16/19 06:00 38 H 111/59 L 100 11/16/19 05:00 32 H 118/63 94 L 11/16/19 04:00 97.5 F 31 H 118/62 111/73 98 11/16/19 03:00 29 H 111/57 L 95 11/16/19 02:00 38 H 120/63 91 L 11/16/19 01:00 29 H 118/62 93 L 11/16/19 00:00 97.2 F 32 H 116/57 L 108/63 94 L 11/15/19 23:00 37 H 124/73 100 11/15/19 22:00 38 H 122/63 91 L 11/15/19 21:00 28 H 125/63 97 Date Exam was Performed: 11/16/19 Time Exam was Performed: 10:36 - Problem List Review Problem List Initiated/Reviewed/Updated: Yes - My Orders Last 24 Hours: My Active Orders 11/17/19 05:11 CBC WITH AUTO DIFF [HEME] AM COMPREHENSIVE METABOLIC PN,CMP [CHEM] AM INR,PT,PROTHROMBIN TIME [COAG] AM 11/18/19 05:11 CBC WITH AUTO DIFF [HEME] AM COMPREHENSIVE METABOLIC PN,CMP [CHEM] AM INR,PT,PROTHROMBIN TIME [COAG] AM - Plan Plan:: 1. Septic shock with Ecoli bacteremia and UTI- 2. Pulmonary edema with increasing oxygen requirement- 3. Hypernatremia 4. Supratherapeutic INR- 5. Hypokalemia- 6. Chronic condition- CHF, Afib, COPD, HTN- After speaking with family and hospice, patient will be transferred to palliative care. He was supposed to be transferred back to [facility] but they are unable to take him today, they state he should be able to go tomorrow. Will place him on comfort care medications. Patient will be transferred from the ICU to the medical floor.
--- NOTE | 2019-11-16 08:40 | PN ---
THC Physician - Brief Progress [id number]/27/2020 08:26[facility] Mera M[place]ugh, [place] - KEO (CHOCO) - KEO VÁZQUEZONEL SANDSRalfDate of Service 11/16/2019 08:26HPI/Events of Note eICU progress note:88-year-old male admitted to the hospital for septic shock secondary to UT I with E. coli bacteremia. Patient weaned off levo fed at around 4:00 this morning and also his O2 r equirements were decreased to 6 L with good saturations as well. No other acute events overnight.Pat ient seen on camera, currently being repositioned by bedside staff and does not seem to be in acute d istress.Vital signs reviewedLabs/EMR reviewedSeptic shock secondary to UTI with bacteremia-Agree with cefepime x 10-14 days for complicated UTI (will recommend 14 days)-Continue midodrine 10 TID-Recomme nd holding diuresis for now given levophed weaned off this AM, can consider -Can consider palliative evaluation given ongoing septic shock, hypernatremia, volume overload state.-Conside PT/OT evaluation for mobility to see if that can help mobilize fluids as well. Hypernatremia-Na 151 today, recommend continued PO free water intake, trying to avoid D5 gtt as it will likely 3rd space and cause worsenin g hypoxia.Anticoagulation-coumadin held, until INR therapeuticInterventions Major-Infection - evaluat ion and management, Sepsis - evaluation and management
[2019-11-16] MEDS ORDERED: Furosemide 40 MG/4 ML VIAL IVPUSH ONE (09:54)
[2019-11-16] MEDS ORDERED: LORazepam 2 MG/ML SDV IVPUSH PRN (10:35)
[2019-11-16] MEDS: Morphine 2 MG/ML Syringe IVPUSH PRN ×2 (13:34→21:15)
[2019-11-17] MEDS: Morphine 2 MG/ML Syringe IVPUSH PRN ×3 (01:09→06:21)
[2019-11-17] MEDS: Midodrine 5 MG Tab PO SCH (06:30)
--- NOTE | 2019-11-17 08:05 | PCM.DCSUM1 ---
<Janette Grider - Last Filed: 11/17/19 09:10> Discharge Summary - Hospital Course HPI Initial Comments: Admission Date: 11/08/19 Discharge Date: 11/17/19 Admission Diagnosis: 1. Septic shock 2. Supratherapeutic INR 3. Chronic conditions- CHF, Afib, oxygen dependent COPD, HTN Discharge Diagnosis: 1. Septic shock with Ecoli bacteremia and UTI 2. Supratherapeutic INR 3. Chronic conditions- CHF, Afib, oxygen dependent COPD, HTN Procedures: None Consults: None Hospital Course: Patient is a 88-year-old male with a past medical history of CHF, atrial fibrillation presenting from [facility] with concerns for altered mental status. . Per the snf report and EMS, patient was tested for a urinary tract infection yesterday after noticing some hallucinations and it appeared like his urinalysis was positive reportedly no antibiotics were started that time. Patient was hypoxic and hypotensive. He was placed on NC and a femoral line was started for levophed. He was admitted to the ICU where he was continued on the Levophed drip and his pressures improved, he was eventually able to be weaned off the drip but had to be started on PO midodrine. He was started on Vancomycin and Zosyn. His urine and blood culture both grew out Ecoli. Antibiotics were tailored to sensitivities. Patient had an elevated INR in the ED of 10.52, he was given several dose of vitamin K throughout admission and it improved. When his INR dropped below subtherapeutic his warfarin was restarted. His INR then continued to climb despite holding the warfarin again. Lactate was initially elevated and trended down with treatment. Fluid status was monitored closely due to hx of CHF and edematous state. He developed hypokalemia and hypomagnesium , which were replaced and resolved. Over the course of his admission, his breathing deteriorated, he became hypernatremic, and his INR continued to rise. Hospice was consulted, they spoke with family and he was placed on palliative care. Disposition: [facility] on hospice. Discharge Condition: tolerating oral diet, ambulating without difficulty, symptom improvement Discharge Instructions: regular diet as tolerated, activity as tolerated, take medications as prescribed. Symptoms to report to physician include fever/chills , chest pain, shortness of breath, abdominal pain, erythema, drainage/discharge , or not improving as expected. Discharge Medications: LORazepam [Ativan ORAL Concentrate 1MG/0.5 ML U/D] 1 mg PO Q6H PRN Morphine [Morphine 20 MG/ML Soln] 5 mg PO Q30M PRN Follow-up: Hospice will follow in snf - Discharge Data Discharge Date: 11/17/19 Discharge Disposition: DC/Tfer to SNF 03 Condition: Poor - Referral to Home Health Primary Care Physician: PCP Unobtainable - Patient Summary/Data Consults: Consultations 11/12/19 07:05 Consult to Physician [CONS] Routine 11/14/19 15:18 Consult to Hospice [CONS] Routine - Patient Instructions Diet: Regular Diet as Tolerated Activity: As Tolerated Showering/Bathing: May Shower Other/Special Instructions: Hospice will meet you at [facility] and help transition medications and care. - Discharge Plan *PRESCRIPTION DRUG MONITORING PROGRAM REVIEWED*: No *COPY OF PRESCRIPTION DRUG MONITORING REPORT IN PATIENT ENE: No Prescriptions/Med Rec: LORazepam [Ativan ORAL Concentrate 1MG/0.5 ML U/D] 1 mg PO Q6H PRN #1 bottle PRN Reason: Agitation Morphine [Morphine 20 MG/ML Soln] 5 mg PO Q30M PRN #1 bottle PRN Reason: Pain Home Medications: Home Meds LORazepam [Ativan ORAL Concentrate 1MG/0.5 ML U/D] 1 mg PO Q6H PRN #1 bottle [Rx] Morphine [Morphine 20 MG/ML Soln] 5 mg PO Q30M PRN #1 bottle 11/16/19 [Rx] Patient Handouts: Morphine oral solution, Heart Failure, Self Care, Easy-to- Read, Urinary Tract Infection, Adult, [id number], Lorazepam tablets, Atrial Fibrillation, [id number], Sepsis, Self Care, Adult - Discharge Summary/Plan Comment DC Time >30 min.: No - Patient Data Vitals - Most Recent: Last Vital Signs Temp 97.9 F 11/16/19 19:34 Pulse 98 11/16/19 19:34 Resp 36 H 11/16/19 19:34 BP 123/81 11/16/19 19:34 Pulse Ox 96 11/16/19 19:34 Weight - Most Recent: 125.6 kg I&O - Last 24 hours: Intake & Output 11/16/19 11/17/19 11/17/19 22:59 06:59 14:59 Intake Total 150 Output Total 775 700 Balance -625 -700 Lab Results - Last 24 hrs: Laboratory Results - last 24 hr 11/17/19 Range/Units 07:00 SARS-CoV-2 RNA (RT-PCR) NEGATIVE (NEGATIVE) [facility]ARRY Results - Last 24 hrs: Microbiology 11/11/19 12:53 Aerobic Blood Culture - Final Blood - Venous - Lab Draw NO GROWTH AFTER 5 DAYS Anaerobic Blood Culture - Final 11/11/19 12:30 Aerobic Blood Culture - Final Blood - Venous NO GROWTH AFTER 5 DAYS Anaerobic Blood Culture - Final NO GROWTH AFTER 5 DAYS 11/13/19 16:20 Gram Stain - Final Sputum - Expectorated Sputum Culture - Preliminary Normal Respiratory [place] Med Orders - Current: Current Medications Albuterol/Ipratropium (Duoneb 3.0-0.5 Mg/3 Ml) 3 ml NEB Q4HRRT PRN PRN Reason: Shortness Of Breath/wheezing Last Admin: 11/16/19 05:11 Dose: 3 ml Lorazepam (Ativan) 1 mg IVPUSH Q6H PRN PRN Reason: Agitation Midodrine (Midodrine) 10 mg PO TIDAC CARLOS Last Admin: 11/17/19 06:30 Dose: 10 mg Morphine Sulfate (Morphine) 2 mg IVPUSH Q1H PRN PRN Reason: Pain/airhunger/agitation Last Admin: 11/17/19 06:21 Dose: 2 mg Discontinued Medications Aspirin (Aspirin) 81 mg PO ONETIME ONE Stop: 11/09/19 18:28 Last Admin: 11/09/19 18:57 Dose: 81 mg Furosemide (Lasix) 20 mg IVPUSH NOW ONE Stop: 11/13/19 02:18 Last Admin: 11/13/19 02:29 Dose: 20 mg Furosemide (Lasix) 20 mg IVPUSH NOW ONE Stop: 11/14/19 10:25 Last Admin: 11/14/19 10:45 Dose: 20 mg Furosemide (Lasix) 40 mg IVPUSH NOW ONE Stop: 11/16/19 09:55 Last Admin: 11/16/19 10:42 Dose: 40 mg Sodium Chloride (Normal Saline) 1,000 mls @ 999 mls/hr IV STAT [facility] Last Admin: 11/08/19 14:58 Dose: 999 mls/hr Norepinephrine Bitartrate (Norepinephr-0.9% Nacl 4 Mg/250) 4 mg in 250 mls @ 15 mls/hr IV TITRATE [facility]; Protocol Last Titration: 11/16/19 04:01 Dose: 0 mcg/min, 0 mls/hr Cefepime HCl 1 gm/ Premix 50 mls @ 100 mls/hr IV ONETIME ONE Stop: 11/08/19 15:48 Last Admin: 11/08/19 15:56 Dose: 100 mls/hr Vancomycin HCl 1.25 gm/ Sodium (Chloride) 250 mls @ 167 mls/hr IV ONETIME ONE Stop: 11/08/19 16:48 Last Admin: 11/08/19 16:41 Dose: 167 mls/hr Lactated Ringer's (Ringers, Lactated) 1,000 mls @ 125 mls/hr IV ASDIRECTED [facility] Last Admin: 11/09/19 01:45 Dose: 125 mls/hr Piperacillin Sod/Tazobactam (Sod 4.5 gm/ Sodium Chloride) 100 mls @ 100 mls/hr IV Q8H [facility] Last Admin: 11/13/19 11:06 Dose: 100 mls/hr Vancomycin HCl 0.75 gm/ Sodium (Chloride) 250 mls @ 166.667 mls/hr IV ONETIME ONE Stop: 11/08/19 20:44 Last Admin: 11/08/19 21:40 Dose: 166.667 mls/hr Vancomycin HCl 2 gm/ Sodium (Chloride) 500 mls @ 333.333 mls/hr IV Q24H [facility] Last Admin: 11/10/19 17:13 Dose: 333.333 mls/hr Pantoprazole Sodium 40 mg/ (Sodium Chloride) 10 mls @ 300 mls/hr IV Q24H [facility] Last Admin: 11/15/19 18:36 Dose: 300 mls/hr Lactated Ringer's (Ringers, Lactated) 500 mls @ 999 mls/hr IV .BOLUS ONE Stop: 11/08/19 19:59 Last Admin: 11/08/19 21:30 Dose: 999 mls/hr Magnesium Sulfate 2 gm/ Premix 50 mls @ 50 mls/hr IV ONETIME ONE Stop: 11/09/19 02:50 Last Admin: 11/09/19 02:06 Dose: 25 mls/hr Lactated Ringer's (Ringers, Lactated) 1,000 mls @ 100 mls/hr IV Q10H [facility] Last Admin: 11/10/19 05:33 Dose: 100 mls/hr Magnesium Sulfate 4 gm/ Premix 100 mls @ 33.333 mls/hr IV ONETIME ONE Stop: 11/09/19 20:34 Last Admin: 11/09/19 17:57 Dose: 33.333 mls/hr Lactated Ringer's (Ringers, Lactated) 250 mls @ 999 mls/hr IV .BOLUS ONE Stop: 11/10/19 10:04 Last Admin: 11/10/19 09:57 Dose: 999 mls/hr Lactated Ringer's (Ringers, Lactated) 250 mls @ 999 mls/hr IV .BOLUS CARL[facility] Last Admin: 11/10/19 19:05 Dose: 999 mls/hr Sodium Chloride (Normal Saline) 250 mls @ 999 mls/hr IV ONETIME ONE Stop: 11/10/19 19:15 Last Admin: 11/10/19 19:32 Dose: Not Given Sodium Chloride (Normal Saline) 500 mls @ 15 mls/hr IV ASDIRECTED [facility] Last Infusion: 11/15/19 21:00 Dose: 0 mls/hr Albumin Human (Buminate 5%) 250 mls @ 125 mls/hr IV Q2H [facility] Stop: 11/12/19 20:59 Last Admin: 11/12/19 19:32 Dose: 125 mls/hr Cefepime HCl 2 gm/ Premix 50 mls @ 100 mls/hr IV Q8H [facility] Last Admin: 11/16/19 05:06 Dose: 100 mls/hr Dextrose/Water (Dextrose 5% In Water) 500 mls @ 10 mls/hr IV ASDIRECTED [facility] Last Admin: 11/15/19 20:44 Dose: 10 mls/hr Phytonadione (Aquamephyton) 2.5 mg SUBCUT ONETIME ONE Stop: 11/08/19 18:18 Last Admin: 11/08/19 19:47 Dose: Not Given Phytonadione (Aquamephyton) Confirm Administered Dose 10 mg .ROUTE .STK-MED ONE Stop: 11/08/19 19:36 Last Admin: 11/08/19 19:47 Dose: Not Given Phytonadione (Aquamephyton) 2.5 mg SUBCUT NOW ONE Stop: 11/08/19 20:07 Last Admin: 11/08/19 19:47 Dose: 2.5 mg Phytonadione (Aquamephyton) 2.5 mg PO ONETIME ONE Stop: 11/09/19 09:34 Last Admin: 11/09/19 10:03 Dose: 2.5 mg Potassium Chloride (Klor-Con M20) 40 meq PO ONETIME ONE Stop: 11/09/19 11:41 Last Admin: 11/09/19 11:51 Dose: 40 meq Potassium Chloride (Klor-Con M20) 40 meq PO ONETIME ONE Stop: 11/09/19 21:01 Last Admin: 11/09/19 20:29 Dose: 40 meq Potassium Chloride (Klor-Con M20) 40 meq PO ONETIME ONE Stop: 11/11/19 07:40 Last Admin: 11/11/19 08:31 Dose: 40 meq Potassium Chloride (Klor-Con M20) 40 meq PO ONETIME ONE Stop: 11/12/19 08:25 Last Admin: 11/12/19 11:12 Dose: Not Given Potassium Chloride (Klor-Con M20) 40 meq PO ONETIME ONE Stop: 11/12/19 11:16 Last Admin: 11/12/19 11:21 Dose: 40 meq Potassium Chloride (Klor-Con M20) 20 meq PO TID [facility] Last Admin: 11/13/19 21:07 Dose: 20 meq Potassium Chloride (Potassium Chloride) 20 meq PO TID [facility] Last Admin: 11/16/19 05:46 Dose: 20 meq Sodium Chloride (Saline Flush) 10 ml FLUSH ASDIRECTED PRN PRN Reason: Keep Vein Open Last Admin: 11/08/19 14:58 Dose: 10 ml Sodium Chloride (Saline Flush) 2.5 ml FLUSH ASDIRECTED PRN PRN Reason: Keep Vein Open Last Admin: 11/08/19 14:58 Dose: 2.5 ml Vancomycin HCl (Pharmacy To Dose - Vancomycin) 1 dose .XX ASDIRECTED [facility] Warfarin Sodium (Coumadin Ask) 1 each PO Q24H [facility] Last Admin: 11/15/19 13:48 Dose: Not Given Warfarin Sodium (Coumadin) 3 mg PO ONETIME ONE Stop: 11/10/19 13:46 Last Admin: 11/10/19 13:51 Dose: 3 mg Warfarin Sodium (Coumadin) 3 mg PO DAILY@1400 ONE Stop: 11/11/19 14:01 Last Admin: 11/11/19 13:43 Dose: 3 mg Warfarin Sodium (Coumadin) 2 mg PO DAILY@1400 ONE Stop: 11/12/19 14:01 Last Admin: 11/12/19 13:53 Dose: 2 mg <Liliane Lopez - Last Filed: 11/17/19 11:01> Discharge Summary - Hospital Course HPI Initial Comments: I have seen and evaluated the patient and agree with the residents note unless specified in my note - Referral to Home Health Primary Care Physician: PCP Unobtainable - Discharge Diagnosis/Problem(s) (1) Septic shock SNOMED Code(s): 45068306 ICD Code: A41.9 - SEPSIS, UNSPECIFIED ORGANISM; R65.21 - SEVERE SEPSIS WITH SEPTIC SHOCK Status: Acute Current Visit: Yes (2) Acute respiratory failure with hypoxia SNOMED Code(s): 74760443, 040157838 ICD Code: J96.01 - ACUTE RESPIRATORY FAILURE WITH HYPOXIA Status: Acute Current Visit: Yes (3) UTI, Urinary tract infectious disease SNOMED Code(s): 35360416 ICD Code: N39.0 - URINARY TRACT INFECTION, SITE NOT SPECIFIED Status: Acute Current Visit: Yes Onset Date: 01/16/14 (4) Supratherapeutic INR SNOMED Code(s): 326040503 ICD Code: R79.1 - ABNORMAL COAGULATION PROFILE Status: Acute Current Visit: Yes - Patient Summary/Data Consults: Consultations 11/12/19 07:05 Consult to Physician [CONS] Routine 11/14/19 15:18 Consult to Hospice [CONS] Routine - Patient Data Vitals - Most Recent: Last Vital Signs Temp 36.3 C 11/17/19 08:00 Pulse 92 11/17/19 08:00 Resp 36 H 11/17/19 08:00 BP 90/53 L 11/17/19 08:00 Pulse Ox 100 11/17/19 08:00 I&O - Last 24 hours: Intake & Output 11/16/19 11/17/19 11/17/19 22:59 06:59 14:59 Intake Total 150 Output Total 775 700 Balance -625 -700 Lab Results - Last 24 hrs: Laboratory Results - last 24 hr 11/17/19 Range/Units 07:00 SARS-CoV-2 RNA (RT-PCR) NEGATIVE (NEGATIVE) BARRY Results - Last 24 hrs: Microbiology 11/13/19 16:20 Gram Stain - Final Sputum - Expectorated Sputum Culture - Final Normal Respiratory [place] Non Fermenting Gram Neg Rods 11/11/19 12:53 Aerobic Blood Culture - Final Blood - Venous - Lab Draw NO GROWTH AFTER 5 DAYS Anaerobic Blood Culture - Final 11/11/19 12:30 Aerobic Blood Culture - Final Blood - Venous NO GROWTH AFTER 5 DAYS Anaerobic Blood Culture - Final NO GROWTH AFTER 5 DAYS Med Orders - Current: Current Medications Albuterol/Ipratropium (Duoneb 3.0-0.5 Mg/3 Ml) 3 ml NEB Q4HRRT PRN PRN Reason: Shortness Of Breath/wheezing Last Admin: 11/16/19 05:11 Dose: 3 ml Lorazepam (Ativan) 1 mg IVPUSH Q6H PRN PRN Reason: Agitation Midodrine (Midodrine) 10 mg PO TIDAC CARLOS Last Admin: 11/17/19 06:30 Dose: 10 mg Morphine Sulfate (Morphine) 2 mg IVPUSH Q1H PRN PRN Reason: Pain/airhunger/agitation Last Admin: 11/17/19 06:21 Dose: 2 mg Discontinued Medications Aspirin (Aspirin) 81 mg PO ONETIME ONE Stop: 11/09/19 18:28 Last Admin: 11/09/19 18:57 Dose: 81 mg Furosemide (Lasix) 20 mg IVPUSH NOW ONE Stop: 11/13/19 02:18 Last Admin: 11/13/19 02:29 Dose: 20 mg Furosemide (Lasix) 20 mg IVPUSH NOW ONE Stop: 11/14/19 10:25 Last Admin: 11/14/19 10:45 Dose: 20 mg Furosemide (Lasix) 40 mg IVPUSH NOW ONE Stop: 11/16/19 09:55 Last Admin: 11/16/19 10:42 Dose: 40 mg Sodium Chloride (Normal Saline) 1,000 mls @ 999 mls/hr IV STAT [facility] Last Admin: 11/08/19 14:58 Dose: 999 mls/hr Norepinephrine Bitartrate (Norepinephr-0.9% Nacl 4 Mg/250) 4 mg in 250 mls @ 15 mls/hr IV TITRATE [facility]; Protocol Last Titration: 11/16/19 04:01 Dose: 0 mcg/min, 0 mls/hr Cefepime HCl 1 gm/ Premix 50 mls @ 100 mls/hr IV ONETIME ONE Stop: 11/08/19 15:48 Last Admin: 11/08/19 15:56 Dose: 100 mls/hr Vancomycin HCl 1.25 gm/ Sodium (Chloride) 250 mls @ 167 mls/hr IV ONETIME ONE Stop: 11/08/19 16:48 Last Admin: 11/08/19 16:41 Dose: 167 mls/hr Lactated Ringer's (Ringers, Lactated) 1,000 mls @ 125 mls/hr IV ASDIRECTED [facility] Last Admin: 11/09/19 01:45 Dose: 125 mls/hr Piperacillin Sod/Tazobactam (Sod 4.5 gm/ Sodium Chloride) 100 mls @ 100 mls/hr IV Q8H [facility] Last Admin: 11/13/19 11:06 Dose: 100 mls/hr Vancomycin HCl 0.75 gm/ Sodium (Chloride) 250 mls @ 166.667 mls/hr IV ONETIME ONE Stop: 11/08/19 20:44 Last Admin: 11/08/19 21:40 Dose: 166.667 mls/hr Vancomycin HCl 2 gm/ Sodium (Chloride) 500 mls @ 333.333 mls/hr IV Q24H [facility] Last Admin: 11/10/19 17:13 Dose: 333.333 mls/hr Pantoprazole Sodium 40 mg/ (Sodium Chloride) 10 mls @ 300 mls/hr IV Q24H [facility] Last Admin: 11/15/19 18:36 Dose: 300 mls/hr Lactated Ringer's (Ringers, Lactated) 500 mls @ 999 mls/hr IV .BOLUS ONE Stop: 11/08/19 19:59 Last Admin: 11/08/19 21:30 Dose: 999 mls/hr Magnesium Sulfate 2 gm/ Premix 50 mls @ 50 mls/hr IV ONETIME ONE Stop: 11/09/19 02:50 Last Admin: 11/09/19 02:06 Dose: 25 mls/hr Lactated Ringer's (Ringers, Lactated) 1,000 mls @ 100 mls/hr IV Q10H [facility] Last Admin: 11/10/19 05:33 Dose: 100 mls/hr Magnesium Sulfate 4 gm/ Premix 100 mls @ 33.333 mls/hr IV ONETIME ONE Stop: 11/09/19 20:34 Last Admin: 11/09/19 17:57 Dose: 33.333 mls/hr Lactated Ringer's (Ringers, Lactated) 250 mls @ 999 mls/hr IV .BOLUS ONE Stop: 11/10/19 10:04 Last Admin: 11/10/19 09:57 Dose: 999 mls/hr Lactated Ringer's (Ringers, Lactated) 250 mls @ 999 mls/hr IV .BOLUS [facility] Last Admin: 11/10/19 19:05 Dose: 999 mls/hr Sodium Chloride (Normal Saline) 250 mls @ 999 mls/hr IV ONETIME ONE Stop: 11/10/19 19:15 Last Admin: 11/10/19 19:32 Dose: Not Given Sodium Chloride (Normal Saline) 500 mls @ 15 mls/hr IV ASDIRECTED [facility] Last Infusion: 11/15/19 21:00 Dose: 0 mls/hr Albumin Human (Buminate 5%) 250 mls @ 125 mls/hr IV Q2H [facility] Stop: 11/12/19 20:59 Last Admin: 11/12/19 19:32 Dose: 125 mls/hr Cefepime HCl 2 gm/ Premix 50 mls @ 100 mls/hr IV Q8H [facility] Last Admin: 11/16/19 05:06 Dose: 100 mls/hr Dextrose/Water (Dextrose 5% In Water) 500 mls @ 10 mls/hr IV ASDIRECTED [facility] Last Admin: 11/15/19 20:44 Dose: 10 mls/hr Phytonadione (Aquamephyton) 2.5 mg SUBCUT ONETIME ONE Stop: 11/08/19 18:18 Last Admin: 11/08/19 19:47 Dose: Not Given Phytonadione (Aquamephyton) Confirm Administered Dose 10 mg .ROUTE .STK-MED ONE Stop: 11/08/19 19:36 Last Admin: 05/19/20 19:47 Dose: Not Given Phytonadione (Aquamephyton) 2.5 mg SUBCUT NOW ONE Stop: 11/08/19 20:07 Last Admin: 11/08/19 19:47 Dose: 2.5 mg Phytonadione (Aquamephyton) 2.5 mg PO ONETIME ONE Stop: 11/09/19 09:34 Last Admin: 11/09/19 10:03 Dose: 2.5 mg Potassium Chloride (Klor-Con M20) 40 meq PO ONETIME ONE Stop: 11/09/19 11:41 Last Admin: 11/09/19 11:51 Dose: 40 meq Potassium Chloride (Klor-Con M20) 40 meq PO ONETIME ONE Stop: 11/09/19 21:01 Last Admin: 11/09/19 20:29 Dose: 40 meq Potassium Chloride (Klor-Con M20) 40 meq PO ONETIME ONE Stop: 11/11/19 07:40 Last Admin: 11/11/19 08:31 Dose: 40 meq Potassium Chloride (Klor-Con M20) 40 meq PO ONETIME ONE Stop: 11/12/19 08:25 Last Admin: 11/12/19 11:12 Dose: Not Given Potassium Chloride (Klor-Con M20) 40 meq PO ONETIME ONE Stop: 11/12/19 11:16 Last Admin: 11/12/19 11:21 Dose: 40 meq Potassium Chloride (Klor-Con M20) 20 meq PO TID [facility] Last Admin: 11/13/19 21:07 Dose: 20 meq Potassium Chloride (Potassium Chloride) 20 meq PO TID [facility] Last Admin: 11/16/19 05:46 Dose: 20 meq Sodium Chloride (Saline Flush) 10 ml FLUSH ASDIRECTED PRN PRN Reason: Keep Vein Open Last Admin: 11/08/19 14:58 Dose: 10 ml Sodium Chloride (Saline Flush) 2.5 ml FLUSH ASDIRECTED PRN PRN Reason: Keep Vein Open Last Admin: 11/08/19 14:58 Dose: 2.5 ml Vancomycin HCl (Pharmacy To Dose - Vancomycin) 1 dose .XX ASDIRECTED [facility] Warfarin Sodium (Coumadin Ask) 1 each PO Q24H [facility] Last Admin: 11/15/19 13:48 Dose: Not Given Warfarin Sodium (Coumadin) 3 mg PO ONETIME ONE Stop: 11/10/19 13:46 Last Admin: 11/10/19 13:51 Dose: 3 mg Warfarin Sodium (Coumadin) 3 mg PO DAILY@1400 ONE Stop: 11/11/19 14:01 Last Admin: 11/11/19 13:43 Dose: 3 mg Warfarin Sodium (Coumadin) 2 mg PO DAILY@1400 ONE Stop: 11/12/19 14:01 Last Admin: 11/12/19 13:53 Dose: 2 mg
[2019-11-17 10:15] VITALS: BP 90/53; PULSE 92
== END 2019-11-17 11:05 | DRG 871 ==
LOC: MW.ED 14:12 → MW.ICU 16:45 → MW.MS 11-16 12:12
PROVIDERS: ADMIT Student in an Organized Health Care Education/Training Program; ATTEND Student in an Organized Health Care Education/Training Program
PROC: 3E033XZ Introduction of Vasopressor into Peripheral Vein, Percutaneous Approach (ICD-10-PCS; principal; 2019-11-08)
DX: A41.9 Sepsis, unspecified organism (principal); A41.51 Sepsis due to Escherichia coli [E. coli]; R65.21 Severe sepsis with septic shock; I48.20 Chronic atrial fibrillation, unspecified; J96.01 Acute respiratory failure with hypoxia; H54.7 Unspecified visual loss; H91.90 Unspecified hearing loss, unspecified ear; N39.0 Urinary tract infection, site not specified; E87.0 Hyperosmolality and hypernatremia; E87.6 Hypokalemia; E83.42 Hypomagnesemia; Z51.5 Encounter for palliative care; E78.00 Pure hypercholesterolemia, unspecified; J44.9 Chronic obstructive pulmonary disease, unspecified; E66.9 Obesity, unspecified; M19.90 Unspecified osteoarthritis, unspecified site; Z99.81 Dependence on supplemental oxygen; E03.9 Hypothyroidism, unspecified; I11.0 Hypertensive heart disease with heart failure; I50.9 Heart failure, unspecified; Z79.890 Hormone replacement therapy; Z79.899 Other long term (current) drug therapy; Z79.01 Long term (current) use of anticoagulants; Z95.2 Presence of prosthetic heart valve
CPT/HCPCS: 36415; 36556; 51702; 71045; 73502; 80053; 81001; 83605; 83615; 83880; 84145; 85025; 85379; 85610; 86140; 87040 ×2; 87077; 87086; 87088; 87186 ×2; 93005; 96365; 99291; 99292; J0692; J3370; J7030; J7050; U0002; 36620; 70450; 70450-26; 74176; 74176-26; 76705; 76705-26; 83735; 84100; 84484; 87070; 87205; 94640; 99285; A9270-GY; C9113; J1940; J2270; J2543; J3430; J3475; J7040; J7060; J7120; J7620-GY